=== PATIENT | female | born 1950 | race Caucasian/White ===

== ENCOUNTER 2020-06-25 10:47 | Outpatient (REF) | payer MEDICARE, SELFPAY ==
[2020-06-25 14:25] LABS: MANUAL DIFF FLAG NO
[2020-06-25 14:33] LABS: Basophils Percent Auto 0.4 % (0-2); Eosinophils Absolute Auto 0.3 X10*3/uL (0.0-0.4); Eosinophils Percent Auto 3.4 % (0-4); Hematocrit 36.8 % (37-47); Hemoglobin 12.2 g/dl (12.0-16.0); Imm Gran Abs Auto 0.02 X10*3/uL (0.00-0.03); Imm Gran Pct Auto 0.2 % (0.0-0.4); Lymphocytes Absolute Auto 2.1 X10*3/uL (1.2-4.9); Lymphocytes Percent Auto 25.9 % (20-40); Mean Corpuscular HGB Conc 33.2 g/dl (31.0-35.0); Mean Corpuscular Hemoglobin 28.8 pg (27.0-33.0); Mean Platelet Volume 10.6 fL (9.4-12.3); Monocytes Absolute Auto 0.7 X10*3/uL (0.1-1.2); Neutrophils Percent Auto 62.1 % (45-73); Platelet Count 256 X10*3/uL (160-400); Red Blood Count 4.23 X10*6/uL (4.20-5.50); Red Cell Distribution Width 12.9 % (11.0-16.0); White Blood Count 8.1 X10*3/uL (4.8-10.8)
[2020-06-25 14:40] LABS: Estimated Average Glucose 183 mg/dL
[2020-06-25 14:52] LABS: Anion Gap 12 (12-20); Blood Urea Nitrogen 25 mg/dL (9-16); Calcium 9.3 mg/dL (8.4-10.2); Carbon Dioxide 26 mmol/L (22-29); Chloride 104 mmol/L (96-108); Cholesterol 386 mg/dL; Estimated Glomerular Filt Rate 53; Glucose Fasting 173 mg/dL (60-99); HDL Cholesterol 39 mg/dL; Potassium 5.3 mmol/l (3.3-5.1); Sodium 137 mmol/L (135-145); Triglycerides 608 mg/dL
[2020-06-25 15:15] LABS: TSH reflex Free T4 2.53 mIU/mL (0.32-4.0)
== END 2020-06-25 10:48 | disposition home or self-care (01) ==
LOC: HO.HMGCLDS 10:47
PROVIDERS: PCP Internal Medicine; Visit Provider Internal Medicine
DX: E03.9 Hypothyroidism, unspecified (principal); E13.9 Other specified diabetes mellitus without complications; E78.9 Disorder of lipoprotein metabolism, unspecified; F33.9 Major depressive disorder, recurrent, unspecified; K21.9 Gastro-esophageal reflux disease without esophagitis; K59.01 Slow transit constipation; I10 Essential (primary) hypertension; Z91.02 Food additives allergy status; Z91.09 Other allergy status, other than to drugs and biological substances
CPT/HCPCS: 36415; 80048; 80061; 83036; 84443; 85025

== ENCOUNTER 2020-07-02 12:34 | Outpatient (REF) | payer MEDICARE, SELFPAY ==
[2020-07-02 15:07] LABS: Creatinine Urine 93.74 mg/dL; Microalbum/Creatinine Ratio Ur 7.4 ug/mg cr
== END 2020-07-02 12:35 | disposition home or self-care (01) ==
LOC: HO.HMGCLNP 12:34
PROVIDERS: PCP Internal Medicine; Visit Provider Internal Medicine
DX: K21.9 Gastro-esophageal reflux disease without esophagitis (principal); E03.9 Hypothyroidism, unspecified; E13.9 Other specified diabetes mellitus without complications; E78.9 Disorder of lipoprotein metabolism, unspecified; F33.9 Major depressive disorder, recurrent, unspecified; I10 Essential (primary) hypertension; K59.01 Slow transit constipation; Z91.09 Other allergy status, other than to drugs and biological substances
CPT/HCPCS: 82043; 87338

== ENCOUNTER 2020-09-25 09:41 | Outpatient (REF) | payer MEDICARE, SELFPAY ==
[2020-09-25 12:22] LABS: Hematocrit 38.4 % (37-47); Hemoglobin 12.8 g/dl (12.0-16.0)
[2020-09-25 12:29] LABS: Alanine Aminotransferase 12 U/L (0-31); Albumin Level 4.3 g/dL (3.5-5.0); Alkaline Phosphatase 68 U/L (39-117); Anion Gap 16 (12-20); Aspartate Amino Transferase 15 U/L (5-31); Bilirubin Direct 0.2 mg/dL (0.0-0.5); Bilirubin Total 0.5 mg/dL (0.0-1.0); Blood Urea Nitrogen 17 mg/dL (9-16); Calcium 8.9 mg/dL (8.4-10.2); Carbon Dioxide 25 mmol/L (22-29); Chloride 106 mmol/L (96-108); Estimated Glomerular Filt Rate 59; Glucose Random 167 mg/dL (60-115); Potassium 5.1 mmol/l (3.3-5.1); Sodium 142 mmol/L (135-145); TSH reflex Free T4 5.04 mIU/mL (0.32-4.0); Total Protein 7.4 g/dL (6.5-8.0)
[2020-09-25 12:38] LABS: Estimated Average Glucose 148 mg/dL; Hemoglobin A1c % 6.8 %
[2020-09-25 13:34] LABS: Creatinine Urine 200.57 mg/dL; Microalbum/Creatinine Ratio Ur 17.9 ug/mg cr
[2020-09-25 14:13] LABS: Free T4 (Free Thyroxine) 0.96 ng/dL (0.71-1.85)
[2020-09-29 12:47] LABS: Vitamin D 25-OH, D2 <4 ng/mL; Vitamin D 25-OH, D3 19 ng/mL; Vitamin D 25-OH, Total 19 ng/mL (30-100)
== END 2020-09-25 09:42 | disposition home or self-care (01) ==
LOC: HO.HMGCLDS 09:41
PROVIDERS: PCP Internal Medicine; Visit Provider Internal Medicine
DX: I10 Essential (primary) hypertension (principal); E13.9 Other specified diabetes mellitus without complications; E78.9 Disorder of lipoprotein metabolism, unspecified; F33.9 Major depressive disorder, recurrent, unspecified; E03.9 Hypothyroidism, unspecified
CPT/HCPCS: 36415; 80048; 80076; 82043; 82306; 83036; 84439; 84443; 85014; 85018

== ENCOUNTER 2020-10-14 | Outpatient (REF) | payer MEDICARE, SELFPAY | END 2020-10-14 00:01 | disposition home or self-care (01) | LOC: HO.VC | PROVIDERS: Visit Provider Internal Medicine | DX: Z23 Encounter for immunization (principal) | CPT/HCPCS: 0011A ==

== ENCOUNTER 2020-11-11 | Outpatient (REF) | payer MEDICARE, SELFPAY | END 2020-11-11 00:01 | disposition home or self-care (01) | LOC: HO.VC | PROVIDERS: Visit Provider Internal Medicine | DX: Z23 Encounter for immunization (principal) | CPT/HCPCS: 0012A ==

== ENCOUNTER → 2020-11-16 10:33 | Outpatient (REF) | payer MEDICARE, SELFPAY | LOC: HO.CARD 10:33 | PROVIDERS: Visit Provider Internal Medicine Cardiovascular Disease | DX: Z13.89 Encounter for screening for other disorder (principal) ==

== ENCOUNTER 2020-11-18 14:43 | Outpatient (REF) | payer MEDICARE, SELFPAY ==
[2020-11-18 16:55] LABS: Hematocrit 34.5 % (37-47); Hemoglobin 11.5 g/dl (12.0-16.0); Mean Corpuscular HGB Conc 33.3 g/dl (31.0-35.0); Mean Corpuscular Hemoglobin 28.5 pg (27.0-33.0); Mean Corpuscular Volume 85.6 fL (80-98); Mean Platelet Volume 10.1 fL (9.4-12.3); Platelet Count 297 X10*3/uL (160-400); Red Blood Count 4.03 X10*6/uL (4.20-5.50); Red Cell Distribution Width 12.5 % (11.0-16.0); White Blood Count 9.5 X10*3/uL (4.8-10.8)
[2020-11-18 17:01] LABS: INTERNATIONAL NORM RATIO 1.1 (0.9-1.1); Prothrombin Time 12.9 SEC (10.8-13.0)
[2020-11-18 17:20] LABS: Anion Gap 13 (12-20); Blood Urea Nitrogen 20 mg/dL (9-16); Calcium 9.2 mg/dL (8.4-10.2); Carbon Dioxide 26 mmol/L (22-29); Chloride 103 mmol/L (96-108); Estimated Glomerular Filt Rate 48; Glucose Random 124 mg/dL (60-115); Potassium 5.2 mmol/L (3.3-5.1); Sodium 137 mmol/L (135-145)
== END 2020-11-18 14:44 | disposition home or self-care (01) ==
LOC: HO.LAB 14:43
PROVIDERS: PCP Internal Medicine; Visit Provider Internal Medicine Cardiovascular Disease
DX: I25.110 Atherosclerotic heart disease of native coronary artery with unstable angina pectoris (principal); I10 Essential (primary) hypertension; Z95.1 Presence of aortocoronary bypass graft
CPT/HCPCS: 36415; 80048; 85027; 85610; 93005; 99202

== ENCOUNTER → 2020-12-10 13:04 | Outpatient (BNVA) | payer MEDICARE, SELFPAY | PROVIDERS: PCP Internal Medicine; Visit Provider Internal Medicine Cardiovascular Disease | DX: Z13.89 Encounter for screening for other disorder (principal) | CPT/HCPCS: 99212 ==

== ENCOUNTER 2020-12-23 14:50 | Outpatient (REF) | payer MEDICARE, SELFPAY ==
[2020-12-23 16:57] LABS: Anion Gap 14 (12-20); Carbon Dioxide 26 mmol/L (22-29); Chloride 103 mmol/L (96-108); Cholesterol 158 mg/dL; HDL Cholesterol 54 mg/dL; LDL Cholesterol Calculated 59 mg/dl; Potassium 5.1 mmol/L (3.3-5.1); Sodium 138 mmol/L (135-145); Triglycerides 227 mg/dL
[2020-12-23 17:17] LABS: TSH reflex Free T4 0.08 uIU/mL (0.32-4.0)
[2020-12-23 18:17] LABS: Free T4 (Free Thyroxine) 1.46 ng/dL (0.71-1.85)
== END 2020-12-23 14:51 | disposition home or self-care (01) ==
LOC: HO.HMGCLDS 14:50
PROVIDERS: Nurse Practitioner Family; PCP Internal Medicine; Visit Provider Internal Medicine
DX: I25.10 Atherosclerotic heart disease of native coronary artery without angina pectoris (principal); E03.9 Hypothyroidism, unspecified; E87.5 Hyperkalemia
CPT/HCPCS: 36415; 80051; 80061; 84439; 84443

== ENCOUNTER → 2021-02-01 11:01 | Outpatient (BNVA) | payer MEDICARE, SELFPAY | PROVIDERS: PCP Internal Medicine; Referring Provider Internal Medicine; Visit Provider Internal Medicine Cardiovascular Disease | DX: I20.8 Other forms of angina pectoris (principal) | CPT/HCPCS: 99212 ==

== ENCOUNTER 2021-02-10 14:00 | Outpatient (RCR) | payer MEDICARE, SELFPAY ==
--- NOTE | 2020-12-25 16:27 | MHC.PT.EP ---
[facility] [place] Office [place] Office [place] Office [address] [phone] F: [phone] F: [phone] F: [phone] F: [phone] Physical Therapy Plan of Care Date of Evaluation: 12/25/20 Date of Surgery: Diagnosis: UNSTEADINESS ON FEET Assessment: 70 YO FEMALE REF TO PT TO ADDRESS UNSTEADINESS AND GEN WEAKNESS- SHE HAS A H/O CARDIAC QUAD BYPASS, CAD, AND RECENT ANGINA- DECR ACTIVITY W COVID RESTRICTIONS- RECENT , HER SONS ARE RESIDING W HER AND ASSIST W PHYS ADLs. Pt HAS DECR POSTURE AWARENESS, (+) PELVIC ASYMM W LLI INFLUENCING BALANCE, WEAKNESS IN LEs, AND ARTHRITIC Jt PAIN. FUNCTIONALLY, Pt HAS DIFFIC MANAGING STAIRS, AMB DISTANCES > 400' W/O RESTS, AND GENERAL ADLs- SHE JAMIY LIES AROUND ALOT- Pt IS GOOD PT CANDIDATE TO ADDRESS ABOVE FINDINGS AND ADDRESS Pt'S FUNCTIONAL INDEPENDENCE. Frequency and Duration: The patient will be seen 2x WK x 5 WKS Short Term Goals: Pt DEMON IMPROVED PELVIC SYMM AND DECR PAIN TO 2-3/10 W INITIAL HEP IN 2 WKS Pt INCR HIP FLEXIB LOLA IN 2 WKS Mcc Goals: Pt DEMON IMPROVED GAIT MECH LEVEL AND STAIRS EVIDENT W IMPROVED DG1 BY AT LEAST 5 POINTS (15 DGI) IN 5 WKS Pt INDEP W HEP ADDRESSING STRENGTH AND MOBILITY IN 5 WKS Treatment Plan: Modalities to reduce pain, spasms and effusion. Manual therapy to restore motion and function. Therapeutic exercise to improve strength and flexibility. Neuromuscular re-education for posture and balance. Therapeutic activities to return to functional activities of daily living. Electronically signed by: Valentine Fitzgerald,PT Please sign and return to therapist. Thank you for your referral.
--- NOTE | 2021-02-11 07:10 | MHC.PT.DC ---
[facility] [place] Office [place] Office [place] Office [address]andy Aburto [address] [phone] F: [phone] F: [phone] F: [phone] F: [phone] Physical Therapy Discharge Report Diagnosis: UNSTEADINESS ON FEET Date of Surgery: Date of Evaluation: 12/25/20 Date of Discharge: 02/10/21 Treatments to Date: 11 Cancellations to Date: 0 No Shows to Date: 0 Discharge Status: Achieved Goals Improved Function Independent with HEP Discharge Summary: Pt HAS PROGRESSED WELL IN PT, ADDRESSING OVERALL STRENGTH, BALANCE, ACTIVITY JOSE , AND FUNCT MOB. 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 INDEP W HEP- AND SHE HAS MET HER PT GOALS AT THIS TIME, EVIDENT W IMPROVED LEFT BY 26 POINTS. Electronically signed by: Valentine Fitzgerald,PT Please sign and return to therapist. Thank you for your referral.
== END 2021-02-11 07:11 | disposition other institution (70) ==
LOC: HO.PTCHIC 14:00
PROVIDERS: PCP Internal Medicine; Visit Provider Internal Medicine
DX: R26.81 Unsteadiness on feet (principal)
CPT/HCPCS: 97110; 97112; 97162

== ENCOUNTER → 2021-05-24 14:01 | Outpatient (BNVA) | payer MEDICARE, SELFPAY | PROVIDERS: PCP Internal Medicine; Referring Provider Internal Medicine; Visit Provider Internal Medicine Cardiovascular Disease | DX: I20.8 Other forms of angina pectoris (principal) | CPT/HCPCS: 99212 ==

== ENCOUNTER 2021-06-24 09:36 | Outpatient (REF) | payer MEDICARE, SELFPAY ==
[2021-06-24 11:29] LABS: MANUAL DIFF FLAG NO
[2021-06-24 11:42] LABS: Basophils Percent Auto 0.4 % (0-2); Eosinophils Absolute Auto 0.2 X10*3/uL (0.0-0.4); Eosinophils Percent Auto 2.8 % (0-4); Hematocrit 34.6 % (37-47); Hemoglobin 11.6 g/dl (12.0-16.0); Imm Gran Abs Auto 0.02 X10*3/uL (0.00-0.03); Imm Gran Pct Auto 0.3 % (0.0-0.4); Lymphocytes Absolute Auto 2.3 X10*3/uL (1.2-4.9); Lymphocytes Percent Auto 33.1 % (20-40); Mean Corpuscular HGB Conc 33.5 g/dl (31.0-35.0); Mean Corpuscular Hemoglobin 29.2 pg (27.0-33.0); Mean Corpuscular Volume 87.2 fL (80-98); Mean Platelet Volume 11.2 fL (9.4-12.3); Monocytes Absolute Auto 0.5 X10*3/uL (0.1-1.2); Monocytes Percent Auto 6.6 % (2-11); Neutrophils Percent Auto 56.8 % (45-73); Platelet Count 240 X10*3/uL (160-400); Red Blood Count 3.97 X10*6/uL (4.20-5.50); Red Cell Distribution Width 13.1 % (11.0-16.0); White Blood Count 7.1 X10*3/uL (4.8-10.8)
[2021-06-24 11:48] LABS: Alanine Aminotransferase 9 U/L (0-31); Alkaline Phosphatase 63 U/L (39-117); Anion Gap 14 (12-20); Aspartate Amino Transferase 14 U/L (5-31); Bilirubin Total 0.3 mg/dL (0.0-1.0); Blood Urea Nitrogen 19 mg/dL (9-16); Calcium 9.6 mg/dL (8.4-10.2); Carbon Dioxide 24 mmol/L (22-29); Chloride 107 mmol/L (96-108); Estimated Glomerular Filt Rate 54; Glucose Random 143 mg/dL (60-115); Potassium 5.4 mmol/L (3.3-5.1); Sodium 140 mmol/L (135-145); Total Protein 6.8 g/dL (6.5-8.0)
[2021-06-24 11:53] LABS: Estimated Average Glucose 134 mg/dL; Hemoglobin A1c % 6.3 %
[2021-06-24 12:11] LABS: TSH reflex Free T4 1.11 uIU/mL (0.32-4.0)
[2021-06-24 12:16] LABS: Creatinine Urine 118.99 mg/dL; Microalbum/Creatinine Ratio Ur 22.6 ug/mg cr
[2021-06-25 06:01] LABS: LDL Cholesterol Direct 66 mg/dL (<100)
== END 2021-06-24 09:37 | disposition home or self-care (01) ==
LOC: HO.HMGCLDS 09:36
PROVIDERS: PCP Internal Medicine; Visit Provider Internal Medicine
DX: I10 Essential (primary) hypertension (principal); E78.9 Disorder of lipoprotein metabolism, unspecified; E13.9 Other specified diabetes mellitus without complications; F33.9 Major depressive disorder, recurrent, unspecified; E03.9 Hypothyroidism, unspecified; K21.9 Gastro-esophageal reflux disease without esophagitis; E87.5 Hyperkalemia; Z91.09 Other allergy status, other than to drugs and biological substances
CPT/HCPCS: 36415; 80053; 82043; 83036; 83721; 84443; 85025

== ENCOUNTER 2021-06-28 08:33 | Outpatient (REF) | payer MEDICARE, SELFPAY ==
[2021-06-28 12:06] LABS: Anion Gap 12 (12-20); Carbon Dioxide 25 mmol/L (22-29); Chloride 109 mmol/L (96-108); Potassium 5.2 mmol/L (3.3-5.1); Sodium 141 mmol/L (135-145)
== END 2021-06-28 08:34 | disposition home or self-care (01) ==
LOC: HO.HMGCLDS 08:33
PROVIDERS: PCP Internal Medicine; Visit Provider Internal Medicine
DX: E87.5 Hyperkalemia (principal)
CPT/HCPCS: 36415; 80051

== ENCOUNTER 2021-06-28 10:22 | Day surgery (SDC) | payer MEDICARE, SELFPAY ==
--- NOTE | 2021-06-23 13:27 | MHC.SHP ---
Pre-Procedural Eval Section A Date of Service: 06/23/21 The patient is an INPATIENT: No Changes since office visit: No Cold of Flu in the past 2 weeks, No New Medical Problems, No Changes in Medication and No Patient answered all questions The History & Physical has been completed within 30 days and I have reviewed it.: Yes Section B Chief Complaint: cataract left eye Allergies: Allergies Allergy/AdvReac Type Severity Reaction Status Date / Time codeine [Codeine] Allergy Intermediate VOMITING Verified 05/24/21 14:03 aspirin [Aspirin] AdvReac Mild DIZZINESS Verified 05/24/21 14:03 Plan Diagnosis/Plan: Unchanged I have reviewed the history and physical and performed a pertinent physical examination on my patient. No changes have occurred unless specified.
[2021-06-24 08:14] VITALS: BMI 26.2
--- NOTE | 2021-06-25 10:45 | P.CONAN_ITS ---
Documented by User: Brianna Willoughby NP 06/25/21 10:49 HPI - Anesthesia Eval Consult details Narrative: 70yo F for Left Cataract Extraction IOL Insertion PCP cleared No previous cataract on record Stable at routine cardiology office visit 05/2021 [facility] Active Problems Active Problems: All Active Problems (Updated 06/25/21 @ 07:56 by Tierra Grace MD) Hyperkalemia (Acute) Pre-op evaluation (Acute) Unstable angina (Acute) Coronary artery disease (Acute) Chest discomfort (Acute) Unsteady gait (Acute) Serum potassium elevated (Acute) Stable angina (Acute) History of four vessel coronary artery bypass graft (Acute) S/P cardiac cath (Acute) Diverticulosis (Acute) Allergy to food dye (Acute) Hypertension, essential (Acute) Constipation by delayed colonic transit (Acute) Lipid disorder (Acute) Diabetes 1.5, managed as type 2 (Acute) Depression, major, recurrent (Acute) Chronic GERD (Acute) Hypothyroidism (Acute) Environmental allergies (Acute) Past Medical History Medical History Allergy to food dye Arthritis CAD (coronary artery disease) Chronic GERD Constipation by delayed colonic transit Depression, major, 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 Mother No problems noted. Surgical History Surgical History History of bilateral tubal ligation History of colonoscopy History of four vessel coronary artery bypass graft History of hysteroscopy History of right cataract extraction Hx of cholecystectomy S/P cardiac cath Social History Social History Are you a primary home care associate to a significant other at home: No Do you presently have visiting nurse or other home services: No Alcohol intake: never Patient Tobacco Use Status: Never used Tobacco Use of substances other than those prescribed or required for medical reasons: No Are you DNR?: No Advance Directives: No Advance Directives Information Provided: No Advance Directives on File: No Current occupational status: disabled Meds Allergies Allergy/AdvReac Type Severity Reaction Status Date / Time codeine [Codeine] Allergy Intermediate VOMITING Verified 06/28/21 11:28 aspirin [Aspirin] AdvReac Mild DIZZINESS Verified 06/28/21 11:28 Home Medications Medication Instructions Recorded Confirmed Last Taken Type aspirin 81 mg tablet,delayed 81 mg PO DAILY 06/24/20 06/23/21 06/27/21 11:30 History release nitroglycerin 0.4 mg sublingual 0.4 mg SUBLINGUAL DIRECTED PRN 11/18/20 06/23/21 Unknown History tablet rosuvastatin 20 mg tablet 20 mg PO BEDTIME 11/18/20 06/23/21 Unknown History estradiol 1 g VAGINAL 2XW 12/23/20 06/23/21 Unknown History levothyroxine 75 mcg capsule 75 mcg PO DAILY 02/01/21 06/23/21 Unknown History Exam Exam Date and Time: June 25, 2021 1045 Height,Weight and Vital Signs: Height 5 ft 3 in Weight 67.132 kg Pertinent Lab Results Pertinent Lab Results: Laboratory Tests 06/24/21 06/24/21 09:46 09:46 WBC 7.1 Hgb 11.6 L Hct 34.6 L Plt Count 240 Sodium 140 Potassium 5.4 H Chloride 107 Carbon Dioxide 24 BUN 19 H Creatinine 1.01 Narrative Narrative: Cardiac cath 11/2020 LM 40%, PAD 100%, LCx 70%, RCA 100%, Graphs to OM1, OM2, RV marginal and CURRY to LAD all patent. 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 Mother No problems noted. Family history of problems with anesthesia: No Surgical History Surgical History History of bilateral tubal ligation History of colonoscopy History of four vessel coronary artery bypass graft History of hysteroscopy History of right cataract extraction Hx of cholecystectomy S/P cardiac cath History of Problems with Anesthesia: No Social History Social History Are you a primary home care associate to a significant other at home: No Do you presently have visiting nurse or other home services: No Alcohol intake: never Patient Tobacco Use Status: Never used Tobacco Use of substances other than those prescribed or required for medical reasons: No Are you DNR?: No Advance Directives: No Advance Directives Information Provided: No Advance Directives on File: No Current occupational status: disabled Meds Allergies Allergy/AdvReac Type Severity Reaction Status Date / Time codeine [Codeine] Allergy Intermediate VOMITING Verified 06/28/21 11:28 aspirin [Aspirin] AdvReac Mild DIZZINESS Verified 06/28/21 11:28 Home Medications Medication Instructions Recorded Confirmed Last Taken Type aspirin 81 mg tablet,delayed 81 mg PO DAILY 06/24/20 06/23/21 06/27/21 11:30 H istory release nitroglycerin 0.4 mg sublingual 0.4 mg SUBLINGUAL DIRECTED PRN 11/18/20 06/23/21 Unknown History tablet rosuvastatin 20 mg tablet 20 mg PO BEDTIME 11/18/20 06/23/21 Unknown History estradiol 1 g VAGINAL 2XW 12/23/20 06/23/21 Unknown History levothyroxine 75 mcg capsule 75 mcg PO DAILY 02/01/21 06/23/21 Unknown History Exam Airway Mallampati Class: II TM Dist: >3cm Neck ROM: Full Loose/Missing/Broken Teeth: No Heart: [id number] Lungs: cta b/l Assessment and Plan Assessment Anesthesia Assessment: Anesthesia Plan Discussed Final Anesthetic Review Family History of Problems with Anesthesia: No History of Problems with Anesthesia: No NPO: Yes ASA Class: III Final Preanesthetic Review: No Changes in Pt Med Stat, Meds/Allgs Chart Reviewed, Consent Obtained/Reviewed and Anes Risks/Benef Reviewed Patient Risk: Intermediate Procedure Risk: Low Assessment/Block/Sedation in SS: Assess/Block/Sedation-SS Anesthetic Plan Anesthetic Plan: MAC: and Agree w/ Assess. and Plan Disposition: Standard PACU
[2021-06-28 11:42] VITALS: BP 127/67; PULSE 64; RESP 18; TEMP 36.5; O2SAT 98
[2021-06-28 11:45] LABS: Glucose, Whole Blood 129 mg/dL (60-115)
[2021-06-28] MEDS: Lactated Ringers 500 ML 50 ML IV (11:52)
[2021-06-28] MEDS: Tetracaine HCl/PF 0.5% Oph Sol 4 ML DROPS 1 DROP EYE-LEFT (11:55)
[2021-06-28] MEDS: Tropicamide 1 % Ophth Sol 3 ML BTL 1 DROP EYE-LEFT ×3 (11:56→12:04)
[2021-06-28] MEDS: Phenylephrine HCL 2.5% Oph SoL 2 ML BOTTLE 1 DROP EYE-LEFT ×3 (11:59→12:06)
--- NOTE | 2021-06-28 12:28 | HO.PNOPHT ---
Ophthalmology Procedure Procedure Date of Service: 06/28/21 Ophthalmology Viscoelastic: Healon Duet Dual Pack Pro Ophthalmology Lenses: TECJHONNY [id number] (23) Procedure Notes: PREOPERATIVE DIAGNOSIS: Decreased visual acuity left eye secondary to cataract POSTOPERATIVE DIAGNOSIS: Same PROCEDURE: Left cataract extraction with intraocular lens insertion SURGEON: John Linda M.D. ANESTHESIA: Topical/MAC ESTIMATED BLOOD LOSS: None COMPLICATIONS: None After obtaining informed consent, the patient was brought to the operation room suite and placed in the supine position. After adequate sedation per anesthesia, topical drops of Tetracaine were given to the left eye. The eye was then prepped and draped in the usual sterile fashion. The operating room microscope was then positioned over the operative eye and a lid speculum placed. A paracentesis was created. Viscoelastic was then instilled into the anterior chamber. A three plane incision was then created temporally, utilizing a 2.85 mm keratome. Capsulotomy forceps were then utilized to create a circular tear capsulotomy. Hydrodissection and hydrodelineation were carried out until adequate mobilization of the nucleus occurred. Phacoemulsification was then utilized to remove the dense central nucleus followed by removal of the cortical material utilizing the automated aspiration irrigation unit. Viscoat elastic was instilled into the posterior capsular bag followed by placement of a posterior chamber intraocular lens without difficulty. The residual Viscoat elastic was then removed utilizing the automated IA machine. The wound was check and found to be watertight. The patient tolerated the procedure well and the lid speculum was removed. Intracameral injection of Vigamox 0.1 mL followed by a subtenon injection of Kenalog-40 0.2 mL were administered. The patient will be seen in the a.m.
[2021-06-28 12:53] VITALS: BP 140/66; PULSE 65; RESP 16; TEMP 37.2; O2SAT 99
== END 2021-06-28 13:06 ==
LOC: HO.SSS 10:22
PROVIDERS: PCP Internal Medicine; Visit Provider Ophthalmology
PROC: (CPT 66985; principal; 2021-06-28 12:30)
DX: H25.12 Age-related nuclear cataract, left eye (principal); H35.032 Hypertensive retinopathy, left eye; H54.7 Unspecified visual loss; I10 Essential (primary) hypertension; I20.8 Other forms of angina pectoris; E78.9 Disorder of lipoprotein metabolism, unspecified; E03.9 Hypothyroidism, unspecified; K21.9 Gastro-esophageal reflux disease without esophagitis; E13.9 Other specified diabetes mellitus without complications; F33.9 Major depressive disorder, recurrent, unspecified; Z79.84 Long term (current) use of oral hypoglycemic drugs; Z79.82 Long term (current) use of aspirin; Z79.51 Long term (current) use of inhaled steroids; Z79.899 Other long term (current) drug therapy; Z91.09 Other allergy status, other than to drugs and biological substances; Z88.8 Allergy status to other drugs, medicaments and biological substances
CPT/HCPCS: 66984; 82947; J2250; J3010; J3300; V2632

== ENCOUNTER → 2021-08-30 14:00 | Outpatient (BNVA) | payer MEDICARE, SELFPAY | PROVIDERS: PCP Internal Medicine; Referring Provider Internal Medicine; Visit Provider Internal Medicine Cardiovascular Disease | DX: I20.8 Other forms of angina pectoris (principal) | CPT/HCPCS: 93005; 99212 ==

== ENCOUNTER 2021-10-22 12:08 | Outpatient (REF) | payer MEDICARE, SELFPAY ==
[2021-10-22 14:21] LABS: Estimated Average Glucose 143 mg/dL; Hemoglobin A1C 151.8894 umol/L; Hemoglobin A1c % 6.6 %
[2021-10-22 14:28] LABS: Alanine Aminotransferase 10 U/L (0-31); Albumin Level 4.1 g/dL (3.5-5.0); Alkaline Phosphatase 66 U/L (39-117); Anion Gap 11 (12-20); Aspartate Amino Transferase 16 U/L (5-31); Bilirubin Total 0.4 mg/dL (0.0-1.0); Blood Urea Nitrogen 23 mg/dL (9-16); Calcium 9.6 mg/dL (8.4-10.2); Carbon Dioxide 27 mmol/L (22-29); Chloride 105 mmol/L (96-108); Estimated Glomerular Filt Rate 43; Glucose Random 139 mg/dL (60-115); Potassium 5.5 mmol/L (3.3-5.1); Sodium 137 mmol/L (135-145)
[2021-10-22 14:38] LABS: Creatinine Urine 114.79 mg/dL
[2021-10-22 14:50] LABS: TSH reflex Free T4 0.43 uIU/mL (0.32-4.0)
[2021-10-24 08:32] LABS: LDL Cholesterol Direct 63 mg/dL (<100)
== END 2021-10-22 12:09 | disposition home or self-care (01) ==
LOC: HO.HMGCLDS 12:08
PROVIDERS: Visit Provider Internal Medicine
DX: E87.5 Hyperkalemia (principal); I10 Essential (primary) hypertension; E78.9 Disorder of lipoprotein metabolism, unspecified; E13.9 Other specified diabetes mellitus without complications; F33.9 Major depressive disorder, recurrent, unspecified; K21.9 Gastro-esophageal reflux disease without esophagitis
CPT/HCPCS: 36415; 80053; 82043; 83036; 83721; 84443

== ENCOUNTER 2021-10-25 09:53 | Outpatient (REF) | payer MEDICARE, SELFPAY ==
[2021-10-25 12:34] LABS: Anion Gap 11 (12-20); Blood Urea Nitrogen 16 mg/dL (9-16); Carbon Dioxide 28 mmol/L (22-29); Chloride 106 mmol/L (96-108); Estimated Glomerular Filt Rate 47; Potassium 5.1 mmol/L (3.3-5.1); Sodium 140 mmol/L (135-145)
== END 2021-10-25 09:54 | disposition home or self-care (01) ==
LOC: HO.HMGCLDS 09:53
PROVIDERS: PCP Internal Medicine; Visit Provider Internal Medicine
DX: E87.5 Hyperkalemia (principal)
CPT/HCPCS: 36415; 80051; 82565; 84520

== ENCOUNTER 2021-12-13 17:05 | Emergency (ER) | payer MEDICARE, SELFPAY ==
--- NOTE | ~2021-12-13 | CT_ITS ---
EXAMINATION: CT ABDOMEN AND PELVIS WITHOUT CONTRAST CLINICAL INFORMATION: Left-sided flank pain COMPARISON: CT abdomen pelvis 04/11/2017 TECHNIQUE: Multidetector volumetric imaging was performed from the superior aspect of the liver through the pubic symphysis. Sagittal and coronal reformatted images were obtained on the technologist's workstation. This CT examination was performed using dose optimization techniques as appropriate, variously including the following: *Automated exposure control *Adjustment of mA and/or kV according to patient size (this includes techniques or standardized protocols for targeted exams where dose is matched to indication/reason for exam; i.e. extremities or head) *Use of iterative reconstruction technique DLP: 556 mGy-cm FINDINGS: LUNG BASES: Extensive coronary calcifications are present. Patient status post median sternotomy. There is a 2 mm nodule present along the major fissure in the left lower lobe. LIVER, GALLBLADDER, AND BILIARY TREE: The liver is normal in size, shape, and attenuation. No focal hepatic lesion or biliary ductal dilatation is present. Status post cholecystectomy PANCREAS: Unremarkable. SPLEEN: Unremarkable. ADRENAL GLANDS: Unremarkable. KIDNEYS AND URETERS: The kidneys are normal in size, shape, and attenuation. Extensive calcifications are present in both kidneys however appearances are more suggestive of vascular calcifications rather than nephrolithiasis. Nephrolithiasis cannot be entirely excluded however there is no hydronephrosis, hydroureter, or ureteral calculi seen. No perinephric stranding. BLADDER: Unremarkable. GASTROINTESTINAL TRACT: The small and large bowel are unremarkable. The appendix is unremarkable. ABDOMINAL WALL: No significant hernia is appreciated. LYMPH NODES: No retroperitoneal lymphadenopathy. VASCULAR: Marked calcific atherosclerotic changes present in the aorta and iliofemoral vessels and aortic branches. No aneurysms PELVIC VISCERA: Unremarkable. OSSEOUS STRUCTURES: Degenerative changes are noted in the lower thoracic spine. Some mild wedging of lower thoracic and upper lumbar vertebral bodies. No bony destructive lesions. CT/CT abdomen pelvis wo con IMPRESSION: 1. An etiology for the patient's left-sided flank pain is not found. 2. Extensive renal vascular calcifications are seen but there is no convincing evidence of nephrolithiasis and certainly no hydronephrosis. 3. Other incidental findings described above. Fleischner guidelines were followed.
[2021-12-13 17:40] VITALS: BP 149/66; PULSE 78; RESP 17; TEMP 37.2; O2SAT 95; BMI 27.1
--- NOTE | 2021-12-13 17:49 | ED.FEMALEGU ---
HPI - Female Genitourinary General Chief complaint: Urogenital-Female <Katlyn Mortensen NP - Last Filed: 12/13/21 18:52> Stated complaint: left abd pain <Katlyn Mortensen NP - Last Filed: 12/13/21 18:52> Time Seen by Provider: 12/13/21 17:36 <Katlyn Mortensen NP - Last Filed: 12/13/21 18:52> Source: patient and family <Katlyn Mortensen NP - Last Filed: 12/13/21 18:52> Mode of arrival: ambulatory <Katlyn Mortensen NP - Last Filed: 12/13/21 18:52> Limitations: no limitations <Katlyn Mortensen NP - Last Filed: 12/13/21 18:52> History of Present Illness HPI Narrative: 71 yo female with history of GERD, depression, DM, HTN, hypothyroidism, HLD, CAD, h/o UTIs here with complaints of left-sided flank pain with radiation to the left side of the abdomen began at 01:00 o'clock this afternoon with nausea and vomiting. No fevers, chills, diarrhea, constipation. Patient does feel like she may have a urinary tract infection. <Katlyn Mortensen NP - Last Filed: 12/13/21 18:52> Related Data Home medications: Home Medications Medication Instructions Recorded Confirmed aspirin 81 mg tablet,delayed 81 mg PO DAILY 06/24/20 10/22/21 release nitroglycerin 0.4 mg sublingual 0.4 mg SUBLINGUAL DIRECTED PRN 11/18/20 10/22/21 tablet estradiol 1 g VAGINAL 2XW 12/23/20 10/22/21 levothyroxine 75 mcg capsule 75 mcg PO DAILY 02/01/21 10/22/21 Previous Rx's Medication Instructions Recorded alcohol swabs 1 pad TOPICAL DAILY #100 ea 11/18/20 blood sugar diagnostic (OneTouch #50 ea 11/18/20 Ultra Blue Test Strip) blood-glucose meter (OneTouch #1 ea 11/18/20 Ultra2 Meter) lancets (OneTouch UltraSoft #100 ea 11/18/20 Lancets) fluticasone propionate 50 1 spray INTRANASAL DAILY 30 Days 12/23/20 mcg/actuation nasal #16 g spray,suspension (Flonase Allergy Relief) loratadine 10 mg tablet 10 mg PO DAILY 90 Days #90 tab 12/23/20 pantoprazole 40 mg tablet,delayed 40 mg PO DAILY 90 Days #90 tab 02/15/21 release metoprolol tartrate 25 mg tablet 12.5 mg PO BID 90 Days #90 tab 09/13/21 metformin 1,000 mg tablet 1,000 mg PO BID 90 Days #180 tab 10/19/21 sitagliptin 50 mg tablet (Januvia) 50 mg PO DAILY 90 Days #90 tab 10/19/21 rosuvastatin 20 mg tablet 20 mg PO BEDTIME 90 Days #90 tab 12/08/21 sertraline 100 mg tablet 100 mg PO DAILY 90 Days #90 tab 12/10/21 cefpodoxime 200 mg tablet 200 mg PO BID #20 tab 12/13/21 tramadol 50 mg tablet 50 mg PO Q6H PRN #20 tab 12/13/21 <Katlyn Mortensen NP - Last Filed: 12/13/21 18:52> Allergies/Adverse reactions: Allergies Allergy/AdvReac Type Severity Reaction Status Date / Time codeine [Codeine] Allergy Intermediate VOMITING Verified 10/22/21 11:43 aspirin [Aspirin] AdvReac Mild DIZZINESS Verified 10/22/21 11:43 <Katlyn Mortensen NP - Last Filed: 12/13/21 18:52> Review of Systems Review of Systems: Yes all other systems are reviewed and are negative <Katlyn Mortensen NP - Last Filed: 12/13/21 18:52> Constitutional: Constitutional: Reports no additional constitutional complaints, Denies body ache(s), Denies chills, Denies fever(s), Denies headache(s) and Denies weakness <Katlyn Mortensen NP - Last Filed: 12/13/21 18:52> Eyes: Eyes: Reports no additional eye complaints and Denies change in vision <Katlyn Mortensen NP - Last Filed: 12/13/21 18:52> ENT: Reports system reviewed and no additional complaints, except as documented, Denies dizziness, Denies headache(s), Denies nasal congestion, Denies nasal discharge and Denies neck pain <Katlyn Mortensen NP - Last Filed: 12/13/21 18:52> Cardiovascular: Cardiovascular: Reports no additional cardiovascular complaints, Denies chest pain, Denies leg edema and Denies dyspnea <Katlyn Mortensen NP - Last Filed: 12/13/21 18:52> Respiratory: Respiratory: Reports no additional respiratory complaints, Denies cough and Denies dyspnea <Katlyn Mortensen NP - Last Filed: 12/13/21 18:52> Gastrointestinal: Gastrointestinal: Reports no additional gastrointestinal complaints, Reports abdominal pain, Denies diarrhea, Reports nausea and Reports vomiting <Katlyn Mortensen NP - Last Filed: 12/13/21 18:52> Genitourinary: Genitourinary: Reports no additional female genitourinary complaints and Denies urinary incontinence <Katlyn Mortensen NP - Last Filed: 12/13/21 18:52> Musculoskeletal: Musculoskeletal: Reports no additional musculoskeletal complaints, Reports back pain, Denies arthralgias, Denies joint swelling, Denies neck pain, Denies numbness and Denies tingling <Katlyn Mortensen NP - Last Filed: 12/13/21 18:52> Integumentary/Breasts: Skin/Breast: Reports system reviewed and no additional complaints, except as docu and Denies rash <Katlyn Mortensen NP - Last Filed: 12/13/21 18:52> Neurologic: Reports system reviewed and no additional complaints, except as documented, Denies Abnormal speech present, Denies dizziness, Denies headache(s), Denies numbness, Denies tingling and Denies weakness <Katlyn Mortensen NP - Last Filed: 12/13/21 18:52> PMF Past Medical History Attestation statement: The following information was validated with the patient. 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 Mother No problems noted. <Katlyn Mortensen NP - Last Filed: 12/13/21 18:52> Social History Social History: Social History Are you a primary child care education coordinator to a significant other at home: No Do you presently have visiting nurse or other home services: No Alcohol intake: never Patient Tobacco Use Status: Never used Tobacco Advance Directives: No Advance Directives Information Provided: No Patient : No Current occupational status: disabled <Katlyn Mortensen NP - Last Filed: 12/13/21 18:52> Physical Exam Vital Signs: Vital Signs: Last Vital Signs Temp 99.0 F 12/13/21 17:40 Pulse 78 12/13/21 17:40 Resp 16 12/13/21 19:52 BP 124/57 L 12/13/21 19:52 Pulse Ox 95 12/13/21 17:40 BMI result Body Mass Index 27.1 <Katlyn Mortensen NP - Last Filed: 12/13/21 18:52> Vital Signs: Last Vital Signs Temp 99.0 F 12/13/21 17:40 Pulse 78 12/13/21 17:40 Resp 16 12/13/21 19:52 BP 124/57 L 12/13/21 19:52 Pulse Ox 95 12/13/21 17:40 BMI result Body Mass Index 27.1 <Jamal Mei MD - Last Filed: 12/13/21 21:33> Const: General: cooperative, healthy appearing, comfortable and no acute distress <Katlyn Mortensen NP - Last Filed: 12/13/21 18:52> Orientation/consciousness: patient oriented x3 <Katlyn Mortensen NP - Last Filed: 12/13/21 18:52> Limitations: no limitations <Katlyn Mortensen NP - Last Filed: 12/13/21 18:52> HEENT: Head: Yes normal to inspection <Katlyn Mortensen NP - Last Filed: 12/13/21 18:52> Ears: hearing grossly normal bilaterally <Katlyn Mortensen NP - Last Filed: 12/13/21 18:52> General nose exam: Normal external nose present <Katlyn Mortensen NP - Last Filed: 12/13/21 18:52> Face and sinus: Yes normal facial exam <Kaltyn Mortensen NP - Last Filed: 12/13/21 18:52> Mouth: Normal oral and palatal mucosa present <Katlyn Mortensen NP - Last Filed: 12/13/21 18:52> Throat: Yes posterior oropharynx normal <Katlyn Mortensen NP - Last Filed: 12/13/21 18:52> Eyes: General: appearance normal, both eyes and all related structures <Katlyn Mortensen NP - Last Filed: 12/13/21 18:52> Pupils: Equal, round and reactive pupils present <Katlyn Mortensen NP - Last Filed: 12/13/21 18:52> Neck: Neck: Yes normal visual inspection <Katlyn Mortensen NP - Last Filed: 12/13/21 18:52> Chest: Chest palpation & inspection: normal inspection of the chest <Katlyn Mortensen NP - Last Filed: 12/13/21 18:52> Resp: Effort & Inspection: normal respiratory effort <Katlyn Mortensen NP - Last Filed: 12/13/21 18:52> Auscultation: clear to auscultation bilaterally <Katlyn Mortensen NP - Last Filed: 12/13/21 18:52> Cardio: Rate: regular rate <Katlyn Mortensen NP - Last Filed: 12/13/21 18:52> Rhythm: regular rhythm <Katlyn Mortensen NP - Last Filed: 12/13/21 18:52> Peripheral pulses: Peripheral pulses 2+ throughout <Katlyn Mortensen NP - Last Filed: 12/13/21 18:52> GI: Inspection: Yes normal to inspection <Katlyn Mortensen NP - Last Filed: 12/13/21 18:52> Palpation (GI): Soft to palpation and Tenderness to palpation present (GI) (LUQ/LLQ-no rebound or guarding) <Katlyn Mortensen NP - Last Filed: 12/13/21 18:52> Auscultation: normal bowel sounds <Katlyn Mortensen NP - Last Filed: 12/13/21 18:52> : General: Yes CVA tenderness (Left) <Katlyn Mortensen NP - Last Filed: 12/13/21 18:52> Back/Spine/Pelvis: Back: CVA tenderness (Left) <Katlyn Mortensen NP - Last Filed: 12/13/21 18:52> Thoracic/Lumbar Spine: thoracic and lumbar spine normal to inspection <Katlyn Mortensen NP - Last Filed: 12/13/21 18:52> Skin: General skin exam: no rashes or lesions noted <Katlyn Mortensen NP - Last Filed: 12/13/21 18:52> Neuro: General: patient oriented x3, no focal motor deficits and normal sensation to monofilament <Katlyn Mortensen NP - Last Filed: 12/13/21 18:52> Cranial nerves: Yes Equal, round and reactive pupils present <Katlyn Mortensen NP - Last Filed: 12/13/21 18:52> Cognition (Neuro): normal cognition <Katlyn Mortensen NP - Last Filed: 12/13/21 18:52> Speech: No Abnormal speech present <Katlyn Mortensen NP - Last Filed: 12/13/21 18:52> Gait exam (Neuro): Normal gait present <Katlyn Mortensen NP - Last Filed: 12/13/21 18:52> Motor exam (neuro): 5/5 motor strength present throughout <Katlyn Mortensen NP - Last Filed: 12/13/21 18:52> Extrem: General: Yes normal to inspection <Katlyn Mortensen NP - Last Filed: 12/13/21 18:52> Course Course Course Narrative: Left flank pain with radiation to left abdomen since 1pm with nausea/vomiting. Will check labs, UA. Will give antiemetic, analgesia. Anticipate need for CT w/ or w/o contrast 1900-Sign out to Dr Mei pending CT A/P <Katlyn Mortensen NP - Last Filed: 12/13/21 18:52> Reevaluation(s) Reevaluation #1: Labs show mild leukocytosis, renal function at baseline, UA is pending but shows 1+RBC, 2+WBC. CT w/o contrast ordered. <Katlyn Mortensen NP - Last Filed: 12/13/21 18:52> Time: 18:45 <Katlyn Mortensen NP - Last Filed: 12/13/21 18:52> MDM - Female Genitourinary MDM Narrative Medical decision making narrative: 71 yo female here with sudden onset left flank pain with radiation to the left abdomen at 1pm with nausea/vomiting L CVA tenderness on exam with LUQ/LLQ AP with TTP. Consider renal colic, pyelo, divert, pancreatitis <Katlyn Mortensen NP - Last Filed: 12/13/21 18:52> 71 yo female here with sudden onset left flank pain with radiation to the left abdomen at 1pm with nausea/vomiting L CVA tenderness on exam with LUQ/LLQ AP with TTP. Consider renal colic, pyelo, divert, pancreatitis [address] scan negative for any any acute obstructive uropathy left renal calcification was seen urine slightly infected with increased WBC count patient was given IV Rocephin discharge patient home on cefpodoxime and tramadol <Jamal Mei MD - Last Filed: 12/13/21 21:33> Medical Records Attestation: I reviewed the patient's medical records. <Katlyn Mortensen NP - Last Filed: 12/13/21 18:52> Lab Data Attestation: I reviewed the patient's lab results. <Katlyn Mortensen NP - Last Filed: 12/13/21 18:52> Result diagrams: : 12/13/21 18:04 12/13/21 18:03 <Katlyn Mortensen NP - Last Filed: 12/13/21 18:52> Labs: Lab Results 12/13/21 12/13/21 12/13/21 Range/Units 18:03 18:04 18:04 WBC 12.6 H (4.8-10.8) X10*3/uL RBC 4.12 L (4.20-5.50) X10*6/uL Hgb 12.0 (12.0-16.0) g/dl Hct 36.2 L (37.0-47.0) % MCV 87.9 (80.0-98.0) fL MCH 29.1 (27.0-33.0) pg MCHC 33.1 (31.0-35.0) g/dl RDW 13.1 (11.0-16.0) % Plt Count 265 (160-400) X10*3/uL MPV 10.3 (9.4-12.3) fL Immature Gran % (Auto) 1.0 H (0.0-0.4) % Neut % (Auto) 76.6 H (45-73) % Lymph % (Auto) 15.9 L (20-40) % Gaines % (Auto) 5.1 (2-11) % Eos % (Auto) 1.2 (0-4) % Baso % (Auto) 0.2 (0-2) % Lymph # (Auto) 2.0 (1.2-4.9) X10*3/uL Gaines # (Auto) 0.6 (0.1-1.2) X10*3/uL Eos # (Auto) 0.2 (0.0-0.4) X10*3/uL Baso # (Auto) 0.0 (0.0-0.2) X10*3/uL Abs Immat Gran (auto) 0.12 H (0.00-0.03) X10*3/uL Absolute Neuts (auto) 9.6 H (2.0-8.3) x10*3/uL Absolute Nucleated RBC 0.000 (0.0-0.012) X10*3/uL Nucleated RBC % (auto) 0.0 (0.0-0.2) /100WBC Sodium 137 (135-145) mmol/L Potassium 4.9 (3.3-5.1) mmol/L Chloride 101 (96-108) mmol/L Carbon Dioxide 27 (22-29) mmol/L Anion Gap 14 (12-20) BUN 22 H (9-16) mg/dL Creatinine 1.21 (0.5-1.4) mg/dL Estim Creat Clear Calc 37.2 Estimated GFR 44 Random Glucose 167 H (60-115) mg/dL Calcium 10.0 (8.4-10.2) mg/dL Total Bilirubin 0.4 (0.0-1.0) mg/dL Direct Bilirubin 0.2 (0.0-0.5) mg/dL AST 19 (5-31) U/L ALT 14 (0-31) U/L Alkaline Phosphatase 72 (39-117) U/L Total Protein 7.5 (6.5-8.0) g/dL Albumin 4.4 (3.5-5.0) g/dL Lipase 23 (8-78) U/L Urine Color YELLOW Urine Appearance HAZY Urine pH 6.0 (5.0-8.0) Ur Specific [place] 1.025 (1.005-1.025) Urine Protein 2+ H (NEG-TRACE) MG/DL Urine Glucose (UA) NEG (NEG) MG/DL Urine Ketones 5 (NEG) MG/DL Urine Blood 1+ H (NEG) Urine Nitrite NEG (NEG) Ur Leukocyte Esterase 2+ H (NEG) Urine RBC 5-9 H (0) /HPF Urine WBC 15-29 H (0-4) /HPF Ur Squamous Epith Cells 1+ /LPF Amorphous Sediment TRACE /LPF Urine Bacteria NONE /LPF <Katlyn Mortensen NP - Last Filed: 12/13/21 18:52> Lab Results 12/13/21 12/13/21 12/13/21 Range/Units 18:03 18:04 18:04 WBC 12.6 H (4.8-10.8) X10*3/uL RBC 4.12 L (4.20-5.50) X10*6/uL Hgb 12.0 (12.0-16.0) g/dl Hct 36.2 L (37.0-47.0) % MCV 87.9 (80.0-98.0) fL MCH 29.1 (27.0-33.0) pg MCHC 33.1 (31.0-35.0) g/dl RDW 13.1 (11.0-16.0) % Plt Count 265 (160-400) X10*3/uL MPV 10.3 (9.4-12.3) fL Immature Gran % (Auto) 1.0 H (0.0-0.4) % Neut % (Auto) 76.6 H (45-73) % Lymph % (Auto) 15.9 L (20-40) % Gaines % (Auto) 5.1 (2-11) % Eos % (Auto) 1.2 (0-4) % Baso % (Auto) 0.2 (0-2) % Lymph # (Auto) 2.0 (1.2-4.9) X10*3/uL Gaines # (Auto) 0.6 (0.1-1.2) X10*3/uL Eos # (Auto) 0.2 (0.0-0.4) X10*3/uL Baso # (Auto) 0.0 (0.0-0.2) X10*3/uL Abs Immat Gran (auto) 0.12 H (0.00-0.03) X10*3/uL Absolute Neuts (auto) 9.6 H (2.0-8.3) x10*3/uL Absolute Nucleated RBC 0.000 (0.0-0.012) X10*3/uL Nucleated RBC % (auto) 0.0 (0.0-0.2) /100WBC Sodium 137 (135-145) mmol/L Potassium 4.9 (3.3-5.1) mmol/L Chloride 101 (96-108) mmol/L Carbon Dioxide 27 (22-29) mmol/L Anion Gap 14 (12-20) BUN 22 H (9-16) mg/dL Creatinine 1.21 (0.5-1.4) mg/dL Estim Creat Clear Calc 37.2 Estimated GFR 44 Random Glucose 167 H (60-115) mg/dL Calcium 10.0 (8.4-10.2) mg/dL Total Bilirubin 0.4 (0.0-1.0) mg/dL Direct Bilirubin 0.2 (0.0-0.5) mg/dL AST 19 (5-31) U/L ALT 14 (0-31) U/L Alkaline Phosphatase 72 (39-117) U/L Total Protein 7.5 (6.5-8.0) g/dL Albumin 4.4 (3.5-5.0) g/dL Lipase 23 (8-78) U/L Urine Color YELLOW Urine Appearance HAZY Urine pH 6.0 (5.0-8.0) Ur Specific [place] 1.025 (1.005-1.025) Urine Protein 2+ H (NEG-TRACE) MG/DL Urine Glucose (UA) NEG (NEG) MG/DL Urine Ketones 5 (NEG) MG/DL Urine Blood 1+ H (NEG) Urine Nitrite NEG (NEG) Ur Leukocyte Esterase 2+ H (NEG) Urine RBC 5-9 H (0) /HPF Urine WBC 15-29 H (0-4) /HPF Ur Squamous Epith Cells 1+ /LPF Amorphous Sediment TRACE /LPF Urine Bacteria NONE /LPF <Jamal Mei MD - Last Filed: 12/13/21 21:33> Discharge Plan Discharge Clinical Impression: UTI (urinary tract infection), Renal colic on left side <Katlyn Mortensen NP - Last Filed: 12/13/21 18:52> Patient Disposition: Still a Patient <Katlyn Mortensen NP - Last Filed: 12/13/21 18:52> Instructions: Urinary Tract Infection in Women (DC), Renal Colic (ED) <Katlyn Mortensen NP - Last Filed: 12/13/21 18:52> Additional Instructions: Drink plenty of fluids Take antibiotics as prescribed Follow-up with PCP if not better <Katlyn Mortensen NP - Last Filed: 12/13/21 18:52> Prescriptions: New cefpodoxime 200 mg tablet 200 mg PO BID Qty: 20 0RF Rx Instructions: must administer with a meal/food tramadol 50 mg tablet 50 mg PO Q6H PRN (Reason: pain) Qty: 20 0RF No Action (DME) blood-glucose meter [OneTouch Ultra2 Meter[place] [facility] [place] .MEDSUPPLY Qty: 1 0RF Rx Instructions: Use to check blood sugar once daily and as needed for signs & symptoms of hypo/hyperglycemia (DME) OneTouch Ultra Blue Test Strip Strip See Rx Instructions .ROUTE .MEDSUPPLY Qty: 50 1RF Rx Instructions: Use to check blood sugar once daily and as needed for signs & symptoms of hypo/hyperglycemia (DME) lancets [OneTouch UltraSoft Lancets[place] [facility] [place] .ROUTE .MEDSUPPLY Qty: 100 0RF Rx Instructions: Use to check blood sugar once daily and as needed for signs & symptoms of hypo/hyperglycemia alcohol swabs Pads, Medicated 1 pad topical DAILY Qty: 100 0RF Rx Instructions: Use to check blood sugar once daily and as needed for signs & symptoms of hypo/hyperglycemia pantoprazole 40 mg tablet,delayed release (DR/EC) 40 mg PO DAILY 90 Days Qty: 90 0RF metoprolol tartrate 25 mg tablet 12.5 mg PO BID 90 Days Qty: 90 3RF metformin 1,000 mg tablet 1,000 mg PO BID 90 Days Qty: 180 0RF Januvia 50 mg tablet 50 mg PO DAILY 90 Days Qty: 90 0RF rosuvastatin 20 mg tablet 20 mg PO BEDTIME 90 Days Qty: 90 1RF sertraline 100 mg tablet 100 mg PO DAILY 90 Days Qty: 90 3RF aspirin 81 mg tablet,delayed release (DR/EC) 81 mg PO DAILY 0RF estradiol 0.01 % (0.1 mg/gram) cream 1 g vaginal 2XW 0RF fluticasone propionate [Flonase Allergy Relief] 50 mcg/actuation spray,suspension 1 spray intranasal DAILY 30 Days Qty: 16 11RF Rx Instructions: administer into each nostril loratadine 10 mg tablet 10 mg PO DAILY 90 Days Qty: 90 3RF levothyroxine 75 mcg capsule 75 mcg PO DAILY 0RF nitroglycerin 0.4 mg tablet, sublingual 0.4 mg sublingual DIRECTED PRN (Reason: Chest Pain) 0RF <Katlyn Mortensen NP - Last Filed: 12/13/21 18:52>
[2021-12-13] MEDS: 0.9 % Sodium Chloride 500 ML 999 ML IV (18:08)
[2021-12-13] MEDS: ondansetron HCL 4 MG/2 ML VIAL IVPUSH (18:09)
[2021-12-13] MEDS: Morphine Sulfate 2 MG/ML CARTRIDGE IVPUSH (18:17)
[2021-12-13 18:19] LABS: MANUAL DIFF FLAG NO
[2021-12-13 18:25] LABS: Appearance Urine HAZY; Color Urine YELLOW; Glucose Urine UA NEG (NEG); Leukocyte Esterase Urine 2+ (NEG); Nitrite Urine NEG (NEG); Specific Gravity - Urine 1.025 (1.005-1.025); UACC Culture Trigger YES; Urine Blood 1+ (NEG); Urine Ketones 5 MG/DL (NEG); Urine Protein 2+ MG/DL (NEG-TRACE)
[2021-12-13 18:42] LABS: Basophils Percent Auto 0.2 % (0-2); Eosinophils Absolute Auto 0.2 X10*3/uL (0.0-0.4); Eosinophils Percent Auto 1.2 % (0-4); Hematocrit 36.2 % (37.0-47.0); Imm Gran Abs Auto 0.12 X10*3/uL (0.00-0.03); Lymphocytes Percent Auto 15.9 % (20-40); Mean Corpuscular HGB Conc 33.1 g/dl (31.0-35.0); Mean Corpuscular Hemoglobin 29.1 pg (27.0-33.0); Mean Corpuscular Volume 87.9 fL (80.0-98.0); Mean Platelet Volume 10.3 fL (9.4-12.3); Monocytes Absolute Auto 0.6 X10*3/uL (0.1-1.2); Monocytes Percent Auto 5.1 % (2-11); Neutrophils Absolute Auto 9.6 x10*3/uL (2.0-8.3); Neutrophils Percent Auto 76.6 % (45-73); Platelet Count 265 X10*3/uL (160-400); Red Blood Count 4.12 X10*6/uL (4.20-5.50); Red Cell Distribution Width 13.1 % (11.0-16.0); White Blood Count 12.6 X10*3/uL (4.8-10.8)
[2021-12-13 18:42] LABS: Alanine Aminotransferase 14 U/L (0-31); Albumin Level 4.4 g/dL (3.5-5.0); Alkaline Phosphatase 72 U/L (39-117); Anion Gap 14 (12-20); Aspartate Amino Transferase 19 U/L (5-31); Bilirubin Direct 0.2 mg/dL (0.0-0.5); Bilirubin Total 0.4 mg/dL (0.0-1.0); Blood Urea Nitrogen 22 mg/dL (9-16); Carbon Dioxide 27 mmol/L (22-29); Chloride 101 mmol/L (96-108); Creatinine Clr Calc Pharmacy 37.2; Estimated Glomerular Filt Rate 44; Glucose Random 167 mg/dL (60-115); Lipase 23 U/L (8-78); Potassium 4.9 mmol/L (3.3-5.1); Sodium 137 mmol/L (135-145); Total Protein 7.5 g/dL (6.5-8.0)
[2021-12-13 18:46] LABS: Amorphous Sediment Urine TRACE /LPF; Squamous Epithelial Cell Urine 1+ /LPF
[2021-12-13] MEDS: Morphine Sulfate 4 MG/ML CARTRIDGE IVPUSH (19:46)
[2021-12-13] MEDS: cefTRIAXone sodium 1 GM in 0.9 % Sodium Chloride 50 ML IV (19:50)
[2021-12-13 19:52] VITALS: BP 124/57; RESP 16
[2021-12-13] MEDS: traMADoL HCL 50 MG TABLET PO (21:38)
== END 2021-12-13 21:55 | disposition home or self-care (01) ==
PROVIDERS: Nurse Practitioner Family; Emergency Provider Internal Medicine; PCP Internal Medicine
DX: N39.0 Urinary tract infection, site not specified (principal); N23 Unspecified renal colic; E11.9 Type 2 diabetes mellitus without complications; I10 Essential (primary) hypertension; E78.5 Hyperlipidemia, unspecified; Z79.82 Long term (current) use of aspirin; Z79.899 Other long term (current) drug therapy; Z79.02 Long term (current) use of antithrombotics/antiplatelets
CPT/HCPCS: 36415; 74176; 80048; 80076; 81001; 83690; 85025; 87086; 96365; 96375; 96376; 99284; J0696; J2270; J2405

== ENCOUNTER → 2021-12-20 13:45 | Outpatient (BNVA) | payer MEDICARE, SELFPAY | PROVIDERS: PCP Internal Medicine; Referring Provider Internal Medicine; Visit Provider Internal Medicine Cardiovascular Disease | DX: I20.8 Other forms of angina pectoris (principal) | CPT/HCPCS: 99212 ==

== ENCOUNTER 2021-12-24 14:58 | Outpatient (REF) | payer MEDICARE, SELFPAY ==
[2021-12-24 16:52] LABS: Appearance Urine CLEAR; Color Urine YELLOW; Glucose Urine UA NEG (NEG); Leukocyte Esterase Urine NEG (NEG); Nitrite Urine NEG (NEG); PH 5.5 (5.0-8.0); Specific Gravity - Urine 1.025 (1.005-1.025); Urine Blood NEG (NEG); Urine Ketones 5 MG/DL (NEG); Urine Protein NEG (NEG-TRACE)
== END 2021-12-24 14:59 | disposition home or self-care (01) ==
LOC: HO.HMGCLDS 14:58
PROVIDERS: PCP Internal Medicine; Visit Provider Internal Medicine
DX: N39.0 Urinary tract infection, site not specified (principal)
CPT/HCPCS: 81003

== ENCOUNTER 2022-01-19 14:13 | Outpatient (REF) | payer MEDICARE, SELFPAY ==
--- NOTE | ~2022-01-19 | MM_ITS ---
EXAMINATION: MM SCREENING DIGITAL BREAST TOMOSYNTHESIS, BILATERAL CLINICAL INFORMATION: Screening. Asymptomatic. The lifetime risk of breast cancer based on the Tyrer-Cuzick Model is 5%. COMPARISON: Mammography: 12/09/2015, 05/08/2012 TECHNIQUE: Digital breast tomosynthesis is performed in both the craniocaudal and mediolateral oblique views along with computer-aided detection (CAD). Synthesized 2D images are generated from the tomosynthesis. FINDINGS: There are scattered areas of fibroglandular density (ACR BI-RADS breast composition Category b). There are no significant masses, abnormal calcifications, or other abnormalities. Parenchymal pattern is similar to prior exam. No architectural abnormality. There are interval scattered benign round and vascular calcifications. The axilla and skin contours are unremarkable. No significant changes. MM/MM tomosynthesis screening BI IMPRESSION: No mammographic evidence of malignancy. ASSESSMENT: BI-RADS 2: Benign RECOMMENDATION: Routine annual mammography screening. This patient's information was entered into a reminder system with a target due date for their next mammogram.
== END 2022-01-19 14:14 | disposition home or self-care (01) ==
LOC: HO.MAMMO 14:13
PROVIDERS: Visit Provider Psychiatry & Neurology Neurology
DX: Z12.31 Encounter for screening mammogram for malignant neoplasm of breast (principal)
CPT/HCPCS: 77063; 77067

== ENCOUNTER 2022-03-17 08:54 | Outpatient (REF) | payer MEDICARE, SELFPAY ==
--- NOTE | ~2022-03-17 | US_ITS ---
EXAMINATION: US ABDOMEN COMPLETE CLINICAL INFORMATION: Night sweats. Frequent urinary tract infections. COMPARISON: Ultrasound abdomen complete dated 06/14/2018. CT abdomen and pelvis without contrast dated 04/11/2017. Bilateral renal ultrasound dated 04/08/2012. TECHNIQUE: Real-time imaging of the abdominal viscera. FINDINGS: PANCREAS: Normal. ABDOMINAL AORTA: Mild atherosclerotic changes of abdominal aorta with calcification. No aneurysmal dilatation. INFERIOR VENA CAVA: Visualized portions are normal. LIVER: Normal. The liver is normal in size. The liver contour is normal. Parenchymal echogenicity is normal. No focal hepatic lesion. There is no intrahepatic biliary duct dilatation seen. GALLBLADDER: Surgically absent. COMMON BILE DUCT: Normal in caliber measuring 0.9 cm in diameter. RIGHT KIDNEY: There is mild pelvic fullness. No hydronephrosis. No renal calculi or focal parenchymal lesions. The kidney measures 8.5 cm in maximum dimension. LEFT KIDNEY: Normal. No hydronephrosis. No renal calculi or focal parenchymal lesions. The kidney measures 9.0 cm in maximum dimension. SPLEEN: Normal. The spleen measures 9.6 cm in maximum dimension. FREE FLUID: None. US/US abdomen complete IMPRESSION: Mild right renal pelvic fullness but no echogenic stone. Mild atherosclerotic changes of abdominal aorta without aneurysmal dilatation. The rest of the abdominal ultrasound is unremarkable.
[2022-03-17 10:37] LABS: MANUAL DIFF FLAG NO
[2022-03-17 11:25] LABS: Basophils Percent Auto 0.3 % (0-2); Eosinophils Absolute Auto 0.4 X10*3/uL (0.0-0.4); Eosinophils Percent Auto 5.7 % (0-4); Hematocrit 33.9 % (37.0-47.0); Hemoglobin 11.2 g/dl (12.0-16.0); Imm Gran Abs Auto 0.01 X10*3/uL (0.00-0.03); Imm Gran Pct Auto 0.1 % (0.0-0.4); Lymphocytes Absolute Auto 1.9 X10*3/uL (1.2-4.9); Lymphocytes Percent Auto 25.3 % (20-40); Mean Corpuscular Volume 87.8 fL (80.0-98.0); Mean Platelet Volume 10.5 fL (9.4-12.3); Monocytes Absolute Auto 0.5 X10*3/uL (0.1-1.2); Monocytes Percent Auto 7.2 % (2-11); Neutrophils Absolute Auto 4.5 x10*3/uL (2.0-8.3); Neutrophils Percent Auto 61.4 % (45-73); Platelet Count 220 X10*3/uL (160-400); Red Blood Count 3.86 X10*6/uL (4.20-5.50); Red Cell Distribution Width 12.9 % (11.0-16.0); White Blood Count 7.3 X10*3/uL (4.8-10.8)
[2022-03-17 12:00] LABS: Alanine Aminotransferase 9 U/L (0-31); Alkaline Phosphatase 64 U/L (39-117); Anion Gap 11 (12-20); Aspartate Amino Transferase 16 U/L (5-31); Bilirubin Total 0.4 mg/dL (0.0-1.0); Blood Urea Nitrogen 15 mg/dL (9-16); Calcium 9.5 mg/dL (8.4-10.2); Carbon Dioxide 29 mmol/L (22-29); Chloride 106 mmol/L (96-108); Cholesterol 174 mg/dL; Estimated Glomerular Filt Rate 46; Glucose Random 140 mg/dL (60-115); HDL Cholesterol 54 mg/dL; LDL Cholesterol Calculated 77 mg/dl; Potassium 5.5 mmol/L (3.3-5.1); Sodium 140 mmol/L (135-145); Total Protein 6.9 g/dL (6.5-8.0); Triglycerides 217 mg/dL
[2022-03-17 12:19] LABS: Lactate Dehydrogenase 148 U/L (122-220)
[2022-03-17 12:21] LABS: TSH reflex Free T4 2.58 uIU/mL (0.32-4.0); Vitamin D 25-OH Total 33.7 ng/mL (>30)
[2022-03-17 12:56] LABS: Reflex LDLD? No
[2022-03-22 09:07] LABS: Carbohydrate Antigen 19-9 10 U/mL (<34)
== END 2022-03-17 08:55 | disposition home or self-care (01) ==
LOC: HO.US 08:54
PROVIDERS: PCP Internal Medicine; Visit Provider Internal Medicine Medical Oncology
DX: R61 Generalized hyperhidrosis (principal); N39.0 Urinary tract infection, site not specified
CPT/HCPCS: 36415; 76700; 80053; 80061; 82306; 83615; 84443; 85025; 86301

== ENCOUNTER 2022-06-22 13:44 | Outpatient (REF) | payer MEDICARE, SELFPAY ==
[2022-06-22 17:08] LABS: Estimated Average Glucose 137 mg/dL; Hemoglobin A1c % 6.4 %
[2022-06-22 17:09] LABS: Alanine Aminotransferase 12 U/L (0-31); Albumin Level 4.2 g/dL (3.5-5.0); Alkaline Phosphatase 80 U/L (39-117); Anion Gap 16 (12-20); Aspartate Amino Transferase 18 U/L (5-31); Bilirubin Total 0.3 mg/dL (0.0-1.0); Blood Urea Nitrogen 20 mg/dL (9-16); Calcium 9.8 mg/dL (8.4-10.2); Carbon Dioxide 25 mmol/L (22-29); Chloride 104 mmol/L (96-108); Estimated Glomerular Filt Rate 49; Glucose Random 117 mg/dL (60-115); Potassium 5.8 mmol/L (3.3-5.1); Sodium 139 mmol/L (135-145); Total Protein 7.5 g/dL (6.5-8.0)
== END 2022-06-22 13:45 | disposition home or self-care (01) ==
LOC: HO.HMGCLDS 13:44
PROVIDERS: PCP Internal Medicine; Visit Provider Internal Medicine
DX: E03.9 Hypothyroidism, unspecified (principal); E13.9 Other specified diabetes mellitus without complications; E78.9 Disorder of lipoprotein metabolism, unspecified; F33.9 Major depressive disorder, recurrent, unspecified; I10 Essential (primary) hypertension; K21.9 Gastro-esophageal reflux disease without esophagitis; Z91.09 Other allergy status, other than to drugs and biological substances
CPT/HCPCS: 36415; 80053; 83036; 85014; 85018

== ENCOUNTER 2022-06-30 12:15 | Outpatient (REF) | payer MEDICARE, SELFPAY ==
[2022-06-30 14:15] LABS: Anion Gap 15 (12-20); Blood Urea Nitrogen 14 mg/dL (9-16); Carbon Dioxide 25 mmol/L (22-29); Chloride 106 mmol/L (96-108); Estimated Glomerular Filt Rate 50; Potassium 4.8 mmol/L (3.3-5.1); Sodium 141 mmol/L (135-145)
== END 2022-06-30 12:16 | disposition home or self-care (01) ==
LOC: HO.HMGCLDS 12:15
PROVIDERS: PCP Internal Medicine; Visit Provider Internal Medicine
DX: E87.5 Hyperkalemia (principal)
CPT/HCPCS: 36415; 80051; 82565; 84520

== ENCOUNTER → 2022-10-05 14:17 | Outpatient (BNVA) | payer MEDICARE, SELFPAY | PROVIDERS: PCP Internal Medicine; Referring Provider Internal Medicine; Visit Provider Internal Medicine Cardiovascular Disease | DX: I20.8 Other forms of angina pectoris (principal); Z98.61 Coronary angioplasty status; Z98.890 Other specified postprocedural states | CPT/HCPCS: 93005 ==

== ENCOUNTER 2022-11-17 13:47 | Outpatient (REF) | payer MEDICARE, SELFPAY ==
--- NOTE | ~2022-11-17 | CT_ITS ---
EXAMINATION: CT ABDOMEN AND PELVIS WITHOUT AND WITH CONTRAST CLINICAL INFORMATION: Microscopic hematuria. COMPARISON: CT abdomen and pelvis 12/13/2021. TECHNIQUE: Multidetector volumetric imaging was performed of the abdomen and pelvis before and after the IV administration of 85 mL of Omnipaque 350 intravenous contrast. Sagittal and coronal reformatted images were obtained on the technologist's workstation. This CT examination was performed using dose optimization techniques as appropriate, variously including the following: *Automated exposure control *Adjustment of mA and/or kV according to patient size (this includes techniques or standardized protocols for targeted exams where dose is matched to indication/reason for exam; i.e. extremities or head) *Use of iterative reconstruction technique DLP: 802 mGy-cm FINDINGS: LUNG BASES: The visualized lung bases are unremarkable. LIVER, GALLBLADDER, AND BILIARY TREE: The visualized portion of the liver is homogeneous in enhancement without discrete mass or ductal dilatation. The gallbladder has been removed. PANCREAS: No discrete pancreatic mass or ductal dilatation. SPLEEN: Unremarkable ADRENAL GLANDS: No adrenal mass. KIDNEYS AND URETERS: The nephrograms are symmetric. There is symmetric contrast excretion. Probable 3 small calculi in the upper right kidney measuring 2-3 mm in size. There are renal vascular calcifications in the left kidney without definite renal calculus. No ureterolithiasis. No discrete renal mass. BLADDER: No bladder calculus. No discrete bladder mass. GASTROINTESTINAL TRACT: The small bowel is normal in caliber. The appendix is normal. Mild diverticulosis of the colon. ABDOMINAL WALL: No significant hernia is appreciated. LYMPH NODES: No enlarged lymph nodes. VASCULAR: No aortic aneurysm. Moderate aortoiliac calcium. PELVIC VISCERA: The uterus and adnexa are unremarkable. OSSEOUS STRUCTURES: Degenerative changes in the spine. CT/CT abdomen pelvis wo/w IV con IMPRESSION: Small nonobstructing right renal calculi. Fleischner guidelines were followed.
[2022-11-17] MEDS: iohexoL 350 MG/ML 100 ML INFUS..BTL 85 ML IV (14:59)
[2022-11-18 09:03] LABS: Creatinine POC 0.8 mg/dL (0.5-1.4); GFR POC > 60
== END 2022-11-17 13:48 | disposition home or self-care (01) ==
LOC: HO.CT 13:47
PROVIDERS: PCP Internal Medicine; Visit Provider Urology
DX: R31.29 Other microscopic hematuria (principal)
CPT/HCPCS: 74178; 82565; Q9967

== ENCOUNTER 2022-12-07 08:59 | Outpatient (REF) | payer MEDICARE, SELFPAY ==
[2022-12-07 11:39] LABS: MANUAL DIFF FLAG NO
[2022-12-07 11:51] LABS: Basophils Percent Auto 0.4 % (0-2); Eosinophils Absolute Auto 0.5 X10*3/uL (0.0-0.4); Eosinophils Percent Auto 6.4 % (0-4); Hematocrit 35.9 % (37.0-47.0); Hemoglobin 11.8 g/dl (12.0-16.0); Imm Gran Abs Auto 0.02 X10*3/uL (0.00-0.03); Imm Gran Pct Auto 0.2 % (0.0-0.4); Lymphocytes Absolute Auto 2.9 X10*3/uL (1.2-4.9); Lymphocytes Percent Auto 34.6 % (20-40); Mean Corpuscular HGB Conc 32.9 g/dl (31.0-35.0); Mean Corpuscular Hemoglobin 29.1 pg (27.0-33.0); Mean Corpuscular Volume 88.6 fL (80.0-98.0); Mean Platelet Volume 10.3 fL (9.4-12.3); Monocytes Absolute Auto 0.5 X10*3/uL (0.1-1.2); Monocytes Percent Auto 6.4 % (2-11); Neutrophils Absolute Auto 4.3 x10*3/uL (2.0-8.3); Platelet Count 292 X10*3/uL (160-400); Red Blood Count 4.05 X10*6/uL (4.20-5.50); Red Cell Distribution Width 13.3 % (11.0-16.0); White Blood Count 8.3 X10*3/uL (4.8-10.8)
[2022-12-07 12:34] LABS: Alanine Aminotransferase 10 U/L (0-31); Albumin Level 4.2 g/dL (3.5-5.0); Alkaline Phosphatase 82 U/L (39-117); Anion Gap 13 (12-20); Aspartate Amino Transferase 15 U/L (5-31); Bilirubin Total 0.4 mg/dL (0.0-1.0); Blood Urea Nitrogen 22 mg/dL (9-16); Calcium 9.7 mg/dL (8.4-10.2); Carbon Dioxide 26 mmol/L (22-29); Chloride 108 mmol/L (96-108); Estimated Glomerular Filt Rate 46; Glucose Random 200 mg/dL (60-115); Sodium 141 mmol/L (135-145)
[2022-12-09 06:49] LABS: LDL Cholesterol Direct 101 mg/dL (<100)
== END 2022-12-07 09:00 | disposition home or self-care (01) ==
LOC: HO.HMGCLDS 08:59
PROVIDERS: PCP Internal Medicine; Visit Provider Internal Medicine
DX: Z13.89 Encounter for screening for other disorder (principal)
CPT/HCPCS: 36415; 80053; 83721; 85025

== ENCOUNTER 2022-12-07 16:34 | Emergency (ER) | payer MEDICARE, SELFPAY ==
--- NOTE | 2022-12-07 16:39 | ECG_ITS ---
Test Reason : ZAIDA Blood Pressure : / mmHG Vent. Rate : 077 BPM Atrial Rate : 077 BPM P-R Int : 152 ms QRS Dur : 074 ms QT Int : 396 ms P-R-T Axes : 058 016 037 degrees QTc Int : 448 ms Normal sinus rhythm Possible Left atrial enlargement Borderline ECG When compared with ECG of 13-FEB-2008 15:43, No significant change was found Referred By: Lelo Pulido Electronically Signed By:LENNY MEYERS
--- NOTE | 2022-12-07 16:40 | ED_ITS ---
HPI - Recheck/Abnormal Lab/Rx General Stated Complaint: abnormal labs Related Data Home Medications Medication Instructions Recorded Confirmed aspirin 81 mg tablet,delayed 81 mg PO DAILY 06/24/20 12/06/22 release nitroglycerin 0.4 mg sublingual 0.4 mg sublingual DIRECTED PRN 11/18/20 12/06/22 tablet Chest Pain estradiol 0.01% (0.1 mg/gram) 1 g vaginal 2XW 12/23/20 12/06/22 vaginal cream fexofenadine 180 mg tablet 180 mg PO DAILY 12/24/21 12/06/22 methenamine hippurate 1 gram tablet 1 g PO BID 10/05/22 12/06/22 methenamine hippurate 1 gram tablet 1 g PO BID 12/06/22 12/06/22 mirabegron 50 mg tablet,extended 50 mg PO DAILY 12/06/22 12/06/22 release 24 hr (Myrbetriq) Previous Rx's Medication Instructions Recorded blood sugar diagnostic (OneTouch #50 ea 11/18/20 Ultra Blue Test Strip) blood-glucose meter (OneTouch #1 ea 11/18/20 Ultra2 Meter) lancets (JiffTouch UltraSoft #100 ea 11/18/20 Lancets) alcohol swabs 1 pad topical DAILY #100 ea 12/14/21 fluticasone propionate 50 1 spray intranasal DAILY 30 days 05/17/22 mcg/actuation nasal #16 grams spray,suspension (Flonase Allergy Relief) metformin 1,000 mg tablet 1,000 mg PO BID 90 days #180 tabs 06/22/22 pantoprazole 40 mg tablet,delayed 40 mg PO DAILY 90 days #90 tabs 06/22/22 release rosuvastatin 20 mg tablet 20 mg PO BEDTIME 90 days #90 tabs 06/22/22 metoprolol tartrate 25 mg tablet 25 mg PO BID 90 days #180 tabs 07/01/22 levothyroxine 88 mcg tablet 88 mcg PO DAILY #90 tabs 11/12/22 sertraline 100 mg tablet 100 mg PO DAILY 90 days #90 tabs 12/01/22 Allergies Allergy/AdvReac Type Severity Reaction Status Date / Time codeine [Codeine] Allergy Intermediate VOMITING Verified 12/07/22 16:41 aspirin [Aspirin] AdvReac Mild DIZZINESS Verified 12/07/22 16:41 [facility] Past Medical History Medical History 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 Mother No problems noted. Social History Social History Housing: House Are you a primary veterinarian laboratory animal care to a significant other at home: No Do you presently have visiting nurse or other home services: No Alcohol intake: never Patient Tobacco Use Status: Never used Tobacco e-Cigarette/Vaping Use: Never Used Current occupational status: disabled Cognitive needs: No Hearing needs: No Vision needs: No Course Course Course Narrative: RME - 72 yo female presents to the ER for evaluation of abnormal labs after she was found to have a potassium of 6.0 today. No mention of hemolysis on lab result. Previous potassium levels over the last few years have been mildly elevated in the 5 range. She feels well and denies any physical complaints. Plan: repeat labs, EKG Discharge Plan Discharge Prescriptions: No Action (DME) blood-glucose meter [OneTouch Ultra2 Meter] [facility] See Rx Instructions .ROUTE .MEDSUPPLY Qty: 1 0RF Rx Instructions: Use to check blood sugar once daily and as needed for signs & symptoms of hypo/hyperglycemia (DME) OneTouch Ultra Blue Test Strip Strip See Rx Instructions .ROUTE .MEDSUPPLY Qty: 50 1RF Rx Instructions: Use to check blood sugar once daily and as needed for signs & symptoms of hypo/hyperglycemia (DME) lancets [OneTouch UltraSoft Lancets] [facility] See Rx Instructions .ROUTE .MEDSUPPLY Qty: 100 0RF Rx Instructions: Use to check blood sugar once daily and as needed for signs & symptoms of hypo/hyperglycemia alcohol swabs Pads, Medicated 1 pad topical DAILY Qty: 100 0RF Rx Instructions: Use to check blood sugar once daily and as needed for signs & symptoms of hypo/hyperglycemia fluticasone propionate [Flonase Allergy Relief] 50 mcg/actuation spray,suspension 1 spray intranasal DAILY 30 Days Qty: 16 11RF Rx Instructions: administer into each nostril metoprolol tartrate 25 mg tablet 25 mg PO BID 90 Days Qty: 180 3RF levothyroxine 88 mcg tablet 88 mcg PO DAILY Qty: 90 0RF sertraline 100 mg tablet 100 mg PO DAILY 90 Days Qty: 90 1RF Rx Instructions: allergy to dye aspirin 81 mg tablet,delayed release (DR/EC) 81 mg PO DAILY estradiol 0.01 % (0.1 mg/gram) cream 1 g vaginal 2XW fexofenadine 180 mg tablet 180 mg PO DAILY metformin 1,000 mg tablet 1,000 mg PO BID 90 Days Qty: 180 0RF Rx Instructions: allergy to dye in meds pantoprazole 40 mg tablet,delayed release (DR/EC) 40 mg PO DAILY 90 Days Qty: 90 3RF Rx Instructions: allergy to dye rosuvastatin 20 mg tablet 20 mg PO BEDTIME 90 Days Qty: 90 1RF Rx Instructions: allergy to dye Myrbetriq 50 mg tablet extended release 24 hr 50 mg PO DAILY methenamine hippurate 1 gram tablet 1 g PO BID Rx Instructions: take 1 tab twice a day with vitamin c nitroglycerin 0.4 mg tablet, sublingual 0.4 mg sublingual DIRECTED PRN (Reason: Chest Pain) methenamine hippurate 1 gram tablet 1 g PO BID
[2022-12-07 16:42] VITALS: BP 165/84; PULSE 81; RESP 18; TEMP 36.6; O2SAT 99; BMI 26.5
--- NOTE | 2022-12-07 16:57 | ED.GENADULT ---
HPI - General Adult General Chief complaint: Recheck/Abnormal Lab/Rx Stated complaint: abnormal labs Time Seen by Provider: 12/07/22 16:50 Source: patient and family History of Present Illness HPI narrative: Patient sent in by her PCP secondary to hyperkalemia. She states recently she has been feeling a little tired and achy but no other specific complaints. She has a history of mild hyperkalemia in the past, with levels often times of 5.5 for which she typically gets treated as an outpatient with Kayexalate. She does not have a history of renal failure never seen a catering barista for this. It is unclear why she gets hyperkalemic at times. Today her level was 6 so they sent her to the emergency department. Related Data Home Medications Medication Instructions Recorded Confirmed aspirin 81 mg tablet,delayed 81 mg PO DAILY 06/24/20 12/06/22 release nitroglycerin 0.4 mg sublingual 0.4 mg sublingual DIRECTED PRN 11/18/20 12/06/22 tablet Chest Pain estradiol 0.01% (0.1 mg/gram) 1 g vaginal 2XW 12/23/20 12/06/22 vaginal cream fexofenadine 180 mg tablet 180 mg PO DAILY 12/24/21 12/06/22 methenamine hippurate 1 gram tablet 1 g PO BID 10/05/22 12/06/22 methenamine hippurate 1 gram tablet 1 g PO BID 12/06/22 12/06/22 mirabegron 50 mg tablet,extended 50 mg PO DAILY 12/06/22 12/06/22 release 24 hr (Myrbetriq) Previous Rx's Medication Instructions Recorded blood sugar diagnostic (OneTouch #50 ea 11/18/20 Ultra Blue Test Strip) blood-glucose meter (OneTouch #1 ea 11/18/20 Ultra2 Meter) lancets (OneTouch UltraSoft #100 ea 11/18/20 Lancets) alcohol swabs 1 pad topical DAILY #100 ea 12/14/21 fluticasone propionate 50 1 spray intranasal DAILY 30 days 05/17/22 mcg/actuation nasal #16 grams spray,suspension (Flonase Allergy Relief) metformin 1,000 mg tablet 1,000 mg PO BID 90 days #180 tabs 06/22/22 pantoprazole 40 mg tablet,delayed 40 mg PO DAILY 90 days #90 tabs 06/22/22 release rosuvastatin 20 mg tablet 20 mg PO BEDTIME 90 days #90 tabs 06/22/22 metoprolol tartrate 25 mg tablet 25 mg PO BID 90 days #180 tabs 07/01/22 levothyroxine 88 mcg tablet 88 mcg PO DAILY #90 tabs 11/12/22 sertraline 100 mg tablet 100 mg PO DAILY 90 days #90 tabs 12/01/22 Allergies Allergy/AdvReac Type Severity Reaction Status Date / Time codeine [Codeine] Allergy Intermediate VOMITING Verified 12/07/22 16:41 aspirin [Aspirin] AdvReac Mild DIZZINESS Verified 12/07/22 16:41 Review of Systems Constitutional: Comments: General malaise Cardiovascular: Comments: No chest pain Respiratory: Comments: No shortness of breath Gastrointestinal: Comments: No nausea vomiting diarrhea or abdominal pain Genitourinary: Comments: No dysuria Musculoskeletal: Comments: No edema Neurologic: Comments: General weakness but no focal weakness PMFSH Past Medical History Medical History 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 Mother No problems noted. Social History Social History Housing: House Are you a primary manager care management to a significant other at home: No Do you presently have visiting nurse or other home services: No Alcohol intake: never Patient Tobacco Use Status: Never used Tobacco e-Cigarette/Vaping Use: Never Used Advance Directives: No Advance Directives Information Provided: No Current occupational status: disabled Cognitive needs: No Hearing needs: No Vision needs: No Physical Exam ED Vital Signs: Vital Signs - 24 hr 03/29/23 16:42 Temperature 98 F Pulse Rate 81 Respiratory Rate 18 Blood Pressure 165/84 H Pulse Oximetry 99 Oxygen Delivery Method Room Air BMI result Body Mass Index 26.5 Const Other: Awake and alert. No acute distress Resp Other: Clear and equal bilaterally without wheezes rales or rhonchi Cardio Other: Regular rate and rhythm without murmurs rubs or gallops GI Other: Soft nontender nondistended Skin Other: Warm and dry Neuro Other: Nonfocal Medical Decision Making Medical Decision Making MDM Narrative: patient with apparent intermittent idiopathic hyperkalemia. She has no history of renal failure. New medications include a medicine for overactive bladder I do not see any medications that would obviously caused her hyperkalemia. Sinus rhythm without peaked T-waves or evidence of metabolic or electrolyte abnormality. 17:36 Repeat potassium is 4.9 Stable for discharge home without intervention. Will refer to Nephrology Lab Data 12/07/22 17:06 12/07/22 17:06 Labs: Lab Results 12/07/22 12/07/22 Range/Units 17:06 17:06 WBC 9.9 (4.8-10.8) X10*3/uL RBC 3.72 L (4.20-5.50) X10*6/uL Hgb 11.0 L (12.0-16.0) g/dl Hct 32.4 L (37.0-47.0) % MCV 87.1 (80.0-98.0) fL MCH 29.6 (27.0-33.0) pg MCHC 34.0 (31.0-35.0) g/dl RDW 13.4 (11.0-16.0) % Plt Count 245 (160-400) X10*3/uL MPV 9.4 (9.4-12.3) fL Immature Gran % (Auto) 0.1 (0.0-0.4) % Neut % (Auto) 56.5 (45-73) % Lymph % (Auto) 31.4 (20-40) % [place] % (Auto) 7.9 (2-11) % Eos % (Auto) 3.8 (0-4) % Baso % (Auto) 0.3 (0-2) % Lymph # (Auto) 3.1 (1.2-4.9) X10*3/uL [place] # (Auto) 0.8 (0.1-1.2) X10*3/uL Eos # (Auto) 0.4 (0.0-0.4) X10*3/uL Baso # (Auto) 0.0 (0.0-0.2) X10*3/uL Abs Immat Gran (auto) 0.01 (0.00-0.03) X10*3/uL Absolute Neuts (auto) 5.6 (2.0-8.3) x10*3/uL Absolute Nucleated RBC 0.000 (0.0-0.012) X10*3/uL Nucleated RBC % (auto) 0.0 (0.0-0.2) /100WBC Sodium 137 (135-145) mmol/L Potassium 4.9 (3.3-5.1) mmol/L Chloride 105 (96-108) mmol/L Carbon Dioxide 25 (22-29) mmol/L Anion Gap 12 (12-20) BUN 26 H (9-16) mg/dL Creatinine 1.15 (0.5-1.4) mg/dL Estim Creat Clear Calc 39.7 Estimated GFR 46 Random Glucose 124 H (60-115) mg/dL Calcium 9.3 (8.4-10.2) mg/dL Magnesium 1.6 (1.6-2.6) mg/dL Total Bilirubin 0.3 (0.0-1.0) mg/dL Direct Bilirubin < 0.2 (0.0-0.5) mg/dL AST 15 (5-31) U/L ALT 10 (0-31) U/L Alkaline Phosphatase 90 (39-117) U/L Total Protein 6.9 (6.5-8.0) g/dL Albumin 4.1 (3.5-5.0) g/dL Discharge Plan Discharge Clinical Impression: Acute hyperkalemia Patient Disposition: Home, Self-Care Instructions: Hyperkalemia (ED), Potassium Content of Foods List (ED) Additional Instructions: Follow-up with the kidney specialist. See recommendation Your potassium level tonight was 4.9. Prescriptions: No Action (DME) blood-glucose meter [OneTouch Ultra2 Meter] Misc See Rx Instructions .ROUTE .MEDSUPPLY Qty: 1 0RF Rx Instructions: Use to check blood sugar once daily and as needed for signs & symptoms of hypo/hyperglycemia (DME) OneTouch Ultra Blue Test Strip Strip See Rx Instructions .ROUTE .MEDSUPPLY Qty: 50 1RF Rx Instructions: Use to check blood sugar once daily and as needed for signs & symptoms of hypo/hyperglycemia (DME) lancets [OneTouch UltraSoft Lancets] Misc See Rx Instructions .ROUTE .MEDSUPPLY Qty: 100 0RF Rx Instructions: Use to check blood sugar once daily and as needed for signs & symptoms of hypo/hyperglycemia alcohol swabs Pads, Medicated 1 pad topical DAILY Qty: 100 0RF Rx Instructions: Use to check blood sugar once daily and as needed for signs & symptoms of hypo/hyperglycemia fluticasone propionate [Flonase Allergy Relief] 50 mcg/actuation spray,suspension 1 spray intranasal DAILY 30 Days Qty: 16 11RF Rx Instructions: administer into each nostril metoprolol tartrate 25 mg tablet 25 mg PO BID 90 Days Qty: 180 3RF levothyroxine 88 mcg tablet 88 mcg PO DAILY Qty: 90 0RF sertraline 100 mg tablet 100 mg PO DAILY 90 Days Qty: 90 1RF Rx Instructions: allergy to dye aspirin 81 mg tablet,delayed release (DR/EC) 81 mg PO DAILY estradiol 0.01 % (0.1 mg/gram) cream 1 g vaginal 2XW fexofenadine 180 mg tablet 180 mg PO DAILY metformin 1,000 mg tablet 1,000 mg PO BID 90 Days Qty: 180 0RF Rx Instructions: allergy to dye in meds pantoprazole 40 mg tablet,delayed release (DR/EC) 40 mg PO DAILY 90 Days Qty: 90 3RF Rx Instructions: allergy to dye rosuvastatin 20 mg tablet 20 mg PO BEDTIME 90 Days Qty: 90 1RF Rx Instructions: allergy to dye Myrbetriq 50 mg tablet extended release 24 hr 50 mg PO DAILY methenamine hippurate 1 gram tablet 1 g PO BID Rx Instructions: take 1 tab twice a day with vitamin c nitroglycerin 0.4 mg tablet, sublingual 0.4 mg sublingual DIRECTED PRN (Reason: Chest Pain) methenamine hippurate 1 gram tablet 1 g PO BID Referrals: Dallas Duff MD [Physician] -
[2022-12-07 17:10] LABS: MANUAL DIFF FLAG NO
[2022-12-07 17:15] LABS: Basophils Percent Auto 0.3 % (0-2); Eosinophils Absolute Auto 0.4 X10*3/uL (0.0-0.4); Eosinophils Percent Auto 3.8 % (0-4); Hematocrit 32.4 % (37.0-47.0); Imm Gran Abs Auto 0.01 X10*3/uL (0.00-0.03); Imm Gran Pct Auto 0.1 % (0.0-0.4); Lymphocytes Absolute Auto 3.1 X10*3/uL (1.2-4.9); Lymphocytes Percent Auto 31.4 % (20-40); Mean Corpuscular Hemoglobin 29.6 pg (27.0-33.0); Mean Corpuscular Volume 87.1 fL (80.0-98.0); Mean Platelet Volume 9.4 fL (9.4-12.3); Monocytes Absolute Auto 0.8 X10*3/uL (0.1-1.2); Monocytes Percent Auto 7.9 % (2-11); Neutrophils Absolute Auto 5.6 x10*3/uL (2.0-8.3); Neutrophils Percent Auto 56.5 % (45-73); Platelet Count 245 X10*3/uL (160-400); Red Blood Count 3.72 X10*6/uL (4.20-5.50); Red Cell Distribution Width 13.4 % (11.0-16.0); White Blood Count 9.9 X10*3/uL (4.8-10.8)
[2022-12-07 17:27] LABS: Alanine Aminotransferase 10 U/L (0-31); Albumin Level 4.1 g/dL (3.5-5.0); Alkaline Phosphatase 90 U/L (39-117); Anion Gap 12 (12-20); Aspartate Amino Transferase 15 U/L (5-31); Bilirubin Direct < 0.2 mg/dL (0.0-0.5); Bilirubin Total 0.3 mg/dL (0.0-1.0); Blood Urea Nitrogen 26 mg/dL (9-16); Calcium 9.3 mg/dL (8.4-10.2); Carbon Dioxide 25 mmol/L (22-29); Chloride 105 mmol/L (96-108); Creatinine Clr Calc Pharmacy 39.7; Estimated Glomerular Filt Rate 46; Glucose Random 124 mg/dL (60-115); Magnesium 1.6 mg/dL (1.6-2.6); Potassium 4.9 mmol/L (3.3-5.1); Sodium 137 mmol/L (135-145); Total Protein 6.9 g/dL (6.5-8.0)
--- NOTE | 2022-12-07 17:55 | PC.NURSE ---
pt a&ox3, vss, labs WNL, reviewed kidney specialist info for follow up.
== END 2022-12-07 17:56 | disposition home or self-care (01) ==
PROVIDERS: Physician Assistant; Emergency Provider Emergency Medicine; PCP Internal Medicine
DX: E87.5 Hyperkalemia (principal); R79.89 Other specified abnormal findings of blood chemistry; M79.10 Myalgia, unspecified site; Z79.899 Other long term (current) drug therapy
CPT/HCPCS: 36415; 80048; 80053; 80076; 83721; 83735; 85025; 93005; 99283

== ENCOUNTER 2023-01-25 14:02 | Outpatient (REF) | payer MEDICARE, SELFPAY ==
--- NOTE | ~2023-01-25 | MM_ITS ---
EXAMINATION: MM SCREENING DIGITAL BREAST TOMOSYNTHESIS, BILATERAL CLINICAL INFORMATION: Screening. Asymptomatic. The lifetime risk of breast cancer based on the Tyrer-Cuzick Model is 4.5%. COMPARISON: Mammography: 01/19/2022 and studies dating back to 08/13/2009. TECHNIQUE: Digital breast tomosynthesis is performed in both the craniocaudal and mediolateral oblique views along with computer-aided detection (CAD). Synthesized 2D images are generated from the tomosynthesis. FINDINGS: There are scattered areas of fibroglandular density (ACR BI-RADS breast composition Category b). There is a stable parenchymal pattern of the left breast with no new abnormal dominant mass or suspicious grouping of microcalcifications. Within the right axilla there is an enlarging 10 x 8 mm well-circumscribed density approximately 14 cm from the nipple. No fatty cleft is identified. This may represent a lymph node; however, mass of other etiology is not excluded. MM/MM tomosynthesis screening BI IMPRESSION: Right breast density for further evaluation with ultrasound. ASSESSMENT: BI-RADS 0: Incomplete - Need additional imaging evaluation. RECOMMENDATION: Right breast ultrasound.
== END 2023-01-25 14:03 | disposition home or self-care (01) ==
LOC: HO.MAMMO 14:02
PROVIDERS: PCP Internal Medicine; Visit Provider Internal Medicine
DX: Z12.31 Encounter for screening mammogram for malignant neoplasm of breast (principal)
CPT/HCPCS: 77063; 77067

== ENCOUNTER 2023-02-09 12:23 | Outpatient (REF) | payer MEDICARE, SELFPAY ==
--- NOTE | ~2023-02-09 | US_ITS ---
EXAMINATION: US DIAGNOSTIC ULTRASOUND BREAST, RIGHT CLINICAL INFORMATION: Recall from screening mammography for circumscribed superficial nodule right axilla, under 1 cm. COMPARISON: Mammography 01/25/2023, 01/19/2022, 12/09/2015 TECHNIQUE: Ultrasound right axilla is performed using grayscale imaging and color Doppler without and with harmonics. FINDINGS: There is a circumscribed hypoechoic mildly heterogeneous lesion along the deep dermis at site of recent imaging concern, approximately 14 cm from the nipple. Overall dimensions are 0.8 x 0.6 x 0.7 cm. There is a claw sign with the deep dermis consistent with intradermal lesion. There is increased through-transmission of sound. No internal color flow. No surrounding hyperemia. In retrospect, the lesion is stable from prior right MLO mammography 01/19/2022. Results are discussed with the patient at time of visit. The finding on mammography corresponds to an intradermal lesion likely sebaceous cyst or epidermal cyst. No significant change in size from prior mammography 2021. US/US breast RT limited IMPRESSION: - Sebaceous cyst or epidermal cyst right axilla, just under 1 cm. - In retrospect, no significant change from mammography 01/19/2022. ASSESSMENT: BI-RADS 2: Benign RECOMMENDATION: 1. Finding may be managed based on the clinical impression. If increasing or symptomatic, surgical consult may be considered for excision. 2. Otherwise, routine annual screening mammography. This patient's information was entered into a reminder system with a target due date for their next mammogram.
== END 2023-02-09 12:24 | disposition home or self-care (01) ==
LOC: HO.MAMMO 12:23
PROVIDERS: PCP Internal Medicine; Visit Provider Internal Medicine
DX: R92.2 Inconclusive mammogram (principal)
CPT/HCPCS: 76642

== ENCOUNTER 2023-02-13 09:45 | Outpatient (REF) | payer MEDICARE, SELFPAY ==
[2023-02-13 11:55] LABS: Anion Gap 12 (12-20); Blood Urea Nitrogen 19 mg/dL (9-16); Calcium 9.6 mg/dL (8.4-10.2); Carbon Dioxide 25 mmol/L (22-29); Chloride 111 mmol/L (96-108); Estimated Glomerular Filt Rate 48; Sodium 143 mmol/L (135-145)
[2023-03-01 15:19] LABS: Renin 0.61 ng/mL/h (0.25-5.82)
== END 2023-02-13 09:46 | disposition home or self-care (01) ==
LOC: HO.LAB 09:45
PROVIDERS: PCP Internal Medicine; Visit Provider Internal Medicine Hypertension Specialist
DX: E87.5 Hyperkalemia (principal)
CPT/HCPCS: 36415; 80051; 82088; 82310; 82565; 84244; 84520

== ENCOUNTER 2023-02-14 13:28 | Outpatient (REF) | payer MEDICARE, SELFPAY ==
[2023-02-14 14:45] LABS: Creatinine Urine 24.38 mg/dL
[2023-02-14 14:54] LABS: Osmolality Urine 198 mosm/kg (373-1093)
== END 2023-02-14 13:29 | disposition home or self-care (01) ==
LOC: HO.LNP 13:28
PROVIDERS: Visit Provider Internal Medicine Hypertension Specialist
DX: E87.5 Hyperkalemia (principal)
CPT/HCPCS: 83935; 84133

== ENCOUNTER → 2023-02-20 12:36 | Outpatient (BNVA) | payer MEDICARE, SELFPAY | PROVIDERS: PCP Internal Medicine; Referring Provider Internal Medicine; Visit Provider Internal Medicine Cardiovascular Disease | DX: R00.2 Palpitations (principal) | CPT/HCPCS: 93005 ==

== ENCOUNTER → 2023-03-01 13:04 | Outpatient (REF) | payer MEDICARE, SELFPAY | LOC: HO.CARD 13:04 | PROVIDERS: PCP Internal Medicine; Visit Provider Internal Medicine Cardiovascular Disease | DX: R00.2 Palpitations (principal) | CPT/HCPCS: 93246 ==

== ENCOUNTER 2023-04-05 12:46 | Outpatient (AMB) | payer MEDICARE, SELFPAY ==
[2023-04-05 12:47] VITALS: BP 110/64; PULSE 69; O2SAT 97; BMI 25.7
--- NOTE | 2023-04-05 12:47 | MHC.PC.OV ---
Vital Signs 04/05/23 12:47 Height 5 ft 3 in Weight 145 lb BMI 25.7 BP 110/64 Blood Pressure Location Lt brachial Position Sitting Pulse 69 Pulse Source Pulse Oximeter Pulse Oximetry (%) 97 Oxygen Delivery Method Room Air Intake Visit Reasons: 4 mo follow up DM Intake Note: Pt is here today for 4 months follow up visit on DM. Allergies codeine [Codeine] Allergy (Intermediate, Verified 04/05/23 12:50) VOMITING aspirin [Aspirin] Adverse Reaction (Mild, Verified 04/05/23 12:50) DIZZINESS nitrofurantoin [From Macrobid] Adverse Reaction (Mild, Verified 04/05/23 12:50) Hyperkalemia Medication List - Last Reconciled 04/05/23 by Tierra Grace MD alcohol swabs 1 pad topical DAILY aspirin 81 mg PO DAILY blood sugar diagnostic ([employer] Ultra Blue Test Strip) Use to check blood sugar once daily and as needed for signs & symptoms of hypo/hyperglycemia blood-glucose meter ([employer] Ultra2 Meter) Use to check blood sugar once daily and as needed for signs & symptoms of hypo/hyperglycemia estradiol 0.01%(0.1mg/gram) 1 g vaginal 2XW fexofenadine 180 mg PO DAILY PRN fluticasone propionate 50 mcg/actuation (Flonase Allergy Relief) 1 spray intranasal DAILY 30 days lancets ([employer] UltraSoft Lancets) Use to check blood sugar once daily and as needed for signs & symptoms of hypo/hyperglycemia levothyroxine 88 mcg PO DAILY metformin 1,000 mg PO BID 90 days metoprolol tartrate 25 mg PO BID 90 days mirabegron ER (Myrbetriq) 50 mg PO DAILY nitroglycerin 0.4 mg sublingual DIRECTED PRN pantoprazole 40 mg PO DAILY 90 days rosuvastatin 20 mg PO BEDTIME 90 days sertraline 100 mg PO DAILY 90 days Tobacco use date assessed: 04/05/23 Dental Screening Dental Screen Date: 04/05/23 Did you have a dental visit in the last 12 months?: Yes Did you have a dental problem in the last 6 months where you did not have access to dental care?: No Was dental information given to patient?: Patient has dentist HPI 4 mo follow up DM HPI Details Patient is a 72-year-old female came in today for her regular follow-up appointment Patient is in her usual state of health feeling better after going through cardiac rehab Hypothyroidism: she is on levothyroxine 88 mcg due for TSH check Diabetes: Blood sugar is controlled, continue metformin 1 g b.i.d.. Allergies : patient is on fexofenadine 180 mg and Flonase nasal spray overall allergies are stable GERD is stable with pantoprazole 40 mg daily. Patient is also seeing Cardiology Dr. Garcia for cardiac care. She is on rosuvastatin for lipid management. 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 Mother No problems noted. Social History Housing: House Are you a primary doggy daycare activities director to a significant other at home: No Do you presently have visiting nurse or other home services: No Alcohol intake: never Patient Tobacco Use Status: Never used Tobacco e-Cigarette/Vaping Use: Never Used Current occupational status: disabled Cognitive needs: No Hearing needs: No Vision needs: No Questionnaire AUDIT C Alcohol Use Questionnaire (AUDIT-C) 1. How often do you have a drink containing alcohol?: Never 3. How often do you have six or more drinks on one occasion?: Never Total Score: 0 Review of Systems Const Denies chills and Denies fever(s) ENT Denies epistaxis and Denies nasal discharge Card Denies chest pain Resp Denies chest congestion, Denies cough and Denies hemoptysis GI Denies diarrhea and Denies nausea Skin/Breast Denies rash Neuro Reports no additional complaints Psych Reports no additional complaints Endo Reports no additional complaints Physical exam (Primary Care) Vital Signs: Last Vital Signs Pulse 69 04/05/23 12:47 BP 110/64 04/05/23 12:47 Pulse Ox 97 04/05/23 12:47 Oxygen Delivery Method Room Air 04/05/23 12:47 BMI result Body Mass Index 25.7 Tobacco/Smoking Status: Tobacco use Status Tobacco use date assessed 04/05/23 04/05/23 12:52 Patient Tobacco Use Status Never used Tobacco 04/05/23 12:52 e-Cigarette/Vaping Use Never Used 04/05/23 12:52 Const General: cooperative, comfortable and no acute distress Orientation/consciousness: patient oriented x3 HENMT Head: Yes normocephalic Eyes General: appearance normal, both eyes and all related structures Neck Neck: Yes supple Resp Effort & Inspection: normal respiratory effort, no cough and no stridor Cardio Rhythm: regular rhythm Heart sounds: S1 normal heart sound present and S2 normal heart sound present Skin General skin exam: turgor normal Neuro General: patient oriented x3, tone normal and moves all extremities Extrem Right lower extremity: no edema Left lower extremity: no edema Assessment and Plan Assessment & Plan (1) Diabetes 1.5, managed as type 2: Code(s): E13.9 - Other specified diabetes mellitus without complications (2) Hypothyroidism: Code(s): E03.9 - Hypothyroidism, unspecified (3) Chronic GERD: Code(s): K21.9 - Gastro-esophageal reflux disease without esophagitis (4) Depression, major, recurrent: Code(s): F33.9 - Major depressive disorder, recurrent, unspecified (5) Lipid disorder: Code(s): E78.9 - Disorder of lipoprotein metabolism, unspecified (6) Environmental allergies: Code(s): Z91.09 - Other allergy status, other than to drugs and biological substances (7) Hypertension, essential: Code(s): I10 - Essential (primary) hypertension Plan Patient is a 72-year-old female came in today for her regular follow-up appointment Patient is in her usual state of health feeling better after going through cardiac rehab Hypothyroidism: she is on levothyroxine 88 mcg due for TSH check Diabetes: Blood sugar is controlled, continue metformin 1 g b.i.d.. Allergies : patient is on fexofenadine 180 mg and Flonase nasal spray overall allergies are stable GERD is stable with pantoprazole 40 mg daily. Patient is also seeing Cardiology Dr. Garcia for cardiac care. She is on rosuvastatin for lipid management. As well as metoprolol through Cardiology Mood is stable patient could not tolerate sertraline 150 mg so she has gone back to 100, weight is stable Orders: Orders TSH reflex Free T4 Today E03.9 - Hypothyroidism, unspecified Medications: Refilled metformin allergy to dye in meds 1,000 mg PO BID 90 days 180 tabs 1RF Coding Level of Care Code Tele Est Pt Level 4 (18109) Diagnoses Diabetes 1.5, managed as type 2 E13.9 Hypothyroidism E03.9 Chronic GERD K21.9 Depression, major, recurrent F33.9 Lipid disorder E78.9 Environmental allergies Z91.09 Hypertension, essential I10
== END 2023-04-05 13:30 | disposition home or self-care (01) ==
PROVIDERS: Visit Provider Internal Medicine
DX: E13.9 Other specified diabetes mellitus without complications (principal); E03.9 Hypothyroidism, unspecified; K21.9 Gastro-esophageal reflux disease without esophagitis; F33.9 Major depressive disorder, recurrent, unspecified; Z91.09 Other allergy status, other than to drugs and biological substances; I10 Essential (primary) hypertension; E78.9 Disorder of lipoprotein metabolism, unspecified
CPT/HCPCS: 99214

== ENCOUNTER 2023-04-05 13:28 | Outpatient (REF) | payer MEDICARE, SELFPAY ==
[2023-04-05 16:46] LABS: Estimated Average Glucose 123 mg/dL; Hemoglobin A1c % 5.9 %
[2023-04-05 17:32] LABS: Vitamin B12 1025 pg/mL (200-900)
[2023-04-10 16:58] LABS: Vitamin D 25-OH, D2 <4 ng/mL; Vitamin D 25-OH, D3 25 ng/mL; Vitamin D 25-OH, Total 25 ng/mL (30-100)
== END 2023-04-05 13:29 | disposition home or self-care (01) ==
LOC: HO.HMGCLDS 13:28
PROVIDERS: PCP Internal Medicine; Visit Provider Internal Medicine
DX: E03.9 Hypothyroidism, unspecified (principal); E13.9 Other specified diabetes mellitus without complications; E78.9 Disorder of lipoprotein metabolism, unspecified; F33.9 Major depressive disorder, recurrent, unspecified; I10 Essential (primary) hypertension; K21.9 Gastro-esophageal reflux disease without esophagitis; Z91.09 Other allergy status, other than to drugs and biological substances
CPT/HCPCS: 36415; 82306; 82607; 83036; 84439; 84443

== ENCOUNTER 2023-09-26 13:09 | Outpatient (AMB) | payer MEDICARE, SELFPAY ==
--- NOTE | 2023-09-26 13:15 | A.OFFVIS_ITS ---
Intake Vital Signs 09/26/23 13:29 Height 5 ft 3 in Weight 148 lb 8 oz BMI 26.3 BP 110/60 Blood Pressure Location Lt brachial Position Sitting Pulse 53 Pulse Source Pulse Oximeter Pulse Oximetry (%) 93 Oxygen Delivery Method Room Air Intake Visit Reasons: I-PRINTING GRAY CLOTH TENDER: Amnesia / Confirmed Intake Note: patient presents for amnesia. having trouble remembering conversations, subjects, topics, names and forgets to do certain task. is getting worse Allergies codeine [Codeine] Allergy (Intermediate, Verified 10/02/23 13:48) VOMITING aspirin [Aspirin] Adverse Reaction (Mild, Verified 10/02/23 13:48) DIZZINESS nitrofurantoin [From Macrobid] Adverse Reaction (Mild, Verified 10/02/23 13:48) Hyperkalemia HPI HPI Comments History of Present Illness Details 72 y/o female patient with HTN, CAD, and DM presents for new in-person visit for evaluation of memory loss. Pt is accompanied by her son who helped for history. Pt reports she forgets, and can't remember things. She does not remember things from the last day, does not remember conversations, forgets things to do. It has been a while, progressed slowly over the last 3 years. She had coronary artery bypass surgery 6 years ago. She recently had cardiac rehab. Pt reports disrupted sleep, can't sleep more than 3 hours. She snores, and nocutria and non refreshing sleeping with daytime sleepiness. She did not have brain MRI. She drives to go grocery shopping. She cooks and independent for all ADLs. Her daughter manages bills and fiances. She goes to [facility] for exercise. She has hx of depression, and takes zoloft, it helps to manage her mood. 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 Mother No problems noted. Social History Housing: House Are you a primary child care supervisor to a significant other at home: No Do you presently have visiting nurse or other home services: No Alcohol intake: never Patient Tobacco Use Status: Never used Tobacco e-Cigarette/Vaping Use: Never Used Current occupational status: disabled Cognitive needs: No Hearing needs: No Vision needs: No Physical Exam Vital Signs: Last Vital Signs Pulse 53 09/26/23 13:29 BP 110/60 09/26/23 13:29 Pulse Ox 93 09/26/23 13:29 Oxygen Delivery Method Room Air 09/26/23 13:29 BMI result Body Mass Index 26.3 Const General: cooperative and tired appearing Nutritional Appearance: overweight Orientation/consciousness: oriented to person and oriented to place Resp Effort & Inspection: normal respiratory effort and able to speak in complete sentences Neuro General: oriented to person and oriented to place Cranial nerves: Yes CN's II-XII intact bilaterally Gait exam (Neuro): Normal gait present Motor exam (neuro): 5/5 motor strength present throughout Psych Appearance: grossly normal Mental Status: mental status grossly normal Orientation What is the (year) (season) (date) (day) (month)?: season, date, day and month Where are we (state) (county) (town or city) (hospital) (floor)?: state, county, town or city, hospital/clinic and floor Registration Name of 3 unrelated objects clearly and slowly, then ask patient to repeat all 3 of them. (1st repeat determines score. Make sure they can repeat all three): object 1, object 2 and object 3 Attention & Calculation (CHOOSE ONE) Spell WORLD backwards (DLROW): 0 letters Recall Ask patient to repeat the 3 items from question #3.: object 1, object 2 and object 3 Language Show patient a wristwatch & ask what it is. Repeat for pencil.: watch and pencil Ask the patient to 'take a piece of paper with their right hand' 'fold paper in half' 'place paper on floor': take paper in right hand, fold paper in half and place paper on floor Print the sentence 'CLOSE YOUR EYES' on a piece. If patient actually closes eyes then score.: followed written direction Ask patient to copy figure of intersecting pentagons exactly. Score if all 10 angles & 2 intersects are included.: all 10 angles present & 2 are intersected Score Score: 22 Assessment & Plan Assessment & Plan (1) Daytime sleepiness: Code(s): R40.0 - Somnolence (2) Memory change: Comment: MMSE 22 today. Code(s): R41.3 - Other amnesia Plan Advised patient to undergo brain MRI to assess memory loss. Advised patient to undergo in lab sleep study to assess sleep apnea, it may also affect her memory. Will check labs for reversible causes. Continue to do daily physical activities, increase social and cognitive activities. Orders: Orders MR head/brain wo con 09/26/23 R41.3 - Other amnesia, R53.83 - Other fatigue, I25.10 - Atherosclerotic heart disease of [place] coronary artery without angina pectoris, I10 - Essential (primary) hypertension, E13.9 - Other specified diabetes mellitus without complications, E03.9 - Hypothyroidism, unspecified TSH reflex Free T4 09/26/23 R41.3 - Other amnesia, R53.83 - Other fatigue, I25.10 - Atherosclerotic heart disease of [place] coronary artery without angina pectoris, I10 - Essential (primary) hypertension, E13.9 - Other specified diabetes mellitus without complications, E03.9 - Hypothyroidism, unspecified Complete Blood Count Auto Diff 09/26/23 R41.3 - Other amnesia, R53.83 - Other fatigue, I25.10 - Atherosclerotic heart disease of [place] coronary artery without angina pectoris, I10 - Essential (primary) hypertension, E13.9 - Other specified diabetes mellitus without complications, E03.9 - Hypothyroidism, unspecified Erythrocyte Sedimentation Rate 09/26/23 R41.3 - Other amnesia, R53.83 - Other fatigue, I25.10 - Atherosclerotic heart disease of [place] coronary artery without angina pectoris, I10 - Essential (primary) hypertension, E13.9 - Other specified diabetes mellitus without complications, E03.9 - Hypothyroidism, unspecified Vitamin B12 and Folate 09/26/23 R41.3 - Other amnesia, R53.83 - Other fatigue, I25.10 - Atherosclerotic heart disease of [place] coronary artery without angina pectoris, I10 - Essential (primary) hypertension, E13.9 - Other specified diabetes mellitus without complications, E03.9 - Hypothyroidism, unspecified Comprehensive Met. Panel 09/26/23 R41.3 - Other amnesia, R53.83 - Other fatigue, I25.10 - Atherosclerotic heart disease of [place] coronary artery without angina pectoris, I10 - Essential (primary) hypertension, E13.9 - Other specified diabetes mellitus without complications, E03.9 - Hypothyroidism, unspecified Vitamin D 25-OH (D2 and D3) 09/26/23 R41.3 - Other amnesia, R53.83 - Other fatigue, I25.10 - Atherosclerotic heart disease of [place] coronary artery without angina pectoris, I10 - Essential (primary) hypertension, E13.9 - Other specified diabetes mellitus without complications, E03.9 - Hypothyroidism, unspecified, E55.9 - Vitamin D deficiency, unspecified RT PSG in-lab sleep study 09/26/23 R41.3 - Other amnesia, R53.83 - Other fatigue, I25.10 - Atherosclerotic heart disease of [place] coronary artery without angina pectoris, I10 - Essential (primary) hypertension, R40.0 - Somnolence Coding Level of Care Code New Pt Level 4 (12558) Diagnoses Daytime sleepiness R40.0 Memory change R41.3
[2023-09-26 13:29] VITALS: BP 110/60; PULSE 53; O2SAT 93; BMI 26.3
== END 2023-09-26 14:20 | disposition home or self-care (01) ==
PROVIDERS: Absent Provider Nurse Practitioner Family; PCP Internal Medicine; Visit Provider Nurse Practitioner Family
DX: R40.0 Somnolence (principal); R41.3 Other amnesia
CPT/HCPCS: 99204; 99214

== ENCOUNTER → 2023-09-26 13:09 | Outpatient (BNVA) | payer MEDICARE, SELFPAY | PROVIDERS: Absent Provider Nurse Practitioner Family; PCP Internal Medicine; Visit Provider Nurse Practitioner Family | DX: R40.0 Somnolence (principal); R41.3 Other amnesia | CPT/HCPCS: 99202 ==

== ENCOUNTER 2023-10-02 13:31 | Outpatient (AMB) | payer MEDICARE, SELFPAY ==
[2023-10-02 13:33] VITALS: BP 110/64; PULSE 61; O2SAT 96; BMI 26.2
--- NOTE | 2023-10-02 13:33 | HO.NEPHOV_ITS ---
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 Mother No problems noted. Social History Housing: House Are you a primary animal care giver to a significant other at home: No Do you presently have visiting nurse or other home services: No Alcohol intake: never Patient Tobacco Use Status: Never used Tobacco e-Cigarette/Vaping Use: Never Used Current occupational status: disabled Cognitive needs: No Hearing needs: No Vision needs: No Vital Signs 10/02/23 13:33 Height 5 ft 3 in Weight 148 lb BMI 26.2 BP 110/64 Blood Pressure Location Lt brachial Position Sitting Pulse 61 Pulse Source Pulse Oximeter Pulse Oximetry (%) 96 Oxygen Delivery Method Room Air Physical Exam Vital Signs: Last Vital Signs Pulse 61 10/02/23 13:33 BP 110/64 10/02/23 13:33 Pulse Ox 96 10/02/23 13:33 Oxygen Delivery Method Room Air 10/02/23 13:33 BMI result Body Mass Index 26.2 Const General: comfortable Nutritional Appearance: well nourished Orientation/consciousness: patient oriented x3 HEENT Head: No normal to inspection Mouth: moist mucous membranes Neck Neck: Yes supple and Yes no JVD Resp Auscultation: clear to auscultation bilaterally, no rales and rub present Cardio Jugular venous distension: no JVD Palpation: no palpable S3 and no palpable S4 Heart sounds: no rubs GI Palpation (GI): Soft to palpation and nontender Percussion: No Fluid wave present General: Yes no CVA tenderness Back/Spine/Pelvis Back: no CVA tenderness Skin General skin exam: no rashes or lesions noted Neuro General: patient oriented x3 Extrem General: Yes no pedal edema and No clubbing Assessment & Plan Assessment & Plan (1) Hyperkalemia: Code(s): E87.5 - Hyperkalemia (2) CKD (chronic kidney disease) stage 3, GFR 30-59 ml/min: Code(s): N18.30 - Chronic kidney disease, stage 3 unspecified Plan Elderly woman with CKD and h/o hyperkalemia CKD due to age related nephron loss +/- hypertensive diabetic kidney disease Creatinine has been stable Continue to maintain BP < 130/80 and A1C < 7% Avoid nephrotoxins including NSAIDS H/o Hyperkalemia Keep on Low K diet Avoid oranges Repeat ordered today If K stays above 5.5, would add Bonitadc Orders: Orders Electrolytes Today E87.5 - Hyperkalemia, N18.30 - Chronic kidney disease, stage 3 unspecified Blood Urea Nitrogen Today E87.5 - Hyperkalemia, N18.30 - Chronic kidney disease, stage 3 unspecified Calcium Today E87.5 - Hyperkalemia, N18.30 - Chronic kidney disease, stage 3 unspecified Creatinine Today E87.5 - Hyperkalemia, N18.30 - Chronic kidney disease, stage 3 unspecified Coding Level of Care Code Est Pt Level 4 (71027) Diagnoses Hyperkalemia E87.5 CKD (chronic kidney disease) stage 3, GFR 30-59 ml/min N18.30 Results Reviewed Nephrology Results: Sodium 143 mmol/L (135-145) 02/13/23 Potassium 5.0 mmol/L (3.3-5.1) 02/13/23 Chloride 111 mmol/L (96-108) H 02/13/23 Carbon Dioxide 25 mmol/L (22-29) 02/13/23 BUN 19 mg/dL (9-16) H 02/13/23 Creatinine 1.11 mg/dL (0.5-1.4) 02/13/23 Calcium 9.6 mg/dL (8.4-10.2) 02/13/23 Urine Creatinine 24.38 mg/dL 02/14/23
== END 2023-10-02 14:05 | disposition home or self-care (01) ==
PROVIDERS: PCP Internal Medicine; Visit Provider Internal Medicine Hypertension Specialist
DX: E87.5 Hyperkalemia (principal); N18.30 Chronic kidney disease, stage 3 unspecified
CPT/HCPCS: 99214

== ENCOUNTER → 2023-10-02 13:31 | Outpatient (BNVA) | payer MEDICARE, SELFPAY | PROVIDERS: PCP Internal Medicine; Visit Provider Internal Medicine Hypertension Specialist | DX: E87.5 Hyperkalemia (principal); N18.30 Chronic kidney disease, stage 3 unspecified | CPT/HCPCS: 99212 ==

== ENCOUNTER 2023-10-10 11:37 | Outpatient (REF) | payer MEDICARE, SELFPAY ==
[2023-10-10 13:14] LABS: Anion Gap 13 (12-20); Blood Urea Nitrogen 27 mg/dL (9-16); Calcium 9.8 mg/dL (8.4-10.2); Carbon Dioxide 24 mmol/L (22-29); Chloride 107 mmol/L (96-108); Estimated Glomerular Filt Rate 47; Potassium 4.8 mmol/L (3.3-5.1); Sodium 139 mmol/L (135-145)
== END 2023-10-10 11:38 | disposition home or self-care (01) ==
LOC: HO.LAB 11:37
PROVIDERS: Absent Provider Nurse Practitioner Family; PCP Internal Medicine; Visit Provider Internal Medicine Hypertension Specialist
DX: E87.5 Hyperkalemia (principal); I12.9 Hypertensive chronic kidney disease with stage 1 through stage 4 chronic kidney disease, or unspecified chronic kidney disease; N18.30 Chronic kidney disease, stage 3 unspecified
CPT/HCPCS: 36415; 80051; 82310; 82565; 84520

== ENCOUNTER 2023-10-20 15:12 | Outpatient (REF) | payer MEDICARE, SELFPAY ==
--- NOTE | ~2023-10-20 | MR_ITS ---
EXAMINATION: MR BRAIN WITHOUT CONTRAST CLINICAL INFORMATION: Amnesia COMPARISON: None TECHNIQUE: Multiplanar multisequence MR imaging of the brain was obtained without intravenous contrast. FINDINGS: There is no acute infarct on diffusion-weighted imaging. There is no intracranial hemorrhage on iron-sensitive imaging. No extra-axial collection or mass effect/herniation. Scattered periventricular and deep white matter T2 FLAIR hyperintensities consistent with mild underlying microangiopathy. No hydrocephalus. Mild generalized cerebral volume loss with commensurate sulcal and ventricular prominence. The major flow voids at the skull base are preserved. The midline structures are normal. The cerebellar tonsils are normally positioned. The craniocervical junction is normal. Marrow signal is within normal limits. Right-sided hyperostosis frontalis interna. The visualized soft tissues are without significant abnormality. Small right mastoid fluid. MR/MR head/brain wo con IMPRESSION: Mild generalized cerebral volume loss and mild chronic white matter microangiopathy. Otherwise unremarkable noncontrast MRI of the brain.
== END 2023-10-20 15:13 | disposition home or self-care (01) ==
LOC: HO.MRI 15:12
PROVIDERS: PCP Internal Medicine; Visit Provider Nurse Practitioner Family
DX: R41.3 Other amnesia (principal); R53.83 Other fatigue; I25.10 Atherosclerotic heart disease of native coronary artery without angina pectoris; I10 Essential (primary) hypertension; E13.9 Other specified diabetes mellitus without complications; E03.9 Hypothyroidism, unspecified
CPT/HCPCS: 70551

== ENCOUNTER 2023-11-30 13:04 | Outpatient (AMB) | payer MEDICARE, SELFPAY ==
[2023-11-30 13:05] VITALS: BP 115/58; PULSE 68; O2SAT 97; BMI 26.4
--- NOTE | 2023-11-30 13:05 | MHC.OFFVIS ---
Intake Vital Signs 11/30/23 13:05 Height 5 ft 3 in Weight 149 lb 4 oz BMI 26.4 BP 115/58 L Blood Pressure Location Lt brachial Position Sitting Pulse 68 Pulse Source Pulse Oximeter Pulse Oximetry (%) 97 Oxygen Delivery Method Room Air Intake Visit Reasons: 2 mnts f/u - LVM w/address Intake Note: Pt has not been jaja for a sleep study. Memory loss is getting worse, not sleeping well. Processor Inspector Required: No Allergies codeine [Codeine] Allergy (Intermediate, Verified 11/30/23 13:10) VOMITING aspirin [Aspirin] Adverse Reaction (Mild, Verified 11/30/23 13:10) DIZZINESS nitrofurantoin [From Macrobid] Adverse Reaction (Mild, Verified 11/30/23 13:10) Hyperkalemia HPI HPI Comments History of Present Illness Details 72 y/o female patient with HTN, CAD, and DM presents for new in-person visit for evaluation of memory loss. Pt is accompanied by her son who helped for history. Brain MRI result reviewed. Mild generalized cerebral volume loss and mild chronic white matter microangiopathy. Otherwise unremarkable noncontrast MRI of the brain. Pt reports she forgets, and can't remember things, and feels more progressed. Pt reports disrupted sleep, can't sleep more than 3 hours. She snores, and nocutria and non refreshing sleeping with daytime sleepiness. Sleep study not done yet. She drives to go grocery shopping. She cooks and independent for all ADLs. Her daughter manages bills and fiances. She goes to [facility] for exercise. She has hx of depression, and takes zoloft, it helps to manage her mood. [facility] Medical History Arthritis Fatty liver On beta corona at home CAD (coronary artery disease) Diverticulosis Allergy to food dye Hypertension, essential Constipation by delayed colonic transit 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 Mother No problems noted. Social History Housing: House Are you a primary pet care assistant to a significant other at home: No Do you presently have visiting nurse or other home services: No Alcohol intake: never Patient Tobacco Use Status: Never used Tobacco e-Cigarette/Vaping Use: Never Used Current occupational status: disabled Cognitive needs: No Hearing needs: No Vision needs: No Review of Systems Const All systems reviewed & are unremarkable except as noted in HPI and below Physical Exam Vital Signs: Last Vital Signs Pulse 68 11/30/23 13:05 BP 115/58 L 11/30/23 13:05 Pulse Ox 97 11/30/23 13:05 Oxygen Delivery Method Room Air 11/30/23 13:05 BMI result Body Mass Index 26.4 Const General: cooperative Nutritional Appearance: overweight Orientation/consciousness: oriented to person and oriented to place Resp Effort & Inspection: normal respiratory effort and able to speak in complete sentences Neuro General: oriented to person and oriented to place Cranial nerves: Yes CN's II-XII intact bilaterally Gait exam (Neuro): Normal gait present Motor exam (neuro): 5/5 motor strength present throughout Psych Appearance: grossly normal Mental Status: mental status grossly normal Assessment & Plan Assessment & Plan (1) Daytime sleepiness: Code(s): R40.0 - Somnolence (2) Memory change: Comment: MMSE 22 today. Code(s): R41.3 - Other amnesia Plan Advised patient to undergo in lab sleep study to assess sleep apnea, it may also affect her memory. Advised patient to try melatonin 3 mg-6mg qHS for sleep. Will check labs for reversible causes. Continue to do daily physical activities, increase social and cognitive activities. Medications: New melatonin 1-2 tab orally bedtime PRN; 30 days 60 tabs 3RF sleep Coding Level of Care Code Est Pt Level 3 (31430) Diagnoses Daytime sleepiness R40.0 Memory change R41.3
== END 2023-11-30 13:48 | disposition home or self-care (01) ==
PROVIDERS: PCP Internal Medicine; Visit Provider Nurse Practitioner Family
DX: R40.0 Somnolence (principal); R41.3 Other amnesia
CPT/HCPCS: 99213

== ENCOUNTER 2023-11-30 13:56 | Outpatient (REF) | payer MEDICARE, SELFPAY ==
[2023-11-30 17:24] LABS: MANUAL DIFF FLAG NO
[2023-11-30 17:29] LABS: Basophils Percent Auto 0.4 % (0-2); Eosinophils Absolute Auto 0.2 X10*3/uL (0.0-0.4); Eosinophils Percent Auto 2.8 % (0-4); Hematocrit 34.2 % (37.0-47.0); Hemoglobin 11.2 g/dl (12.0-16.0); Imm Gran Abs Auto 0.02 X10*3/uL (0.00-0.03); Imm Gran Pct Auto 0.3 % (0.0-0.4); Lymphocytes Absolute Auto 2.1 X10*3/uL (1.2-4.9); Lymphocytes Percent Auto 27.9 % (20-40); Mean Corpuscular HGB Conc 32.7 g/dl (31.0-35.0); Mean Corpuscular Hemoglobin 28.9 pg (27.0-33.0); Mean Corpuscular Volume 88.4 fL (80.0-98.0); Mean Platelet Volume 10.4 fL (9.4-12.3); Monocytes Absolute Auto 0.4 X10*3/uL (0.1-1.2); Monocytes Percent Auto 5.7 % (2-11); Neutrophils Absolute Auto 4.8 x10*3/uL (2.0-8.3); Neutrophils Percent Auto 62.9 % (45-73); Platelet Count 233 X10*3/uL (160-400); Red Blood Count 3.87 X10*6/uL (4.20-5.50); White Blood Count 7.6 X10*3/uL (4.8-10.8)
[2023-11-30 17:45] LABS: Alanine Aminotransferase 10 U/L (0-31); Albumin Level 3.8 g/dL (3.5-5.0); Alkaline Phosphatase 63 U/L (39-117); Anion Gap 15 (12-20); Aspartate Amino Transferase 17 U/L (5-31); Bilirubin Total 0.3 mg/dL (0.0-1.0); Blood Urea Nitrogen 21 mg/dL (9-16); Calcium 9.5 mg/dL (8.4-10.2); Carbon Dioxide 26 mmol/L (22-29); Chloride 104 mmol/L (96-108); Estimated Glomerular Filt Rate 43; Glucose Random 229 mg/dL (60-115); Potassium 5.5 mmol/L (3.3-5.1); Sodium 139 mmol/L (135-145); Total Protein 7.1 g/dL (6.5-8.0)
[2023-11-30 18:02] LABS: TSH reflex Free T4 1.48 uIU/mL (0.32-4.0)
[2023-11-30 18:13] LABS: Folate 11.7 ng/mL (> or = 4.0); Vitamin B12 347 pg/mL (200-900)
[2023-11-30 18:15] LABS: Erythrocyte Sedimentation Rate 20 MM/HR (0-20)
[2023-12-05 13:34] LABS: Vitamin D 25-OH, D2 <4 ng/mL; Vitamin D 25-OH, D3 25 ng/mL; Vitamin D 25-OH, Total 25 ng/mL (30-100)
== END 2023-11-30 13:57 | disposition home or self-care (01) ==
LOC: HO.HKASLDS 13:56
PROVIDERS: Referring Provider Psychiatry & Neurology Neurology; Visit Provider Nurse Practitioner Family
DX: R41.3 Other amnesia (principal); R53.83 Other fatigue; I25.10 Atherosclerotic heart disease of native coronary artery without angina pectoris; I10 Essential (primary) hypertension; E03.9 Hypothyroidism, unspecified; E13.9 Other specified diabetes mellitus without complications; E55.9 Vitamin D deficiency, unspecified
CPT/HCPCS: 36415; 80053; 82306; 82607; 82746; 84443; 85025; 85652; 99212

== ENCOUNTER 2023-12-01 13:48 | Outpatient (AMB) | payer MEDICARE, SELFPAY ==
[2023-12-01 13:54] VITALS: BP 118/64; PULSE 67; O2SAT 97; BMI 26.4
--- NOTE | 2023-12-01 13:54 | A.OFFPC_ITS ---
Vital Signs 12/01/23 13:54 Height 5 ft 3 in Weight 149 lb BMI 26.4 BP 118/64 Blood Pressure Location Lt brachial Position Sitting Pulse 67 Pulse Source Pulse Oximeter Pulse Oximetry (%) 97 Oxygen Delivery Method Room Air Intake Visit Reasons: 8m follow up Allergies codeine [Codeine] Allergy (Intermediate, Verified 12/01/23 13:56) VOMITING aspirin [Aspirin] Adverse Reaction (Mild, Verified 12/01/23 13:56) DIZZINESS nitrofurantoin [From Macrobid] Adverse Reaction (Mild, Verified 12/01/23 13:56) Hyperkalemia Medication List - Last Reconciled 12/01/23 by Tierra Grace MD alcohol swabs 1 pad topical DAILY aspirin 81 mg PO DAILY blood sugar diagnostic (dooTouch Ultra Blue Test Strip) Use to check blood sugar once daily and as needed for signs & symptoms of hypo/hyperglycemia blood-glucose meter ([employer] Ultra2 Meter) Use to check blood sugar once daily and as needed for signs & symptoms of hypo/hyperglycemia estradiol 0.01%(0.1mg/gram) 1 g vaginal 2XW fluticasone propionate 50 mcg/actuation (Flonase Allergy Relief) 1 spray intranasal DAILY 30 days lancets ([employer] UltraSoft Lancets) Use to check blood sugar once daily and as needed for signs & symptoms of hypo/hyperglycemia levothyroxine 75 mcg (1.5 x 50 mcg) PO DAILY 90 days melatonin 1-2 tab orally bedtime PRN; 30 days metformin 1,000 mg PO BID 90 days metoprolol tartrate 25 mg PO BID 90 days mirabegron ER (Myrbetriq) 50 mg PO DAILY PRN nitroglycerin 0.4 mg sublingual DIRECTED PRN pantoprazole 40 mg PO DAILY 90 days rosuvastatin 20 mg PO BEDTIME 90 days sertraline 100 mg PO DAILY 90 days Tobacco use date assessed: 12/01/23 Fall risk assessment: No Falls in past year Last assessed Fall Risk: 12/01/23 Dental Screening Dental Screen Date: 12/01/23 Did you have a dental visit in the last 12 months?: Yes Was dental information given to patient?: Patient has dentist HPI 8m follow up HPI Details Patient is a 73-year-old female who was last seen end of March last year Patient went to [facility] after that, came back sick, missed her appointment in July as she was traveling again. She has seen vice president of brand management in September, recently labs were done through them Which shows potassium of 5.5. I have sent medication that she is to take to lower the potassium and repeat labs again in 3 days. Blood pressure is 118/64 Hemoglobin A1c is 7.0 Patient has seen neurologist as well for cognitive function declining It was thought to be due to sleep deprivation, patient says that she is not able to sleep more than 3 hours at night Sleep study was ordered. Son is concerned that her cognitive function is declining very quickly. She was also taking ensure as diet supplement which has 441 mEq of potassium I would recommend to stop that [facility] Medical History Arthritis Fatty liver On beta corona at home CAD (coronary artery disease) Diverticulosis Allergy to food dye Hypertension, essential Constipation by delayed colonic transit 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 Mother No problems noted. Social History Housing: House Are you a primary healthcare facility administrator to a significant other at home: No Do you presently have visiting nurse or other home services: No Alcohol intake: never Patient Tobacco Use Status: Never used Tobacco e-Cigarette/Vaping Use: Never Used Current occupational status: disabled Cognitive needs: No Hearing needs: No Vision needs: No Review of Systems Const Denies chills and Denies fever(s) ENT Denies epistaxis and Denies nasal discharge Card Denies chest pain Resp Denies chest congestion, Denies cough and Denies hemoptysis GI Denies diarrhea and Denies nausea Skin/Breast Denies rash Neuro Reports no additional complaints Psych Reports no additional complaints Endo Reports no additional complaints Physical exam (Primary Care) Vital Signs: Last Vital Signs Pulse 67 12/01/23 13:54 BP 118/64 12/01/23 13:54 Pulse Ox 97 12/01/23 13:54 Oxygen Delivery Method Room Air 12/01/23 13:54 BMI result Body Mass Index 26.4 Tobacco/Smoking Status: Tobacco use Status Tobacco use date assessed 12/01/23 12/01/23 14:01 Patient Tobacco Use Status Never used Tobacco 12/01/23 14:01 e-Cigarette/Vaping Use Never Used 12/01/23 14:01 Const General: cooperative, comfortable and no acute distress Orientation/consciousness: patient oriented x3 HENMT Head: Yes normocephalic Eyes General: appearance normal, both eyes and all related structures Neck Neck: Yes supple Resp Effort & Inspection: normal respiratory effort, no cough and no stridor Cardio Rhythm: regular rhythm Heart sounds: S1 normal heart sound present and S2 normal heart sound present Skin General skin exam: turgor normal Neuro General: patient oriented x3, tone normal and moves all extremities Extrem Right lower extremity: no edema Left lower extremity: no edema Results AMB Hemoglobin A1c AMB Hemoglobin A1c 7.0 % Last Edit by Yesy Shukla CMA on 12/01/23 14: 24 Results Reviewed Results Reviewed: Laboratory Last Values Hgb A1c (Clinic) 7.0 % (4.0-6.0) H 12/01/23 14:20 Assessment and Plan Assessment & Plan (1) CKD (chronic kidney disease) stage 3, GFR 30-59 ml/min: Code(s): N18.30 - Chronic kidney disease, stage 3 unspecified Qualifiers: Chronic kidney disease stage 3 subtype: stage 3a (GFR 45-59) Qualified Code(s): N18.31 - Chronic kidney disease, stage 3a (2) Hyperkalemia: Code(s): E87.5 - Hyperkalemia (3) Diabetes 1.5, managed as type 2: Code(s): E13.9 - Other specified diabetes mellitus without complications (4) Hypothyroidism: Code(s): E03.9 - Hypothyroidism, unspecified Qualifiers: Hypothyroidism type: unspecified Qualified Code(s): E03.9 - Hypothyroidism, unspecified (5) Chronic GERD: Code(s): K21.9 - Gastro-esophageal reflux disease without esophagitis (6) Depression, major, recurrent: Code(s): F33.9 - Major depressive disorder, recurrent, unspecified Qualifiers: Active/Remission status: in partial remission Qualified Code(s): F33.41 - Major depressive disorder, recurrent, in partial remission (7) Lipid disorder: Code(s): E78.9 - Disorder of lipoprotein metabolism, unspecified (8) Environmental allergies: Code(s): Z91.09 - Other allergy status, other than to drugs and biological substances (9) Hypertension, essential: Code(s): I10 - Essential (primary) hypertension Plan Patient is a 72-year-old female came in today for her regular follow-up appointment Patient is in her usual state of health feeling better after going through cardiac rehab Hypothyroidism: she is on levothyroxine 88 mcg due for TSH check Diabetes: Blood sugar is controlled, continue metformin 1 g b.i.d.. Allergies : patient is on fexofenadine 180 mg and Flonase nasal spray overall allergies are stable GERD is stable with pantoprazole 40 mg daily. Patient is also seeing Cardiology Dr. Garcia for cardiac care. She is on rosuvastatin for lipid management. As well as metoprolol through Cardiology Mood is stable patient could not tolerate sertraline 150 mg so she has gone back to 100, weight is stable Orders: Orders Comprehensive [place]. Panel Fast Today E87.5 - Hyperkalemia, N18.30 - Chronic kidney disease, stage 3 unspecified Lipid Panel Today E87.5 - Hyperkalemia, N18.30 - Chronic kidney disease, stage 3 unspecified AMB Hemoglobin A1c Today E13.9 - Other specified diabetes mellitus without complications Medications: New sodium polystyrene sulfonate 15 grams (60 mL) PO DAILY 180 mL 0RF 3 days Coding Level of Care Code Est Pt Level 4 (52490) Diagnoses Stage 3a chronic kidney disease N18.31 Chronic kidney disease stage 3 subtype: stage 3a (GFR 45-59) Hyperkalemia E87.5 Diabetes 1.5, managed as type 2 E13.9 Hypothyroidism, unspecified type E03.9 Hypothyroidism type: unspecified Chronic GERD K21.9 Recurrent major depressive disorder, in partial remission F33.41 Active/Remission status: in partial remission Lipid disorder E78.9 Environmental allergies Z91.09 Hypertension, essential I10
== END 2023-12-01 14:32 | disposition home or self-care (01) ==
PROVIDERS: PCP Internal Medicine; Visit Provider Internal Medicine
DX: N18.31 Chronic kidney disease, stage 3a (principal); E13.9 Other specified diabetes mellitus without complications; F33.41 Major depressive disorder, recurrent, in partial remission; E87.5 Hyperkalemia; E03.9 Hypothyroidism, unspecified; K21.9 Gastro-esophageal reflux disease without esophagitis; E78.9 Disorder of lipoprotein metabolism, unspecified; Z91.09 Other allergy status, other than to drugs and biological substances; I10 Essential (primary) hypertension
CPT/HCPCS: 83036; 99214

== ENCOUNTER 2023-12-04 09:34 | Outpatient (REF) | payer MEDICARE, SELFPAY ==
[2023-12-04 13:39] LABS: Alanine Aminotransferase 11 U/L (0-31); Albumin Level 3.9 g/dL (3.5-5.0); Alkaline Phosphatase 62 U/L (39-117); Anion Gap 10 (12-20); Aspartate Amino Transferase 15 U/L (5-31); Bilirubin Total 0.4 mg/dL (0.0-1.0); Blood Urea Nitrogen 21 mg/dL (9-16); Calcium 9.2 mg/dL (8.4-10.2); Carbon Dioxide 27 mmol/L (22-29); Chloride 107 mmol/L (96-108); Cholesterol 157 mg/dL (<200); Estimated Glomerular Filt Rate 52; Glucose Fasting 150 mg/dL (60-99); HDL Cholesterol 57 mg/dL (>40); LDL Cholesterol Calculated 66 mg/dL (<100); Potassium 4.4 mmol/L (3.3-5.1); Sodium 140 mmol/L (135-145); Total Protein 6.9 g/dL (6.5-8.0); Triglycerides 170 mg/dL (<150)
== END 2023-12-04 09:35 | disposition home or self-care (01) ==
LOC: HO.HMGCLDS 09:34
PROVIDERS: PCP Internal Medicine; Referring Provider Internal Medicine Hypertension Specialist; Visit Provider Internal Medicine
DX: E87.5 Hyperkalemia (principal); N18.30 Chronic kidney disease, stage 3 unspecified
CPT/HCPCS: 36415; 80053; 80061

== ENCOUNTER → 2023-12-07 19:30 | Outpatient (REF) | payer MEDICARE, SELFPAY | LOC: HO.SL 19:30 | PROVIDERS: PCP Internal Medicine; Visit Provider Nurse Practitioner Family | DX: R40.0 Somnolence (principal); R06.83 Snoring; R53.83 Other fatigue; Z95.1 Presence of aortocoronary bypass graft | CPT/HCPCS: 95810 ==

== ENCOUNTER → 2023-12-07 23:58 | Outpatient (BNV) | payer MEDICARE, SELFPAY | PROVIDERS: PCP Internal Medicine; Visit Provider Psychiatry & Neurology Neurology | DX: R06.83 Snoring (principal); R40.0 Somnolence | CPT/HCPCS: 95810 ==

== ENCOUNTER 2023-12-14 12:50 | Outpatient (REF) | payer MEDICARE, SELFPAY ==
[2023-12-14 16:20] LABS: Anion Gap 14 (12-20); Blood Urea Nitrogen 22 mg/dL (9-16); Calcium 9.7 mg/dL (8.4-10.2); Carbon Dioxide 26 mmol/L (22-29); Chloride 104 mmol/L (96-108); Estimated Glomerular Filt Rate 42; Glucose Random 220 mg/dL (60-115); Potassium 5.1 mmol/L (3.3-5.1); Sodium 139 mmol/L (135-145)
== END 2023-12-14 12:51 | disposition home or self-care (01) ==
LOC: HO.HMGCLDS 12:50
PROVIDERS: PCP Internal Medicine; Visit Provider Internal Medicine Hypertension Specialist
DX: N18.31 Chronic kidney disease, stage 3a (principal)
CPT/HCPCS: 36415; 80048

== ENCOUNTER 2023-12-18 14:16 | Outpatient (AMB) | payer MEDICARE, SELFPAY ==
--- NOTE | 2023-12-18 14:20 | HO.NEPHOV_ITS ---
HPI HPI Comments History of Present Illness Details 72 yr old woman with long standing DM an d HTN with CKD h/o recurrent hyperkalemia h/o hospitalization in the past for high K Baseline creatinine is around 1.3 h/o eating K rich diet including oranges Imaging did not reveal obstruction 12/18/2023. Recently she had a potassium of 5.5. She was given a dose of Kayexalate. I spoke to her son and we rechecked the potassium which was 5.1. She is here for follow-up. According to her son she is not eating potassium rich foods at this time. No urinary symptoms. No constipation. Blood sugars are in the low 200s. Last A1c was 7%. There was some difficulty while drawing blood at the lab. [facility] Medical History Arthritis Fatty liver On beta corona at home CAD (coronary artery disease) Diverticulosis Allergy to food dye Hypertension, essential Constipation by delayed colonic transit 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 Mother No problems noted. Social History Housing: House Are you a primary customer care representative to a significant other at home: No Do you presently have visiting nurse or other home services: No Alcohol intake: never Patient Tobacco Use Status: Never used Tobacco e-Cigarette/Vaping Use: Never Used Current occupational status: disabled Cognitive needs: No Hearing needs: No Vision needs: No Vital Signs 12/18/23 14:21 Height 5 ft 3 in Weight 147 lb 8 oz BMI 26.1 BP 120/62 Blood Pressure Location Lt brachial Position Sitting Pulse 78 Pulse Source Pulse Oximeter Pulse Oximetry (%) 98 Oxygen Delivery Method Room Air Physical Exam Vital Signs: Last Vital Signs Pulse 78 12/18/23 14:21 BP 120/62 12/18/23 14:21 Pulse Ox 98 12/18/23 14:21 Oxygen Delivery Method Room Air 12/18/23 14:21 BMI result Body Mass Index 26.1 Const General: comfortable Nutritional Appearance: well nourished Orientation/consciousness: patient oriented x3 HEENT Head: No normal to inspection Mouth: moist mucous membranes Neck Neck: Yes supple and Yes no JVD Resp Auscultation: clear to auscultation bilaterally, no rales and rub present Cardio Jugular venous distension: no JVD Palpation: no palpable S3 and no palpable S4 Heart sounds: no rubs GI Palpation (GI): Soft to palpation and nontender Percussion: No Fluid wave present General: Yes no CVA tenderness Back/Spine/Pelvis Back: no CVA tenderness Skin General skin exam: no rashes or lesions noted Neuro General: patient oriented x3 Extrem General: Yes no pedal edema and No clubbing Assessment & Plan Assessment & Plan (1) CKD (chronic kidney disease) stage 3, GFR 30-59 ml/min: Code(s): N18.30 - Chronic kidney disease, stage 3 unspecified Qualifiers: Chronic kidney disease stage 3 subtype: stage 3a (GFR 45-59) Qualified Code(s): N18.31 - Chronic kidney disease, stage 3a (2) Hyperkalemia: Code(s): E87.5 - Hyperkalemia Plan Elderly woman with CKD and h/o hyperkalemia CKD due to age 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 Keep on Low K diet;Avoid oranges During next blood draw we will avoid using tight tourniquet and avoid using sma ll needles to avoid hemolysis. If K stays above 5.5, would add Lokelma p.r.n. and switch metoprolol to a loop or thiazide diuretic. This would optimize blood pressure as well as lower serum potassium. Orders: Orders Basic Metabolic Panel 1 Month E87.5 - Hyperkalemia, N18.31 - Chronic kidney disease, stage 3a Coding Level of Care Code Est Pt Level 4 (75113) Diagnoses Stage 3a chronic kidney disease N18.31 Chronic kidney disease stage 3 subtype: stage 3a (GFR 45-59) Hyperkalemia E87.5 Results Reviewed Nephrology Results: 2 Hgb 11.2 g/dl (12.0-16.0) L 11/30/23 WBC 7.6 X10*3/uL (4.8-10.8) 11/30/23 Plt Count 233 X10*3/uL (160-400) 11/30/23 Sodium 139 mmol/L (135-145) 12/14/23 Potassium 5.1 mmol/L (3.3-5.1) 12/14/23 Chloride 104 mmol/L (96-108) 12/14/23 Carbon Dioxide 26 mmol/L (22-29) 12/14/23 BUN 22 mg/dL (9-16) H 12/14/23 Creatinine 1.25 mg/dL (0.5-1.4) 12/14/23 Calcium 9.7 mg/dL (8.4-10.2) 12/14/23
[2023-12-18 14:21] VITALS: BP 120/62; PULSE 78; O2SAT 98; BMI 26.1
== END 2023-12-18 14:45 | disposition home or self-care (01) ==
PROVIDERS: PCP Internal Medicine; Visit Provider Internal Medicine Hypertension Specialist
DX: N18.31 Chronic kidney disease, stage 3a (principal); E87.5 Hyperkalemia
CPT/HCPCS: 99214

== ENCOUNTER → 2023-12-18 14:16 | Outpatient (BNVA) | payer MEDICARE, SELFPAY | PROVIDERS: PCP Internal Medicine; Visit Provider Internal Medicine Hypertension Specialist | DX: N18.31 Chronic kidney disease, stage 3a (principal); E87.5 Hyperkalemia | CPT/HCPCS: 99212 ==

== ENCOUNTER 2024-02-03 11:01 | Outpatient (REF) | payer MEDICARE, SELFPAY ==
[2024-02-03 13:45] LABS: Appearance Urine Cloudy; Color Urine Yellow; Glucose Urine UA Negative (Negative); Leukocyte Esterase Urine Large (3+) (Negative); Nitrite Urine Negative (Negative); PH 5.5 (5.0-9.0); Specific Gravity - Urine 1.015 (1.005-1.025); UMIC TRIGGER UACC YES; Urine Blood Moderate (2+) (Negative); Urine Ketones Negative (Negative); Urine Protein 30 (1+) mg/dL (Neg-Trace)
[2024-02-03 13:48] LABS: Bacteria Urine 3+ (None Seen); Hyaline Casts Urine 0-2 /LPF (0-2); UACC Culture Trigger YES; WBC Urine >50 /HPF (0-5)
== END 2024-02-03 11:02 | disposition home or self-care (01) ==
LOC: HO.HMGCLDS 11:01
PROVIDERS: PCP Internal Medicine; Visit Provider Internal Medicine
DX: N39.0 Urinary tract infection, site not specified (principal)
CPT/HCPCS: 81001; 87086; 87088; 87186

== ENCOUNTER 2024-02-14 11:22 | Outpatient (REF) | payer MEDICARE, SELFPAY ==
[2024-02-14 14:38] LABS: Anion Gap 11 (12-20); Blood Urea Nitrogen 17 mg/dL (9-16); Calcium 9.5 mg/dL (8.4-10.2); Carbon Dioxide 26 mmol/L (22-29); Chloride 107 mmol/L (96-108); Estimated Glomerular Filt Rate 43; Glucose Random 250 mg/dL (60-115); Potassium 4.4 mmol/L (3.3-5.1); Sodium 140 mmol/L (135-145)
== END 2024-02-14 11:23 | disposition home or self-care (01) ==
LOC: HO.HMGCLDS 11:22
PROVIDERS: PCP Internal Medicine; Visit Provider Internal Medicine Hypertension Specialist
DX: E87.5 Hyperkalemia (principal); N39.0 Urinary tract infection, site not specified
CPT/HCPCS: 36415; 80048; 87086

== ENCOUNTER 2024-02-20 12:27 | Outpatient (REF) | payer MEDICARE, SELFPAY ==
--- NOTE | ~2024-02-20 | MM_ITS ---
EXAMINATION: MM SCREENING DIGITAL BREAST TOMOSYNTHESIS, BILATERAL CLINICAL INFORMATION: Screening. Asymptomatic. COMPARISON: Mammography: This study is compared with prior exams dating back to 2016. TECHNIQUE: Digital breast tomosynthesis is performed in both the craniocaudal and mediolateral oblique views along with computer-aided detection (CAD). Synthesized 2D images are generated from the tomosynthesis. FINDINGS: The breasts are heterogeneously dense, which may obscure small masses (ACR BI-RADS breast composition Category c). There are no significant masses, abnormal calcifications, or other abnormalities. MM/MM tomosynthesis screening BI IMPRESSION: No mammographic evidence of malignancy. ASSESSMENT: BI-RADS BI-RADS 1 - Negative RECOMMENDATION: Routine annual mammography screening. 1 year F/U This examination should not preclude the clinical evaluation of a suspicious palpable abnormality. This patient's information was entered into a reminder system with a target due date for their next mammogram.
== END 2024-02-20 12:28 | disposition home or self-care (01) ==
LOC: HO.MAMMO 12:27
PROVIDERS: PCP Internal Medicine; Visit Provider Internal Medicine
DX: Z12.31 Encounter for screening mammogram for malignant neoplasm of breast (principal)
CPT/HCPCS: 77063; 77067

== ENCOUNTER → 2024-02-20 13:15 | Outpatient (BNV) | payer MEDICARE, SELFPAY | PROVIDERS: PCP Internal Medicine; Visit Provider Radiology Diagnostic Radiology | DX: Z12.31 Encounter for screening mammogram for malignant neoplasm of breast (principal) | CPT/HCPCS: 77063; 77067 ==

== ENCOUNTER → 2024-02-22 16:01 | Outpatient (BNVA) | payer MEDICARE, SELFPAY | PROVIDERS: PCP Internal Medicine; Visit Provider Internal Medicine Hypertension Specialist ==

== ENCOUNTER 2024-02-22 16:05 | Outpatient (AMB) | payer MEDICARE, SELFPAY ==
[2024-02-22 16:06] VITALS: BP 122/50; PULSE 73; O2SAT 97; BMI 25.7
--- NOTE | 2024-02-22 16:06 | HO.NEPHOV ---
Vital Signs 02/22/24 16:06 Height 5 ft 3 in Weight 145 lb BMI 25.7 BP 122/50 L Blood Pressure Location Rt brachial Position Sitting Pulse 73 Pulse Source Pulse Oximeter Pulse Oximetry (%) 97 Oxygen Delivery Method Room Air Intake Visit Reasons: Follow up Clinical Cytopathologist Required: No Accompanied by: Son Allergies codeine [Codeine] Allergy (Intermediate, Verified 02/22/24 16:08) VOMITING aspirin [Aspirin] Adverse Reaction (Mild, Verified 02/22/24 16:08) DIZZINESS nitrofurantoin [From Macrobid] Adverse Reaction (Mild, Verified 02/22/24 16:08) Hyperkalemia HPI Comments Details: 72 yr old woman with long standing DM and HTN with CKD h/o recurrent hyperkalemia h/o hospitalization in the past for high K Baseline creatinine is around 1.3 h/o eating K rich diet including oranges Imaging did not reveal obstruction 12/18/2023. Recently she had a potassium of 5.5. She was given a dose of Kayexalate. I spoke to her son and we rechecked the potassium which was 5.1. She is here for follow-up. According to her son she is not eating potassium rich foods at this time. No urinary symptoms. No constipation. Blood sugars are in the low 200s. Last A1c was 7%. There was some difficulty while drawing blood at the lab. 02/22/2024. Recently had UTI which was treated successfully. She has no new issues. [facility] Medical History Arthritis Fatty liver On beta corona at home CAD (coronary artery disease) Diverticulosis Allergy to food dye Hypertension, essential Constipation by delayed colonic transit 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 Mother No problems noted. Social History (Reviewed 02/22/24 @ 16:09 by BECKY Marino Housing: House Are you a primary career technical supervisor to a significant other at home: No Do you presently have visiting nurse or other home services: No Alcohol intake: never Patient Tobacco Use Status: Never used Tobacco e-Cigarette/Vaping Use: Never Used Current occupational status: disabled Cognitive needs: No Hearing needs: No Vision needs: No Physical Exam Vital Signs: Last Vital Signs Pulse 73 02/22/24 16:06 BP 122/50 L 02/22/24 16:06 Pulse Ox 97 02/22/24 16:06 Oxygen Delivery Method Room Air 02/22/24 16:06 BMI result Body Mass Index 25.7 Const General: comfortable; No acute distress Orientation/consciousness: patient oriented x3 Eyes General: appearance normal, both eyes and all related structures Visual Malave: normal visual malave by confrontation Neck Neck: Yes supple and Yes no JVD Resp Effort & Inspection: normal respiratory effort and respiratory effort not decreased Auscultation: rhonchi Cardio Palpation: no palpable S3 and no palpable S4 Heart sounds: no rubs GI Inspection: Yes normal to inspection Palpation (GI): Soft to palpation Percussion: Yes normal to percussion Auscultation: normal bowel sounds General: Yes no CVA tenderness Back/Spine/Pelvis Back: no CVA tenderness Skin General skin exam: no petechiae and no purpura Neuro General: patient oriented x3 and no focal motor deficits Extrem General: No clubbing and No edema Results Reviewed Nephrology Results: Hgb 11.2 g/dl (12.0-16.0) L 11/30/23 WBC 7.6 X10*3/uL (4.8-10.8) 11/30/23 Plt Count 233 X10*3/uL (160-400) 11/30/23 Sodium 140 mmol/L (135-145) 02/14/24 Potassium 4.4 mmol/L (3.3-5.1) 02/14/24 Chloride 107 mmol/L (96-108) 02/14/24 Carbon Dioxide 26 mmol/L (22-29) 02/14/24 BUN 17 mg/dL (9-16) H 02/14/24 Creatinine 1.23 mg/dL (0.5-1.4) 02/14/24 Calcium 9.5 mg/dL (8.4-10.2) 02/14/24 Urine Protein 30 (1+) mg/dL (Neg-Trace) H 02/03/24 Assessment & Plan Assessment & Plan (1) CKD (chronic kidney disease) stage 3, GFR 30-59 ml/min: Code(s): N18.30 - Chronic kidney disease, stage 3 unspecified Category: Medical Qualifiers: Chronic kidney disease stage 3 subtype: stage 3a (GFR 45-59) Qualified Code(s): N18.31 - Chronic kidney disease, stage 3a (2) Hyperkalemia: Code(s): E87.5 - Hyperkalemia Category: Medical Plan Elderly woman with CKD and h/o hyperkalemia 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 Keep on Low K diet;Avoid oranges During next blood draw we will avoid using tight tourniquet and avoid using small needles to avoid hemolysis. . Medications: Discontinued sodium polystyrene sulfonate Discontinued Reason: Doctor's Order 15 grams (60 mL) PO DAILY 3 days 180 mL 0RF Coding Level of Care Code Est Pt Level 4 (62087) Diagnoses Stage 3a chronic kidney disease N18.31 Chronic kidney disease stage 3 subtype: stage 3a (GFR 45-59) Hyperkalemia E87.5
== END 2024-02-22 16:22 | disposition home or self-care (01) ==
LOC: HO.HKA 16:05
PROVIDERS: PCP Internal Medicine; Visit Provider Internal Medicine Hypertension Specialist
DX: N18.31 Chronic kidney disease, stage 3a (principal); E87.5 Hyperkalemia
CPT/HCPCS: 99214

== ENCOUNTER → 2024-02-22 16:05 | Outpatient (BNVA) | payer MEDICARE, SELFPAY | PROVIDERS: PCP Internal Medicine; Visit Provider Internal Medicine Hypertension Specialist | DX: N18.31 Chronic kidney disease, stage 3a (principal); E87.5 Hyperkalemia | CPT/HCPCS: 99212 ==

== ENCOUNTER 2024-03-20 14:54 | Outpatient (AMB) | payer MEDICARE, SELFPAY ==
--- NOTE | 2024-03-20 14:55 | MHC.PC.OV ---
Vital Signs 03/20/24 14:56 Height 5 ft 3 in Weight 150 lb 6 oz BMI 26.6 BP 130/70 Blood Pressure Location Rt brachial Position Sitting Pulse 70 Pulse Source Pulse Oximeter Pulse Oximetry (%) 97 Oxygen Delivery Method Room Air Intake Visit Reasons: 3 month follow up Allergies codeine [Codeine] Allergy (Intermediate, Verified 03/20/24 14:56) VOMITING aspirin [Aspirin] Adverse Reaction (Mild, Verified 03/20/24 14:56) DIZZINESS nitrofurantoin [From Macrobid] Adverse Reaction (Mild, Verified 03/20/24 14:56) Hyperkalemia Medication List - Last Reconciled 03/20/24 by Tierra Grace MD alcohol swabs 1 pad topical DAILY aspirin 81 mg PO DAILY blood sugar diagnostic ([employer] Ultra Blue Test Strip) Use to check blood sugar once daily and as needed for signs & symptoms of hypo/hyperglycemia blood-glucose meter ([employer] Ultra2 Meter) Use to check blood sugar once daily and as needed for signs & symptoms of hypo/hyperglycemia cholecalciferol (vitamin D3) 25 mcg PO DAILY 30 days fluticasone propionate 50 mcg/actuation (Flonase Allergy Relief) 1 spray intranasal DAILY 30 days lancets ([employer] UltraSoft Lancets) Use to check blood sugar once daily and as needed for signs & symptoms of hypo/hyperglycemia levothyroxine 75 mcg (1.5 x 50 mcg) PO DAILY 90 days melatonin 1-2 tab orally bedtime PRN; 30 days metformin 1,000 mg PO BID 90 days metoprolol tartrate 25 mg PO BID 90 days mirabegron ER (Myrbetriq) 50 mg PO DAILY nitroglycerin 0.4 mg sublingual DIRECTED PRN pantoprazole 40 mg PO DAILY 90 days rosuvastatin 20 mg PO BEDTIME 90 days sennosides 8.6 mg PO BID sertraline 100 mg PO DAILY 90 days Tobacco use date assessed: 03/20/24 Last assessed Fall Risk: 03/20/24 Dental Screening Dental Screen Date: 03/20/24 Did you have a dental visit in the last 12 months?: No Did you have a dental problem in the last 6 months where you did not have access to dental care?: No Was dental information given to patient?: No HPI 3 month follow up HPI Details Patient is a 73-year-old female came in today for regular follow-up appointment Labs done recently reviewed Patient is slightly anemic but stable last CBC was in November of this year She had a metabolic profile in February, creatinine is within normal limit, and electrolytes are normal Her hemoglobin A1c came back at 7.1 today Hypothyroidism: she is on levothyroxine 88 mcg , TSH is within normal limit Diabetes: continue metformin 1 g b.i.d.. Allergies : patient is on fexofenadine 180 mg and Flonase nasal spray overall allergies are stable GERD is stable with pantoprazole 40 mg daily. Patient is also seeing Cardiology Dr. Garcia for cardiac care. She is on rosuvastatin for lipid management. And metoprolol Mood is stable patient could not tolerate sertraline 150 mg so she has gone back to 100, weight is stable Neurology appointment is coming up next month to evaluate for memory issues Patient does not have a sleep apnea she had sleep study done She tells me that she sleeps around 21:30 and wakes up 3:30 a.m. for prayers And then she go back to sleep again for 3 hours. Lab order placed to be done in 4 months with follow-up appointment [facility] Medical History Arthritis Fatty liver On beta corona at home CAD (coronary artery disease) Diverticulosis Allergy to food dye Hypertension, essential Constipation by delayed colonic transit 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 Mother No problems noted. Social History Housing: House Are you a primary direct care counselor to a significant other at home: No Do you presently have visiting nurse or other home services: No Alcohol intake: never Patient Tobacco Use Status: Never used Tobacco e-Cigarette/Vaping Use: Never Used service: No Current occupational status: disabled Cognitive needs: No Hearing needs: No Vision needs: No Questionnaire AUDIT C Alcohol Use Questionnaire (AUDIT-C) 1. How often do you have a drink containing alcohol?: Never 3. How often do you have six or more drinks on one occasion?: Never Total Score: 0 Score Reviewed/Action Taken: Yes Review of Systems Const Denies chills and Denies fever(s) ENT Denies epistaxis and Denies nasal discharge Card Denies chest pain Resp Denies chest congestion, Denies cough and Denies hemoptysis GI Denies diarrhea and Denies nausea Skin/Breast Denies rash Neuro Reports no additional complaints Psych Reports no additional complaints Endo Reports no additional complaints Physical exam (Primary Care) Vital Signs: Last Vital Signs Pulse 70 03/20/24 14:56 BP 130/70 03/20/24 14:56 Pulse Ox 97 03/20/24 14:56 Oxygen Delivery Method Room Air 03/20/24 14:56 BMI result Body Mass Index 26.6 Tobacco/Smoking Status: Tobacco use Status Tobacco use date assessed 03/20/24 03/20/24 15:00 Patient Tobacco Use Status Never used Tobacco 03/20/24 15:00 e-Cigarette/Vaping Use Never Used 03/20/24 15:00 Const General: cooperative, comfortable and no acute distress Orientation/consciousness: patient oriented x3 HENMT Head: Yes normocephalic Eyes General: appearance normal, both eyes and all related structures Neck Neck: Yes supple Resp Effort & Inspection: normal respiratory effort, no cough and no stridor Cardio Rhythm: regular rhythm Heart sounds: S1 normal heart sound present and S2 normal heart sound present Skin General skin exam: turgor normal Neuro General: patient oriented x3, tone normal and moves all extremities Extrem Right lower extremity: no edema Left lower extremity: no edema Assessment and Plan Assessment & Plan (1) Diabetes 1.5, managed as type 2: Code(s): E13.9 - Other specified diabetes mellitus without complications (2) Hypertension, essential: Code(s): I10 - Essential (primary) hypertension (3) CKD (chronic kidney disease) stage 3, GFR 30-59 ml/min: Code(s): N18.30 - Chronic kidney disease, stage 3 unspecified Qualifiers: Chronic kidney disease stage 3 subtype: stage 3a (GFR 45-59) Qualified Code(s): N18.31 - Chronic kidney disease, stage 3a (4) Hypothyroidism: Code(s): E03.9 - Hypothyroidism, unspecified Qualifiers: Hypothyroidism type: unspecified Qualified Code(s): E03.9 - Hypothyroidism, unspecified (5) Chronic GERD: Code(s): K21.9 - Gastro-esophageal reflux disease without esophagitis (6) Depression, major, recurrent: Code(s): F33.9 - Major depressive disorder, recurrent, unspecified Qualifiers: Active/Remission status: in partial remission Qualified Code(s): F33.41 - Major depressive disorder, recurrent, in partial remission (7) Lipid disorder: Code(s): E78.9 - Disorder of lipoprotein metabolism, unspecified (8) Environmental allergies: Code(s): Z91.09 - Other allergy status, other than to drugs and biological substances Plan Patient is a 73-year-old female came in today for regular follow-up appointment Labs done recently reviewed Patient is slightly anemic but stable last CBC was in November of this year She had a metabolic profile in February, creatinine is within normal limit, and electrolytes are normal Her hemoglobin A1c came back at 7.1 today Hypothyroidism: she is on levothyroxine 88 mcg , TSH is within normal limit Diabetes: continue metformin 1 g b.i.d.. Allergies : patient is on fexofenadine 180 mg and Flonase nasal spray overall allergies are stable GERD is stable with pantoprazole 40 mg daily. Patient is also seeing Cardiology Dr. Garcia for cardiac care. She is on rosuvastatin for lipid management. And metoprolol Mood is stable patient could not tolerate sertraline 150 mg so she has gone back to 100, weight is stable Neurology appointment is coming up next month to evaluate for memory issues Patient does not have a sleep apnea she had sleep study done She tells me that she sleeps around 21:30 and wakes up 3:30 a.m. for prayers And then she go back to sleep again for 3 hours. Lab order placed to be done in 4 months with follow-up appointment Orders: Orders Comprehensive Stanton. Panel Fast 3 Months E03.9 - Hypothyroidism, unspecified, E13.9 - Other specified diabetes mellitus without complications, E78.9 - Disorder of lipoprotein metabolism, unspecified, F33.41 - Major depressive disorder, recurrent, in partial remission, I10 - Essential (primary) hypertension, K21.9 - Gastro-esophageal reflux disease without esophagitis, Z91.09 - Other allergy status, other than to drugs and biological substances Lipid Panel 3 Months E03.9 - Hypothyroidism, unspecified, E13.9 - Other specified diabetes mellitus without complications, E78.9 - Disorder of lipoprotein metabolism, unspecified, F33.41 - Major depressive disorder, recurrent, in partial remission, I10 - Essential (primary) hypertension, K21.9 - Gastro-esophageal reflux disease without esophagitis, Z91.09 - Other allergy status, other than to drugs and biological substances TSH reflex Free T4 3 Months E03.9 - Hypothyroidism, unspecified, E13.9 - Other specified diabetes mellitus without complications, E78.9 - Disorder of lipoprotein metabolism, unspecified, F33.41 - Major depressive disorder, recurrent, in partial remission, I10 - Essential (primary) hypertension, K21.9 - Gastro-esophageal reflux disease without esophagitis, Z91.09 - Other allergy status, other than to drugs and biological substances Vitamin D 25-OH (D2 and D3) 3 Months E03.9 - Hypothyroidism, unspecified, E13.9 - Other specified diabetes mellitus without complications, E78.9 - Disorder of lipoprotein metabolism, unspecified, F33.41 - Major depressive disorder, recurrent, in partial remission, I10 - Essential (primary) hypertension, K21.9 - Gastro-esophageal reflux disease without esophagitis, Z91.09 - Other allergy status, other than to drugs and biological substances Vitamin B12 3 Months E03.9 - Hypothyroidism, unspecified, E13.9 - Other specified diabetes mellitus without complications, E78.9 - Disorder of lipoprotein metabolism, unspecified, F33.41 - Major depressive disorder, recurrent, in partial remission, I10 - Essential (primary) hypertension, K21.9 - Gastro-esophageal reflux disease without esophagitis, Z91.09 - Other allergy status, other than to drugs and biological substances Hemoglobin A1c 3 Months E03.9 - Hypothyroidism, unspecified, E13.9 - Other specified diabetes mellitus without complications, E78.9 - Disorder of lipoprotein metabolism, unspecified, F33.41 - Major depressive disorder, recurrent, in partial remission, I10 - Essential (primary) hypertension, K21.9 - Gastro-esophageal reflux disease without esophagitis, Z91.09 - Other allergy status, other than to drugs and biological substances Complete Blood Count Auto Diff 3 Months E03.9 - Hypothyroidism, unspecified, E13.9 - Other specified diabetes mellitus without complications, E78.9 - Disorder of lipoprotein metabolism, unspecified, F33.41 - Major depressive disorder, recurrent, in partial remission, I10 - Essential (primary) hypertension, K21.9 - Gastro-esophageal reflux disease without esophagitis, Z91.09 - Other allergy status, other than to drugs and biological substances Coding Level of Care Code Est Pt Level 4 (39005) Complex EM visit Add On G2211 Diagnoses Diabetes 1.5, managed as type 2 E13.9 Hypertension, essential I10 Stage 3a chronic kidney disease N18.31 Chronic kidney disease stage 3 subtype: stage 3a (GFR 45-59) Hypothyroidism, unspecified type E03.9 Hypothyroidism type: unspecified Chronic GERD K21.9 Recurrent major depressive disorder, in partial remission F33.41 Active/Remission status: in partial remission Lipid disorder E78.9 Environmental allergies Z91.09
[2024-03-20 14:56] VITALS: BP 130/70; PULSE 70; O2SAT 97; BMI 26.6
== END 2024-03-20 17:35 | disposition home or self-care (01) ==
PROVIDERS: PCP Internal Medicine; Visit Provider Internal Medicine
DX: I12.9 Hypertensive chronic kidney disease with stage 1 through stage 4 chronic kidney disease, or unspecified chronic kidney disease (principal); E13.9 Other specified diabetes mellitus without complications; N18.31 Chronic kidney disease, stage 3a; F33.41 Major depressive disorder, recurrent, in partial remission; E03.9 Hypothyroidism, unspecified; K21.9 Gastro-esophageal reflux disease without esophagitis; E78.9 Disorder of lipoprotein metabolism, unspecified; Z91.09 Other allergy status, other than to drugs and biological substances
CPT/HCPCS: 83036; 99214; G2211

== ENCOUNTER 2024-05-02 13:42 | Outpatient (AMB) | payer MEDICARE, SELFPAY ==
--- NOTE | 2024-05-02 13:49 | A.OFFVIS_ITS ---
Vital Signs 05/02/24 13:54 Height 5 ft 3 in Weight 150 lb BMI 26.6 BP 114/60 Blood Pressure Location Rt brachial Position Sitting Respiration 16 Pulse 69 Pulse Source Pulse Oximeter Pulse Oximetry (%) 96 Oxygen Delivery Method Room Air Intake Visit Reasons: Follow up - LVM w/add Intake Note: Pt presents to the office for a 5 month follow up for daytime somnolence. Chemical Compounder Required: No Allergies codeine [Codeine] Allergy (Intermediate, Verified 05/02/24 13:50) VOMITING aspirin [Aspirin] Adverse Reaction (Mild, Verified 05/02/24 13:50) DIZZINESS nitrofurantoin [From Macrobid] Adverse Reaction (Mild, Verified 05/02/24 13:50) Hyperkalemia Medication List - Last Reconciled 05/02/24 by Dania Duff MD alcohol swabs 1 pad topical DAILY aspirin 81 mg PO DAILY blood sugar diagnostic ([employer] Ultra Blue Test Strip) Use to check blood sugar once daily and as needed for signs & symptoms of hypo/hyperglycemia blood-glucose meter ([employer] Ultra2 Meter) Use to check blood sugar once daily and as needed for signs & symptoms of hypo/hyperglycemia cholecalciferol (vitamin D3) 25 mcg PO DAILY 30 days fluticasone propionate 50 mcg/actuation (Flonase Allergy Relief) 1 spray intranasal DAILY 30 days lancets ([employer] UltraSoft Lancets) Use to check blood sugar once daily and as needed for signs & symptoms of hypo/hyperglycemia levothyroxine 75 mcg (1.5 x 50 mcg) PO DAILY 90 days melatonin 1-2 tab orally bedtime PRN; 30 days metformin 1,000 mg PO BID 90 days metoprolol tartrate 25 mg PO BID 90 days mirabegron ER (Myrbetriq) 50 mg PO DAILY nitroglycerin 0.4 mg sublingual DIRECTED PRN pantoprazole 40 mg PO DAILY 90 days rosuvastatin 20 mg PO BEDTIME 90 days sennosides 8.6 mg PO BID sertraline 100 mg PO DAILY 90 days HPI Comments Details: 72 y/o female patient with HTN, CAD, and DM comes for follow up. PSG was normal Pt is accompanied by her son who helped for history. Brain MRI result reviewed. Mild generalized cerebral volume loss and mild chronic white matter microangiopathy. Otherwise unremarkable noncontrast MRI of the brain. Pt reports she forgets, and can't remember things, and feels more progressed. Pt reports disrupted sleep, can't sleep more than 3 hours. She snores, and nocutria and non refreshing sleeping with daytime sleepiness. Sleep study not done yet. She drives to go grocery shopping. She cooks and independent for all ADLs. Her daughter manages bills and fiances. She goes to [facility] for exercise. She has hx of depression, and takes zoloft, it helps to manage her mood. [facility] Medical History (Updated 05/02/24 @ 14:41 by Dania Duff MD) Mild cognitive impairment Arthritis Fatty liver On beta corona at home CAD (coronary artery disease) Diverticulosis Allergy to food dye Hypertension, essential Constipation by delayed colonic transit 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 Mother No problems noted. Social History Housing: House Are you a primary career technical supervisor to a significant other at home: No Do you presently have visiting nurse or other home services: No Alcohol intake: never Patient Tobacco Use Status: Never used Tobacco e-Cigarette/Vaping Use: Never Used service: No Current occupational status: disabled Cognitive needs: No Hearing needs: No Vision needs: No Physical Exam Vital Signs: Last Vital Signs Pulse 69 05/02/24 13:54 Resp 16 05/02/24 13:54 BP 114/60 05/02/24 13:54 Pulse Ox 96 05/02/24 13:54 Oxygen Delivery Method Room Air 05/02/24 13:54 BMI result Body Mass Index 26.6 Const General: cooperative Orientation/consciousness: oriented to person and oriented to place Resp Effort & Inspection: normal respiratory effort and able to speak in complete sentences Neuro General: oriented to person and oriented to place Cranial nerves: Yes CN's II-XII intact bilaterally Gait exam (Neuro): Normal gait present Motor exam (neuro): 5/5 motor strength present throughout Psych Appearance: grossly normal Mental Status: mental status grossly normal Orientation What is the (year) (season) (date) (day) (month)?: year, season, date, day and month Where are we (state) (county) (town or city) (hospital) (floor)?: state, county, town or city, hospital/clinic and floor Registration Name of 3 unrelated objects clearly and slowly, then ask patient to repeat all 3 of them. (1st repeat determines score. Make sure they can repeat all three): object 1, object 2 and object 3 Attention & Calculation (CHOOSE ONE) Spell WORLD backwards (DLROW): 2 letters Recall Ask patient to repeat the 3 items from question #3.: object 1 and object 3 Language Show patient a wristwatch & ask what it is. Repeat for pencil.: watch and pencil Ask the patient to repeat the phrase 'No ifs, ands, or buts' after you.: correct Ask the patient to 'take a piece of paper with their right hand' 'fold paper in half' 'place paper on floor': take paper in right hand and fold paper in half Print the sentence 'CLOSE YOUR EYES' on a piece. If patient actually closes eyes then score.: followed written direction Score Score: 23 Results Reviewed Results Reviewed: MRI Brain 10/2023 Mild generalized cerebral volume loss and mild chronic white matter microangiopathy. Otherwise unremarkable noncontrast MRI of the brain. Assessment & Plan Assessment & Plan (1) Mild cognitive impairment: Code(s): G31.84 - Mild cognitive impairment of uncertain or unknown etiology Category: Medical (2) Daytime sleepiness: Comment: PSG was normal Low Vit D Code(s): R40.0 - Somnolence Category: Medical Plan Advised patient to undergo in lab sleep study to assess sleep apnea, it may also affect her memory. Advised patient to try melatonin 3 mg-6mg qHS for sleep. Start Vit D supplementation will consider adding donepezil Cognitive therapy Continue to do daily physical activities, increase social and cognitive activities. Orders: Referrals Speech and Hearing Referral G31.84 - Mild cognitive impairment of uncertain or unknown etiology Medications: Changed From sertraline allergy to dye 100 mg PO DAILY 90 days 90 tabs 1RF To sertraline allergy to dye 75 mg (1.5 x 50 mg) PO DAILY 90 days 135 tabs 1RF Coding Level of Care Code Est Pt Level 4 (56859) Complex EM visit Add On G2211 Diagnoses Mild cognitive impairment G31.84 Daytime sleepiness R40.0
[2024-05-02 13:54] VITALS: BP 114/60; PULSE 69; RESP 16; O2SAT 96; BMI 26.6
== END 2024-05-02 14:57 | disposition home or self-care (01) ==
PROVIDERS: PCP Internal Medicine; Visit Provider Psychiatry & Neurology Neurology
DX: G31.84 Mild cognitive impairment of uncertain or unknown etiology (principal); R40.0 Somnolence
CPT/HCPCS: 99214; G2211

== ENCOUNTER → 2024-05-02 13:42 | Outpatient (BNVA) | payer MEDICARE, SELFPAY | PROVIDERS: PCP Internal Medicine; Visit Provider Psychiatry & Neurology Neurology | DX: G31.84 Mild cognitive impairment of uncertain or unknown etiology (principal); R40.0 Somnolence | CPT/HCPCS: 99212 ==

== ENCOUNTER 2024-09-03 10:41 | Outpatient (REF) | payer MEDICARE, SELFPAY ==
[2024-09-03 13:16] LABS: MANUAL DIFF FLAG NO
[2024-09-03 13:24] LABS: Basophils Percent Auto 0.3 % (0-2); Eosinophils Absolute Auto 0.2 X10*3/uL (0.0-0.4); Eosinophils Percent Auto 3.5 % (0-4); Hematocrit 34.2 % (37.0-47.0); Hemoglobin 11.2 g/dl (12.0-16.0); Imm Gran Abs Auto 0.01 X10*3/uL (0.00-0.03); Imm Gran Pct Auto 0.2 % (0.0-0.4); Lymphocytes Absolute Auto 2.2 X10*3/uL (1.2-4.9); Lymphocytes Percent Auto 36.7 % (20-40); Mean Corpuscular HGB Conc 32.7 g/dl (31.0-35.0); Mean Corpuscular Hemoglobin 28.4 pg (27.0-33.0); Mean Corpuscular Volume 86.8 fL (80.0-98.0); Mean Platelet Volume 10.9 fL (9.4-12.3); Monocytes Absolute Auto 0.4 X10*3/uL (0.1-1.2); Monocytes Percent Auto 6.9 % (2-11); Neutrophils Absolute Auto 3.2 x10*3/uL (2.0-8.3); Neutrophils Percent Auto 52.4 % (45-73); Platelet Count 269 X10*3/uL (160-400); Red Blood Count 3.94 X10*6/uL (4.20-5.50); White Blood Count 6.1 X10*3/uL (4.8-10.8)
[2024-09-03 13:38] LABS: Alanine Aminotransferase 11 U/L (0-31); Albumin Level 3.9 g/dL (3.5-5.0); Alkaline Phosphatase 78 U/L (39-117); Anion Gap 10 (12-20); Aspartate Amino Transferase 20 U/L (5-31); Bilirubin Total 0.3 mg/dL (0.0-1.0); Blood Urea Nitrogen 16 mg/dL (9-16); Calcium 9.3 mg/dL (8.4-10.2); Carbon Dioxide 28 mmol/L (22-29); Chloride 107 mmol/L (96-108); Cholesterol 335 mg/dL (<200); Estimated Glomerular Filt Rate 45; Glucose Fasting 167 mg/dL (60-99); Glucose Random 167 mg/dL (60-115); HDL Cholesterol 62 mg/dL (>40); LDL Cholesterol Calculated 210 mg/dL (<100); Potassium 5.1 mmol/L (3.3-5.1); Sodium 140 mmol/L (135-145); Total Protein 7.4 g/dL (6.5-8.0); Triglycerides 316 mg/dL (<150)
[2024-09-03 13:41] LABS: Estimated Average Glucose 154 mg/dL; Hemoglobin A1C 155.0351 umol/L
[2024-09-03 14:29] LABS: Vitamin B12 255 pg/mL (200-900)
[2024-09-07 10:58] LABS: Vitamin D 25-OH, D2 <4 ng/mL; Vitamin D 25-OH, D3 26 ng/mL; Vitamin D 25-OH, Total 26 ng/mL (30-100)
== END 2024-09-03 10:42 | disposition home or self-care (01) ==
LOC: HO.HMGCLDS 10:41
PROVIDERS: PCP Internal Medicine; Referring Provider Internal Medicine Hypertension Specialist; Visit Provider Internal Medicine
DX: N18.31 Chronic kidney disease, stage 3a (principal); E87.5 Hyperkalemia; E13.9 Other specified diabetes mellitus without complications; E78.9 Disorder of lipoprotein metabolism, unspecified; F33.41 Major depressive disorder, recurrent, in partial remission; K21.9 Gastro-esophageal reflux disease without esophagitis; E03.9 Hypothyroidism, unspecified; Z91.09 Other allergy status, other than to drugs and biological substances; I10 Essential (primary) hypertension
CPT/HCPCS: 36415; 80048; 80053; 80061; 82306; 82607; 83036; 84443; 85025

== ENCOUNTER 2024-09-10 13:40 | Outpatient (AMB) | payer MEDICARE, SELFPAY ==
--- NOTE | 2024-09-10 13:41 | HO.NEPHOV ---
Vital Signs 09/10/24 13:44 Height 5 ft 3 in Weight 151 lb BMI 26.7 BP 140/64 H Blood Pressure Location Lt brachial Position Sitting Pulse 67 Pulse Source Pulse Oximeter Pulse Oximetry (%) 97 Oxygen Delivery Method Room Air Intake Visit Reasons: CKD Freight Breaker Required: No Accompanied by: Son Allergies codeine [Codeine] Allergy (Intermediate, Verified 09/10/24 13:45) VOMITING aspirin [Aspirin] Adverse Reaction (Mild, Verified 09/10/24 13:45) DIZZINESS nitrofurantoin [From Macrobid] Adverse Reaction (Mild, Verified 09/10/24 13:45) Hyperkalemia Medication List - Last Reconciled 09/10/24 by Dallas Duff MD alcohol swabs 1 pad topical DAILY amoxicillin 875 mg PO BID 7 days aspirin 81 mg PO DAILY blood sugar diagnostic ([employer] Ultra Blue Test Strip) Use to check blood sugar once daily and as needed for signs & symptoms of hypo/hyperglycemia blood-glucose meter ([employer] Ultra2 Meter) Use to check blood sugar once daily and as needed for signs & symptoms of hypo/hyperglycemia cholecalciferol (vitamin D3) 25 mcg PO DAILY 30 days fluticasone propionate 50 mcg/actuation (Flonase Allergy Relief) 1 spray intranasal DAILY 30 days lancets (S[employer]uch UltraSoft Lancets) Use to check blood sugar once daily and as needed for signs & symptoms of hypo/hyperglycemia levothyroxine 75 mcg (1.5 x 50 mcg) PO DAILY 90 days melatonin 1-2 tab orally bedtime PRN; 30 days metformin 1,000 mg PO BID 90 days metoprolol tartrate 25 mg PO BID 90 days mirabegron ER (Myrbetriq) 50 mg PO DAILY nitroglycerin 0.4 mg sublingual DIRECTED PRN pantoprazole 40 mg PO DAILY 90 days rosuvastatin 20 mg PO BEDTIME 90 days sennosides 8.6 mg PO BID sertraline 100 mg (2 x 50 mg) PO DAILY 90 days HPI Comments Details: 72 yr old woman with long standing DM and HTN with CKD h/o recurrent hyperkalemia h/o hospitalization in the past for high K Baseline creatinine is around 1.3 h/o eating K rich diet including oranges Imaging did not reveal obstruction 12/18/2023. Recently she had a potassium of 5.5. She was given a dose of Kayexalate. I spoke to her son and we rechecked the potassium which was 5.1. She is here for follow-up. According to her son she is not eating potassium rich foods at this time. No urinary symptoms. No constipation. Blood sugars are in the low 200s. Last A1c was 7%. There was some difficulty while drawing blood at the lab. 02/22/2024. Recently had UTI which was treated successfully. She has no new issues. [facility] Medical History (Updated 05/02/24 @ 14:54 by Dania Duff MD) Depression Mild cognitive impairment Arthritis Fatty liver On beta corona at home CAD (coronary artery disease) Diverticulosis Allergy to food dye Hypertension, essential Constipation by delayed colonic transit 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 Mother No problems noted. Social History Housing: House Are you a primary healthcare financial analyst to a significant other at home: No Do you presently have visiting nurse or other home services: No Alcohol intake: never Patient Tobacco Use Status: Never used Tobacco e-Cigarette/Vaping Use: Never Used service: No Current occupational status: disabled Cognitive needs: No Hearing needs: No Vision needs: No Physical Exam Vital Signs: Last Vital Signs Pulse 67 09/10/24 13:44 BP 140/64 H 09/10/24 13:44 Pulse Ox 97 09/10/24 13:44 Oxygen Delivery Method Room Air 09/10/24 13:44 BMI result Body Mass Index 26.7 Comfortable Neck supple no JVD. Lungs entry equal no rales. Heart S1-S2 heard no gallop or rub. Abdomen soft nontender. Neuro alert awake oriented. No asterixis. Extremities no edema. Results Reviewed Nephrology Results: Hgb 11.2 g/dl (12.0-16.0) L 12/24/24 WBC 6.1 X10*3/uL (4.8-10.8) 09/03/24 Plt Count 269 X10*3/uL (160-400) 24 Sodium 140 mmol/L (135-145) 24 Potassium 5.1 mmol/L (3.3-5.1) 24 Chloride 107 mmol/L (96-108) 24 Carbon Dioxide 28 mmol/L (22-29) 09/03/24 BUN 16 mg/dL (9-16) 09/03/24 Creatinine 1.18 mg/dL (0.5-1.4) 24 Calcium 9.3 mg/dL (8.4-10.2) 24 Urine Protein 30 (1+) mg/dL (Neg-Trace) H 02/03/24 Assessment & Plan Assessment & Plan (1) CKD (chronic kidney disease) stage 3, GFR 30-59 ml/min: Code(s): N18.30 - Chronic kidney disease, stage 3 unspecified Category: Medical Qualifiers: Chronic kidney disease stage 3 subtype: stage 3a (GFR 45-59) Qualified Code(s): N18.31 - Chronic kidney disease, stage 3a (2) Hyperkalemia: Code(s): E87.5 - Hyperkalemia Category: Medical Plan Elderly woman with CKD and h/o hyperkalemia 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 Keep on Low K diet;Avoid oranges we will avoid using tight tourniquet and avoid using small needles to avoid hemolysis. Dyslipidemia On Statins Follow with PCP . Orders: Orders Basic Metabolic Panel 6 Months N18.31 - Chronic kidney disease, stage 3a Coding Level of Care Code Est Pt Level 4 (35396) Diagnoses Stage 3a chronic kidney disease N18.31 Chronic kidney disease stage 3 subtype: stage 3a (GFR 45-59) Hyperkalemia E87.5
[2024-09-10 13:44] VITALS: BP 140/64; PULSE 67; O2SAT 97; BMI 26.7
== END 2024-09-10 14:01 | disposition home or self-care (01) ==
PROVIDERS: PCP Internal Medicine; Visit Provider Internal Medicine Hypertension Specialist
DX: I12.9 Hypertensive chronic kidney disease with stage 1 through stage 4 chronic kidney disease, or unspecified chronic kidney disease (principal); E11.22 Type 2 diabetes mellitus with diabetic chronic kidney disease; N18.31 Chronic kidney disease, stage 3a; E87.5 Hyperkalemia
CPT/HCPCS: 99214

== ENCOUNTER → 2024-09-10 13:40 | Outpatient (BNVA) | payer MEDICARE, SELFPAY | PROVIDERS: PCP Internal Medicine; Visit Provider Internal Medicine Hypertension Specialist | DX: N18.31 Chronic kidney disease, stage 3a (principal); E87.5 Hyperkalemia | CPT/HCPCS: 99212 ==

== ENCOUNTER 2024-09-13 13:56 | Outpatient (AMB) | payer MEDICARE, SELFPAY ==
[2024-09-13 14:01] VITALS: BP 112/70; PULSE 62; O2SAT 97; BMI 26.7
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
== END 2024-09-13 14:31 | disposition home or self-care (01) ==
PROVIDERS: PCP Internal Medicine; Visit Provider Internal Medicine
DX: I12.9 Hypertensive chronic kidney disease with stage 1 through stage 4 chronic kidney disease, or unspecified chronic kidney disease (principal); N18.31 Chronic kidney disease, stage 3a; G31.84 Mild cognitive impairment of uncertain or unknown etiology; E13.9 Other specified diabetes mellitus without complications; F33.41 Major depressive disorder, recurrent, in partial remission; I20.89 Other forms of angina pectoris; W19.XXXA Unspecified fall, initial encounter; T14.8XXA Other injury of unspecified body region, initial encounter; E78.9 Disorder of lipoprotein metabolism, unspecified; K21.9 Gastro-esophageal reflux disease without esophagitis; E03.9 Hypothyroidism, unspecified; Z91.09 Other allergy status, other than to drugs and biological substances; R26.81 Unsteadiness on feet

== ENCOUNTER 2025-01-14 14:50 | Outpatient (AMB) | payer MEDICARE, SELFPAY ==
[2025-01-14 14:54] VITALS: BP 126/68; PULSE 77; O2SAT 96; BMI 26.6
--- NOTE | 2025-01-14 14:54 | A.OFFPC_ITS ---
Vital Signs 01/14/25 14:54 Height 5 ft 3 in Weight 150 lb 4 oz BMI 26.6 BP 126/68 Blood Pressure Location Rt brachial Position Sitting Pulse 77 Pulse Source Pulse Oximeter Pulse Oximetry (%) 96 Oxygen Delivery Method Room Air Intake Visit Reasons: 4 months follow up Allergies codeine [Codeine] Allergy (Intermediate, Verified 01/14/25 14:55) VOMITING aspirin [Aspirin] Adverse Reaction (Mild, Verified 01/14/25 14:55) DIZZINESS nitrofurantoin [From Macrobid] Adverse Reaction (Mild, Verified 01/14/25 14:55) Hyperkalemia Medication List - Last Reconciled 01/14/25 by Tierra Grace MD alcohol swabs 1 pad topical DAILY aspirin 81 mg PO DAILY blood sugar diagnostic ([employer] Ultra Blue Test Strip) Use to check blood sugar once daily and as needed for signs & symptoms of hypo/hyperglycemia blood-glucose meter ([employer] Ultra2 Meter) Use to check blood sugar once daily and as needed for signs & symptoms of hypo/hyperglycemia cholecalciferol (vitamin D3) 25 mcg PO DAILY 30 days fluticasone propionate 50 mcg/actuation (Flonase Allergy Relief) 1 spray intranasal DAILY 30 days lancets ([employer] UltraSoft Lancets) Use to check blood sugar once daily and as needed for signs & symptoms of hypo/hyperglycemia levothyroxine 75 mcg (1.5 x 50 mcg) PO DAILY 90 days melatonin 1-2 tab orally bedtime PRN; 30 days metformin 1,000 mg PO BID 90 days metoprolol tartrate 25 mg PO BID 90 days mirabegron ER (Myrbetriq) 50 mg PO DAILY nitroglycerin 0.4 mg sublingual DIRECTED PRN pantoprazole 40 mg PO DAILY 90 days rosuvastatin 20 mg PO BEDTIME 90 days sennosides 8.6 mg PO BID sertraline 100 mg (2 x 50 mg) PO DAILY 90 days Tobacco use date assessed: 01/14/25 Fall risk assessment: No Falls in past year Last assessed Fall Risk: 01/14/25 Dental Screening Dental Screen Date: 01/14/25 Did you have a dental visit in the last 12 months?: Yes Did you have a dental problem in the last 6 months where you did not have access to dental care?: No Was dental information given to patient?: Patient has dentist HPI 4 months follow up HPI Details History - The patient is a 74-year-old female pr esenting for a follow-up regarding previously diagnosed conditions. Came in today with her son - Hyperlipidemia: The patient reports pe rsistently high cholesterol levels, with recent labs from August showing significantly elevated levels, notably influenced by dietary intake during her stay in [place] where she consumed high amounts of Ghee substitutes. - Gastroesophageal Reflux Disease (GERD) : The patient describes symptoms consistent with GERD, Neck and upper back pain: exacerbation noted during periods of prolonged sitting or lying with her head elevated on a couch armrest, potentially relieved by shoulder massages and avoiding lying flat. - Major Depressive Disorder: The patient has been tapering off Zoloft and has reported a decrease in depressive symptoms. She described having experienced cognitive concerns, though her mood symptoms have improved with cognitive behavioral therapy. She expresses some reluctance in discussing cognitive concerns further. - Allergies: Patient has stopped taking long-acting antihistamine I would recommend to start that especially that she is having difficulty swallowing liquids Which can indicate chronic inflammation in her throat either due to allergies postnasal drip or worsening GERD I have ordered modified barium swallow to further evaluate that Continue Flonase nasal spray Hypothyroidism: Continue levothyroxine 75 mcg Diabetes : Continue metformin 1 g b.i.d. sugar is controlled Patient Instructions - Continue taking prescribed cholesterol medication regularly and monitor dietary fat intake to manage hyperlipidemia. - physical therapy ordered for neck and upper back pain - Contact a counselor for cognitive-beh avioral therapy if comfortable. - Schedule follow-up labs as advised to monitor cholesterol levels. - Relieve stress through gentle exercise s such as gardening or walking. - continue medications - labs are due Review of Systems - General: No fever no chills - Neurological: No headaches no dizziness - Ear nose throat: No sore throat no hearing difficulty no ear pain - Cardiovascular: No syncope, no chest pain, no palpitations - Gastrointestinal: No nausea vomiting or diarrhea - Endocrine: No polyuria polydipsia no heat intolerance - Genitourinary: No dysuria , no blood in urine Physical Exam General: No acute distress HEENT: No acute findings Neck: Supple, but patient advised to avoid wearing a collar as it may affect her Respiratory system: Able to talk in full sentences, no audible wheeze Cardiovascular: S1-S2 regular in rate and rhythm Gastrointestinal: No pain, bowel sounds positive Extremities: No new findings INSEAM TRIMMER: Alert awake oriented x3 motor sensory intact Skin: Normal turgor PFSH Medical History Depression Mild cognitive impairment Arthritis Fatty liver On beta corona at home CAD (coronary artery disease) Diverticulosis Allergy to food dye Hypertension, essential Constipation by delayed colonic transit 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 Mother No problems noted. Social History Housing: House Are you a primary insurance healthcare consultant to a significant other at home: No Do you presently have visiting nurse or other home services: No Alcohol intake: never Patient Tobacco Use Status: Never used Tobacco e-Cigarette/Vaping Use: Never Used service: No Current occupational status: disabled Cognitive needs: No Hearing needs: No Vision needs: No Questionnaire Thrive Questionnaire Date Thrive assessed: 01/14/25 I am a: Parent/Caregiver What is your living situation today?: I have a steady place to live Within the past 12 months, did the food you bought not last and you didn't have the money to get more?: Never true Within the past 12 months, did you worry whether your food would run out before you got money to buy more?: Never true Do you have trouble paying for medicines?: No Do you have trouble getting transportation to medical appointments?: No Do you have trouble paying your heating and electricity bill?: No Do you have trouble taking care of your child, family member or friend?: No Do you have trouble with day-to-day activities such as bathing, preparing meals, shopping, managing finances, etc.?: No Are you currently unemployed and looking for a job?: No Are you interested in more education?: No Please select the resources that you would like help with: None Currently or been in a relationship where the following occur: I choose not to answer THRIVE Score: 0 AUDIT C Alcohol Use Questionnaire (AUDIT-C) 1. How often do you have a drink containing alcohol?: Never 3. How often do you have six or more drinks on one occasion?: Never Total Score: 0 Score Reviewed/Action Taken: Yes JENNA-7 AMB Questionnaire JENNA-7 Date JENNA - 7 assessed: 01/14/25 Feeling nervous, anxious, or on edge: 1 = Several days Not being able to stop or control worryin = Several days Worrying too much about different things: 2 = More than half the days Trouble relaxin = Several days Being so restless that it is hard to sit still: 0 = Not at all Becoming easily annoyed or irritable: 1 = Several days Feeling afraid as if something awful might happen: 1 = Several days Total JENNA-7 score (0-4 normal; 5-9 mild; 10-14 moderate; 15-21 severe): 7 Source: Developed by Drs. Miki Monge, Marisela Bazzi, Syed Ramires and colleagues, with an educational yamilka from [employer]. JENNA-7 Assessment Billing JENNA-7 Assessment Tool: JENNA-7 Assessment 28523 Physical exam (Primary Care) Vital Signs: Last Vital Signs Pulse 77 01/14/25 14:54 BP 126/68 01/14/25 14:54 Pulse Ox 96 01/14/25 14:54 Oxygen Delivery Method Room Air 01/14/25 14:54 BMI result Body Mass Index 26.6 Tobacco/Smoking Status: Tobacco use Status Tobacco use date assessed 01/14/25 01/14/25 14:58 Patient Tobacco Use Status Never used Tobacco 01/14/25 14:58 e-Cigarette/Vaping Use Never Used 01/14/25 14:58 Thrive Assessment: Date of Thrive Assessment Date Thrive assessed 01/14/25 01/14/25 15:05 Currently or been in a relationship where the following occur: I choose not to answer Coding Level of Care Code Est Pt Level 5 (21595) Diagnoses Difficulty swallowing liquids R13.10 Diabetes 1.5, managed as type 2 E13.9 Hypertension, essential I10 Lipid disorder E78.9 Recurrent major depressive disorder, in partial remission F33.41 Active/Remission status: in partial remission Chronic GERD K21.9 Hypothyroidism, unspecified type E03.9 Hypothyroidism type: unspecified Environmental allergies Z91.09 Stage 3a chronic kidney disease N18.31 Chronic kidney disease stage 3 subtype: stage 3a (GFR 45-59) Mild cognitive impairment G31.84 Cervicalgia M54.2 Upper back pain M54.9 Additional Codes JENNA-7 Assessment Billing - JENNA-7 Assessment Tool: JENNA-7 Assessment 11767 ([id number]) Time Spent (min) 40 Comment Reviewing chart, labs, discussion with patient and son, coordination of care Assessment & Plan Assessment & Plan (1) Difficulty swallowing liquids: Code(s): R13.10 - Dysphagia, unspecified Category: Medical (2) Diabetes 1.5, managed as type 2: Code(s): E13.9 - Other specified diabetes mellitus without complications Category: Medical (3) Hypertension, essential: Code(s): I10 - Essential (primary) hypertension Category: Medical (4) Lipid disorder: Code(s): E78.9 - Disorder of lipoprotein metabolism, unspecified Category: Medical (5) Depression, major, recurrent: Code(s): F33.9 - Major depressive disorder, recurrent, unspecified Category: Medical Qualifiers: Active/Remission status: in partial remission Qualified Code(s): F33.41 - Major depressive disorder, recurrent, in partial remission (6) Chronic GERD: Code(s): K21.9 - Gastro-esophageal reflux disease without esophagitis Category: Medical (7) Hypothyroidism: Code(s): E03.9 - Hypothyroidism, unspecified Category: Medical Qualifiers: Hypothyroidism type: unspecified Qualified Code(s): E03.9 - Hypo thyroidism, unspecified (8) Environmental allergies: Code(s): Z91.09 - Other allergy status, other than to drugs and biological substances Category: Medical (9) CKD (chronic kidney disease) stage 3, GFR 30-59 ml/min: Code(s): N18.30 - Chronic kidney disease, stage 3 unspecified Category: Medical Qualifiers: Chronic kidney disease stage 3 subtype: stage 3a (GFR 45-59) Qualified Code(s): N18.31 - Chronic kidney disease, stage 3a (10) Mild cognitive impairment: Code(s): G31.84 - Mild cognitive impairment of uncertain or unknown etiology Category: Medical (11) Cervicalgia: Code(s): M54.2 - Cervicalgia Category: Medical (12) Upper back pain: Code(s): M54.9 - Dorsalgia, unspecified Category: Medical Plan History - The patient is a 74-year-old female presenting for a follow-up regarding previously diagnosed conditions. Came in today with her son - Hyperlipidemia: The patient reports persistently high cholesterol levels, with recent labs from August showing significantly elevated levels, notably in fluenced by dietary intake during her stay in [place] where she consumed high amounts of Ghee substitutes. - Gastroesophageal Reflux Disease (GERD): The patient describes symptoms consistent with GERD, Neck and upper back pain: exacerbation noted during periods of prolonged sitting or lying with her head elevated on a couch armrest, potentially relieved by shoulder massages and avoiding lying flat. - Major Depressive Disorder: The patient has been tapering off Zoloft and has reported a decrease in depressive symptoms. She described having experienced cognitive concerns, though her mood symptoms have improved with cognitive behavioral therapy. She expresses some reluctance in discussing cognitive concerns further. - Allergies: Patient has stopped taking long-acting antihistamine I would recommend to start that especially that she is having difficulty swallowing liquids Which can indicate chronic inflammation in her throat either due to allergies postnasal drip or worsening GERD I have ordered modified barium swallow to further evaluate that Continue Flonase nasal spray Hypothyroidism: Continue levothyroxine 75 mcg Diabetes : Continue metformin 1 g b.i.d. sugar is controlled Patient Instructions - Continue taking prescribed cholesterol medication regularly and monitor dietary fat intake to manage hyperlipidemia. - physical therapy ordered for neck and upper back pain - Contact a counselor for cognitive-behavioral therapy if comfortable. - Schedule follow-up labs as advised to monitor cholesterol levels. - Relieve stress through gentle exercises such as gardening or walking. - continue medications - labs are due Orders: Orders Comprehensive Met. Panel 3 Months E13.9 - Other specified diabetes mellitus without complications, I10 - Essential (primary) hypertension, N18.31 - Chronic kidney disease, stage 3a TSH reflex Free T4 3 Months E13.9 - Other specified diabetes mellitus without complications, I10 - Essential (primary) hypertension, N18.31 - Chronic kidney disease, stage 3a PT Evaluation and Treatment Today M54.2 - Cervicalgia, M54.9 - Dorsalgia, unspecified FL Modified Barium Swallow Today R13.10 - Dysphagia, unspecified Hemoglobin A1c 3 Months E13.9 - Other specified diabetes mellitus without complications, I10 - Essential (primary) hypertension, N18.31 - Chronic kidney disease, stage 3a Complete Blood Count Auto Diff 3 Months E13.9 - Other specified diabetes mellitus without complications, I10 - Essential (primary) hypertension, N18.31 - Chronic kidney disease, stage 3a
--- OUTSIDE RECORDS SUMMARY | 2025-01-14 16:06 | XMS_ITS | Data Portability ---
[facility] - Prior to 10/12/22 Address [address] [facility] [address] [place] [address] Assessment No assessment recorded. Plan of Treatment Reminders Order Date Submit Date Provider Last Modified By Organization Details Last Modified Time Details Appointments None recorded. 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 Procedures None recorded. Surgeries None recorded. Imaging None recorded. Medication Orders None recorded. Patient TargetsNo targets recorded. Patient InstructionsNo instructions recorded. Reason for Referral None Reported. Results Created Date Observation Date Name Description Value Unit Range Abnormal Flag Note LastModifiedBy Organization Detail LastModifiedTime Result Notes None recorded. Problems Name Problem SNOMED Code Status Onset Date Resolution Date Notes Provider Name and Address Organization Details Recorded Time Diabetes mellitus 20353610 Active 2020 Naga Oconnor MD [address] [place] [address], [phone], [facility] 09:33:57 Hypothyroidism 44687911 Active 2020 Naga Oconnor MD [address] [place] [address], [phone], [facility] 1 09:34:04 Hypertensive disorder 96353174 Active 2020 Naga Oconnor MD [address] [place] [address], [phone], [facility] 09:34:10 Problem Notes None recorded. Medical Equipment None Reported. Allergies No known drug allergies Vitals Date Recorded Heart rate Respiratory rate Body temperature Oxygen saturation Oxygen saturation in Arterial blood by Pulse oximetry Provider Name and Address Organization Details Last Updated DateTime 1 88 /min 12 /min 97.1 [degF] 98 % 98 % Christina Friedman [facility] 11:14:03 Social History None recorded. Functional Status None recorded. Mental Status None recorded. Family History Nothing Reported. Medical History No medical history recorded. Gynecological HistoryNo gynecological history recorded. Obstetrics History GPAL:G 0 P 0 0 0 0 Past Encounters Encounter ID Performer Location Encounter Start Date Encounter Closed Date Diagnosis/Indication Diagnosis SNOMED-CT Code Diagnosis ICD10 Code Diagnosis Note [id number] Naga Oconnor MD Main Office - Prior to 10/12/22 [address] [facility] [address] [place] [address] 09/12/2020 09:44:39 10/05/2020 16:27:28 Viral screening 834936284 Z11.59 Health Concerns Section Related Observation LastModified by Organization Detai ls LastModified Time None Recorded Concern Status LastModified by Organization Details LastModified Time None Recorded Advance Directives Directive None Recorded Payers Encounter Date Sequence Insurance Name Policy Number Policy Boyer Covered Member ID Boyer Member ID Guarantor Name 09/12/2020 1 MEDICARE B-[place]: [facility] [employer] Mc Lopez [id number] Guviktor Lopez Notes Date Note Type Note Provider Name and Address Organization Details Recorded Time 09/12/2020 text/html traveling to [place] on Monday by car no symptoms, feeling well today no known exposure non-smoker medical conditions: has diabetes and heart surgery 2 years ago, arthritis, hypothyroid takes metoprolol, synthroid, junevis, and metformin denies any complaints medical issues are controlled Naga Oconnor MD [address] [facility] [address], [place], [address], [facility] 09/13/2020 09:34:45 OBGyn Episode No OBEpisode recorded.
--- OUTSIDE RECORDS SUMMARY | 2025-01-14 16:06 | XMS_ITS | Clinical Summary ---
Author Organization [facility] Facility Address [address] [address] Care Team Providers Care Network Support Administrator Name Role Phone Tierra Grace MD Primary Care Provider [phone] Allergies Active Allergy Reactions Criticality Noted Date Comments Codeine Other (see comments) 01/12/2023 Medications fluticasone (FLONASE) 50 MCG/ACT nasal spray TAKE 1 SPRAY IN EACH NOSTRIL DAILY FOR 30 DAYS 11/16/2022 Active acetaminophen (TYLENOL) 325 MG tablet Active aspirin (ST TONY) 81 MG EC tablet Take 1 tablet by mouth 1 (one) time each day Active atorvastatin (LIPITOR) 10 MG tablet Take 1 tablet by mouth 1 (one) time each day Active cholecalciferol (VITAMIN D-3) 25 MCG (1000 UT) capsule Take 1 capsule by mouth 1 (one) time each day Active levothyroxine (SYNTHROID, LEVOTHROID) 88 MCG tablet Take 88 mcg by mouth 1 (one) time each day 11/12/2022 Active loratadine (CLARITIN) 10 MG tablet Take 1 tablet by mouth 1 (one) time each day Active metFORMIN (GLUCOPHAGE) 500 MG tablet Take 1 tablet by mouth in the morning and 1 tablet in the evening. Active metoprolol tartrate 25 MG tablet Take 25 mg by mouth 11/11/2022 Active pantoprazole (PROTONIX) 40 MG EC tablet Take 40 mg by mouth 1 (one) time each day 11/16/2022 Active sertraline (ZOLOFT) 100 MG tablet TAKE 1 TABLET BY MOUTH ONCE DAILY, ALLERGY TO DYE 12/01/2022 Active Januvia 50 MG tablet 01/06/2023 Active thiamine (VITAMIN B-1) 100 MG tablet Take 1 tablet by mouth 1 (one) time each day Active Active Problems Problem Noted Date Diagnosed Date Acute nontraumatic kidney injury 01/12/2023 Benign essential hypertension 01/12/2023 Renal disorder due to type 2 diabetes mellitus 0 01/12/2023 Family History Medical History Relation Comments Heart disease Father Diabetes Mother Diabetes Sibling 1 Heart disease Sibling 2 Relation Status Comments Father Mother Sibling 1 Sibling 2 Social History Tobacco Use Types Packs/Day Years Used Date Smoking Tobacco: Never Alcohol Use Standard Drinks/Week Comments No 0 (1 standard drink = 0.6 oz pur e alcohol) Comments Unknown Sex and Gender Information Value Date Recorded Sex Assigned at Not on file Legal Sex Female 4:50 PM EST Gender Identity Not on file Sexual Orientation Not on file Last Filed Vital Signs Vital Sign Reading Time Taken Comments Blood Pressure 122/70 02/20/2023 1:51 PM EDT Pulse 93 02/20/2023 1:51 PM EDT Temperature - - Respiratory Rate - - Oxygen Saturation 98% 02/20/2023 1:51 PM EDT Inhaled Oxygen Concentration - - Weight 64.9 kg (143 lb) 02/20/2023 1:51 PM EDT Height 160 cm (5' 3 ) 02/20/2023 1:51 PM EDT Body Mass Index 25.33 02/20/2023 1:51 PM EDT Plan of Treatment Health Maintenance Due Date Last Done Comments Pneumococcal Vaccine: 50+ Ye ars (1 of 2 - PCV) 1969 Diabetes: Hemoglobin A1C 10/12/2020 Diabetes: Ophthalmology Exam 10/12/2020 Diabetes: Pedal Pulse Checked 10/12/2020 Diabetes: Sensory Foot Exam 10/12/2020 Diabetes: Visual Foot Exam 10/12/2020 Influenza Vaccine (Season Ended) 2025 Hepatitis B Vaccine Aged Out No longe r eligible based on patient's age to complete this topic Insurance Medicare [facility] Medicare [facility] Care Teams Network Support Administrator Relationship Specialty Start Date End Date Tierra Grace MD [address] [place] [address] PCP - General 07/16/19
== END 2025-01-14 15:49 | disposition home or self-care (01) ==
PROVIDERS: PCP Internal Medicine; Visit Provider Internal Medicine
DX: I12.9 Hypertensive chronic kidney disease with stage 1 through stage 4 chronic kidney disease, or unspecified chronic kidney disease (principal); E13.9 Other specified diabetes mellitus without complications; N18.31 Chronic kidney disease, stage 3a; R13.10 Dysphagia, unspecified; E78.9 Disorder of lipoprotein metabolism, unspecified; K21.9 Gastro-esophageal reflux disease without esophagitis; F33.41 Major depressive disorder, recurrent, in partial remission; E03.9 Hypothyroidism, unspecified; Z91.09 Other allergy status, other than to drugs and biological substances; G31.84 Mild cognitive impairment of uncertain or unknown etiology; M54.2 Cervicalgia; M54.9 Dorsalgia, unspecified

== ENCOUNTER → 2025-01-14 14:50 | Outpatient (BNVA) | payer MEDICARE, SELFPAY | PROVIDERS: PCP Internal Medicine; Visit Provider Internal Medicine | DX: R13.10 Dysphagia, unspecified (principal); I12.9 Hypertensive chronic kidney disease with stage 1 through stage 4 chronic kidney disease, or unspecified chronic kidney disease; E11.22 Type 2 diabetes mellitus with diabetic chronic kidney disease; N18.31 Chronic kidney disease, stage 3a; E78.9 Disorder of lipoprotein metabolism, unspecified; F33.41 Major depressive disorder, recurrent, in partial remission; K21.9 Gastro-esophageal reflux disease without esophagitis; E03.9 Hypothyroidism, unspecified; G31.84 Mild cognitive impairment of uncertain or unknown etiology; M54.2 Cervicalgia; M54.9 Dorsalgia, unspecified | CPT/HCPCS: 96127; 99212 ==

== ENCOUNTER 2025-01-15 12:23 | Outpatient (REF) | payer MEDICARE, SELFPAY ==
--- OUTSIDE RECORDS SUMMARY | 2025-01-15 13:35 | XMS_ITS | Clinical Summary ---
Author Organization [facility] Facility Address [address] [address] Care Team Providers Care Electrician Shop Name Role Phone Tierra Grace MD Primary Care Provider Allergies Active Allergy Reactions Criticality Noted Date [...] age to complete this topic Insurance Medicare [facility] Medicare [facility] Care Teams Electrician Shop Relationship Specialty Start Date End Date Tierra Grace MD [address] [place] [address] PCP - General 07/16/19
[2025-01-15 13:40] LABS: MANUAL DIFF FLAG NO
[2025-01-15 13:56] LABS: Basophils Percent Auto 0.4 % (0-2); Eosinophils Absolute Auto 0.2 X10*3/uL (0.0-0.4); Eosinophils Percent Auto 3.2 % (0-4); Hematocrit 33.5 % (37.0-47.0); Hemoglobin 11.1 g/dl (12.0-16.0); Imm Gran Abs Auto 0.02 X10*3/uL (0.00-0.03); Imm Gran Pct Auto 0.3 % (0.0-0.4); Lymphocytes Absolute Auto 2.3 X10*3/uL (1.2-4.9); Lymphocytes Percent Auto 31.6 % (20-40); Mean Corpuscular HGB Conc 33.1 g/dl (31.0-35.0); Mean Corpuscular Hemoglobin 28.5 pg (27.0-33.0); Mean Corpuscular Volume 86.1 fL (80.0-98.0); Mean Platelet Volume 10.6 fL (9.4-12.3); Monocytes Absolute Auto 0.5 X10*3/uL (0.1-1.2); Monocytes Percent Auto 7.2 % (2-11); Neutrophils Absolute Auto 4.2 x10*3/uL (2.0-8.3); Neutrophils Percent Auto 57.3 % (45-73); Platelet Count 275 X10*3/uL (160-400); Red Blood Count 3.89 X10*6/uL (4.20-5.50); Red Cell Distribution Width 14.3 % (11.0-16.0); White Blood Count 7.2 X10*3/uL (4.8-10.8)
[2025-01-15 14:17] LABS: Estimated Average Glucose 154 mg/dL; Hemoglobin A1C 155.4524 umol/L; Total Hemoglobin (HGBA1C) 2932.6149 umol/L
[2025-01-15 14:31] LABS: Alanine Aminotransferase 9 U/L (0-31); Albumin Level 3.9 g/dL (3.5-5.0); Alkaline Phosphatase 68 U/L (39-117); Anion Gap 13 (12-20); Aspartate Amino Transferase 22 U/L (5-31); Bilirubin Total 0.3 mg/dL (0.0-1.0); Blood Urea Nitrogen 19 mg/dL (9-16); Calcium 9.5 mg/dL (8.4-10.2); Carbon Dioxide 24 mmol/L (22-29); Chloride 107 mmol/L (96-108); Estimated Glomerular Filt Rate 42; Glucose Random 244 mg/dL (60-115); Potassium 4.9 mmol/L (3.3-5.1); Sodium 139 mmol/L (135-145)
[2025-01-15 14:36] LABS: TSH reflex Free T4 1.72 uIU/mL (0.32-4.0)
[2025-01-17 14:34] LABS: LDL Cholesterol Direct 100 mg/dL (<100)
== END 2025-01-15 12:24 | disposition home or self-care (01) ==
LOC: HO.HMGCLDS 12:23
PROVIDERS: PCP Internal Medicine; Visit Provider Internal Medicine
DX: T14.8XXA Other injury of unspecified body region, initial encounter (principal); W18.30XA Fall on same level, unspecified, initial encounter; Y93.9 Activity, unspecified; Y92.9 Unspecified place or not applicable; Y99.9 Unspecified external cause status; G31.84 Mild cognitive impairment of uncertain or unknown etiology; I12.9 Hypertensive chronic kidney disease with stage 1 through stage 4 chronic kidney disease, or unspecified chronic kidney disease; N18.31 Chronic kidney disease, stage 3a; R26.81 Unsteadiness on feet; I20.89 Other forms of angina pectoris; E78.9 Disorder of lipoprotein metabolism, unspecified; E13.9 Other specified diabetes mellitus without complications; F33.41 Major depressive disorder, recurrent, in partial remission; K21.9 Gastro-esophageal reflux disease without esophagitis; E03.9 Hypothyroidism, unspecified; Z91.09 Other allergy status, other than to drugs and biological substances
CPT/HCPCS: 36415; 80053; 83036; 83721; 84443; 85025

== ENCOUNTER 2025-01-20 14:23 | Outpatient (AMB) | payer MEDICARE, SELFPAY ==
--- OUTSIDE RECORDS SUMMARY | 2025-01-20 14:35 | XMS_ITS | Data Portability ---
[facility] Main Office - Prior to 10/12/22 Address [address] [facility] [address] [place] [address] Assessment No assessment recorded. Plan of Treatment Reminders Order Date Submit Date Provider Last Modified By Organization Details Last Modified Time Details Appointments None recorded. 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 Procedures None recorded. [...] Address Organization Details Recorded Time Diabetes mellitus 82196713 Active 2020 Naga Oconnor MD [address] [place] [address], [phone], [facility] 09:33:57 Hypothyroidism 24617215 Active 2020 Naga Oconnor MD [address] [place] [address], [phone], [facility] 1 09:34:04 Hypertensive disorder 80276001 Active 2020 Naga Oconnor MD [address] [place] [address], [phone], [facility] 09:34:10 Problem Notes None recorded. Medical Equipment None Reported. Allergies No known drug allergies Vitals Date Recorded Heart rate Respiratory rate Body temperature Oxygen saturation Oxygen saturation in Arterial blood by Pulse oximetry Provider Name and Address Organization Details Last Updated DateTime 1 88 /min 12 /min 97.1 [degF] 98 % 98 % Christina Friedman [facility] 11:14:03 Social History None recorded. Functional Status None recorded. Mental Status None recorded. Family History Nothing Reported. Medical History No medical history recorded. Gynecological HistoryNo gynecological history recorded. Obstetrics History GPAL:G 0 P 0 0 0 0 Past Encounters Encounter ID Performer Location Encounter Start Date Encounter Closed Date Diagnosis/Indication Diagnosis SNOMED-CT Code Diagnosis ICD10 Code Diagnosis Note [id number] Naga Oconnor MD Main Office - Prior to 10/12/22 [address] [facility] [address] [place] [address] 09/12/2020 09:44:39 10/05/2020 16:27:28 Viral screening 112492934 Z11.59 Health Concerns Section Related Observation LastModified by Organization Detai ls LastModified Time None Recorded Concern Status LastModified by Organization Details LastModified Time None Recorded Advance Directives Directive None Recorded Payers Encounter Date Sequence Insurance Name Policy Number Policy Boyer Covered Member ID Boyer Member ID Guarantor Name 09/12/2020 1 MEDICARE B-[place]: [facility] [employer] Mc Lopez [id number] Guviktor Lopez Notes Date Note Type Note Provider Name and Address Organization Details Recorded Time 09/12/2020 text/html traveling to [place] on Monday by car no symptoms, feeling well today no known exposure non-smoker medical conditions: has diabetes and heart surgery 2 years ago, arthritis, hypothyroid takes metoprolol, synthroid, junevis, and metformin denies any complaints medical issues are controlled Naga Oconnor MD [address] [facility] [address], [place], [address], [facility] 09/13/2020 09:34:45 OBGyn Episode No OBEpisode recorded.
--- OUTSIDE RECORDS SUMMARY | 2025-01-20 14:35 | XMS_ITS | Clinical Summary ---
Author Organization [facility] Facility Address [address] [address] Care Team Providers Care Timber Spotter Name Role Phone Tierra Grace MD Primary Care Provider [phone] Allergies Active Allergy Reactions Criticality Noted Date [...] age to complete this topic Insurance Medicare [facility] Medicare [facility] Care Teams Timber Spotter Relationship Specialty Start Date End Date Tierra Grace MD [address] [place] [address] PCP - General 07/16/19
--- NOTE | 2025-01-20 14:39 | A.OFFVIS_ITS ---
Vital Signs 01/20/25 14:40 Height 5 ft 3 in Weight 147 lb 4.301 oz BMI 26.1 BP 100/58 L Blood Pressure Location Lt brachial Position Sitting Pulse 76 Pulse Source Monitor Intake Visit Reasons: Follow up-SOB Screenplay Writer Required: No Screenplay Writer Name: clay Accompanied by: Son Allergies codeine [Codeine] Allergy (Intermediate, Verified 01/14/25 14:55) VOMITING aspirin [Aspirin] Adverse Reaction (Mild, Verified 01/14/25 14:55) DIZZINESS nitrofurantoin [From Macrobid] Adverse Reaction (Mild, Verified 01/14/25 14:55) Hyperkalemia Medication List - Last Reconciled 01/20/25 by Logan Garcia MD alcohol swabs 1 pad topical DAILY aspirin 81 mg PO DAILY blood sugar diagnostic ([employer] Ultra Blue Test Strip) Use to check blood sugar once daily and as needed for signs & symptoms of hypo/hyperglycemia blood-glucose meter ([employer] Ultra2 Meter) Use to check blood sugar once daily and as needed for signs & symptoms of hypo/hyperglycemia cholecalciferol (vitamin D3) 25 mcg PO DAILY 30 days fluticasone propionate 50 mcg/actuation (Flonase Allergy Relief) 1 spray intranasal DAILY 30 days lancets ([employer] UltraSoft Lancets) Use to check blood sugar once daily and as needed for signs & symptoms of hypo/hyperglycemia levothyroxine 75 mcg (1.5 x 50 mcg) PO DAILY 90 days melatonin 1-2 tab orally bedtime PRN; 30 days metformin 1,000 mg PO BID 90 days metoprolol tartrate 25 mg PO BID 90 days mirabegron ER (Myrbetriq) 50 mg PO DAILY nitroglycerin 0.4 mg sublingual DIRECTED PRN pantoprazole 40 mg PO DAILY 90 days rosuvastatin 20 mg PO BEDTIME 90 days sennosides 8.6 mg PO BID sertraline 25 mg PO DAILY HPI Comments Details: Pleasant 74-year-old female here for follow-up. She has background history of bypass surgery. She underwent cardiac catheterization in 2020 for unstable symptoms which showed patent grafts. She was started on isosorbide mononitrate. This improved her symptoms but she developed dizziness and fatigue and isosorbide was discontinued. today she returns for follow-up. She is saying that she is getting night sweats and she feels confused. She is using metformin and hypoglycemia is unlikely to be the cause for this. She also is endorsing that she has not been hungry and her appetite has been quite poor which was also confirmed by her son. She also notices that when she is drinking water she has he is getting some difficulty with swallowing water and has to take her time. She is denying any problems with solids. [facility] Medical History Depression Mild cognitive impairment Arthritis Fatty liver On beta corona at home CAD (coronary artery disease) Diverticulosis Allergy to food dye Hypertension, essential Constipation by delayed colonic transit 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 Mother No problems noted. Social History Housing: House Are you a primary lead caregiver to a significant other at home: No Do you presently have visiting nurse or other home services: No Alcohol intake: never Patient Tobacco Use Status: Never used Tobacco e-Cigarette/Vaping Use: Never Used service: No Current occupational status: disabled Cognitive needs: No Hearing needs: No Vision needs: No Review of Systems Const Denies chills, Denies fatigue, Denies fever(s), Denies frequent falls, Denies weakness, Denies weight gain and Denies weight loss ENT Reports dizziness Card Reports chest pain, Reports chest pain at rest, Reports chest pain with activity, Denies leg edema, Reports lightheadedness, Denies palpitations, Reports dyspnea and Reports dyspnea on exertion Resp Denies cough, Reports dyspnea and Reports dyspnea on exertion GI Denies hematochezia Musc Denies abnormal gait, Denies muscle weakness, Denies numbness, Denies radiating pain into limb and Denies tingling Neuro Denies abnormal gait, Reports dizziness, Denies frequent falls, Denies numbness, Denies tingling and Denies weakness Endo Denies fatigue and Denies palpitations Physical Exam Vital Signs: Last Vital Signs Pulse 76 01/20/25 14:40 BP 100/58 L 01/20/25 14:40 BMI result Body Mass Index 26.1 GENERAL APPEARANCE: in no acute distress. NECK/THYROID: no carotid bruit, no jugular venous distention. SKIN: no suspicious lesions, warm and dry. HEART: no murmurs, regular rate and rhythm, S1, S2 normal. LUNGS: clear to auscultation bilaterally. ABDOMEN: normal, bowel sounds present, soft, nontender, nondistended. EXTREMITIES: no clubbing, cyanosis, or edema. PERIPHERAL PULSES: equal. NEUROLOGIC: nonfocal, alert and oriented. PSYCH: mood/affect full range. Office Procedures EKG Details: Sinus rhythm 76 beats per minute, normal axis, QTC 456 milliseconds. [id number], Complete Assessment & Plan Assessment & Plan (1) Dysphagia: Code(s): R13.10 - Dysphagia, unspecified Category: Medical (2) Poor appetite: Code(s): R63.0 - Anorexia Category: Medical (3) Stable angina: Code(s): I20.8 - Other forms of angina pectoris Category: Medical Plan Pleasant 74-year-old lady who is here for follow-up. She has history of coronary artery bypass surgery in the past. She is denying any anginal symptoms. Her main complaints are mostly related to dizziness and the fact that she has not been eating normal. She is saying that she is not hungry. She also has night sweats which has been bothering her quite frequently. She is saying that it is possible her sugar is low but she is on metformin which usually does not cause hypoglycemia. She has not seen endocrinology and wishes to see someo ne and we will refer her to Endocrinology. I am also sending her to GI because she has been complaining of some dysphagia and given the fact that she has some night sweats I think we should explore her symptoms further. She had exposure to tuberculosis when she was very young but does not have any significant cough or productive sputum currently. For coronary disease point of view she is stable but definitely needs attention for these symptoms. Thank you for allowing me to participate in the care of your patient. Please feel free to contact me if you have any questions. Orders: Referrals Gastroenterology Referral Logan Garcia MD R13.10 - Dysphagia, unspecified, R63.0 - Anorexia Endocrinology Referral Logan Garcia MD E13.9 - Other specified diabetes mellitus without complications Medications: Changed From sertraline allergy to dye 100 mg (2 x 50 mg) PO DAILY 90 days 180 tabs 1RF To sertraline allergy to dye 25 mg PO DAILY Tierra Grace MD Coding Level of Care Code Est Pt Level 3 (83018) Diagnoses Dysphagia R13.10 Poor appetite R63.0 Stable angina I20.8 CPT Codes EKG - CPT: 33127-[id number], Complete ([id number])
[2025-01-20 14:40] VITALS: BP 100/58; PULSE 76; BMI 26.1
== END 2025-01-20 15:08 | disposition home or self-care (01) ==
LOC: HO.HCS 14:24
PROVIDERS: PCP Internal Medicine; Visit Provider Internal Medicine Cardiovascular Disease
DX: R13.10 Dysphagia, unspecified (principal); R63.0 Anorexia; I20.89 Other forms of angina pectoris
CPT/HCPCS: 93010; 99213

== ENCOUNTER → 2025-01-20 14:23 | Outpatient (BNVA) | payer MEDICARE, SELFPAY | PROVIDERS: PCP Internal Medicine; Visit Provider Internal Medicine Cardiovascular Disease | DX: R13.10 Dysphagia, unspecified (principal); R63.0 Anorexia; I20.89 Other forms of angina pectoris; Z95.1 Presence of aortocoronary bypass graft | CPT/HCPCS: 93005; 99212 ==

== ENCOUNTER 2025-01-22 12:51 | Outpatient (RCR) | payer MEDICARE, SELFPAY ==
--- NOTE | 2025-02-06 16:02 | MHC.SP.ADU ---
Referring provider: Dania Duff MD Reason for Referral: Memory/cognitive difficulties Type of Treatment: 07986 Standardized Cognitive Performance Testing, per hour Date of Plan of Treatment: 01/22/25 Onset of Symptoms/Illness: 05/02/24 Date Treatment Started: 01/22/25 Medical Diagnosis: G31.84 Mild cognitive impairment of uncertain or unknown etiology Primary Speech Language Diagnosis: R41.841 Cognitive communication disorder History Mc Juan is a 74 year old female referred for a speech language cognitive evaluation by Dania Duff MD of the [facility] in [place], [place] due to ongoing concerns regarding her memory. Mc was accompanied to this evaluation by her son, Brandon Lopez, who assisted in providing background information included in this report. Mc and her son report she has frequent difficulties with swallowing, expressing thoughts, understanding what others are saying, focusing, reading/writing, finding words, and maintaining topic of conversation. Mc reportedly ?holds water in her mouth and slowly swallows.? Brandon reports Mc?s PCP and cable installer repairer also suggested patient have a swallow evaluation and does not believe this was done yet. Mc drives to do her own grocery shopping, cooks, and is independent for ADL?s. Her daughter reportedly manages bills and finances. Mc has history of depression, which was medicated w/ Zoloft to help manage mood. When screened by Dr. Duff, she scored 23 on the Mini Mental State Examination. She was also advised to undergo lab sleep study to assess for sleep apnea, as this may also affect her memory. Mc?s primary language is Japanese, but she also speaks Urdu and Persian. She finished the 6th grade in [place]. 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 There is familial history of memory difficulty. Mc?s mother was forgetful for 5-10 years before she passed at age 70. Her sister was diagnosed with dementia and her brother reportedly ?needs everything repeated.? Nevertheless, Brandon expressed that these family members were all ?high functioning and productive.? He reports that he himself was tested for ADHD and CAP due to his academic difficulties with language. Mc?s medical history includes CAD, diverticulosis, hypertension, diabetes, chronic GERD, and hypothyroidism. She had a Brain MRI 10/20/23 showing ?Mild generalized cerebral volume loss and mild chronic white matter microangiopathy. Otherwise unremarkable noncontrast MRI of the brain.? Mc lives in a private residence with her older son. She has 2 daughters and 2 sons, and is . Mc?s was a cable installer repairer, and unfortunately passed in 2020 due to complications from COVID. Mc and her son report they are still coping with this tragic loss. Mc declined an hospitality job titles for this exam, as her son, Brandon, assisted with interpretation as needed. Medical History: Other: Medical History Depression Mild cognitive impairment Arthritis Fatty liver On beta corona at home CAD (coronary artery disease) Diverticulosis Allergy to food dye Hypertension, essential Constipation by delayed colonic transit Lipid disorder Diabetes 1.5, managed as type 2 Depression, major, recurrent Chronic GERD Hypothyroidism Environmental allergies Surgical History History of right cataract extraction History of four vessel coronary artery bypass graft S/P cardiac cath History of colonoscopy History of hysteroscopy History of bilateral tubal ligation Hx of cholecystectomy Medication List: Recent Hospitalizations: Respiratory Needs: Patient Orientation: Tests of Cognition: RBANS Clinical Impression: Impaired Observations: Mariola cognitive linguistic skills were evaluated using the RBANS: The Repeatable Battery for the Assessment of Neuropsychological Status (RBANS-Updated Form A). The RBANS assesses aspects of cognitive memory, language, and attention skills. The RBANS is considered a screening battery for cognitive function used with adolescents and adults, ages 12 to 89 years. Composite domains assessed in this evaluation are: Immediate Memory, Visuospatial/Constructional, Language, Attention, and Delayed Memory. Assessed domains and their scores are summarized below: IMMEDIATE MEMORY: These subtests assess an individual?s ability to remember a small amount of information immediately after it is presented. Mc was presented with a list of 10 spoken words and was instructed to repeat back as many words as she could remember from the list (List Learning). She initially recalled 2 items from the list of 10. After 3 repetitions, she recalled up to 4 items at a time, indicating that verbal repetition seems to improve her recall to some degree, nevertheless, she exhibits difficulty holding on to multiple pieces of information at once. After listening to a spoken paragraph, Mc was instructed to re-tell the story with as much detail as she could remember (Story memory). She seemed to have an easier time recalling information from a narrative as compared to the randomized list. List Learning Total Score: 14 Scaled Score: 3 Percentile Rank: 1 Interpretation: Extremely Low Story Memory Total Score: 8 Scaled Score: 4 Percentile Rank: 2 Interpretation: Borderline Immediate Memory Index score: 61 Percentile Rank: 0.5 Interpretation: Extremely Low VISUOSPATIAL/CONSTRUCTIONAL: These subtests assess an individual?s visuospatial skills and perception of spatial relationships. Mc was first instructed to draw an accurate copy of a figure presented to her (Figure Copy). She included most components in her copy with accurate placement. Her drawing lacked just 3 details from the original copy and no significant difficulty was noted with completion of this task. Next, Mc was instructed to identify lines that matched based on orientation and placement. She completed this task, demonstrating accuracy on most trials. Visuo-spatial skills are a relative strength for her. Figure Copy Total Score: 14 Scaled Score: 4 Percentile Rank: 2 Interpretation: Borderline Line Orientation Total Score: 15 Percentile Group: 26-50 Interpretation: Average Visuospatial/Constructional Index score: 75 Percentile Rank: 5 Interpretation: Borderline LANGUAGE: These subtests assess an individual?s word retrieval skills. Mc correctly named line images in 8 out of 10 trials during a confrontational naming task (Picture Naming). She named 50% of the drawings in Japanese, with her son indicating when she had used accurate labels. Mc mislabeled giraffe as ?zebra? and then corrected herself. She also named sailboat as ?canoe.? Mc was instructed to name as many fruits and vegetables as she can in 60 seconds (Semantic Fluency) to assess semantic fluency. She named 8 relevant items (7 of which were named in Persian) in this category without any hesitancies or perseverations. Picture Naming Total Score: 8 Percentile Group: 3-9 Interpretation: Borderline Semantic Fluency Total Score: 8 Scaled Score: 3 Percentile Rank: 1 Interpretation: Extremely Low Language Index score: 64 Percentile Rank: 1 Interpretation: Extremely Low ATTENTION: These subtests assess an individual?s capacity to remember and manipulate both visually and orally presented information in short-term memory storage. Mc was first instructed to repeat back number series that were between 2-9 digits long (Digit Span). She recalled digit series of up to 5 digits. She was also instructed to code markings with numbers (Coding). She coded 5 markers in 90 seconds, making 1 error. Digit Span Total Score: 8 Scaled Score: 7 Percentile Rank: 16 Interpretation: Low Average Coding Total Score: 5 Scaled Score: 1 Percentile Rank: 0.1 Interpretation: Extremely Low Attention Index score: 60 Percentile Rank: 0.4 Interpretation: Extremely Low DELAYED MEMORY: These subtests assess an individual?s retrieval of information from long-term memory. Mc exhibited difficulty recalling information that was presented to her at the beginning of the testing period. She could not recall any items from the list, but did list several details from the story that had been previously presented. She was then asked to recognize items from the list by indicating whether or not a given word was on that list (List Recognition). She recognized words in 14/20 trials. List Recall Total Score: 0 Percentile Group: <2 Interpretation: Extremely Low List Recognition Total Score: 14 Percentile Group: <2 Interpretation: Extremely Low Story Recall Total Score: 3 Scaled Score: 4 Percentile Rank: 2 Interpretation: Borderline Figure Recall Total Score: 1 Scaled Score: 2 Percentile Rank: 0.4 Interpretation: Extremely Low Delayed Memory Index Score: 48 Percentile Rank: <0.1 Interpretation: Extremely Low Sum of Index Scores: 308 Total Scale: 53 Percentile: 0.1 Interpretation: Extremely Low Erik Perez (1998). Repeatable Battery for the Assessment of Neuropsychological Status [Manual]. [place]: Shea. Impressions and Recommendations Summary: On assessment today, Mc presented with a moderate cognitive linguistic impairment, with difficulties in the areas of immediate and delayed memory and word retrieval. She demonstrated relative strengths in her attention and visuospatial skills. It is recommended that Mc return for a trial period of cognitive linguistic therapy, with family/caregiver support. Additionally, Mc and her family reported she has been having difficulty swallowing. She is recommended further assessment with a modified barium swallow study (MBSS), for which she will need a referral. Recommendation for Speech Therapy: Outpatient Speech Therapy Modified Barium Swallow Study - Outpatient Frequency/Duration: 1x weekly x 12 weeks Date Range for Service Requested: Time to Reassess: PRN Skilled Nursing Goals: 1.) Mc will utilize a variety of word-finding strategies at the conversational level with minimal assistance in >80% opportunities presented to her. 2.) Mc will utilize compensatory strategies to assist (immediate and delayed) short-term memory in 80% of opportunities independently. Short Term Goals: Goal # : 1.1. Mc will list 3-4 members per spoken category in 80% of trials when provided with minimal verbal prompts. 1.2. Mc will produce a minimum of 4 different features, when presented with a word using semantic feature analysis (SFA), given minimal verbal prompts, with 80% accuracy. Goal Status: New Goal Goal# : 2.1. Alejandraar will recall page-level information and answer questions about the material at 80% accuracy given occasional visual cues after a 30-minute delay. 2.2. Stefanolnjenniferar will use internal memory strategies (i.e. rehearsal, association, visualization) to recall 5-6 items at 80% accuracy when provided with minimal verbal cues. 2.3. Gulnigar will write down relevant notes while presented with auditory instructions (i.e. voicemail message) and recall 80% of the information given use of written notes only. 2.4. Stefanolnigar will electively use an lucero or tech device to record and retrieve needed information in four out of five contexts. 2.5. Mc will recall to use a calendar to check daily appointments in 80% of opportunities when provided with minimal cues across 3 consecutive sessions. Goal Status: New Goal Recommended Referrals to be Discussed with Primary Care Provider: Neurology Patient Education: Completed: Yes Patient/Caregiver Education: Described Results of Evaluation Patient expressed understanding of evaluation Family/Caregivers expressed understanding of results Comments/Barriers to Learning: It has been a pleasure meeting and working with Mc and her family. Please do not hesitate to contact the [facility] with any questions or concerns related to the content of this report. Big Data Admin Clinican/Clinical Fellow: No Supervisory Statement: N/A Speech Language Pathologist: Maritza West M.A., CCC-SKIVER MACHINE OPERATOR
== END 2025-02-18 14:22 | disposition still patient (30) ==
LOC: HO.SH 12:51
PROVIDERS: PCP Internal Medicine; Visit Provider Psychiatry & Neurology Neurology
DX: G31.84 Mild cognitive impairment of uncertain or unknown etiology (principal)
CPT/HCPCS: 96125

== ENCOUNTER 2025-01-28 14:26 | Outpatient (AMB) | payer MEDICARE, SELFPAY ==
--- NOTE | 2025-01-28 08:13 | MHC.OFFVIS ---
Vital Signs 01/28/25 14:33 Height 5 ft 3 in Weight 147 lb 11.355 oz BMI 26.2 BP 116/78 Blood Pressure Location Rt brachial Position Sitting Pulse 78 Pulse Source Pulse Oximeter Pulse Oximetry (%) 97 Oxygen Delivery Method Room Air Intake Visit Reasons: Other specified DM w/o complications Intake Note: NEW Patient presents today to establish treatment for DM Type 1.5 Manage as Type 2 DM: Last Diabetic eye exam was on: DUE last visit 08/18/2022 [facility] Last Podiatry exam was on: Patient does not see a Multiple Coil Winder Most recent HbA1c: 7.0%, 01/15/2025 Random Glucose- 177 mg/dL, Today Activity Leader Required: Yes Activity Leader Language: EarlyTracks Activity Leader Services: Activity Leader Offered & Declined Activity Leader Name: Brandon (Son) Accompanied by: Son Allergies codeine [Codeine] Allergy (Intermediate, Verified 01/28/25 14:32) VOMITING aspirin [Aspirin] Adverse Reaction (Mild, Verified 01/28/25 14:32) DIZZINESS nitrofurantoin [From Macrobid] Adverse Reaction (Mild, Verified 01/28/25 14:32) Hyperkalemia HPI Comments Details: 74 YO female who is seen in consultation for T2DM. A1C 7% on 01/28/2025. Initially diagnosed with T2DM at age 54 Was initially started on treatment with metformin. The dose has been increased over the years. s She has a needle phobia and does not test her blood sugars. She is inquiring whether she may qualify for a Dexcom sensor using her smart phone. She has not been able to bring herself to test her blood sugars. She has night sweat about 3 times per week over the past few years. She does not wake up at night but will wake up in the morning with her clothes drenched. She is concerned she may be having hypoglycemia at night. Energy level is slightly low. Prior steroid use: one shoulder injection many years ago. Family history of T2DM: no known diabetes in her parents Last eye exam 2021 Due Denies neuropathy, last foot exam today in the office Does not see podiatry. Has nephropathy, not on ned/arb Followed by Dr. Duff at [facility] Has prior h/o mild hyperkalemia treated by Kayexalate. Has HLD, on statin Last lDL 100 01/2025 Has CAD s/p cabg followed by cardiology last cath 11/2020 patent c/p dysphagia primarily with water and PCP will be referring to GI Diet: Balanced Weight: Had lost small amount of weight but has been stable. Hypothyroidism: has been on stable dose of levothyroxine 75 mcg Diagnosed many years ago most recent TSH 1.72 01/15/25 [facility] Medical History (Updated 01/28/25 @ 15:34 by Teresita Don NP) Type 2 diabetes mellitus Depression Mild cognitive impairment Arthritis Fatty liver On beta corona at home CAD (coronary artery disease) Diverticulosis Allergy to food dye Hypertension, essential Constipation by delayed colonic transit 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 Mother No problems noted. Social History Housing: House Are you a primary resident care spec to a significant other at home: No Do you presently have visiting nurse or other home services: No Alcohol intake: never Patient Tobacco Use Status: Never used Tobacco e-Cigarette/Vaping Use: Never Used service: No Current occupational status: disabled Cognitive needs: No Hearing needs: No Vision needs: No Physical Exam Vital Signs: Last Vital Signs Pulse 78 01/28/25 14:33 BP 116/78 01/28/25 14:33 Pulse Ox 97 01/28/25 14:33 Oxygen Delivery Method Room Air 01/28/25 14:33 BMI result Body Mass Index 26.2 Absence of Cushingoid features. Absence of acromegalic features. Neck exam reveals nl size thyroid about 15 gms. No thyroid nodules palpable. No carotid bruits present. Lungs CTA. Heart S1 S2, Reg R/R. No M/R/ G. Skin exam reveals absence of vitiligo or acanthosis nigricans. Abdominal exam reveals Soft NT/ND with NA BS. No organomegaly present. Const Other: Absence of Cushingoid features. Absence of acromegalic features. Neck exam reveals nl size thyroid about 15 gms. No thyroid nodules palpable. Heart S1 S2, Reg R/R. No M/R G. Skin exam reveals absence of vitiligo or acanthosis nigricans. No edema Visual exam of foot performed. No ulcerations or open lesions. No inter digit maceration or fissuring. No onychomycosis, no callouses. Sensation intact to monofilament exam. Vibratory sensation is normal with 128 Hz tuning fork. pulses positive distally Neck Other: . Extrem Other: Visual exam of foot performed. No ulcerations or open lesions. No onchomycosis, no callouses.Pulses 2 + distally Sensation intact to monofilament exam. 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 Both the patient and her son are concerned that she may be having nocturnal hypoglycemia. She has a needle phobia in his requesting Dexcom sensor for use with phone. will try approval through insurance. Patient and son would like to schedule follow up appt with Dr. Carver. I will send work load request to Dr. Carver to see if she would like to order any additional labs. Orders: Orders Saliva Cortisol Today E27.40 - Unspecified adrenocortical insufficiency Coding Level of Care Code Est Pt Level 4 (33045) Complex EM visit Add On G2211 Diagnoses Hypoadrenalism E27.40 Type 2 diabetes mellitus E11.9 Time Spent (min) 30 Comment Time spent reviewing labs/provider notes, face to face, chart doc
[2025-01-28 14:33] VITALS: BP 116/78; PULSE 78; O2SAT 97; BMI 26.2
[2025-01-28 14:44] LABS: Glucose, Whole Blood 177 mg/dL (60-115)
--- OUTSIDE RECORDS SUMMARY | 2025-01-28 15:50 | XMS_ITS | Data Portability ---
Author Organization [facility], Main Office - Prior to 10/12/22 Address [address] [facility] [address] [place] [address] Assessment No assessment recorded. Plan of Treatment Reminders Order Date Submit Date Provider Last Modified By Organization Details Last Modified Time Details Appointments None recorded. Lab SARS CoV 2 RNA (COVID-19), QL, emergency department technician-PCR, respiratory specimen 2020 021 [employer], [address] [facility], [place], [address], 03:58:19 Referral None recorded. Procedures None recorded. [...] Address Organization Details Recorded Time Diabetes mellitus 18235233 Active 2020 Naga Oconnor MD [address] [place] [address], [phone], [facility] 09:33:57 Hypothyroidism 54645976 Active 2020 Naga Oconnor MD [address] [place] [address], [phone], [facility] 1 09:34:04 Hypertensive disorder 92167165 Active 2020 Naga Oconnor MD [address] [place] [address], [phone], [facility] 09:34:10 Problem Notes None recorded. Medical Equipment None Reported. Allergies No known drug allergies Vitals Date Recorded Heart rate Respiratory rate Body temperature Oxygen saturation Oxygen saturation in Arterial blood by Pulse oximetry Provider Name and Address Organization Details Last Updated DateTime 1 88 /min 12 /min 97.1 [degF] 98 % 98 % Christina Friedman [facility] 11:14:03 Social History None recorded. Functional Status None recorded. Mental Status None recorded. Family History Nothing Reported. Medical History No medical history recorded. Gynecological HistoryNo gynecological history recorded. Obstetrics History GPAL:G 0 P 0 0 0 0 Past Encounters Encounter ID Performer Location Encounter Start Date Encounter Closed Date Diagnosis/Indication Diagnosis SNOMED-CT Code Diagnosis ICD10 Code Diagnosis Note [id number] Naga Oconnor MD Main Office - Prior to 10/12/22 [address] [facility] [address] [place] [address] 09/12/2020 09:44:39 10/05/2020 16:27:28 Viral screening [id number] Z11.59 Health Concerns Section Related Observation LastModified by Organization Detai ls LastModified Time None Recorded Concern Status LastModified by Organization Details LastModified Time None Recorded Advance Directives Directive None Recorded Payers Encounter Date Sequence Insurance Name Policy Number Policy Boyer Covered Member ID Boyer Member ID Guarantor Name 09/12/2020 1 MEDICARE B-[place]: [facility] [employer] Mc Lopez [id number] Guviktor Lopez Notes Date Note Type Note Provider Name and Address Organization Details Recorded Time 09/12/2020 text/html traveling to [place] on Monday by car no symptoms, feeling well today no known exposure non-smoker medical conditions: has diabetes and heart surgery 2 years ago, arthritis, hypothyroid takes metoprolol, synthroid, junevis, and metformin denies any complaints medical issues are controlled Naga Oconnor MD [address] [facility] [address], [place], [address], [facility] 09/13/2020 09:34:45 OBGyn Episode No OBEpisode recorded.
--- OUTSIDE RECORDS SUMMARY | 2025-01-28 15:50 | XMS_ITS | Clinical Summary ---
Author Organization [facility] Facility Address [address] [address] Care Team Providers Care Hot Dip Tinning Supervisor Name Role Phone Tierra Grace MD Primary Care Provider [phone] Allergies Active Allergy Reactions Criticality Noted Date [...] age to complete this topic Insurance Medicare [facility] Medicare [facility] Care Teams Hot Dip Tinning Supervisor Relationship Specialty Start Date End Date Tierra Grace MD [address] [place] [address] PCP - General 07/16/19
== END 2025-01-28 15:17 | disposition home or self-care (01) ==
LOC: HO.ENCR 14:27
PROVIDERS: PCP Internal Medicine; Visit Provider Nurse Practitioner Adult Health
DX: E27.40 Unspecified adrenocortical insufficiency (principal); E11.9 Type 2 diabetes mellitus without complications
CPT/HCPCS: 99214; G2211

== ENCOUNTER → 2025-01-28 14:26 | Outpatient (BNVA) | payer MEDICARE, SELFPAY | PROVIDERS: PCP Internal Medicine; Visit Provider Nurse Practitioner Adult Health | DX: E27.40 Unspecified adrenocortical insufficiency (principal); E11.9 Type 2 diabetes mellitus without complications | CPT/HCPCS: 82947; 99212 ==

== ENCOUNTER 2025-02-25 12:45 | Outpatient (REF) | payer MEDICARE, SELFPAY ==
--- OUTSIDE RECORDS SUMMARY | 2025-02-25 14:28 | XMS_ITS | Data Portability ---
Author Organization [facility] Main Office - Prior to 10/12/22 Address [address] [facility] [address] [place] [address] Assessment No assessment recorded. Plan of Treatment Reminders Order Date Submit Date Provider Last Modified By Organization Details Last Modified Time Details Appointments None recorded. Lab SARS CoV 2 RNA (COVID-19), QL, hand cloth examiner-PCR, respiratory specimen 2020 [address], [address] [facility], [place], [address], 03:58:19 Referral None recorded. Procedures None recorded. [...] Address Organization Details Recorded Time Diabetes mellitus 88220276 Active 2020 Naga Oconnor MD [address] [place] [address], [phone], [facility] [place] 09:33:57 Hypothyroidism 12296941 Active 2020 Naga Oconnor MD [address] [place] [address], [phone], [facility] [place] 1 09:34:04 Hypertensive disorder 14786710 Active 2020 Naga Ocononr MD [address] [place] [address], [phone], [facility] [place] 09:34:10 Problem Notes None recorded. Medical Equipment None Reported. Allergies No known drug allergies Vitals Date Recorded Heart rate Respiratory rate Body temperature Oxygen saturation Oxygen saturation in Arterial blood by Pulse oximetry Provider Name and Address Organization Details Last Updated DateTime 1 88 /min 12 /min 97.1 [degF] 98 % 98 % Christina Friedman [facility] 11:14:03 Social History None recorded. Functional Status None recorded. Mental Status None recorded. Family History Nothing Reported. Medical History No medical history recorded. Gynecological HistoryNo gynecological history recorded. Obstetrics History GPAL:G 0 P 0 0 0 0 Past Encounters Encounter ID Performer Location Encounter Start Date Encounter Closed Date Diagnosis/Indication Diagnosis SNOMED-CT Code Diagnosis ICD10 Code Diagnosis Note [id number] Naga Oconnor MD Main Office - Prior to 10/12/22 [address] [facility] [address] [place] [address] 09/12/2020 09:44:39 10/05/2020 16:27:28 Viral screening 143754176 Z11.59 Health Concerns Section Related Observation LastModified by Organization Detai ls LastModified Time None Recorded Concern Status LastModified by Organization Details LastModified Time None Recorded Advance Directives Directive None Recorded Payers Insurance Date Sequence Insurance Name Policy Number Policy Boyer Covered Member ID Boyer Member ID Guarantor Name 10/14/2020 1 [place]: [employer] Mc Lopez [id number] Gul[place] Lopez 10/14/2020 2 [place] Mc Lopez [id number] Gulnиван [place] Notes Date Note Type Note Provider Name and Address Organization Details Recorded Time 09/12/2020 text/html traveling to [place] on Monday by car no symptoms, feeling well today no known exposure non-smoker medical conditions: has diabetes and heart surgery 2 years ago, arthritis, hypothyroid takes metoprolol, synthroid, junevis, and metformin denies any complaints medical issues are controlled Naga Oconnor MD [address] [facility] [address], [place], [address], [facility] 09/13/2020 09:34:45 OBGyn Episode No OBEpisode recorded.
== END 2025-02-25 12:46 | disposition home or self-care (01) ==
LOC: HO.MAMMO 12:45
PROVIDERS: PCP Internal Medicine; Visit Provider Internal Medicine
DX: Z12.31 Encounter for screening mammogram for malignant neoplasm of breast (principal)
CPT/HCPCS: 77063; 77067

== ENCOUNTER → 2025-02-25 13:00 | Outpatient (BNV) | payer MEDICARE, SELFPAY | PROVIDERS: PCP Internal Medicine; Visit Provider Internal Medicine | DX: Z12.31 Encounter for screening mammogram for malignant neoplasm of breast (principal) | CPT/HCPCS: 77063; 77067 ==

== ENCOUNTER 2025-02-27 14:21 | Outpatient (AMB) | payer MEDICARE, SELFPAY ==
--- NOTE | 2025-02-27 15:16 | MHC.AMDMED ---
Intake Intake Visit Reasons: T2DM Allergies codeine (Codeine) Allergy (Intermediate, Verified 01/28/25 14:32) VOMITING aspirin (Aspirin) Adverse Reaction (Mild, Verified 01/28/25 14:32) DIZZINESS nitrofurantoin (From Macrobid) Adverse Reaction (Mild, Verified 01/28/25 14:32) Hyperkalemia HPI Comprehensive Diabetes Asmnt Most Recent Diabetes Results: Creatinine, (0.5-1.4) 1.25 mg/dL 01/15/25 BUN, (9-16) 19 mg/dL H 01/15/25 Sodium, (135-145) 139 mmol/L 01/15/25 Potassium, (3.3-5.1) 4.9 mmol/L 01/15/25 Chloride, (96-108) 107 mmol/L 01/15/25 Carbon Dioxide, (22-29) 24 mmol/L 01/15/25 Calcium, (8.4-10.2) 9.5 mg/dL 01/15/25 AST, (5-31) 22 U/L 01/15/25 ALT, (0-31) 9 U/L 01/15/25 Total Protein, (6.5-8.0) 7.0 g/dL 01/15/25 Albumin, (3.5-5.0) 3.9 g/dL 01/15/25 [facility] Medical History (Updated 01/28/25 @ 15:34 by Teresita Don NP) Type 2 diabetes mellitus Depression Mild cognitive impairment Arthritis Fatty liver On beta corona at home CAD (coronary artery disease) Diverticulosis Allergy to food dye Hypertension, essential Constipation by delayed colonic transit 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 Mother No problems noted. Social History Housing: House Are you a primary healthcare economics manager to a significant other at home: No Do you presently have visiting nurse or other home services: No Alcohol intake: never Patient Tobacco Use Status: Never used Tobacco e-Cigarette/Vaping Use: Never Used service: No Current occupational status: disabled Cognitive needs: No Hearing needs: No Vision needs: No Assessment & Plan Assessment & Plan (1) Diabetes 1.5, managed as type 2: Code(s): E13.9 - Other specified diabetes mellitus without complications Plan: Patient at visit to set up an insert Dexcom G7 sample with [place] Instructed patient sensors water proof you can shower, or swim do not submerge sensor in water for over 30 minutes Is sensor falls off cannot put back in you need to replace sensor, customer service number given to patient for sensor replacement Sensor placed on the Back of R arm Patient left visit with sensor in warmup Reviewed how to interpret trend arrows Discussed lag time between finger stick and sensor data.? Instructed patient the importance of having blood glucometer for backup testing if needed Reviewed delay of CGM from fingersticks Reminded Pt that if symptoms do not match sensor still needs to check fingersticks. Portions of this note were created using voice recognition software, please excuse any words or phrases that may have been misinterpreted. Patient Instructions: Patient instruction: CGM provides information on blood glucose control throughout the day, including hyperglycemia and hypoglycemia. ? Continue to monitor blood glucose as instructed. Follow nutrition guidelines provided. Report any discomfort promptly to health care provider. ?Stay well-hydrated. You can bathe ,shower, swim and exercise while wearing the glucose sensor. Do not submerge glucose sensor in water for more than 30 minutes. Coding Level of Care Code Est Pt Level 1 (48071) Diagnoses Diabetes 1.5, managed as type 2 E13.9
--- OUTSIDE RECORDS SUMMARY | 2025-02-27 15:38 | XMS_ITS | Data Portability ---
[facility] Organization [facility] - Prior to 10/12/22 Address [address] [facility] [address] [place] [address] Assessment No assessment recorded. Plan of Treatment Reminders Order Date Submit Date Provider Last Modified By Organization Details Last Modified Time Details Appointments None recorded. Lab SARS CoV 2 RNA (COVID-19), QL, medical center representative-PCR, respiratory specimen 2020 021 [address] [employer], [address] [facility], [place], [address], 03:58:19 Referral None recorded. Procedures None recorded. [...] Address Organization Details Recorded Time Diabetes mellitus 83311908 Active 2020 Naga Oconnor MD [address] [place] [address], [address], [facility] 09:33:57 Hypothyroidism 25085673 Active 2020 Naga Oconnor MD [address] [place] [address], [address], [facility] 1 09:34:04 Hypertensive disorder 95213169 Active 2020 Naga Oocnnor MD [address] [place] [address], [address], [facility] 09:34:10 Problem Notes None recorded. Medical Equipment None Reported. Allergies No known drug allergies Vitals Date Recorded Heart rate Respiratory rate Body temperature Oxygen saturation Oxygen saturation in Arterial blood by Pulse oximetry Provider Name and Address Organization Details Last Updated DateTime 1 88 /min 12 /min 97.1 [degF] 98 % 98 % Christina Friedman [facility] 11:14:03 Social History None recorded. Functional Status None recorded. Mental Status None recorded. Family History Nothing Reported. Medical History No medical history recorded. Gynecological HistoryNo gynecological history recorded. Obstetrics History GPAL:G 0 P 0 0 0 0 Past Encounters Encounter ID Performer Location Encounter Start Date Encounter Closed Date Diagnosis/Indication Diagnosis SNOMED-CT Code Diagnosis ICD10 Code Diagnosis Note [id number] Naga Oconnor MD Main Office - Prior to 10/12/22 [address] [facility] [address] [place] [address] 09/12/2020 09:44:39 10/05/2020 16:27:28 Viral screening 327871649 Z11.59 Health Concerns Section Related Observation LastModified by Organization Detai ls LastModified Time None Recorded Concern Status LastModified by Organization Details LastModified Time None Recorded Advance Directives Directive None Recorded Payers Insurance Date Sequence Insurance Name Policy Number Policy Boyre Covered Member ID Boyer Member ID Guarantor Name 10/14/2020 1 MEDICARE B-[place]: [employer] Mc Lopez [id number] [address] [place] 10/14/2020 2 [place] Mc Lopez [id number] [place] Notes Date Note Type Note Provider Name and Address Organization Details Recorded Time 09/12/2020 text/html traveling to [place] on Monday by car no symptoms, feeling well today no known exposure non-smoker medical conditions: has diabetes and heart surgery 2 years ago, arthritis, hypothyroid takes metoprolol, synthroid, junevis, and metformin denies any complaints medical issues are controlled Naga Oconnor MD [address] [facility] [address], [place], [address], [facility] 09/13/2020 09:34:45 OBGyn Episode No OBEpisode recorded.
== END 2025-02-27 15:23 | disposition home or self-care (01) ==
LOC: HO.ENCR 14:22
PROVIDERS: PCP Internal Medicine; Visit Provider Registered Nurse Diabetes Educator
DX: E13.9 Other specified diabetes mellitus without complications (principal)

== ENCOUNTER → 2025-02-27 14:21 | Outpatient (BNVA) | payer MEDICARE, SELFPAY | PROVIDERS: PCP Internal Medicine; Visit Provider Registered Nurse Diabetes Educator | DX: E13.9 Other specified diabetes mellitus without complications (principal) | CPT/HCPCS: 99211 ==

== ENCOUNTER 2025-02-28 09:08 | Outpatient (AMB) | payer MEDICARE, SELFPAY ==
[2025-02-28 09:19] VITALS: BP 140/80; PULSE 75; TEMP 36.6; O2SAT 98; BMI 31.0
--- NOTE | 2025-02-28 09:19 | AM.OFFWIN_ITS ---
Intake Vital Signs 02/28/25 09:19 02/28/25 09:25 Height 5 ft 3 in Weight 175 lb BMI 31.0 BP 140/80 H 150/82 H Blood Pressure Location Rt brachial Lt brachial Position Sitting Sitting Pulse 75 Pulse Source Pulse Oximeter Temp 97.9 F Temp Source Oral Pulse Oximetry (%) 98 Oxygen Delivery Method Room Air Intake Visit Reasons: Palpitations Patient Tobacco Use Status: Never used Tobacco Allergies codeine (Codeine) Allergy (Intermediate, Verified 02/28/25 09:21) VOMITING aspirin (Aspirin) Adverse Reaction (Mild, Verified 02/28/25 09:21) DIZZINESS nitrofurantoin (From Macrobid) Adverse Reaction (Mild, Verified 02/28/25 09:21) Hyperkalemia Do you need a note to return to daycare/school/sports/work: No HPI Palpitations HPI Details This is a 74 year old female patient who presents to the [place] clinic with her son present for c/o palpitations and high BP at home. Patient states that last night and this morning, she had high blood pressure readings on her home monitor, up to 170s/180s over 100 and felt like her heart was racing. She states that she has felt increasingly anxious lately. Her son reports that she has recently weaned off of her Zoloft and pantoprazole due to concern for worsening cognitive issues. She can take her pantoprazole p.r.n., however she has been fully off of the Zoloft for one-week now. He states that last night, he felt like she was overwhelmed and was having a panic attack. She denies any shortness of breath. Denies any recent illnesses. Denies any chest pain, however feels a heaviness in her upper abdomen, and has been feeling a lot of gas. Blood by Dr. Garcia for cardiology at [facility]. Maintained on metoprolol 25 b.i.d. History significant for cardiac catheterization in 2020 with stent placement. States that at that time, she felt a heaviness in her chest and radiation down both arms. She states that this does not feel the same. COUNT INCLUDES [facility] Medical History Type 2 diabetes mellitus Depression Mild cognitive impairment Arthritis Fatty liver On beta corona at home CAD (coronary artery disease) Diverticulosis Allergy to food dye Hypertension, essential Constipation by delayed colonic transit 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 Mother No problems noted. Social History Housing: House Are you a primary residential caregiver to a significant other at home: No Do you presently have visiting nurse or other home services: No Alcohol intake: never Patient Tobacco Use Status: Never used Tobacco e-Cigarette/Vaping Use: Never Used service: No Current occupational status: disabled Cognitive needs: No Hearing needs: No Vision needs: No Review of Systems Const All systems reviewed & are unremarkable except as noted in HPI and below Physical Exam Vital Signs: Last Vital Signs Temp 97.9 F 02/28/25 09:19 Pulse 75 02/28/25 09:19 BP 150/82 H 02/28/25 09:25 Pulse Ox 98 02/28/25 09:19 Oxygen Delivery Method Room Air 02/28/25 09:19 BMI result Body Mass Index 31.0 Const General: cooperative, healthy appearing, comfortable and no acute distress Nutritional Appearance: average body habitus Limitations: no limitations HEENT Head: Yes normal to inspection Ears: hearing grossly normal bilaterally Neck Neck: Yes no lymphadenopathy Resp Effort & Inspection: normal respiratory effort Auscultation: clear to auscultation bilaterally Cardio Jugular venous distension: no JVD Palpation: normal PMI Rate: regular rate Rhythm: regular rhythm Heart sounds: S1 normal heart sound present and S2 normal heart sound present GI Inspection: Yes normal to inspection Auscultation: Hyperactive bowel sounds present Skin General skin exam: no rashes or lesions noted Extrem General: Yes capillary refill normal and Yes no clubbing, cyanosis or edema Psych Appearance: grossly normal Mental Status: mental status grossly normal Speech and movement: Normal speech and movement present Assessment & Plan Assessment & Plan (1) Hypertension, essential: Code(s): I10 - Essential (primary) hypertension Plan: BP taken multiple times manually in the office ranged from 140s/150s systolically over 80s. Physical exam is unremarkable. She denies any palpitations at this time. EKG in the office was done and compared to that of one done on 01/20, no changes noted. Normal sinus rhythm, 66 at this time. It is possible that these feelings of panic/palpitations, are resultant of recent discontinuation of her Zoloft, and also her abdominal bloating/pressure and increased gas/burping may be due to her recent discontinuation of PPI. She does have this for p.r.n. use, which I encouraged she take to see if the symptoms resolve. I had a thorough discussion with patient and her son who was present at the visit that I can not, based on findings today, definitively rule out cardiac e vent, and the best option to do so would be the emergency department. They are aware of this, and are very reassured by the EKG done in the office today and her blood pressure readings. Patient and son would like to call her cardiology office to schedule a follow-up in the coming weeks as perhaps her BP meds need adjusting. We discussed that should BP readings remain high at home, or if palpitations recur, or if chest pain/pressure, shortness of breath, dizziness, or other concerning symptoms develop, she should go to the emergency department for evaluation. Patient and son verbalized understanding and agreed to plan. (2) Chronic GERD: Code(s): K21.9 - Gastro-esophageal reflux disease without esophagitis Plan As above Orders: Orders AMB EKG-In Office Today I10 - Essential (primary) hypertension Coding Level of Care Code Est Pt Level 4 (94830) Diagnoses Hypertension, essential I10 Chronic GERD K21.9
[2025-02-28 09:25] VITALS: BP 150/82
== END 2025-02-28 10:09 | disposition home or self-care (01) ==
PROVIDERS: PCP Internal Medicine; Visit Provider Nurse Practitioner Family
DX: I10 Essential (primary) hypertension (principal); K21.9 Gastro-esophageal reflux disease without esophagitis

== ENCOUNTER → 2025-02-28 09:08 | Outpatient (BNVA) | payer MEDICARE, SELFPAY | PROVIDERS: PCP Internal Medicine; Visit Provider Nurse Practitioner Family | DX: I10 Essential (primary) hypertension (principal); K21.9 Gastro-esophageal reflux disease without esophagitis | CPT/HCPCS: 99212 ==

== ENCOUNTER 2025-03-04 10:36 | Outpatient (REF) | payer MEDICARE, SELFPAY ==
--- OUTSIDE RECORDS SUMMARY | 2025-03-04 11:53 | XMS_ITS | Data Portability ---
Author Organization [facility] [employer], Main Office - Prior to 10/12/22 Address [address] [facility] [address] [place] [address] Assessment No assessment recorded. Plan of Treatment Reminders Order Date Submit Date Provider Last Modified By Organization Details Last Modified Time Details Appointments None recorded. 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, [place], [address], 03:58:19 Referral None recorded. Procedures None recorded. [...] Address Organization Details Recorded Time Diabetes mellitus 10004244 Active 2020 Naga Oconnor MD [address] [place] [address] [address], [place], [address], [facility] 09:33:57 Hypothyroidism 64922466 Active 2020 Naga Oconnor MD [address] [place] [address] [address], [place], [address], [facility] 09:34:04 Hypertensive disorder 19274270 Active 2020 Naga Oconnor MD [address] [place] [address] [address], [place], [address], [facility] 09:34:10 Problem Notes None recorded. Medical Equipment None Reported. Allergies No known drug allergies Vitals Date Recorded Heart rate Respiratory rate Body temperature Oxygen saturation Oxygen saturation in Arterial blood by Pulse oximetry Provider Name and Address Organization Details Last Updated DateTime 1 88 /min 12 /min 97.1 [degF] 98 % 98 % Christina Friedman [facility] 11:14:03 Social History None recorded. Functional Status None recorded. Mental Status None recorded. Family History Nothing Reported. Medical History No medical history recorded. Gynecological HistoryNo gynecological history recorded. Obstetrics History GPAL:G 0 P 0 0 0 0 Past Encounters Encounter ID Performer Location Encounter Start Date Encounter Closed Date Diagnosis/Indication Diagnosis SNOMED-CT Code Diagnosis ICD10 Code Diagnosis Note [id number] Naga Oconnor MD Main Office - Prior to 10/12/22 [address] [facility] [facility] [address] [place] [address] 09/12/2020 09:44:39 10/05/2020 16:27:28 Viral screening [id number] Z11.59 Health Concerns Section Related Observation LastModified by Organization Detai ls LastModified Time None Recorded Concern Status LastModified by Organization Details LastModified Time None Recorded Advance Directives Directive None Recorded Payers Insurance Date Sequence Insurance Name Policy Number Policy Boyer Covered Member ID Boyer Member ID Guarantor Name 10/14/2020 1 MEDICARE B-[place]: [facility] [employer] Mc Lopez [id number] [address] [place] 10/14/2020 2 [place] Mc Lopez [id number] [address] [place] Notes Date Note Type Note Provider Name and Address Organization Details Recorded Time 09/12/2020 text/html traveling to [place] on Monday by car no symptoms, feeling well today no known exposure non-smoker medical conditions: has diabetes and heart surgery 2 years ago, arthritis, hypothyroid takes metoprolol, synthroid, junevis, and metformin denies any complaints medical issues are controlled Naga Oconnor MD [address] [facility] [address], [place], [address], [facility] 09/13/2020 09:34:45 OBGyn Episode No OBEpisode recorded.
[2025-03-04 12:55] LABS: MANUAL DIFF FLAG NO
[2025-03-04 13:09] LABS: Basophils Percent Auto 0.3 % (0-2); Eosinophils Absolute Auto 0.2 X10*3/uL (0.0-0.4); Eosinophils Percent Auto 2.6 % (0-4); Hemoglobin 10.5 g/dl (12.0-16.0); Imm Gran Abs Auto 0.01 X10*3/uL (0.00-0.03); Imm Gran Pct Auto 0.2 % (0.0-0.4); Lymphocytes Absolute Auto 2.5 X10*3/uL (1.2-4.9); Lymphocytes Percent Auto 40.7 % (20-40); Mean Corpuscular HGB Conc 32.8 g/dl (31.0-35.0); Mean Corpuscular Hemoglobin 28.2 pg (27.0-33.0); Mean Platelet Volume 10.5 fL (9.4-12.3); Monocytes Absolute Auto 0.5 X10*3/uL (0.1-1.2); Monocytes Percent Auto 8.3 % (2-11); Neutrophils Absolute Auto 2.9 x10*3/uL (2.0-8.3); Neutrophils Percent Auto 47.9 % (45-73); Platelet Count 257 X10*3/uL (160-400); Red Blood Count 3.72 X10*6/uL (4.20-5.50); Red Cell Distribution Width 13.5 % (11.0-16.0); White Blood Count 6.1 X10*3/uL (4.8-10.8)
[2025-03-04 13:20] LABS: Alanine Aminotransferase 11 U/L (0-31); Alkaline Phosphatase 58 U/L (39-117); Anion Gap 13 (12-20); Aspartate Amino Transferase 21 U/L (5-31); Bilirubin Total 0.3 mg/dL (0.0-1.0); Blood Urea Nitrogen 17 mg/dL (9-16); Carbon Dioxide 23 mmol/L (22-29); Chloride 110 mmol/L (96-108); Estimated Glomerular Filt Rate 39; Glucose Random 144 mg/dL (60-115); Lipase 19 U/L (8-78); Potassium 5.1 mmol/L (3.3-5.1); Sodium 141 mmol/L (135-145); Total Protein 6.7 g/dL (6.5-8.0)
[2025-03-04 13:48] LABS: Folate 10.1 ng/mL (> or = 4.0); Vitamin B12 161 pg/mL (200-900)
== END 2025-03-04 10:37 | disposition home or self-care (01) ==
LOC: HO.HMGCLDS 10:36
PROVIDERS: PCP Internal Medicine; Referring Provider Internal Medicine Gastroenterology; Visit Provider Internal Medicine Hypertension Specialist
DX: R10.84 Generalized abdominal pain (principal)
CPT/HCPCS: 36415; 80053; 82607; 82746; 83690; 85025

== ENCOUNTER 2025-03-05 10:33 | Outpatient (AMB) | payer MEDICARE, SELFPAY ==
--- NOTE | 2025-03-05 10:53 | A.OFFVIS_ITS ---
Vital Signs 03/05/25 10:55 Height 5 ft 3 in Weight 146 lb 6.191 oz BMI 25.9 BP 100/62 Blood Pressure Location Lt brachial Position Sitting Pulse 65 Pulse Source Pulse Oximeter Intake Visit Reasons: BP check, req by KM Intake Note: BP check, chest preasure [employer]p [employer] Required: No Accompanied by: Son Allergies codeine (Codeine) Allergy (Intermediate, Verified 02/28/25 09:21) VOMITING aspirin (Aspirin) Adverse Reaction (Mild, Verified 02/28/25 09:21) DIZZINESS nitrofurantoin (From Macrobid) Adverse Reaction (Mild, Verified 02/28/25 09:21) Hyperkalemia Medication List - Last Reconciled 03/05/25 by Logan Garcia MD alcohol swabs 1 pad topical DAILY aspirin 81 mg PO DAILY blood sugar diagnostic ([employer] Ultra Blue Test Strip) Use to check blood sugar once daily and as needed for signs & symptoms of hypo/hyperglycemia blood-glucose meter (Conex Meduch Ultra2 Meter) Use to check blood sugar once daily and as needed for signs & symptoms of hypo/hyperglycemia cholecalciferol (vitamin D3) 25 mcg PO DAILY 30 days fluticasone propionate 50 mcg/actuation (Flonase Allergy Relief) 1 spray intranasal DAILY 30 days lancets (Conex Meduch UltraSoft Lancets) Use to check blood sugar once daily and as needed for signs & symptoms of hypo/hyperglycemia levothyroxine 75 mcg (1.5 x 50 mcg) PO DAILY 90 days mecobalamin (vitamin B12) 1,000 mcg PO DAILY 30 days melatonin 1-2 tab orally bedtime PRN; 30 days metformin 1,000 mg PO BID 90 days metoprolol tartrate 25 mg PO BID 90 days mirabegron ER (Myrbetriq) 50 mg PO DAILY nitroglycerin 0.4 mg sublingual DIRECTED PRN pantoprazole 40 mg PO DAILY 90 days rosuvastatin 20 mg PO BEDTIME 90 days sennosides 8.6 mg PO BID HPI Comments Details: [age] female with previous history of coronary artery bypass surgery, low blood pressure in the past with inability to titrate antianginals and background of stable angina. She was getting some dyspnea and mild chest discomfort with activities like climbing stairs but overall did not feel to limited in the past. She is coming for an urgent visit because she recently went to urgent care for abdominal pain and elevated blood pressure. It appears she ate at a restaurant and then had upper abdominal pain which was severe and woke her up from sleep. She said this did not get better and eventually she had to call her son and go to urgent Care. In urgent Care they did an EKG which was normal reportedly. She was eventually sent back home. She also reported that her blood pressure at home was quite elevated in 190s and when she went to urgent care and was in 150s. She traditionally has been hypotensive in our office and continues to have low blood pressure on very small dose of metoprolol. She is still has upper abdominal pain and tenderness. She has been seen by GI and underwent blood workup and we will be getting a CT scan. [facility] Medical History Type 2 diabetes mellitus Depression Mild cognitive impairment Arthritis Fatty liver On beta corona at home CAD (coronary artery disease) Diverticulosis Allergy to food dye Hypertension, essential Constipation by delayed colonic transit 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 Mother No problems noted. Social History Housing: House Are you a primary patient care specialist to a significant other at home: No Do you presently have visiting nurse or other home services: No Alcohol intake: never Patient Tobacco Use Status: Never used Tobacco e-Cigarette/Vaping Use: Never Used service: No Current occupational status: disabled Cognitive needs: No Hearing needs: No Vision needs: No Review of Systems Const Denies chills, Denies fatigue, Denies fever(s), Denies frequent falls, Denies weakness, Denies weight gain and Denies weight loss ENT Denies dizziness Card Reports chest pain, Denies leg edema, Denies lightheadedness, Denies palpitations, Denies dyspnea and Denies dyspnea on exertion Resp Denies cough, Denies dyspnea and Denies dyspnea on exertion GI Denies hematochezia Musc Denies abnormal gait, Denies muscle weakness, Denies numbness, Denies radiating pain into limb and Denies tingling Neuro Denies abnormal gait, Denies dizziness, Denies frequent falls, Denies numbness, Denies tingling and Denies weakness Endo Denies fatigue and Denies palpitations Physical Exam Vital Signs: Last Vital Signs Pulse 65 03/05/25 10:55 BP 100/62 03/05/25 10:55 BMI result Body Mass Index 25.9 GENERAL APPEARANCE: in no acute distress, pleasant. NECK: no carotid bruit, no jugular venous distention. SKIN: no suspicious lesions, warm and dry. HEART: no murmurs, regular rate and rhythm. LUNGS: clear to auscultation bilaterally. ABDOMEN: soft, epigastric tenderness. EXTREMITIES: no edema. PERIPHERAL PULSES: equal. NEUROLOGIC: No gross deficits, AAO X 3 Assessment & Plan Assessment & Plan (1) Hypertension, essential: Code(s): I10 - Essential (primary) hypertension Category: Medical (2) Coronary artery disease: Code(s): I25.10 - Atherosclerotic heart disease of [place] coronary artery without angina pectoris Category: Medical Plan Pleasant 74-year-old lady with known history of coronary disease with previous bypass surgery. She has been getting stable angina for long time and we will get some symptoms when going upstairs. She has not been limited due to angina previously. There are limitations in managing her angina due to her blood pressure being low. Recent abdominal pain and elevated blood pressures which I think were elevated due to severe pain. She has epigastric tenderness and suspect she may have some peptic ulcer disease or gastritis. I have advised her to hold the aspirin for now. She has been started on pantoprazole and she is feeling better we felt that. Previously she was supposed to be on that but was not taking it. Doubt that this presentation is related to cardiovascular issue. I have advised her to do an echocardiogram as it has been awhile we checked her heart with any testing. If any wall motion abnormality then I will pursue further testing. Follow-up in few months. Thank you for allowing me to participate in the care of your patient. Please feel free to contact me if you have any questions. Orders: Orders CA echo transthoracic complete Today I25.10 - Atherosclerotic heart disease of [place] coronary artery without angina pectoris Coding Level of Care Code Procedure Only Diagnoses Hypertension, essential I10 Coronary artery disease I25.10
[2025-03-05 10:55] VITALS: BP 100/62; PULSE 65; BMI 25.9
--- OUTSIDE RECORDS SUMMARY | 2025-03-05 12:27 | XMS_ITS | Data Portability ---
Author Organization [facility] [employer], Main Office - Prior to 10/12/22 Address [address] [facility] [address] [place] [address] Assessment No assessment recorded. Plan of Treatment Reminders Order Date Submit Date Provider Last Modified By Organization Details Last Modified Time Details Appointments None recorded. 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 Procedures None recorded. [...] Address Organization Details Recorded Time Diabetes mellitus 03324996 Active 2020 Naga Oconnor MD [address] [place] [address] [address], [place], [address], [facility] 09:33:57 Hypothyroidism 27405719 Active 2020 Naga Oconnor MD [address] [place] [address] [address], [place], [address], [facility] 09:34:04 Hypertensive disorder 05842691 Active 2020 Naga Oconnor MD [address] [place] [address] [address], [place], [address], [facility] 09:34:10 Problem Notes None recorded. Medical Equipment None Reported. Allergies No known drug allergies Vitals Date Recorded Heart rate Respiratory rate Body temperature Oxygen saturation Oxygen saturation in Arterial blood by Pulse oximetry Provider Name and Address Organization Details Last Updated DateTime 1 88 /min 12 /min 97.1 [degF] 98 % 98 % Christina Friedman [facility] 11:14:03 Social History None recorded. Functional Status None recorded. Mental Status None recorded. Family History Nothing Reported. Medical History No medical history recorded. Gynecological HistoryNo gynecological history recorded. Obstetrics History GPAL:G 0 P 0 0 0 0 Past Encounters Encounter ID Performer Location Encounter Start Date Encounter Closed Date Diagnosis/Indication Diagnosis SNOMED-CT Code Diagnosis ICD10 Code Diagnosis Note [id number] Naga Oconnor MD Main Office - Prior to 10/12/22 [address] [facility] [address] [place] [address] 09/12/2020 09:44:39 10/05/2020 16:27:28 Viral screening 507759785 Z11.59 Health Concerns Section Related Observation LastModified by Organization Detai ls LastModified Time None Recorded Concern Status LastModified by Organization Details LastModified Time None Recorded Advance Directives Directive None Recorded Payers Insurance Date Sequence Insurance Name Policy Number Policy Boyer Covered Member ID Boyer Member ID Guarantor Name 10/14/2020 1 MEDICARE B-[place]: [facility] [employer] Mc Lopez [id number] [address] [place] 10/14/2020 2 [place] Mc Lopez [id number] [address] [place] Notes Date Note Type Note Provider Name and Address Organization Details Recorded Time 09/12/2020 text/html traveling to [place] on Monday by car no symptoms, feeling well today no known exposure non-smoker medical conditions: has diabetes and heart surgery 2 years ago, arthritis, hypothyroid takes metoprolol, synthroid, junevis, and metformin denies any complaints medical issues are controlled Naga Oconnor MD [address] [facility] [address], [place], [address], [facility] 09/13/2020 09:34:45 OBGyn Episode No OBEpisode recorded.
== END 2025-03-05 11:35 | disposition home or self-care (01) ==
LOC: HO.HCS 10:34
PROVIDERS: PCP Internal Medicine; Visit Provider Internal Medicine Cardiovascular Disease
DX: I11.9 Hypertensive heart disease without heart failure (principal); I25.118 Atherosclerotic heart disease of native coronary artery with other forms of angina pectoris
CPT/HCPCS: 99212

== ENCOUNTER → 2025-03-05 10:33 | Outpatient (BNVA) | payer MEDICARE, SELFPAY | PROVIDERS: PCP Internal Medicine; Visit Provider Internal Medicine Cardiovascular Disease | DX: I25.10 Atherosclerotic heart disease of native coronary artery without angina pectoris (principal); I10 Essential (primary) hypertension | CPT/HCPCS: 99212 ==

== ENCOUNTER 2025-03-10 13:04 | Outpatient (AMB) | payer MEDICARE, SELFPAY ==
[2025-03-10 13:14] VITALS: BP 108/52; PULSE 68; O2SAT 96; BMI 26.9
--- NOTE | 2025-03-10 13:14 | HO.NEPHOV_ITS ---
Vital Signs 03/10/25 13:14 Height 5 ft 3 in Weight 152 lb BMI 26.9 BP 108/52 L Blood Pressure Location Lt brachial Position Sitting Pulse 68 Pulse Source Pulse Oximeter Pulse Oximetry (%) 96 Oxygen Delivery Method Room Air Intake Visit Reasons: CKD/Conf Balancer Required: No Accompanied by: Son Allergies codeine (Codeine) Allergy (Intermediate, Verified 03/11/25 08:54) VOMITING aspirin (Aspirin) Adverse Reaction (Mild, Verified 03/11/25 08:54) DIZZINESS nitrofurantoin (From Macrobid) Adverse Reaction (Mild, Verified 03/11/25 08:54) Hyperkalemia Medication List - Last Reconciled 03/10/25 by Dallas Duff MD aspirin 81 mg PO DAILY blood sugar diagnostic ([employer] Ultra Blue Test Strip) Use to check blood sugar once daily and as needed for signs & symptoms of hypo/hyperglycemia blood-glucose meter ([employer] Ultra2 Meter) Use to check blood sugar once daily and as needed for signs & symptoms of hypo/hyperglycemia cholecalciferol (vitamin D3) 25 mcg PO DAILY 30 days famotidine-Ca carb-mag hydrox 10-800-165 mg (Pepcid Complete) 1 tab PO DAILY PRN fluticasone propionate 50 mcg/actuation (Flonase Allergy Relief) 1 spray intranasal DAILY 30 days lancets ([employer] UltraSoft Lancets) Use to check blood sugar once daily and as needed for signs & symptoms of hypo/hyperglycemia levothyroxine 75 mcg (1.5 x 50 mcg) PO DAILY 90 days mecobalamin (vitamin B12) 1,000 mcg PO DAILY 30 days melatonin 1-2 tab orally bedtime PRN; 30 days metformin 1,000 mg PO BID 90 days metoprolol tartrate 25 mg PO BID 90 days mirabegron ER (Myrbetriq) 50 mg PO DAILY nitroglycerin 0.4 mg sublingual DIRECTED PRN pantoprazole 40 mg PO DAILY 90 days rosuvastatin 20 mg PO BEDTIME 90 days sennosides 8.6 mg PO BID HPI Comments Details: Elderly woman with long standing DM and HTN with CKD h/o recurrent hyperkalemia h/o hospitalization in the past for high K Baseline creatinine is around 1.3 h/o eating K rich diet including oranges Imaging did not reveal obstruction 12/18/2023. Recently she had a potassium of 5.5. She was given a dose of Kayexalate. I spoke to her son and we rechecked the potassium which was 5.1. She is here for follow-up. According to her son she is not eating potassium rich foods at this time. No urinary symptoms. No constipation. Blood sugars are in the low 200s. Last A1c was 7%. There was some difficulty while drawing blood at the lab. 02/22/2024. Recently had UTI which was treated successfully. She has no new issues. 03/10/25 Events noted. No further UTI [facility] Medical History Type 2 diabetes mellitus Depression Mild cognitive impairment Arthritis Fatty liver On beta corona at home CAD (coronary artery disease) Diverticulosis Allergy to food dye Hypertension, essential Constipation by delayed colonic transit 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 Mother No problems noted. Social History Housing: House Are you a primary care coordinator to a significant other at home: No Do you presently have visiting nurse or other home services: No Alcohol intake: never Patient Tobacco Use Status: Never used Tobacco e-Cigarette/Vaping Use: Never Used service: No Current occupational status: disabled Cognitive needs: No Hearing needs: No Vision needs: No Physical Exam Vital Signs: Last Vital Signs Pulse 68 03/10/25 13:14 BP 108/52 L 03/10/25 13:14 Pulse Ox 96 03/10/25 13:14 Oxygen Delivery Method Room Air 03/10/25 13:14 BMI result Body Mass Index 26.9 GENERAL APPEARANCE: in no acute distress, pleasant. NECK: no carotid bruit, no jugular venous distention. SKIN: no suspicious lesions, warm and dry. HEART: no murmurs, regular rate and rhythm. LUNGS: clear to auscultation bilaterally. ABDOMEN: soft, epigastric tenderness. EXTREMITIES: no edema. PERIPHERAL PULSES: equal. NEUROLOGIC: No gross deficits, AAO X 3 Results Reviewed Nephrology Results: Hgb, (12.0-16.0) 10.5 g/dl L 03/04/25 WBC, (4.8-10.8) 6.1 X10*3/uL 03/04/25 Plt Count, (160-400) 257 X10*3/uL 25 Sodium, (135-145) 141 mmol/L 25 Potassium, (3.3-5.1) 5.1 mmol/L 25 Chloride, (96-108) 110 mmol/L H 25 Carbon Dioxide, (22-29) 23 mmol/L 25 BUN, (9-16) 17 mg/dL H 25 Creatinine, (0.5-1.4) 1.33 mg/dL 25 Calcium, (8.4-10.2) 9.0 mg/dL 25 Assessment & Plan Assessment & Plan (1) CKD (chronic kidney disease) stage 3, GFR 30-59 ml/min: Code(s): N18.30 - Chronic kidney disease, stage 3 unspecified Category: Medical Qualifiers: Chronic kidney disease stage 3 subtype: stage 3a (GFR 45-59) Qualified Code(s): N18.31 - Chronic kidney disease, stage 3a (2) Hyperkalemia: Code(s): E87.5 - Hyperkalemia Category: Medical Plan Elderly woman with CKD and h/o hyperkalemia 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 Keep on Low K diet;Avoid oranges we will avoid using tight tourniquet and avoid using small needles to avoid hemolysis. Dyslipidemia On Statins ;Follow with PCP . Orders: Orders Basic Metabolic Panel 6 Months E87.5 - Hyperkalemia, N18.31 - Chronic kidney disease, stage 3a Coding Level of Care Code Est Pt Level 4 (06380) Diagnoses Stage 3a chronic kidney disease N18.31 Chronic kidney disease stage 3 subtype: stage 3a (GFR 45-59) Hyperkalemia E87.5
--- OUTSIDE RECORDS SUMMARY | 2025-03-10 13:30 | XMS_ITS | Clinical Summary ---
Author Organization [facility] Facility Address [address] [address] Care Team Providers Care Medical Reimbursement Specialist Name Role Phone Tierra Grace MD Primary Care Provider [phone] Allergies Active Allergy Reactions Criticality Noted Date [...] age to complete this topic Insurance Medicare [facility] Medicare [facility] Care Teams Medical Reimbursement Specialist Relationship Specialty Start Date End Date Tierra Grace MD [address] [place] [address] PCP - General 07/16/19
--- OUTSIDE RECORDS SUMMARY | 2025-03-10 13:30 | XMS_ITS | Data Portability ---
Author Organization [facility], Main Office - Prior to 10/12/22 Address [address] [facility] [address] [place] [address] Assessment No assessment recorded. Plan of Treatment Reminders Order Date Submit Date Provider Last Modified By Organization Details Last Modified Time Details Appointments None recorded. Lab SARS CoV 2 RNA (COVID-19), QL, [facility]-PCR, respiratory specimen [address], [address] [facility], [place], [address], 03:58:19 Referral None recorded. Procedures None recorded. [...] Address Organization Details Recorded Time Diabetes mellitus [id number] Active 2020 Naga Oconnor MD [address] [place] [address] [address], [address], [facility] 09:33:57 Hypothyroidism 22835068 Active 2020 Naga Oconnor MD [address] [place] [address] [address], [address], [facility] 09:34:04 Hypertensive disorder 40358982 Active 2020 Naga Oconnor MD [address] [place] [address] [address], [address], [facility] 09:34:10 Problem Notes None recorded. Medical Equipment None Reported. Allergies No known drug allergies Vitals Date Recorded Heart rate Respiratory rate Body temperature Oxygen saturation Oxygen saturation in Arterial blood by Pulse oximetry Provider Name and Address Organization Details Last Updated DateTime 1 88 /min 12 /min 97.1 [degF] 98 % 98 % Christina Friedman [facility] 11:14:03 Social History None recorded. Functional Status None recorded. Mental Status None recorded. Family History Nothing Reported. Medical History No medical history recorded. Gynecological HistoryNo gynecological history recorded. Obstetrics History GPAL:G 0 P 0 0 0 0 Past Encounters Encounter ID Performer Location Encounter Start Date Encounter Closed Date Diagnosis/Indication Diagnosis SNOMED-CT Code Diagnosis ICD10 Code Diagnosis Note [id number] Naga Oconnor MD Main Office - Prior to 10/12/22 [address] [facility] [address] [place] [address] 09/12/2020 09:44:39 10/05/2020 16:27:28 Viral screening 188582466 Z11.59 Health Concerns Section Related Observation LastModified by Organization Detai ls LastModified Time None Recorded Concern Status LastModified by Organization Details LastModified Time None Recorded Advance Directives Directive None Recorded Payers Insurance Date Sequence Insurance Name Policy Number Policy Boyer Covered Member ID Boyer Member ID Guarantor Name 10/14/2020 1 [place]ICARE [place]: [facility] [employer] Mc Lopez [id number] [place] 10/14/2020 2 [place] Mc Lopez [id number] [address] [place] Notes Date Note Type Note Provider Name and Address Organization Details Recorded Time 09/12/2020 text/html traveling to [place] on Monday by car no symptoms, feeling well today no known exposure non-smoker medical conditions: has diabetes and heart surgery 2 years ago, arthritis, hypothyroid takes metoprolol, synthroid, junevis, and metformin denies any complaints medical issues are controlled Naga Oconnor MD [address] [facility] [address], [place], [address], [facility] 09/13/2020 09:34:45 OBGyn Episode No OBEpisode recorded.
== END 2025-03-10 13:37 | disposition home or self-care (01) ==
LOC: HO.HKA 13:04
PROVIDERS: PCP Internal Medicine; Visit Provider Internal Medicine Hypertension Specialist
DX: N18.31 Chronic kidney disease, stage 3a (principal); E87.5 Hyperkalemia
CPT/HCPCS: 99214

== ENCOUNTER → 2025-03-10 13:04 | Outpatient (BNVA) | payer MEDICARE, SELFPAY | PROVIDERS: PCP Internal Medicine; Visit Provider Internal Medicine Hypertension Specialist | DX: E11.22 Type 2 diabetes mellitus with diabetic chronic kidney disease (principal); I12.9 Hypertensive chronic kidney disease with stage 1 through stage 4 chronic kidney disease, or unspecified chronic kidney disease; N18.31 Chronic kidney disease, stage 3a; E87.5 Hyperkalemia | CPT/HCPCS: 99212 ==

== ENCOUNTER 2025-03-11 08:47 | Outpatient (AMB) | payer MEDICARE, SELFPAY ==
--- NOTE | 2025-03-11 08:48 | MHC.PC.OV ---
Vital Signs 03/11/25 08:49 Height 5 ft 3 in BP 148/80 H Blood Pressure Location Lt brachial Position Sitting Pulse 64 Pulse Source Pulse Oximeter Temp 98.1 F Temp Source Oral Pulse Oximetry (%) 97 Oxygen Delivery Method Room Air Intake Visit Reasons: discuss GI issues/anxiety Glazier Apprentice Required: No Is last menstrual period known: No Post menopausal: Yes Patient : No Allergies codeine (Codeine) Allergy (Intermediate, Verified 03/11/25 08:54) VOMITING aspirin (Aspirin) Adverse Reaction (Mild, Verified 03/11/25 08:54) DIZZINESS nitrofurantoin (From Macrobid) Adverse Reaction (Mild, Verified 03/11/25 08:54) Hyperkalemia Medication List - Last Reconciled 03/11/25 by Tierra Grace MD aspirin 81 mg PO DAILY blood sugar diagnostic ([employer] Ultra Blue Test Strip) Use to check blood sugar once daily and as needed for signs & symptoms of hypo/hyperglycemia blood-glucose meter ([employer] Ultra2 Meter) Use to check blood sugar once daily and as needed for signs & symptoms of hypo/hyperglycemia cholecalciferol (vitamin D3) 25 mcg PO DAILY 30 days famotidine-Ca carb-mag hydrox 10-800-165 mg (Pepcid Complete) 1 tab PO DAILY PRN fluticasone propionate 50 mcg/actuation (Flonase Allergy Relief) 1 spray intranasal DAILY 30 days lancets ([employer]Touch UltraSoft Lancets) Use to check blood sugar once daily and as needed for signs & symptoms of hypo/hyperglycemia levothyroxine 75 mcg (1.5 x 50 mcg) PO DAILY 90 days mecobalamin (vitamin B12) 1,000 mcg PO DAILY 30 days melatonin 1-2 tab orally bedtime PRN; 30 days metformin 1,000 mg PO BID 90 days metoprolol tartrate 25 mg PO BID 90 days mirabegron ER (Myrbetriq) 50 mg PO DAILY nitroglycerin 0.4 mg sublingual DIRECTED PRN pantoprazole 40 mg PO DAILY 90 days rosuvastatin 20 mg PO BEDTIME 90 days sennosides 8.6 mg PO BID Tobacco use date assessed: 03/11/25 Fall risk assessment: 1 Fall in past year Last assessed Fall Risk: 03/11/25 Dental Screening Dental Screen Date: 01/14/25 Did you have a dental visit in the last 12 months?: Yes Did you have a dental problem in the last 6 months where you did not have access to dental care?: No Was dental information given to patient?: Patient has dentist HPI discuss GI issues/anxiety HPI Details - The patient is a 74-year-old female presenting with anxiety and depression. This is an ongoing care - Anxiety and depression have been ongoing issues, with the patient previously on sertraline, which was tapered down from 200 mg to 25 mg. Over several weeks by Neurology Due to concern of cognitive impairment - The patient self-restarted sertraline at 25 mg due to increased anxiety and depression symptoms after discontinuation. - She reports feeling okay but still experiences depression. - Gastroesophageal reflux disease (GERD) symptoms worsened after stopping pantoprazole, which the patient discontinued on her own. However it has been restarted again - The patient experienced a GERD flare-up, leading to the use of Pepcid as needed for immediate symptom relief. - A cyst, described as the size of a nickel right axillary, has been noted to be increasing in size, prompting consideration for removal. Problem List - Anxiety - Depression - Gastroesophageal Reflux Disease (GERD) - Hiatal Hernia - Cyst right axillary Patient Instructions - Continue taking sertraline as prescribed and do not adjust the dosage without consulting a healthcare provider. - Use Pepcid as needed for GERD symptoms. - Attend the upcoming neurology appointment on April 02. - Schedule an appointment for cyst evaluation and possible removal. Review of Systems - Ear nose throat: No sore throat no hearing difficulty no ear pain - Cardiovascular: No syncope, no chest pain - Gastrointestinal: No nausea vomiting or diarrhea - Endocrine: No polyuria polydipsia no heat intolerance - Genitourinary: No dysuria , no blood in urine Physical Exam General: No acute distress HEENT: No acute findings Neck: Supple Respiratory system: Able to talk in full sentences, no audible wheeze Cardiovascular: S1-S2 regular in rate and rhythm Right axillary lump size of a nickel firm nontender Gastrointestinal: No pain Extremities: No new findings SPONSORSHIP MANAGER: Alert awake oriented x3 motor sensory intact Skin: Normal turgor, . [facility] Medical History Type 2 diabetes mellitus Depression Mild cognitive impairment Arthritis Fatty liver On beta corona at home CAD (coronary artery disease) Diverticulosis Allergy to food dye Hypertension, essential Constipation by delayed colonic transit 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 Mother No problems noted. Social History Housing: House Are you a primary health care coordinator to a significant other at home: No Do you presently have visiting nurse or other home services: No Alcohol intake: never Patient Tobacco Use Status: Never used Tobacco e-Cigarette/Vaping Use: Never Used service: No Current occupational status: disabled Cognitive needs: No Hearing needs: No Vision needs: No Questionnaire PHQ-9 Over the last 2 weeks, how often have you been bothered by any of the following problems? 1. Little interest or pleasure in doing things: more than half the days 2. Feeling down, depressed, or hopeless: more than half the days 3. Trouble falling or staying asleep, or sleeping too much: nearly every day 4. Feeling tired or having little energy: more than half the days 5. Poor appetite or overeating: more than half the days 6. Feeling bad about yourself - or that you are a failure or have let yourself or your family down: not at all 7. Trouble concentrating on things, such as reading the newspaper or watching television: nearly every day 8. Moving or speaking so slowly that other people could have noticed. Or the opposite - being so fidgety or restless that you have been moving around a lot more than usual: not at all 9. Thoughts that you would be better off or of hurting yourself in some way: not at all Total score: 14 Depression Screening Interpretation: Positive Depression Screening Follow-up: Existing condition and In treatment Depression Screening Done: Yes 55459 - PHQ-9 Billing: Yes Source: Developed by Drs. Miki Monge, Marisela Bazzi, Syed Ramires and colleagues, with an educational yamilka from [employer]. Thrive Questionnaire Date Thrive assessed: 03/11/25 I am a: Parent/Caregiver What is your living situation today?: I have a steady place to live Within the past 12 months, did the food you bought not last and you didn't have the money to get more?: Never true Within the past 12 months, did you worry whether your food would run out before you got money to buy more?: Never true Do you have trouble paying for medicines?: No Do you have trouble getting transportation to medical appointments?: No Do you have trouble paying your heating and electricity bill?: No Do you have trouble taking care of your child, family member or friend?: No Do you have trouble with day-to-day activities such as bathing, preparing meals, shopping, managing finances, etc.?: No Are you currently unemployed and looking for a job?: No Are you interested in more education?: No Currently or been in a relationship where the following occur: I choose not to answer THRIVE Score: 0 AUDIT C Alcohol Use Questionnaire (AUDIT-C) 3. How often do you have six or more drinks on one occasion?: Never Total Score: 0 JENNA-7 AMB Questionnaire JENNA-7 Date JENNA - 7 assessed: 01/14/25 Feeling nervous, anxious, or on edge: 1 = Several days Not being able to stop or control worryin = Several days Worrying too much about different things: 2 = More than half the days Trouble relaxin = Several days Being so restless that it is hard to sit still: 0 = Not at all Becoming easily annoyed or irritable: 1 = Several days Feeling afraid as if something awful might happen: 1 = Several days Total JENNA-7 score (0-4 normal; 5-9 mild; 10-14 moderate; 15-21 severe): 7 Source: Developed by Drs. Miki Monge, Syed Newby and colleagues, with an educational yamilka from [employer]. JENNA-7 Assessment Billing JENNA-7 Assessment Tool: JENNA-7 Assessment 44536 Physical exam (Primary Care) Vital Signs: Last Vital Signs Temp 98.1 F 03/11/25 08:49 Pulse 64 03/11/25 08:49 BP 148/80 H 03/11/25 08:49 Pulse Ox 97 03/11/25 08:49 Oxygen Delivery Method Room Air 03/11/25 08:49 Tobacco/Smoking Status: Tobacco use Status Tobacco use date assessed 03/11/25 03/11/25 08:58 Patient Tobacco Use Status Never used Tobacco 03/11/25 08:58 e-Cigarette/Vaping Use Never Used 03/11/25 08:58 PHQ-9: PHQ-9 Score PHQ-9: Total score 14 03/11/25 09:34 Depression Screening Interpretation: Positive Depression Screening Follow-up: Existing condition and In treatment Thrive Assessment: Date of Thrive Assessment Date Thrive assessed 03/11/25 03/11/25 08:58 Currently or been in a relationship where the following occur: I choose not to answer Coding Level of Care Code Est Pt Level 4 (27967) Complex EM visit Add On G2211 Diagnoses Anxiety disorder with panic attacks F41.9 Mass of right axilla R22.31 Laterality: right Recurrent major depressive disorder, in partial remission F33.41 Active/Remission status: in partial remission Chronic GERD K21.9 Additional Codes JENNA-7 Assessment Billing - JENNA-7 Assessment Tool: JENNA-7 Assessment 42646 ([id number]) PHQ-9 - 91665 - PHQ-9 Billing: Yes ([id number]) Assessment & Plan Assessment & Plan (1) Anxiety disorder with panic attacks: Code(s): F41.9 - Anxiety disorder, unspecified Category: Medical (2) Axillary lump: Code(s): R22.30 - Localized swelling, mass and lump, unspecified upper limb Category: Medical Qualifiers: Laterality: right Qualified Code(s): R22.31 - Localized swelling, mass and lump, right upper limb (3) Depression, major, recurrent: Code(s): F33.9 - Major depressive disorder, recurrent, unspecified Category: Medical Qualifiers: Active/Remission status: in partial remission Qualified Code(s): F33.41 - Major depressive disorder, recurrent, in partial remission (4) Chronic GERD: Code(s): K21.9 - Gastro-esophageal reflux disease without esophagitis Category: Medical Plan - The patient is a 74-year-old female presenting with anxiety and depression. - Anxiety and depression have been ongoing issues, with the patient previously on sertraline, which was tapered down from 200 mg to 25 mg. Over several weeks by Neurology Due to concern of cognitive impairment - The patient self-restarted sertraline at 25 mg due to increased anxiety and depression symptoms after discontinuation. - She reports feeling okay but still experiences depression. - Gastroesophageal reflux disease (GERD) symptoms worsened after stopping pantoprazole, which the patient discontinued on her own. However it has been restarted again - The patient experienced a GERD flare-up, leading to the use of Pepcid as needed for immediate symptom relief. - A cyst, described as the size of a nickel right axillary, has been noted to be increasing in size, prompting consideration for removal. Problem List - Anxiety - Depression - Gastroesophageal Reflux Disease (GERD) - Hiatal Hernia - Cyst right axillary Patient Instructions - Continue taking sertraline as prescribed and do not adjust the dosage without consulting a healthcare provider. - Use Pepcid as needed for GERD symptoms. - Attend the upcoming neurology appointment on April 02. - Schedule an appointment for cyst evaluation and possible removal. Orders: Referrals General Surgery Referral R22.30 - Localized swelling, mass and lump, unspecified upper limb
[2025-03-11 08:49] VITALS: BP 148/80; PULSE 64; TEMP 36.7; O2SAT 97
--- OUTSIDE RECORDS SUMMARY | 2025-03-11 09:02 | XMS_ITS | Clinical Summary ---
Author Organization [facility] Facility Address [address] [address] Care Team Providers Care Analytical Manager Name Role Phone Tierra Grace MD Primary Care Provider [phone] Allergies Active Allergy Reactions Criticality Noted Date [...] age to complete this topic Insurance Medicare [facility] Medicare [facility] Care Teams Analytical Manager Relationship Specialty Start Date End Date Tierra Grace MD [address] [place] [address] PCP - General 07/16/19
== END 2025-03-11 09:23 | disposition home or self-care (01) ==
LOC: HO.HMCC 08:47
PROVIDERS: PCP Internal Medicine; Visit Provider Internal Medicine
DX: F41.9 Anxiety disorder, unspecified (principal); R22.31 Localized swelling, mass and lump, right upper limb; F33.41 Major depressive disorder, recurrent, in partial remission; K21.9 Gastro-esophageal reflux disease without esophagitis

== ENCOUNTER → 2025-03-11 08:47 | Outpatient (BNVA) | payer MEDICARE, SELFPAY | PROVIDERS: PCP Internal Medicine; Visit Provider Internal Medicine | DX: F41.9 Anxiety disorder, unspecified (principal); R22.31 Localized swelling, mass and lump, right upper limb; F33.41 Major depressive disorder, recurrent, in partial remission; K21.9 Gastro-esophageal reflux disease without esophagitis | CPT/HCPCS: 96127; 99212 ==

== ENCOUNTER → 2025-03-17 12:58 | Outpatient (REF) | payer MEDICARE, SELFPAY ==
--- NOTE | 2025-03-17 13:02 | CA_ITS ---
Transthoracic Echocardiogram Patient (Last, First, Middle): Mc Juan, Gender: Female Date of : 1950 Age: 74 Procedure Date: 03/17/2025 Procedure Type: Transthoracic Echocardiogram Location: OP Height: 160.02 cm Weight: 63.5 kg BSA: 1.66 m2 Heart Rate: 61 bpm BP: 118 / 60 mmHg Private Duty Rn: TO Referring MD: Logan Garcia MD Radiophone Operator: Logan Garcia MD Symptoms: I25.10 - Atherosclerotic heart disease of [place] coronary artery without... Study Quality: Adequate w contrast ECG Rhythm: Sinus Conclusions: - Normal left ventricular size, thickness, systolic function, and wall motion. The visually estimated ejection fraction is between 65-70%. Diastolic function is indeterminate on the basis of available data. - Normal right ventricular cavity size and systolic function. - The left atrium is mildly dilated. - There is severe mitral annular calcification. Findings Procedure Information Contrast agent, definity, is being given per protocol without apparent complications. Left Ventricle Normal left ventricular size, thickness, systolic function, and wall motion. The visually estimated ejection fraction is between 65-70%. Diastolic function is indeterminate on the basis of available data. Right Ventricle Normal right ventricular cavity size and systolic function. Atria The left atrium is mildly dilated. The right atrium is normal in size. Aortic Valve There is a normal trileaflet aortic valve. There is mild calcification of the aortic valve. There is no aortic valve stenosis. There is no aortic valve regurgitation. Mitral Valve There is severe mitral annular calcification. There is trace mitral valve regurgitation. There is no mitral valve stenosis. Pulmonic Valve The pulmonic valve is normal. There is trace pulmonic valve regurgitation. Tricuspid Valve Normal tricuspid valve structure. There is no tricuspid valve regurgitation. Normal right atrial pressure. There is no evidence of pulmonary hypertension. Great Vessels All visible segments of the aorta are normal in size. The visualized portions of the pulmonary artery and branches are normal. Venous The inferior vena cava is normal in size and collapses greater than 50% with inspiration. Pericardium/Pleural There is no evidence of pericardial effusion. Prior Study Comparison No prior study available for comparison. Measurements 2D Linear Measurements IVSd: 1.27 0.6-0.9/0.6-1.0 cm LVIDd: 3.76 3.9-5.3/4.2-5.9 cm LVIDd Index: 2.27 2.4-3.2/2.2-3.1 cm/m2 LVIDs: 2.69 2.0-3.6 cm LVPWd: 0.85 0.7-1.1 cm LA Diam: 3.70 2.7-3.8/3.0-4.0 cm LAIDs Index: 2.23 1.5-2.3 cm/m2 LV Mass: 155.61 67-162/88-224 g LV Mass Index: 93.74 43-95/49-115 g/m2 LVOT Diam: 2.20 3.0+(-)1.3 cm 2D Systolic Function EF 4C: 55.20 >55% EF 2C: 67.30 >55% EF BiP: 62.50 >55% Mitral Valve MV VTI: 0.51 MV Pk Hever: 1.68 MV Mn Hever: 0.84 MV Pk Grad: 11.00 MV Mn Grad: 3.00 MV Pk E: 0.83 MV PK A: 1.33 MV Decel Time: 379.00 E/A: 0.60 E'Lateral: 9.57 E'Medial: 5.00 E/E' Med: 16.60 E/E' Lat: 8.70 PHT: 111.00 MVA PHT: 1.98 MVA Continuity: 1.92 Decel [place]: 2.19 Aortic Valve AoV Pk Hever: 1.42 AoV Mn Hever: 1.00 AoV VTI: 0.32 AoV Pk Grad: 8.00 Aov Mn Grad: 4.00 LISANDRA Cont.VTI: 3.04 LVOT LVOT Pk Hever: 1.02 LVOT Mn Hever: 0.78 LVOT VTI: 0.26 LVOT Pk Grad: 4.00 LVOT Mn Grad: 3.00 LVOT Diam: 2.20 LVOT Area: 3.80 Diastolic Function MV Pk E: 0.83 MV Pk A: 1.33 E/A: 0.60 E'Medial: 5.00 E/E' Med: 16.60 E' Laterial: 9.57 E/E' Lat: 8.70 Right Ventricle TAPSE (mm): 17.30 TVS' Hever: 10.10 Tricuspid Valve TR Pk Hever: 1.90 TR Pk Grad: 14.00 RA Press: 3.00 RVSP: 17.00 Great Vessels Aorta Sinus of Valsalva: 3.17 2.0-3.5 cm Ao Asc: 3.80 2.1-3.4 cm Updated in Other Vendor System with Status of Final Logan Garcia MD electronically signed on 03/23/2025 3:48:58 PM with status of Final
--- OUTSIDE RECORDS SUMMARY | 2025-03-17 13:26 | XMS_ITS | Data Portability ---
Author Organization [facility], Main Office - Prior to 10/12/22 Address [address] [facility] [address] [place] [address] Assessment No assessment recorded. Plan of Treatment Reminders Order Date Submit Date Provider Last Modified By Organization Details Last Modified Time Details Appointments None recorded. 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 Procedures None recorded. [...] Address Organization Details Recorded Time Diabetes mellitus 10704050 Active 2020 Naga Oconnor MD [address] [place] [address] [address], [address], [facility] 09:33:57 Hypothyroidism 52965074 Active 2020 Naga Oconnor MD [address] [place] [address] [address], [address], [facility] 09:34:04 Hypertensive disorder 39985666 Active 2020 Naga Oconnor MD [address] [place] [address] [address], [address], [facility] 09:34:10 Problem Notes None recorded. Medical Equipment None Reported. Allergies No known drug allergies Vitals Date Recorded Heart rate Respiratory rate Body temperature Oxygen saturation Oxygen saturation in Arterial blood by Pulse oximetry Provider Name and Address Organization Details Last Updated DateTime 1 88 /min 12 /min 97.1 [degF] 98 % 98 % Christina Friedman [facility] 11:14:03 Social History None recorded. Functional Status None recorded. Mental Status None recorded. Family History Nothing Reported. Medical History No medical history recorded. Gynecological HistoryNo gynecological history recorded. Obstetrics History GPAL:G 0 P 0 0 0 0 Past Encounters Encounter ID Performer Location Encounter Start Date Encounter Closed Date Diagnosis/Indication Diagnosis SNOMED-CT Code Diagnosis ICD10 Code Diagnosis Note [id number] Naga Oconnor MD Main Office - Prior to 10/12/22 [address] [facility] [address] [place] [address] 09/12/2020 09:44:39 10/05/2020 16:27:28 Viral screening 494176739 Z11.59 Health Concerns Section Related Observation LastModified by Organization Detai ls LastModified Time None Recorded Concern Status LastModified by Organization Details LastModified Time None Recorded Advance Directives Directive None Recorded Payers Insurance Date Sequence Insurance Name Policy Number Policy Boyer Covered Member ID Boyer Member ID Guarantor Name 10/14/2020 1 [place]ICARE [place]: [facility] [employer] Mc Lopez [id number] [place] 10/14/2020 2 [place] Mc Lopez [id number] [place] Notes Date Note Type Note Provider Name and Address Organization Details Recorded Time 09/12/2020 text/html traveling to [place] on Monday by car no symptoms, feeling well today no known exposure non-smoker medical conditions: has diabetes and heart surgery 2 years ago, arthritis, hypothyroid takes metoprolol, synthroid, junevis, and metformin denies any complaints medical issues are controlled Naga Oconnor MD [address] [facility] [address], [place], [address], [facility] 09/13/2020 09:34:45 OBGyn Episode No OBEpisode recorded.
--- OUTSIDE RECORDS SUMMARY | 2025-03-17 13:26 | XMS_ITS | Clinical Summary ---
Author Organization [facility] Facility Address [address] [address] Care Team Providers Care Furnace Operator Name Role Phone Tierra Grace MD Primary Care Provider [phone] Allergies Active Allergy Reactions Criticality Noted Date [...] Diabetes: Visual Foot Exam 10/12/2020 Influenza Vaccine (#1) 2025 Hepatitis B Vaccine Aged Out No longe r eligible based on patient's age to complete this topic Insurance Medicare [facility] Medicare [facility] Care Teams Furnace Operator Relationship Specialty Start Date End Date Tierra Grace MD [address] [place] [address] PCP - General 07/16/19
== END ==
LOC: HO.CARD 12:58
PROVIDERS: PCP Internal Medicine; Visit Provider Internal Medicine Cardiovascular Disease
DX: I25.10 Atherosclerotic heart disease of native coronary artery without angina pectoris (principal)
CPT/HCPCS: 93306; Q9957

== ENCOUNTER → 2025-03-17 13:02 | Outpatient (BNV) | payer MEDICARE, SELFPAY | PROVIDERS: PCP Internal Medicine; Visit Provider Internal Medicine Cardiovascular Disease | DX: I34.81 Nonrheumatic mitral (valve) annulus calcification (principal); I35.8 Other nonrheumatic aortic valve disorders | CPT/HCPCS: 93306 ==

== ENCOUNTER 2025-03-18 13:51 | Outpatient (REF) | payer MEDICARE, SELFPAY ==
--- NOTE | ~2025-03-18 | FL_ITS ---
EXAMINATION: Modified Barium Swallow CLINICAL INFORMATION: Dysphagia. COMPARISON: None. TECHNIQUE: Modified barium swallow was performed under lateral fluoroscopy with patient in standing position. Barium mixed with solids and liquids of different consistencies was administered by the speech pathologist. Examination was recorded in the fluoroscopy suite. FINDINGS: No evidence of laryngeal penetration, glottic or subglottic aspiration on any consistencies. FLUOROSCOPY TIME: 1 minute 25 seconds Number of Spot Images: N/A DOSE AREA PRODUCT: 941.1 uGy-m2 (microgray-meter squared) FL/FL Modified Barium Swallow IMPRESSION: No laryngeal penetration, glottic or subglottic aspiration. Refer to the full speech therapy report to follow for further detail. Electronically signed by: Garett Andre MD 03/18/2025 02:25 PM EDT
--- OUTSIDE RECORDS SUMMARY | 2025-03-18 14:42 | XMS_ITS | Data Portability ---
Author Organization [facility], Main Office - Prior to 10/12/22 Address [address] [facility] [address] [place] [address] Assessment No assessment recorded. Plan of Treatment Reminders Order Date Submit Date Provider Last Modified By Organization Details Last Modified Time Details Appointments None recorded. Lab SARS CoV 2 RNA (COVID-19), QL, fabrication lead-PCR, respiratory specimen 2020 [address]21 [employer], [address] [facility], [place], [address], 03:58:19 Referral None recorded. Procedures None recorded. [...] Address Organization Details Recorded Time Diabetes mellitus 44156372 Active 2020 Naga Oconnor MD [address] [place] [address] [address], [place], [address], [facility] 09:33:57 Hypothyroidism 57088912 Active 2020 Naga Oconnor MD [address] [place] [address] [address], [place], [address], [facility] 09:34:04 Hypertensive disorder 50848576 Active 2020 Naga Oconnor MD [address] [place] [address] [address], [place], [address], [facility] 09:34:10 Problem Notes None recorded. Medical Equipment None Reported. Allergies No known drug allergies Vitals Date Recorded Heart rate Respiratory rate Body temperature Oxygen saturation Oxygen saturation in Arterial blood by Pulse oximetry Provider Name and Address Organization Details Last Updated DateTime 1 88 /min 12 /min 97.1 [degF] 98 % 98 % Christina Friedman [facility] 11:14:03 Social History None recorded. Functional Status None recorded. Mental Status None recorded. Family History Nothing Reported. Medical History No medical history recorded. Gynecological HistoryNo gynecological history recorded. Obstetrics History GPAL:G 0 P 0 0 0 0 Past Encounters Encounter ID Performer Location Encounter Start Date Encounter Closed Date Diagnosis/Indication Diagnosis SNOMED-CT Code Diagnosis ICD10 Code Diagnosis Note [id number] Naga Oconnor MD Main Office - Prior to 10/12/22 [address] [facility] [address] [place] [address] 09/12/2020 09:44:39 10/05/2020 16:27:28 Viral screening [id number] Z11.59 Health Concerns Section Related Observation LastModified by Organization Detai ls LastModified Time None Recorded Concern Status LastModified by Organization Details LastModified Time None Recorded Advance Directives Directive None Recorded Payers Insurance Date Sequence Insurance Name Policy Number Policy Boyer Covered Member ID Boyer Member ID Guarantor Name 10/14/2020 1 MEDICARE [place]: [facility] [employer] Mc Lopez [id number] [place] 10/14/2020 2 [place] [facility] [place] Mc Lopez [id number] [address] [place] Notes Date Note Type Note Provider Name and Address Organization Details Recorded Time 09/12/2020 text/html traveling to [place] on Monday by car no symptoms, feeling well today no known exposure non-smoker medical conditions: has diabetes and heart surgery 2 years ago, arthritis, hypothyroid takes metoprolol, synthroid, junevis, and metformin denies any complaints medical issues are controlled Naga Oconnor MD [address] [facility] [address], [place], [address], [facility] 09/13/2020 09:34:45 OBGyn Episode No OBEpisode recorded.
--- OUTSIDE RECORDS SUMMARY | 2025-03-18 14:42 | XMS_ITS | Clinical Summary ---
Author Organization [facility] Facility Address [address] [address] Care Team Providers Care Food And Beverage Server Name Role Phone Tierra Grace MD Primary Care Provider [phone] Allergies Active Allergy Reactions Criticality Noted Date [...] age to complete this topic Insurance Medicare [facility] Medicare [facility] Care Teams Food And Beverage Server Relationship Specialty Start Date End Date Tierra Grace MD [address] [place] [address] PCP - General 07/16/19
--- NOTE | 2025-03-18 15:37 | MHC.SL.IMP ---
Date of Plan of Treatment: 03/18/25 Onset of Symptoms/Illness: 03/18/23 Date Treatment Started: 03/18/25 Admitting Diagnosis: Hx GERD Primary Speech & Language Diagnosis: R13.11 Oral Phase Dysphagia Reason for Today's Visit: 87901 Modified Barium Swallow Study Pre-evaluation Dietary Consistencies: Regular Pre-evaluation Liquid Consistency: Thin Pre-evaluation Medication Administration: Whole with Liquid Medical History: Modified Barium Swallow Study Fluoroscopic Evaluation of Swallowing Function CPT Code 34807 Evaluation Year: 2024 Reason for Study: Patient reporting difficulty swallowing. Referring Physician: Tierra Grace MD Evaluating Clinician: Maritza West MA, CCC-ASSISTANT PROFESSOR OF ANTHROPOLOGY Study Number: 1 Patient Name: Mc Juan Status: Outpatient, Ambulatory Age: 74 Sex: Female Medical History Medical History Type 2 diabetes mellitus Depression Mild cognitive impairment Arthritis Fatty liver On beta corona at home CAD (coronary artery disease) Diverticulosis Allergy to food dye Hypertension, essential Constipation by delayed colonic transit Lipid disorder Diabetes 1.5, managed as type 2 Depression, major, recurrent Chronic GERD Hypothyroidism Environmental allergies Surgical History History of right cataract extraction History of four vessel coronary artery bypass graft S/P cardiac cath History of colonoscopy History of hysteroscopy History of bilateral tubal ligation Hx of cholecystectomy Current (pre-evaluation) Intake/Diet: Route: PO Diet Grade: Regular Liquid Consistencies: Thin Pre-Study Functional Oral Intake Scale (FOIS): 7- Total oral intake with no restrictions Pain: None reported at time of study SUBJECTIVE: Patient is a 74 year old female referred for a modified barium swallow study by her primary care provider, Tierra Grace MD. Patient is seen by the ASSISTANT PROFESSOR OF ANTHROPOLOGY team for cognitive linguistic therapy and during her first visit, reported having some difficulty swallowing. Patient reports that her swallow ?feels slow,? and has been experiencing this for approximately 2 years. She indicated in the affirmative when asked if she has any pain with swallowing, but upon further inquiry, revealed it feels more like agitation or allergy to certain foods, such as sour candies. Patient says she coughs while eating sometimes, but not very often. Pertinent medical history includes GERD, diverticulosis, diabetes, and hypothyroidism. Oral Motor Exam Facial Symmetry: Symmetrical Mouth Occlusion: Normal Oral-Facial Teeth Characteristics: Intact/Normal Oral-Facial Lip Pucker Description: Normal Oral-Facial Smile (Lips) Description: Normal Oral-Facial Puff Cheeks Description: Normal Tongue Size: Normal Tongue Excursion Description: Normal Tongue Range of Movement Description: Normal Tongue Speed of Movement Description: Normal Tongue Strength of Movement (against opposing pressure): Normal Tongue Movement Characteristics: Normal/Absent Is patient able to manage secretions?: Yes Food and Liquid Trials: Oral Impairment: Lip Closure: 0=No labial escape Oral Impairment: Tongue Control During Bolus Hold: 1=Escape to lateral buccal cavity/floor of mouth (FOM) Oral Impairment: Bolus Preparation/Mastication: 1=Slow prolonged chewing/mashing with complete re-collection Oral Impairment: Bolus Transport/Lingual Motion: 2=Slowed tongue motion Oral Impairment: Oral Residue: 1=Trace residue lining oral structures Oral Impairment:Initiation of Pharyngeal Swallow: 3=Bolus head in pyriforms Pharyngeal Impairment: Soft Palate Elevation: 0=No bolus between soft palate (SP)/pharyngeal wall (PW) Pharyngeal Impairment: Laryngeal Elevation: 0=Complete superior movement of thyroid cartilage (see description) Pharyngeal Impairment: Anterior Hyoid Excursion: 1=Partial anterior movement Pharyngeal Impairment: Epiglottic Movement: 0=Complete inversion Pharyngeal Impairment: Laryngeal Vestibular Closure:: 0=Complete: no air/contrast in laryngeal vestibule Pharyngeal Impairment: Pharyngeal Stripping Wave: 0=Present: complete Pharyngeal Impairment: Pharyngeal Contraction: Did not test Pharyngeal Impairment: Pharyngoesophageal Segment Openin=Complete distension and complete duration: no obstruction of flow Pharyngeal Impairment: Tongue Base (TB) Retraction: 1=Trace column of contrast/air between TB and posterior PW Pharyngeal Impairment: Pharyngeal Residue: 0=Complete pharyngeal clearance Pharyngeal Impairment: Esophageal Clearance Upright Position: Did not test Impressions and Recommendations OBJECTIVE: Time-out: performed at 14:15 Evaluation Start: 14:00; Stop: 14:05 Patient Positioning: Standing Viewing Planes: LATERAL ONLY Contrast: MBSImP? Standardized Protocol using commercially prepared, standardized Barium viscosities, including: Varibar? THIN LIQUID (40% w/v, <15 cps) , Varibar? PUDDING (40% w/v, <4736-4911 cps) , 1/2 Shortbread Cookie (1 x1 x.25 ) MBSImP ID: [id number] [facility] Results: Lip closure for intraoral bolus containment resulted in no labial escape. Tongue control during bolus hold allowed bolus escape to the lateral buccal cavity/floor of mouth. Bolus preparation and mastication resulted in slow, prolonged chewing/mashing but with complete re-collection. Bolus transport/lingual motion was with slowed tongue motion. Oral residue was a trace, lining oral structures. Initiation of the pharyngeal swallow occurred when the bolus head was in the pyriform sinuses. Soft palate elevation resulted in no bolus between the soft palate and the pharyngeal wall. Laryngeal elevation demonstrated complete superior movement of the thyroid cartilage with complete approximation of the arytenoids to the epiglottic petiole. Anterior hyoid excursion demonstrated partial anterior movement. Epiglottic movement resulted in complete inversion. Laryngeal vestibular closure was complete, as indicated by no air or contrast within the laryngeal vestibule at the height of the swallow. Pharyngeal stripping wave was present and complete. Pharyngeal contraction could not be determined due to logistical reasons not related to physiologic impairment. Pharyngoesophageal segment opening was completely distended for complete duration with no obstruction of bolus flow. Tongue base retraction allowed a trace column of contrast or air between the retracted tongue base and the posterior pharyngeal wall. Pharyngeal residue was not present. There was complete pharyngeal clearance. Esophageal clearance in the upright position could not be assessed due to logistical reasons not related to physiologic impairment. Oral Impairment Score: 7 Pharyngeal Impairment Score: 1 (absence of score, component 13) Esophageal Impairment Score: --- (absence of score, component 17) Laryngeal Penetration and Aspiration: Neither penetration nor aspiration was observed in today's study with Cookie, Pudding-thick, Thin. ASSESSMENT: This exam was peformed by the radiologist and the speech pathologist. Patient was standing for lateral view only and fed herself independently. She trialed the following consistencies: Thin liquid (individual cup sips) Puree (mixture applesauce with pudding barium) Regular (shortbread cookie coated with pudding barium) Adequate lip closure with no anterior loss of bolus. There was some escape of bolus to the floor of mouth, but no spillage from the oral cavity posteriorly. Lingual motion for AP transport was mildly slowed. Mastication was also slowed, but with overall good recollection. Trace residue on the tongue cleared with self-initiated dry swallow. Pharyngeal swallow trigger was delayed. No evidence of nasopharyngeal reflux. Complete laryngeal elevation with complete epiglottic inversion and complete laryngeal vestibular closure. No evidence of aspiration or penetration during this exam. Complete pharyngeal clearance. Liquid Intake Recommendation: Thin Liquid Intake Strategies: Dietary Recommendations: Regular Medication Administration: Whole with Liquid Please contact the pharmacy regarding appropriate crushable or liquid drug formulations that are available whenever modified delivery is recommended. Compensatory Strategies Recommended: Sitting Upright (90 deg), Small Bites and Sips, Rate of Ingestion Change Recommendation for Speech Therapy: NA:Typical Evaluation Text Comment: Intake Recommendations: Route: PO Diet Grade: Regular Liquid Consistencies: Thin Post-Study Functional Oral Intake Scale (FOIS): 7- Total oral intake with no restrictions Patient presents with mild oral phase dysphagia, characterized by slowed lingual movement, prolonged mastication, and delayed swallow trigger. Pharyngeal phase was unremarkable. No evidence of aspiration or penetration. Good oral and pharyngeal clearance. Recommend continue on unmodified dietary textures- regular solids and thin liquids, with pills whole in liquid. Further dysphagia treatment is not warranted at this time, as patient?s swallow is deemed WFL. Patient may benefit from GI consult to address GI symptoms. Suggested Referrals: The patient might benefit from a referral to: Gastroenterology Indication for Referral: Hx of GERD Clinician - Supplemental, Miscellaneous Communication: It is important to note MBSS objective studies are snapshots in time and Patient function might vary with factors such as time of day or concomitant medical conditions. For this reason, the final treatment plan for this patient should rest with their medical care team. Additional recommendations should be considered with the totality of the Patient in mind. Thank for the opportunity to participate in the care of this patient. If you have any questions about the content of this report, please contact the [facility]. Education: Education regarding findings from today's study and plans for therapy were provided to Patient and family/caregiver through Verbal Instruction. Understanding was expressed by the Patient and family/caregiver. Senior Software Manager Clinician/Clinical Fellow: No Supervisory Statement: N/A Speech Language Pathologist: Maritza West M.A., CCC-ASSISTANT PROFESSOR OF ANTHROPOLOGY
== END 2025-03-18 13:52 | disposition home or self-care (01) ==
LOC: HO.XRAY 13:51
PROVIDERS: Visit Provider Internal Medicine
DX: R13.10 Dysphagia, unspecified (principal)
CPT/HCPCS: 74230; 92611

== ENCOUNTER → 2025-03-18 14:00 | Outpatient (BNV) | payer MEDICARE, SELFPAY | PROVIDERS: Visit Provider Radiology Diagnostic Radiology | DX: R13.10 Dysphagia, unspecified (principal) | CPT/HCPCS: 74230 ==

== ENCOUNTER 2025-03-19 13:50 | Outpatient (AMB) | payer MEDICARE, SELFPAY ==
--- OUTSIDE RECORDS SUMMARY | 2025-03-19 14:39 | XMS_ITS | Clinical Summary ---
Author Organization [facility] Facility Address [address] [address] Care Team Providers Care Chief Librarian Extension Department Name Role Phone Tierra Grace MD Primary [...] age to complete this topic Insurance Medicare [facility] Medicare [facility] Care Teams Chief Librarian Extension Department Relationship Specialty Start Date End Date Tierra Grace MD [address] [place] [address] PCP - General 07/16/19
--- NOTE | 2025-03-19 14:48 | MHC.AMDMED ---
Intake Intake Visit Reasons: 60 mins Cigar Head Pegger Required: Yes Cigar Head Pegger Name: Pt's son Accompanied by: Son Allergies codeine (Codeine) Allergy (Intermediate, Verified 03/11/25 08:54) VOMITING aspirin (Aspirin) Adverse Reaction (Mild, Verified 03/11/25 08:54) DIZZINESS nitrofurantoin (From Macrobid) Adverse Reaction (Mild, Verified 03/11/25 08:54) Hyperkalemia HPI Comprehensive Diabetes Asmnt Most Recent Diabetes Results: Hemoglobin A1c 7.4 % 03/20/19 Microalb/Creat Ratio 27.0 ug/mg cr 10/22/21 Cholesterol, (<200) 335 mg/dL H 09/03/24 HDL Cholesterol, (>40) 62 mg/dL 09/03/24 Triglycerides, (<150) 316 mg/dL H 09/03/24 Creatinine, (0.5-1.4) 1.33 mg/dL 03/04/25 BUN, (9-16) 17 mg/dL H 03/04/25 Sodium, (135-145) 141 mmol/L 03/04/25 Potassium, (3.3-5.1) 5.1 mmol/L 03/04/25 Chloride, (96-108) 110 mmol/L H 03/04/25 Carbon Dioxide, (22-29) 23 mmol/L 03/04/25 Calcium, (8.4-10.2) 9.0 mg/dL 03/04/25 AST, (5-31) 21 U/L 03/04/25 ALT, (0-31) 11 U/L 03/04/25 Total Protein, (6.5-8.0) 6.7 g/dL 03/04/25 Albumin, (3.5-5.0) 4.0 g/dL 03/04/25 [facility] Medical History Type 2 diabetes mellitus Depression Mild cognitive impairment Arthritis Fatty liver On beta corona at home CAD (coronary artery disease) Diverticulosis Allergy to food dye Hypertension, essential Constipation by delayed colonic transit 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 Mother No problems noted. Social History Housing: House Are you a primary healthcare economics consultant to a significant other at home: No Do you presently have visiting nurse or other home services: No Alcohol intake: never Patient Tobacco Use Status: Never used Tobacco e-Cigarette/Vaping Use: Never Used service: No Current occupational status: disabled Cognitive needs: No Hearing needs: No Vision needs: No Assessment & Plan Assessment & Plan (1) Type 2 diabetes mellitus: Code(s): E11.9 - Type 2 diabetes mellitus without complications Plan: Diabetes self-management education and support participation record Assessment/scale: 1= needs instructed? 2= needs review? 3= comprehend keep point? 4= demonstrates understanding/ competent? NC= Not Covered Topics Learning Objective: Initial visit Initial or post srvc Initial or post srvc Initial or post srvc Initial or post srvc Initial or post srvc Post srvc Comments Pre Edu-assessment/plan Outcome or reassess Outcome or reassess Outcome or reassess Outcome or reassess Outcome or reassess Outcome or reassess Diabetes pathophysiology 1 Healthy eating 1 Being active 1 Taking medication 1 Monitoring glucose 1 Acute complication 1 Chronic complicated 1 Lifestyle and healthy coping 1 Diabetes distress in support 1 ?Diabetes pathophysiology: ?Defined diabetes med identify own type of diabetes; list 3 options for treating diabetes Healthy eating: ?Described effect of type, amount and ?timing of food on blood glucose; list 3 methods for planning meal Being active: ?State effect of exercise on blood glucose level Taking medication: ?State effect of diabetes medications on diabetes; name diabetes medications taking, action and side effects Monitoring glucose: ?Identify recommended blood glucose targets and personal target Acute complication: ?List symptoms and treatment of hyper and hypoglycemia, DKA, sick day guidelines and guidelines for severe weather or situations of crisis and diabetes supply manage Chronic complication: ?To find the relationship of blood glucose levels to long-term complications of diabetes in screening and preventative measures Lifestyle and healthy coping: ?Described lifestyle and healthy coping strategies to rule out diabetes self-management Diabetes to stress and support: ?Recognize Diabetes to stress and be able to identified support options Learning objectives: The patient was provided with verbal and written education on the following topics as outlined below. The patient met all learning objectives and was able to verbalize understanding and provide teach back of education topics discussed . The patient was provided with the opportunity to ask questions and all questions were answered. Patient Assessment Assess patient education level/literacy/barriers, patient's last A1c on 01/15/2025 7.0%, patient at visit with her son. Patient taking 1000 mg metformin b.i.d. Patient questions/concerns, patient initially complained of waking up overnight drenched with sweat. Provider concerned about overnight hypoglycemia requested patient wear Dexcom G7 sample sensors. Patient had 3 weeks' worth of glucose data. No episodes of hypoglycemia in that time. Patient has postprandial spike after breakfast, reports she just drinks tea with milk and a piece of raisin toast. Patient also believes that her medication is causing her glucose level to rise. What is Diabetes? Pathophysiology How the body produces and uses insulin Identify type of DM Risk factors Signs of Diabetes Brief overview of Diabetes Management Monitoring blood sugar Following a meal plan Regular exercise Maintaining a healthy weight Taking medication as needed Members of the care team (PCP, RN, MA, RD, CDE, mixing machine operator) Blood glucose monitoring When/how often to test Target blood sugar ranges Patient using sample Dexcom G7 sensors Patient is using smart phone sensor. Patient requested to have high alert increased 300 mg/dL, and alerts to be changed over to vibrate. Introduction to Nutrition Importance of healthy diet in managing DM Diet is personalized to individual preference Review patient?s regular diet/food preferences How diet effects glucose Eating 3 balanced meals a day with small, healthy snacks between meals Review food groups Carbohydrates: What is a carbohydrate/Which food/food groups are considered carbohydrates Effect of carbohydrates on blood glucose Portion sizes Reading food labels Basic carb counting (if applicable per nursing assessment) Plate method Meal planning Recommendations: Follow plate method, consistent carbs and read nutritional labels. Smart Goal: Patient will identify foods in current meal plan that contain carbohydrates Educational Materials: The patient was provided with the following written educational materials: Planning Healthy Meals Handout Patient Response to instructions: Comprehension of Instructions: Fair Readiness to make changes: Contemplation How confident they feel about making changes: Positive Portions of this note were created using voice recognition software, please excuse any words or phrases that may have been misinterpreted. Patient Instructions: Include regular daily activity. ADA recommends 30 minutes of exercise 5 days a week. Weight loss talk to PCP or Magnetic Tester before starting new plan. Test blood sugar as directed; Fasting and 2hpp largest meal. Watch trends in results. Utilize results and to assess how food, physical activity and medications affect blood sugar results. Bring glucometer or CGM to next visit. Be knowledgeable about diabetes medication, its action, side effects, efficacy, toxicity, prescribed dosage, appropriate timing and frequency of administration, effect of missed and delayed doses and instructions for storage, travel and safety. Problem solving techniques to monitor hypo/hyperglycemia episodes and treatments. Reduce risk reduction behaviors, smoking cessation, regular eye, foot and dental examinations. Coding Level of Care Code Est Pt Level 1 (98485) Diagnoses Type 2 diabetes mellitus E11.9
== END 2025-03-19 14:50 | disposition home or self-care (01) ==
LOC: HO.ENCR 13:51
PROVIDERS: PCP Internal Medicine; Visit Provider Registered Nurse Diabetes Educator
DX: E11.9 Type 2 diabetes mellitus without complications (principal)

== ENCOUNTER → 2025-03-19 13:50 | Outpatient (BNVA) | payer MEDICARE, SELFPAY | PROVIDERS: PCP Internal Medicine; Visit Provider Registered Nurse Diabetes Educator | DX: E11.9 Type 2 diabetes mellitus without complications (principal); Z79.84 Long term (current) use of oral hypoglycemic drugs | CPT/HCPCS: 99211 ==

== ENCOUNTER 2025-03-20 12:21 | Outpatient (REF) | payer MEDICARE, SELFPAY ==
--- NOTE | ~2025-03-20 | CT_ITS ---
EXAMINATION: CT ABDOMEN AND PELVIS WITHOUT CONTRAST CLINICAL INFORMATION: Generalized abdominal pain. COMPARISON: November 17, 2022. TECHNIQUE: Multidetector volumetric imaging was performed from the superior aspect of the liver through the pubic symphysis. Sagittal and coronal reformatted images were obtained on the technologist's workstation. Oral contrast given. This CT examination was performed using dose optimization techniques as appropriate, variously including the following: *Automated exposure control *Adjustment of mA and/or kV according to patient size (this includes techniques or standardized protocols for targeted exams where dose is matched to indication/reason for exam; i.e. extremities or head) *Use of iterative reconstruction technique DLP: 460 mGy centimeter. FINDINGS: Inadequate evaluation of the intra-abdominal organs and vascular structures due to lack of IV contrast. LUNG BASES: No gross consolidation or pulmonary nodules. LIVER, GALLBLADDER, AND BILIARY TREE: Liver measures 14 cm. Status post cholecystectomy. Common bile duct measures 6 mm. PANCREAS: No peripancreatic fluid collection. Fatty density, head). Volume loss. No main pancreatic ductal dilatation. SPLEEN: 7 cm. ADRENAL GLANDS: No nodular lesions KIDNEYS AND URETERS: Right kidney: Probable nonobstructing less than 4 mm calculi throughout the pelvicalyceal system. No acute process. Left kidney: No hydronephrosis. Probable nonobstructing (5 m calculi. Vascular calcifications in the renal hilum and the origin of the left main renal artery.. BLADDER: Fluid-filled nearly collapsed. GASTROINTESTINAL TRACT: No intestinal obstruction pattern. No pneumatosis intestinalis. Scattered diverticula throughout the left hemicolon. No intestinal wall thickening segmental areas of collapsed versus peristalsis. Appendix is normal. No ascites. No pneumoperitoneum. ABDOMINAL WALL: No gross umbilical hernia. LYMPH NODES: No lymphadenopathy, mesenteric or retroperitoneal. VASCULAR: Dystrophic calcifications throughout the abdominal aorta wall and iliac arteries mesenteric arteries splenic artery and the coronary arteries. Calcified plaques in the mitral valve. Sternal wires. No aneurysm, abdominal aorta. PELVIC VISCERA: Inadequate evaluation. OSSEOUS STRUCTURES: Multilevel thoracolumbar spondylosis. Grade 1 retrolisthesis L2-3. Osteopenia versus osteoporosis. Degenerative changes in the coxofemoral joints second joints and symphysis joints. CT/CT abdomen pelvis wo IV con IMPRESSION: No intestinal obstruction pattern. Coronary artery disease and atherosclerosis disease. Bilateral nonobstructing nephrolithiasis. Calcified plaques, mitral valve. Diverticular disease, left hemicolon. Fleischner guidelines were followed. Electronically signed by: Raj Collier MD 03/20/2025 03:21 PM EDT RP
--- OUTSIDE RECORDS SUMMARY | 2025-03-20 12:37 | XMS_ITS | Data Portability ---
Author Organization [facility] [facility], Main Office - Prior to 10/12/22 Address [address] [facility] [address] [place] [address] Assessment No assessment recorded. Plan of Treatment Reminders Order Date Submit Date Provider Last Modified By Organization Details Last Modified Time Details Appointments None recorded. 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 Procedures None recorded. [...] Address Organization Details Recorded Time Diabetes mellitus 67460368 Active 2020 Naga Oconnor MD [address] [place] [address] [address], [place], [address], [facility] 09:33:57 Hypothyroidism 07082802 Active 2020 Naga Oconnor MD [address] [place] [address] [address], [place], [address], [facility] 09:34:04 Hypertensive disorder 65475908 Active 2020 Naga Oconnor MD [address] [place] [address] [address], [place], [address], [facility] 09:34:10 Problem Notes None recorded. Medical Equipment None Reported. Allergies No known drug allergies Vitals Date Recorded Heart rate Respiratory rate Body temperature Oxygen saturation Oxygen saturation in Arterial blood by Pulse oximetry Provider Name and Address Organization Details Last Updated DateTime 1 88 /min 12 /min 97.1 [degF] 98 % 98 % Christina Friedman [facility] 11:14:03 Social History None recorded. Functional Status None recorded. Mental Status None recorded. Family History Nothing Reported. Medical History No medical history recorded. Gynecological HistoryNo gynecological history recorded. Obstetrics History GPAL:G 0 P 0 0 0 0 Past Encounters Encounter ID Performer Location Encounter Start Date Encounter Closed Date Diagnosis/Indication Diagnosis SNOMED-CT Code Diagnosis ICD10 Code Diagnosis Note [id number] Naga Oconnor MD Main Office - Prior to 10/12/22 [address] [facility] [address] [place] [address] 09/12/2020 09:44:39 10/05/2020 16:27:28 Viral screening 683947803 Z11.59 Health Concerns Section Related Observation LastModified by Organization Detai ls LastModified Time None Recorded Concern Status LastModified by Organization Details LastModified Time None Recorded Advance Directives Directive None Recorded Payers Insurance Date Sequence Insurance Name Policy Number Policy Boyer Covered Member ID Boyer Member ID Guarantor Name 10/14/2020 1 MEDICARE B-[place]: [facility] [email or web address] Mc Lopez [id number] [place] 10/14/2020 2 [place] Mc Lopez [id number] [place] Notes Date Note Type Note Provider Name and Address Organization Details Recorded Time 09/12/2020 text/html traveling to [place] on Monday by car no symptoms, feeling well today no known exposure non-smoker medical conditions: has diabetes and heart surgery 2 years ago, arthritis, hypothyroid takes metoprolol, synthroid, junevis, and metformin denies any complaints medical issues are controlled Naga Oconnor MD [address] [facility] [address], [place], [address], [facility] 09/13/2020 09:34:45 OBGyn Episode No OBEpisode recorded.
--- OUTSIDE RECORDS SUMMARY | 2025-03-20 12:37 | XMS_ITS | Clinical Summary ---
Author Organization [facility] Facility Address [address] [address] Care Team Providers Care Wire Weaver Cloth Name Role Phone Tierra Grace MD Primary Care Provider [phone] Allergies Active Allergy Reactions Criticality Noted Date [...] age to complete this topic Insurance Medicare [facility] Medicare [facility] Care Teams Wire Weaver Cloth Relationship Specialty Start Date End Date Tierra Grace MD [address] [place] [address] PCP - General 07/16/19
[2025-03-20] MEDS: Barium Sulfate Oral (Vanilla) 450 ML ORAL.SUSP 900 ML PO (14:57)
== END 2025-03-20 12:22 | disposition home or self-care (01) ==
LOC: HO.CT 12:21
PROVIDERS: PCP Internal Medicine; Visit Provider Internal Medicine Gastroenterology
DX: R10.84 Generalized abdominal pain (principal); K59.01 Slow transit constipation; K21.9 Gastro-esophageal reflux disease without esophagitis
CPT/HCPCS: 74176

== ENCOUNTER → 2025-03-20 12:23 | Outpatient (BNV) | payer MEDICARE, SELFPAY | PROVIDERS: PCP Internal Medicine; Visit Provider Radiology Diagnostic Radiology | DX: K57.30 Diverticulosis of large intestine without perforation or abscess without bleeding (principal) | CPT/HCPCS: 74176 ==

== ENCOUNTER 2025-03-28 08:06 | Outpatient (AMB) | payer MEDICARE, SELFPAY ==
--- OUTSIDE RECORDS SUMMARY | 2025-03-28 08:09 | XMS_ITS | Data Portability ---
Author Organization [facility] [facility], Main Office - Prior to 10/12/22 Address [address] [facility] [address] [place] [address] Assessment No assessment recorded. Plan of Treatment Reminders Order Date Submit Date Provider Last Modified By Organization Details Last Modified Time Details Appointments None recorded. 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, [place], [address], 03:58:19 Referral None recorded. Procedures None recorded. [...] Address Organization Details Recorded Time Diabetes mellitus 64872353 Active 2020 Naga Oconnor MD [address] [place] [address] [address], [place], [address], [facility] 09:33:57 Hypothyroidism 66579946 Active 2020 Naga Oconnor MD [address] [place] [address] [address], [place], [address], [facility] 09:34:04 Hypertensive disorder 23626374 Active 2020 Naga Oconnor MD [address] [place] [address] [address] [place], [address], [facility] 09:34:10 Problem Notes None recorded. Medical Equipment None Reported. Allergies No known drug allergies Vitals Date Recorded Heart rate Respiratory rate Body temperature Oxygen saturation Oxygen saturation in Arterial blood by Pulse oximetry Provider Name and Address Organization Details Last Updated DateTime 1 88 /min 12 /min 97.1 [degF] 98 % 98 % Christina Friedman [facility] 11:14:03 Social History None recorded. Functional Status None recorded. Mental Status None recorded. Family History Nothing Reported. Medical History No medical history recorded. Gynecological HistoryNo gynecological history recorded. Obstetrics History GPAL:G 0 P 0 0 0 0 Past Encounters Encounter ID Performer Location Encounter Start Date Encounter Closed Date Diagnosis/Indication Diagnosis SNOMED-CT Code Diagnosis ICD10 Code Diagnosis Note [id number] Naga Oconnor MD Main Office - Prior to 10/12/22 [address] [facility] [facility] [address] [place] [address] 09/12/2020 09:44:39 10/05/2020 16:27:28 Viral screening 790622260 Z11.59 Health Concerns Section Related Observation LastModified by Organization Detai ls LastModified Time None Recorded Concern Status LastModified by Organization Details LastModified Time None Recorded Advance Directives Directive None Recorded Payers Insurance Date Sequence Insurance Name Policy Number Policy Boyer Covered Member ID Boyer Member ID Guarantor Name 10/14/2020 1 MEDICARE B-[place]: [facility] [employer] SERVICES Mc Lopez [id number] [place] 10/14/2020 2 [place] Mc Lopez [id number] [address] [place] Notes Date Note Type Note Provider Name and Address Organization Details Recorded Time 09/12/2020 text/html traveling to [place] on Monday by car no symptoms, feeling well today no known exposure non-smoker medical conditions: has diabetes and heart surgery 2 years ago, arthritis, hypothyroid takes metoprolol, synthroid, junevis, and metformin denies any complaints medical issues are controlled Naga Oconnor MD [address] [facility] [address], [place], [address], [facility] 09/13/2020 09:34:45 OBGyn Episode No OBEpisode recorded.
--- OUTSIDE RECORDS SUMMARY | 2025-03-28 08:09 | XMS_ITS | Clinical Summary ---
Author Organization [facility] Facility Address [address] [address] Care Team Providers Care Animator Name Role Phone Tierra Grace MD Primary Care Provider [phone] Allergies Active Allergy Reactions Criticality Noted Date [...] [facility] Medicare [facility] Care Teams Animator Relationship Specialty Start Date End Date Tierra Grace MD [address] [place] [address] PCP - General 07/16/19
--- NOTE | 2025-03-28 08:12 | MHC.OFFVIS ---
Vital Signs 03/28/25 08:13 Height 5 ft 3 in Weight 142 lb BMI 25.2 BP 135/63 Blood Pressure Location Lt brachial Position Sitting Pulse 65 Pulse Oximetry (%) 97 Oxygen Delivery Method Room Air Intake Visit Reasons: abd/pelvis CT scan results Intake Note: [Patient new consult for abd/pelvis CT scan results Patient cc: upper abdominal pain, acid reflux, swallowing difficulties on and off, and constipation with bloody stool. Insurance Salesperson Required: No Allergies methenamine Allergy (Severe, Verified 04/04/25 12:08) Vomiting codeine (Codeine) Allergy (Intermediate, Verified 04/04/25 12:08) VOMITING aspirin (Aspirin) Adverse Reaction (Mild, Verified 04/04/25 12:08) DIZZINESS nitrofurantoin (From Macrobid) Adverse Reaction (Mild, Verified 04/04/25 12:08) Hyperkalemia Medication List - Last Reconciled 03/28/25 by Samuel Nguyen MD aspirin 81 mg PO DAILY blood sugar diagnostic (Planet Expatuch Ultra Blue Test Strip) Use to check blood sugar once daily and as needed for signs & symptoms of hypo/hyperglycemia blood-glucose meter (Planet Expatuch Ultra2 Meter) Use to check blood sugar once daily and as needed for signs & symptoms of hypo/hyperglycemia cholecalciferol (vitamin D3) 25 mcg PO DAILY 30 days famotidine-Ca carb-mag hydrox 10-800-165 mg (Pepcid Complete) 1 tab PO DAILY PRN fluticasone propionate 50 mcg/actuation (Flonase Allergy Relief) 1 spray intranasal DAILY 30 days lancets ([employer] MedicalTouch UltraSoft Lancets) Use to check blood sugar once daily and as needed for signs & symptoms of hypo/hyperglycemia levothyroxine 75 mcg (1.5 x 50 mcg) PO DAILY 90 days mecobalamin (vitamin B12) 1,000 mcg PO DAILY 30 days melatonin 1-2 tab orally bedtime PRN; 30 days metformin 1,000 mg PO BID 90 days metoprolol tartrate 25 mg PO BID 90 days mirabegron ER (Myrbetriq) 50 mg PO DAILY nitroglycerin 0.4 mg sublingual DIRECTED PRN pantoprazole 40 mg PO DAILY 90 days rosuvastatin 20 mg PO BEDTIME 90 days sennosides 8.6 mg PO BID HPI HPI abd/pelvis CT scan results: Details: GI clinic visit for this 74 year old [place] female for FU of abdominal pain TODAY'S VISIT: Patient cc: upper abdominal pain, acid reflux, swallowing difficulties on and off, and constipation with bloody stool. Complains of abdominal pain which moves around. Pain is almost daily and varies with intensity. Pain can get worse after eating - usually after products containing yeast (prefers sourdough bread) Thinks pain has been worse after she took whole wheat bread and switching back to sour dough bread now. Does not take milk or cheese (just milk in tea) Denies problems with milk products. Complains of gas and bloating Had diarrhea prior to getting the CT scan - worse after taking contrast. Complains of chronic constipation and has a BM every 2-3 days with incomplete evacuation. Takes Miralax every 2-3 days and has a BM the following day Complains of low back pain - improves with acetaminophen and local heat Wt loss of 8 lbs over the past year. Complains of decreased appetite and early satiety Intermittent dysphagia to solids and liquids (even water) Denies black stool or rectal bleeding hx of Vitamin B12 def treated by injections and tablets in the past Pt is status post Cardaic bypass in 2020 Patient denies major cardiac or pulmonary problems, loud snoring or sleep apnea Denies problems with anesthesia in the past. Denies being on chronic anticoagulation. Patient denies known family history of colon polyps, colon cancer or other GI malignancies. PAST EGD/COLONOSCOPY LABS IN [facility] : Reviewed IMAGING STUDIES: 03/20/25 [facility] CT SCAN SHOWED: No intestinal obstruction pattern. Coronary artery disease and atherosclerosis disease. Bilateral nonobstructing nephrolithiasis. Calcified plaques, mitral valve. Diverticular disease, left hemicolon. ENDOSCOPIC STUDIES: 12/[address] SHEEHAN: One small hyperplastic polyp was removed at 20 cms PAST GI HISTORY BY REVIEW OF MEDICAL RECORDS: [facility] Medical History Hyperlipidemia associated with type 2 diabetes mellitus Hyperlipidemia Type 2 diabetes mellitus Depression Mild cognitive impairment Arthritis Fatty liver On beta corona at home CAD (coronary artery disease) Diverticulosis Allergy to food dye Hypertension, essential Constipation by delayed colonic transit 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 Mother No problems noted. Social History Housing: House Are you a primary career coach to a significant other at home: No Do you presently have visiting nurse or other home services: No Alcohol intake: never Patient Tobacco Use Status: Never used Tobacco e-Cigarette/Vaping Use: Never Used service: No Current occupational status: disabled Cognitive needs: No Hearing needs: No Vision needs: No Review of Systems Const Denies chills, Denies fatigue, Denies fever(s), Denies frequent falls, Denies weakness, Denies weight gain and Denies weight loss ENT Denies dizziness Card Reports chest pain, Denies leg edema, Denies lightheadedness, Denies palpitations, Denies dyspnea and Denies dyspnea on exertion Resp Denies cough, Denies dyspnea and Denies dyspnea on exertion GI Denies hematochezia Musc Denies abnormal gait, Denies muscle weakness, Denies numbness, Denies radiating pain into limb and Denies tingling Neuro Denies abnormal gait, Denies dizziness, Denies frequent falls, Denies numbness, Denies tingling and Denies weakness Endo Denies fatigue and Denies palpitations Physical Exam Vital Signs: Last Vital Signs Pulse 65 03/28/25 08:13 BP 135/63 03/28/25 08:13 Pulse Ox 97 03/28/25 08:13 Oxygen Delivery Method Room Air 03/28/25 08:13 BMI result Body Mass Index 25.2 Const General: healthy appearing and no acute distress Nutritional Appearance: average body habitus Orientation/consciousness: patient oriented x3 Limitations: no limitations HEENT Head: Yes normal to inspection Ears: hearing grossly normal bilaterally Mouth: Normal oral and palatal mucosa present Eyes Sclerae: sclerae normal Pupils: Equal, round and reactive pupils present Neck Neck: Yes normal visual inspection Chest Chest palpation & inspection: normal inspection of the chest Resp Effort & Inspection: normal respiratory effort Auscultation: clear to auscultation bilaterally Cardio Palpation: normal PMI Rate: regular rate Rhythm: regular rhythm Heart sounds: S1 normal heart sound present, S2 normal heart sound present and no murmurs GI Palpation (GI): Soft to palpation, Tenderness to palpation present (GI) (Minimal epigastric tenderness without rebound) and No hepatosplenomegaly present Auscultation: normal bowel sounds Rectal Exam - Female: deferred Skin General skin exam: no rashes or lesions noted Neuro General: patient oriented x3, gait normal and moves all extremities Cranial nerves: Yes Equal, round and reactive pupils present Psych Appearance: grossly normal Mental Status: mental status grossly normal Assessment & Plan Assessment & Plan (1) Chronic GERD: Code(s): K21.9 - Gastro-esophageal reflux disease without esophagitis Category: Medical (2) Dysphagia: Code(s): R13.10 - Dysphagia, unspecified Category: Medical (3) Constipation by delayed colonic transit: Code(s): K59.01 - Slow transit constipation Category: Medical (4) Generalized abdominal pain: Code(s): R10.84 - Generalized abdominal pain Category: Medical (5) Early satiety: Code(s): R68.81 - Early satiety Category: Medical (6) Weight loss: Code(s): R63.4 - Abnormal weight loss Category: Medical Plan 74 YF with DM, CAD, hyperlipidemia, low back pain, vitamin B12 deficiency seen in the Gi clinic for evaluation of abdominal pain (which is worse after eating), gas and bloating and chronic constipation Pt alsoe complains of decreased appetite and early satiety and intermittent dysphagia to solids and liquids (even water) Wt loss of 8 lbs over the past year. Her symptoms may be related to diabetic gastroparesis, PUD, non ulcer dyspepsia, H Pylori infection or SIBO. Chronic constipation likely due to slow transit or constipation predominant IBS. Patient was advised to: 1. Schedule further evaluation with an upper endoscopy and colonoscopy. Both procedures and potential complications were reviewed with the patient. 2. Gastric emptying study 3. Continue Pantoprazole 40 mg daily 4. Senna prn for constipation Orders: Orders NM gastric emptying study 03/28/25 R68.81 - Early satiety, R63.4 - Abnormal weight loss Medications: New bisacodyl (Dulcolax (bisacodyl)) Take 2 tablets at 12 pm starting three days before colonoscopy appointment (on April 01, and ) 10 mg (2 x 5 mg) PO ONCE 6 tabs 0RF 3 days polyethylene glycol 3350 (Miralax) Mix Miralax with 64 oz(8 cups) of Crystal light. Take 2 tablets of Dulcolax qt 12 pm. Wait to have your 1st bowel movement, then begin drinking Miralax. Drink a glass of Miralax every 10-15 minutes until you are finished. You will drink at least another 4 cups of clear liquid of your choice over the next 2 hours. Please drink as many clear liquids as possible You may have clear liquids up to four hours before your procedure 17 grams PO DAILY 238 grams 0RF colon prep 1 day Coding Level of Care Code New Pt Level 4 (44317) Diagnoses Chronic GERD K21.9 Dysphagia R13.10 Constipation by delayed colonic transit K59.01 Generalized abdominal pain R10.84 Early satiety R68.81 Weight loss R63.4 Time Spent (min) 28
[2025-03-28 08:13] VITALS: BP 135/63; PULSE 65; O2SAT 97; BMI 25.2
== END 2025-03-28 09:55 | disposition home or self-care (01) ==
LOC: HO.HGI 08:07
PROVIDERS: PCP Internal Medicine; Visit Provider Internal Medicine Gastroenterology
DX: K21.9 Gastro-esophageal reflux disease without esophagitis (principal); R13.10 Dysphagia, unspecified; K59.01 Slow transit constipation; R10.84 Generalized abdominal pain; R68.81 Early satiety; R63.4 Abnormal weight loss
CPT/HCPCS: 99204

== ENCOUNTER → 2025-03-28 08:06 | Outpatient (BNVA) | payer MEDICARE, SELFPAY | PROVIDERS: PCP Internal Medicine; Visit Provider Internal Medicine Gastroenterology | DX: K21.9 Gastro-esophageal reflux disease without esophagitis (principal); R13.10 Dysphagia, unspecified; K59.01 Slow transit constipation; R10.84 Generalized abdominal pain; R68.81 Early satiety; R63.4 Abnormal weight loss; Z98.890 Other specified postprocedural states; Z68.22 Body mass index [BMI] 22.0-22.9, adult | CPT/HCPCS: 99202 ==

== ENCOUNTER 2025-03-28 14:00 | Outpatient (RCR) | payer MEDICARE, SELFPAY ==
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
--- NOTE | 2025-04-28 09:52 | MHC.PT.DC ---
[facility] [place] [facility] [place] [facility] [place] [facility] [address] [phone] F: [phone] F: [phone] F: [phone] F: [phone] Physical Therapy Discharge Report Diagnosis: This is a 74 yo female presenting to skilled PT with a script for upper back pain, cervicalgia. Date of Surgery: Date of Evaluation: 02/24/25 Date of Discharge: 04/28/25 Treatments to Date: 5 Cancellations to Date: 0 No Shows to Date: 0 Discharge Status: Patient Elected to Stop Discharge Summary: Patient came to 5 sessions of PT. Reported little to no pain throughout. She elected to cancel her last appointment and her chart was closed after 30 days of not being at the facility. She was provided an HEP to continue on her own. Electronically signed by: Sharron Mehta PT Please sign and return to therapist. Thank you for your referral.
== END 2025-04-28 09:52 | disposition home or self-care (01) ==
LOC: HO.PTCHIC 14:00
PROVIDERS: PCP Internal Medicine; Visit Provider Internal Medicine
DX: M54.6 Pain in thoracic spine (principal); M54.2 Cervicalgia
CPT/HCPCS: 97110; 97162

== ENCOUNTER 2025-04-01 13:54 | Outpatient (AMB) | payer MEDICARE, SELFPAY ==
--- NOTE | 2025-04-01 13:56 | A.OFFVIS_ITS ---
Vital Signs 04/01/25 14:00 Height 5 ft 3 in Weight 147 lb 4.301 oz BMI 26.1 BP 102/58 L Blood Pressure Location Rt brachial Position Sitting Pulse 67 Pulse Source Pulse Oximeter Pulse Oximetry (%) 98 Oxygen Delivery Method Room Air Intake Visit Reasons: Other specified DM w/o complications Intake Note: Patient presents today for a follow-up on Other Specified DM w/o Complications: Last Diabetic eye exam was on: DUE, has an up coming appt at [facility] Last Podiatry exam was on: Patient does not see a Manager [employer] Most recent HbA1c: 7.0%, 01/15/2025 Random Glucose- 146 mg/dL, Today Patient stated has plenty of testing supplies at home. Bronze Chaser Required: Yes Bronze Chaser Language: [facility] Bronze Chaser Services: Bronze Chaser Offered & Declined Bronze Chaser Name: Brandon (Son) Information Interpreted: non-clinical & clinical Accompanied by: Son Allergies codeine (Codeine) Allergy (Intermediate, Verified 04/01/25 14:05) VOMITING aspirin (Aspirin) Adverse Reaction (Mild, Verified 04/01/25 14:05) DIZZINESS nitrofurantoin (From Macrobid) Adverse Reaction (Mild, Verified 04/01/25 14:05) Hyperkalemia Medication List - Last Reconciled 04/01/25 by Jacque Carver MD aspirin 81 mg PO DAILY bisacodyl (Dulcolax (bisacodyl)) 10 mg (2 x 5 mg) PO ONCE 3 days blood sugar diagnostic (Tupalouch Ultra Blue Test Strip) Use to check blood sugar once daily and as needed for signs & symptoms of hypo/hyperglycemia blood-glucose meter (Tupalouch Ultra2 Meter) Use to check blood sugar once daily and as needed for signs & symptoms of hypo/hyperglycemia cholecalciferol (vitamin D3) 25 mcg PO DAILY 30 days famotidine-Ca carb-mag hydrox 10-800-165 mg (Pepcid Complete) 1 tab PO DAILY PRN fluticasone propionate 50 mcg/actuation (Flonase Allergy Relief) 1 spray intranasal DAILY 30 days lancets (OneTouch UltraSoft Lancets) Use to check blood sugar once daily and as needed for signs & symptoms of hypo/hyperglycemia levothyroxine 75 mcg (1.5 x 50 mcg) PO DAILY 90 days mecobalamin (vitamin B12) 1,000 mcg PO DAILY 30 days melatonin 1-2 tab orally bedtime PRN; 30 days metformin 1,000 mg PO BID 90 days metoprolol tartrate 25 mg PO BID 90 days mirabegron ER (Myrbetriq) 50 mg PO DAILY nitroglycerin 0.4 mg sublingual DIRECTED PRN pantoprazole 40 mg PO DAILY 90 days polyethylene glycol 3350 (Miralax) 17 grams PO DAILY 1 day rosuvastatin 20 mg PO BEDTIME 90 days sennosides 8.6 mg PO BID HPI Comments Details: 74 YO female who is seen for follow up of T2DM without long-term insulin use with complications of CKD, history of CAD . A1C 7% on 01/28/2025. History of type 2 diabetes mellitus. Initially diagnosed with T2DM at age 54 Was initially started on treatment with metformin. The dose has been increased over the years. s She has a needle phobia and does not test her blood sugars. Now on Dexcom G7. PRior meds Januvia , but then insurance wasnt covering it Current meds Metformin 1000 BID She has night sweat about 3 times per week over the past few years. She does not wake up at night but will wake up in the morning with her clothes drenched. No hypoglycemia noted on the Dexcom. Could possibly be postmenopausal hot flashes. Prior steroid use: one shoulder injection many years ago. Family history of T2DM: no known diabetes in her parents Last eye exam 2021 Due, has a appointment upcoming with [facility] Denies neuropathy, last foot exam January 2025 Does not see podiatry. Has nephropathy, not on ned/arb Followed by Dr. Duff at [facility] Has prior h/o mild hyperkalemia treated by [facility]al[facility]. Has HLD, on rosuvastatin 20 mg daily Last lDL 100 01/2025 Has CAD s/p cabg followed by cardiology last cath 11/2020 patent Diet: Balanced Weight: Had lost small amount of weight but has been stable. Hypothyroidism: has been on stable dose of levothyroxine 75 mcg Diagnosed many years ago most recent TSH 1.72 01/15/25 Physical exam General: sitting comfortably in no acute distress HEENT: normocephalic/atraumatic, Neck: supple, Cardiac: normal heart sounds Pulm: normal breath sounds B/L, no added breath sounds Abd: not distended, no tenderness Extremities: no edema, no signs of myxedema Foot exam: Done January 2025 intact sensation to monofilament, intact pulses, intact vibration Laboratory Tests 10/22/21 09/03/24 01/15/25 12:15 10:46 12:28 Hgb Hct Plt Count Sodium Potassium Creatinine Estimated GFR Random Glucose Calcium Total Bilirubin AST ALT Alkaline Phosphatase Triglycerides 316 H Cholesterol 335 H LDL Cholesterol, Calc 210 H LDL Cholesterol Direct 100 H HDL Cholesterol 62 Vitamin B12 TSH 1.72 Urine Creatinine 114.79 Urine Microalbumin 31.0 Microalb/Creat Ratio 27.0 03/04/25 10:40 Hgb 10.5 L Hct 32.0 L Plt Count 257 Sodium 141 Potassium 5.1 Creatinine 1.33 Estimated GFR 39 Random Glucose 144 H Calcium 9.0 Total Bilirubin 0.3 AST 21 ALT 11 Alkaline Phosphatase 58 Triglycerides Cholesterol LDL Cholesterol, Calc LDL Cholesterol Direct HDL Cholesterol Vitamin B12 161 L TSH Urine Creatinine Urine Microalbumin Microalb/Creat Ratio [facility] Medical History (Updated 04/01/25 @ 14:58 by Jacque Carver MD) Hyperlipidemia associated with type 2 diabetes mellitus Hyperlipidemia Type 2 diabetes mellitus Depression Mild cognitive impairment Arthritis Fatty liver On beta corona at home CAD (coronary artery disease) Diverticulosis Allergy to food dye Hypertension, essential Constipation by delayed colonic transit 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 Mother No problems noted. Social History Housing: House Are you a primary adult care manager to a significant other at home: No Do you presently have visiting nurse or other home services: No Alcohol intake: never Patient Tobacco Use Status: Never used Tobacco e-Cigarette/Vaping Use: Never Used service: No Current occupational status: disabled Cognitive needs: No Hearing needs: No Vision needs: No Physical Exam Vital Signs: Oxygen Delivery Method Room Air 04/01/25 14:00 BMI result Body Mass Index 26.1 Office Procedures Glucose Monitoring Details Details: See [facility] [address] - Glucose monitoring, continuous-physician I&R Procedure code (CPT) selection complete Assessment & Plan Assessment & Plan (1) Type 2 diabetes mellitus: Code(s): E11.9 - Type 2 diabetes mellitus without complications Category: Medical Qualifiers: Diabetes mellitus penitentiary insulin use: without long term care phlebotomist use Diabetes mellitus complication status: with kidney complications Diabetes mellitus complication detail: with chronic kidney disease Chronic kidney disease stage: stage 3 (moderate) Chronic kidney disease stage 3 subtype: stage 3b (GFR 30-44) Qualified Code(s): E11.22 - Type 2 diabetes mellitus with diabetic chronic kidney disease; N18.32 - Chronic kidney disease, stage 3b Plan: 74 year old with type 2 diabetes mellitus diagnosed about 20 years ago without l jake-term insulin use with complications of CKD stage IIIB, CAD with CABG in the past. A1c of 7% from January 2025 on metformin 1000 twice daily. Patient has severe needle phobia, currently using Dexcom sensor but they are paying [id number] for this. They trying to get insurance approval. Dexcom CGM data reviewed and she does have postprandial hyperglycemia mostly after breakfast with a large peek and then a smaller peak in the evening. 0 we discussed about adding GLP 1 agonist such as Trulicity or Ozempic but patient is very fearful of any kind of needles. She will consider it in the future. She is not an excellent candidate for SGLT2 inhibitors because she has had history of recurrent UTIs in the past. We can add DPP 4. She has CKD stage IIIB, we will prescribe her Tradjenta. Plan: -continue with CGM monitoring -if CGM not available, asked them to check blood sugars at least once a day fasting and sometimes 2 hours post meal -follow up with the educator -discussed importance of annual eye visits -foot exam done January 2025 was unremarkable -continue metformin 1000 mg b.i.d. -start Tradjenta 5 mg daily (2) Hyperlipidemia: Code(s): E78.5 - Hyperlipidemia, unspecified Category: Medical Qualifiers: Hyperlipidemia type: mixed hyperlipidemia Qualified Code(s): E78.2 - Mixed hyperlipidemia Plan: See below (3) Hyperlipidemia associated with type 2 diabetes mellitus: Code(s): E11.69 - Type 2 diabetes mellitus with other specified complication; E78.5 - Hyperlipidemia, unspecified Category: Medical Plan: LDL at 100 mg/dL from January 2025. Goal LDL should be less than 50 given history of CABG in the past. She is only on rosuvastatin 20 mg daily. Did not get a chance to address adding ezetimibe on this visit, however we will address that next time. Plan I spent 30 minutes in reviewing the record, seeing the patient and documenting in the medical record. Orders: Orders AMB Glucose Monitoring Today E11.22 - Type 2 diabetes mellitus with diabetic chronic kidney disease, N18.32 - Chronic kidney disease, stage 3b Medications: New linagliptin (Tradjenta) 5 mg PO DAILY 90 tabs 3RF blood-glucose meter (FreeStyle Lite Meter kit) As directed to check blood sugars once a day 1 ea 0RF blood sugar diagnostic (FreeStyle Lite Strips) As directed to check blood sugars once a day 50 ea 3RF E11.9 - Type 2 diabetes mellitus without complications lancets (FreeStyle Lancets) As directed to check blood sugars once a day 100 ea 3RF E11.9 - Type 2 diabetes mellitus without complications Discontinued blood-glucose meter (OneTouch Ultra2 Meter) Discontinued Reason: Doctor's Order Use to check blood sugar once daily and as needed for signs & symptoms of hypo/hyperglycemia 1 ea 0RF E13.9 - Other specified diabetes mellitus without complications blood sugar diagnostic (OneTouch Ultra Blue Test Strip) Discontinued Reason: Doctor's Order Use to check blood sugar once daily and as needed for signs & symptoms of hypo/hyperglycemia 50 ea 1RF E13.9 - Other specified diabetes mellitus without complications lancets (OneTouch UltraSoft Lancets) Discontinued Reason: Doctor's Order Use to check blood sugar once daily and as needed for signs & symptoms of hypo/hyperglycemia 100 ea 0RF E13.9 - Other specified diabetes mellitus without complications Patient Instructions: continue metformin 1000 mg twice daily Start tradjenta 5 mg daily Explore vidoes of trulicity /ozempic injection Coding Level of Care Code Est Pt Level 4 (71528) Diagnoses Type 2 diabetes mellitus with stage 3b chronic kidney disease, without long-term current use of insulin E11.22; N18.32 Diabetes mellitus long term care phlebotomist insulin use: without long term care phlebotomist use Diabetes mellitus complication status: with kidney complications Diabetes mellitus complication detail: with chronic kidney disease Chronic kidney disease stage: stage 3 (moderate) Chronic kidney disease stage 3 subtype: stage 3b (GFR 30-44) Mixed hyperlipidemia E78.2 Hyperlipidemia type: mixed hyperlipidemia Hyperlipidemia associated with type 2 diabetes mellitus E11.69; E78.5 CPT Codes Details - CPT: 70528 - Glucose monitoring, continuous-physician I&R ([id number]) Time Spent (min) 30
[2025-04-01 14:00] VITALS: BP 102/58; PULSE 67; O2SAT 98; BMI 26.1
[2025-04-01 14:11] LABS: Glucose, Whole Blood 146 mg/dL (60-115)
--- OUTSIDE RECORDS SUMMARY | 2025-04-01 15:12 | XMS_ITS | Clinical Summary ---
Author Organization [facility] Facility Address [address] [address] Care Team Providers Care Wax Pattern Repairer Name Role Phone Tierra Grace MD Primary Care Provider [phone] Allergies Active Allergy Reactions Criticality Noted Date [...] [facility] Medicare [facility] Care Teams Wax Pattern Repairer Relationship Specialty Start Date End Date Tierra Grace MD [address] [place] [address] PCP - General 07/16/19
--- OUTSIDE RECORDS SUMMARY | 2025-04-01 15:12 | XMS_ITS | Data Portability ---
Author Organization [facility] [employer] [facility], Main Office - Prior to 10/12/[address] [facility] [facility] [address] [place] [address] Assessment No assessment recorded. Plan of Treatment Reminders Order Date Submit Date Provider Last Modified By Organization Details Last Modified Time Details Appointments None recorded. Lab SARS CoV 2 RNA (COVID-19), QL, volunteer patient representative-PCR, respiratory specimen 2020 [address], [address] [facility] [address], [place], [address], 03:58:19 Referral None recorded. Procedures None recorded. [...] Address Organization Details Recorded Time Diabetes mellitus [id number] Active 2020 Naga Oconnor MD [address] [place] [address] [address], [address], [facility] 09:33:57 Hypothyroidism 23779188 Active 2020 Naga Oconnor MD [address] [place] [address] [address], [address], [facility] 09:34:04 Hypertensive disorder 25458481 Active 2020 Naga Oconnor MD [address] [place] [address] [address], [address], [facility] 09:34:10 Problem Notes None recorded. Medical Equipment None Reported. Allergies No known drug allergies Vitals Date Recorded Heart rate Respiratory rate Body temperature Oxygen saturation Oxygen saturation in Arterial blood by Pulse oximetry Provider Name and Address Organization Details Last Updated DateTime 1 88 /min 12 /min 97.1 [degF] 98 % 98 % Christina Friedman [facility] 11:14:03 Social History None recorded. Functional Status None recorded. Mental Status None recorded. Family History Nothing Reported. Medical History No medical history recorded. Gynecological HistoryNo gynecological history recorded. Obstetrics History GPAL:G 0 P 0 0 0 0 Past Encounters Encounter ID Performer Location Encounter Start Date Encounter Closed Date Diagnosis/Indication Diagnosis SNOMED-CT Code Diagnosis ICD10 Code Diagnosis Note [id number] Naga Oconnor MD Main Office - Prior to 10/12/22 [address] [facility] [address] [place] [address] 09/12/2020 09:44:39 10/05/2020 16:27:28 Viral screening 846752605 Z11.59 Health Concerns Section Related Observation LastModified by Organization Detai ls LastModified Time None Recorded Concern Status LastModified by Organization Details LastModified Time None Recorded Advance Directives Directive None Recorded Payers Insurance Date Sequence Insurance Name Policy Number Policy Boyer Covered Member ID Boyer Member ID Guarantor Name 10/14/2020 1 MEDICARE B-[place]: [facility] [employer] Mc Lopez [id number] [place] 10/14/2020 2 [place] Mc Lopez [id number] [address] [place] Notes Date Note Type Note Provider Name and Address Organization Details Recorded Time 09/12/2020 text/html traveling to [place] on Monday by car no symptoms, feeling well today no known exposure non-smoker medical conditions: has diabetes and heart surgery 2 years ago, arthritis, hypothyroid takes metoprolol, synthroid, junevis, and metformin denies any complaints medical issues are controlled Naga Oconnor MD [address] [facility] [address], [place], [address], [facility] 09/13/2020 09:34:45 OBGyn Episode No OBEpisode recorded.
== END 2025-04-01 14:51 | disposition home or self-care (01) ==
LOC: HO.ENCR 13:55
PROVIDERS: PCP Internal Medicine; Visit Provider Student in an Organized Health Care Education/Training Program
DX: E11.22 Type 2 diabetes mellitus with diabetic chronic kidney disease (principal); N18.32 Chronic kidney disease, stage 3b; E78.2 Mixed hyperlipidemia; E11.69 Type 2 diabetes mellitus with other specified complication; E78.5 Hyperlipidemia, unspecified
CPT/HCPCS: 95251; 99214

== ENCOUNTER → 2025-04-01 13:54 | Outpatient (BNVA) | payer MEDICARE, SELFPAY | PROVIDERS: PCP Internal Medicine; Visit Provider Student in an Organized Health Care Education/Training Program | DX: E11.22 Type 2 diabetes mellitus with diabetic chronic kidney disease (principal); I12.9 Hypertensive chronic kidney disease with stage 1 through stage 4 chronic kidney disease, or unspecified chronic kidney disease; N18.32 Chronic kidney disease, stage 3b; E11.69 Type 2 diabetes mellitus with other specified complication; E78.2 Mixed hyperlipidemia; E78.5 Hyperlipidemia, unspecified | CPT/HCPCS: 82947; 99212 ==

== ENCOUNTER 2025-04-02 14:34 | Outpatient (AMB) | payer MEDICARE, SELFPAY ==
[2025-04-02 14:52] VITALS: BP 144/72; PULSE 70; O2SAT 97
--- NOTE | 2025-04-02 14:52 | MHC.OFFVIS ---
Vital Signs 04/02/25 14:52 Height 5 ft 3 in BP 144/72 H Blood Pressure Location Lt brachial Position Sitting Pulse 70 Pulse Source Pulse Oximeter Pulse Oximetry (%) 97 Oxygen Delivery Method Room Air Intake Visit Reasons: follow up Intake Note: Anxiety, fatigue, and recent panic attacks. Cuff Cutter Required: No Accompanied by: Son Allergies methenamine Allergy (Severe, Verified 04/02/25 14:57) Vomiting codeine (Codeine) Allergy (Intermediate, Verified 04/02/25 14:53) VOMITING aspirin (Aspirin) Adverse Reaction (Mild, Verified 04/02/25 14:53) DIZZINESS nitrofurantoin (From Macrobid) Adverse Reaction (Mild, Verified 04/02/25 14:53) Hyperkalemia Medication List - Last Reconciled 04/02/25 by Dania Duff MD aspirin 81 mg PO DAILY bisacodyl (Dulcolax (bisacodyl)) 10 mg (2 x 5 mg) PO ONCE 3 days blood sugar diagnostic (FreeStyle Lite Strips) As directed to check blood sugars once a day blood-glucose meter (FreeStyle Lite Meter kit) As directed to check blood sugars once a day cholecalciferol (vitamin D3) 25 mcg PO DAILY 30 days famotidine-Ca carb-mag hydrox 10-800-165 mg (Pepcid Complete) 1 tab PO DAILY PRN fluticasone propionate 50 mcg/actuation (Flonase Allergy Relief) 1 spray intranasal DAILY 30 days lancets (FreeStyle Lancets) As directed to check blood sugars once a day levothyroxine 75 mcg (1.5 x 50 mcg) PO DAILY 90 days linagliptin (Tradjenta) 5 mg PO DAILY loratadine (Claritin) 10 mg PO DAILY mecobalamin (vitamin B12) 1,000 mcg PO DAILY 30 days melatonin 1-2 tab orally bedtime PRN; 30 days metformin 1,000 mg PO BID 90 days metoprolol tartrate 25 mg PO BID 90 days mirabegron ER (Myrbetriq) 50 mg PO DAILY nitroglycerin 0.4 mg sublingual DIRECTED PRN pantoprazole 40 mg PO DAILY 90 days polyethylene glycol 3350 (Miralax) 17 grams PO DAILY 1 day rosuvastatin 20 mg PO BEDTIME 90 days sennosides 8.6 mg PO BID sertraline 25 mg PO DAILY HPI Comments Details: 74 y/o female patient with HTN, CAD, and DM comes for follow up.she is concerned about Alzheimers as her older sister ( 88) was diagnosed with dementia PSG was normal Pt is accompanied by her son who helped for history. Brain MRI result reviewed. Mild generalized cerebral volume loss and mild chronic white matter microangiopathy. Otherwise unremarkable noncontrast MRI of the brain. No change in cognition But she decreased sertraline dose from 100 mg ( has been on more than 10 years) but her mood worsened significantly . she also stopped pantaprazole at the same time.she woke up with severe GERD symptoms and increased her anxiety she restarted sertraline 25 mg qd. As per her son her energy level increased when she stopped sertraline. she is more anxious - but no recent panic attacks . She drives to go grocery shopping. She cooks and independent for all ADLs. Her daughter manages bills and fiances. She goes to [employer] for exercise. She has hx of depression. she is sleeping better now . she takes melatonin as needed. 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 Mother No problems noted. Social History Housing: House Are you a primary career development engineer to a significant other at home: No Do you presently have visiting nurse or other home services: No Alcohol intake: never Patient Tobacco Use Status: Never used Tobacco e-Cigarette/Vaping Use: Never Used service: No Current occupational status: disabled Cognitive needs: No Hearing needs: No Vision needs: No Physical Exam Vital Signs: Last Vital Signs Pulse 70 04/02/25 14:52 BP 144/72 H 04/02/25 14:52 Pulse Ox 97 04/02/25 14:52 Oxygen Delivery Method Room Air 04/02/25 14:52 Const General: cooperative Orientation/consciousness: oriented to person and oriented to place Resp Effort & Inspection: normal respiratory effort and able to speak in complete sentences Neuro General: oriented to person and oriented to place Cranial nerves: Yes CN's II-XII intact bilaterally Gait exam (Neuro): Normal gait present Motor exam (neuro): 5/5 motor strength present throughout Psych Appearance: grossly normal Mental Status: mental status grossly normal Assessment & Plan Assessment & Plan (1) Mild cognitive impairment: Code(s): G31.84 - Mild cognitive impairment of uncertain or unknown etiology Category: Medical Plan Consult Dr. Petty for anxiety WIll consider PET Amyloid I will trial her on Donepezil 10mg 1/2 tab for 4 weeks then 1 tabs Continue melatonin 3 mg-6mg qHS for sleep. Cognitive therapy Continue to do daily physical activities, increase social and cognitive activities. Medications: New donepezil 1/2 tabs qd for 4 weeks and then 1 tabq d orally daily; 30 tabs 6RF Coding Level of Care Code Est Pt Level 4 (44028) Diagnoses Mild cognitive impairment G31.84
--- OUTSIDE RECORDS SUMMARY | 2025-04-02 15:08 | XMS_ITS | Clinical Summary ---
Author Organization [facility] Facility Address [address] [address] Care Team Providers Care Presales Senior Specialist Name Role Phone Tierra Grace MD Primary Care Provider [phone] Allergies Active Allergy Reactions Criticality Noted Date [...] to complete this topic Insurance Medicare [facility] Medicare [facility] Care Teams Presales Senior Specialist Relationship Specialty Start Date End Date Tierra Grace MD [address] [place] [address] PCP - General 07/16/19
== END 2025-04-02 15:37 | disposition home or self-care (01) ==
LOC: HO.HSMS 14:35
PROVIDERS: PCP Internal Medicine; Visit Provider Psychiatry & Neurology Neurology
DX: G31.84 Mild cognitive impairment of uncertain or unknown etiology (principal)
CPT/HCPCS: 99214

== ENCOUNTER → 2025-04-02 14:34 | Outpatient (BNVA) | payer MEDICARE, SELFPAY | PROVIDERS: PCP Internal Medicine; Visit Provider Psychiatry & Neurology Neurology | DX: G31.84 Mild cognitive impairment of uncertain or unknown etiology (principal) | CPT/HCPCS: 99212 ==

== ENCOUNTER 2025-04-04 11:27 | Day surgery (SDC) | payer MEDICARE, SELFPAY ==
--- OUTSIDE RECORDS SUMMARY | 2025-03-31 14:26 | XMS_ITS | Clinical Summary ---
Author Organization [facility] Facility Address [address] [address] Care Team Providers Care Terrazzo Finisher Helper Name Role Phone Tierra Grace MD Primary Care Provider [phone] Allergies Active Allergy Reactions Criticality Noted Date [...] [facility] Medicare [facility] Care Teams Terrazzo Finisher Helper Relationship Specialty Start Date End Date Tierra Grace MD [address] [place] [address] PCP - General 07/16/19
--- OUTSIDE RECORDS SUMMARY | 2025-03-31 14:26 | XMS_ITS | Data Portability ---
Author Organization [facility], Main Office - Prior to 10/12/22 Address [address] [facility] [address] [place] [address] Assessment No assessment recorded. Plan of Treatment Reminders Order Date Submit Date Provider Last Modified By Organization Details Last Modified Time Details Appointments None recorded. Lab SARS CoV 2 RNA (COVID-19), QL, button breaker-PCR, respiratory specimen 2020 [address] [employer], [address] [facility] [facility], [place], [address], 03:58:19 Referral None recorded. Procedures None recorded. [...] Address Organization Details Recorded Time Diabetes mellitus 21135679 Active 2020 Naga Oconnor MD [address] [place] [address] [address], [address], [facility] 09:33:57 Hypothyroidism 59823330 Active 2020 Naga Oconnor MD [address] [place] [address] [address], [address], [facility] 09:34:04 Hypertensive disorder 89342623 Active 2020 Naga Oconnor MD [address] [place] [address] [address], [address], [facility] 09:34:10 Problem Notes None recorded. Medical Equipment None Reported. Allergies No known drug allergies Vitals Date Recorded Heart rate Respiratory rate Body temperature Oxygen saturation Oxygen saturation in Arterial blood by Pulse oximetry Provider Name and Address Organization Details Last Updated DateTime 1 88 /min 12 /min 97.1 [degF] 98 % 98 % Christina Friedman [facility] 11:14:03 Social History None recorded. Functional Status None recorded. Mental Status None recorded. Family History Nothing Reported. Medical History No medical history recorded. Gynecological HistoryNo gynecological history recorded. Obstetrics History GPAL:G 0 P 0 0 0 0 Past Encounters Encounter ID Performer Location Encounter Start Date Encounter Closed Date Diagnosis/Indication Diagnosis SNOMED-CT Code Diagnosis ICD10 Code Diagnosis Note [id number] Naga Oconnor MD Main Office - Prior to 10/12/22 [address] [facility] [address] [place] [address] 09/12/2020 09:44:39 10/05/2020 16:27:28 Viral screening 742534503 Z11.59 Health Concerns Section Related Observation LastModified by Organization Detai ls LastModified Time None Recorded Concern Status LastModified by Organization Details LastModified Time None Recorded Advance Directives Directive None Recorded Payers Insurance Date Sequence Insurance Name Policy Number Policy Boyer Covered Member ID Boyer Member ID Guarantor Name 10/14/2020 1 MEDICARE B-[place]: [facility] [employer] Mc Lopez [id number] [place] 10/14/2020 2 [place] Mc Lopez [id number] [place] Notes Date Note Type Note Provider Name and Address Organization Details Recorded Time 09/12/2020 text/html traveling to [place] on Monday by car no symptoms, feeling well today no known exposure non-smoker medical conditions: has diabetes and heart surgery 2 years ago, arthritis, hypothyroid takes metoprolol, synthroid, junevis, and metformin denies any complaints medical issues are controlled Naga Oconnor MD [address] [facility] [address], [place], [address], [facility] 09/13/2020 09:34:45 OBGyn Episode No OBEpisode recorded.
[2025-04-04 12:09] VITALS: BP 143/61; PULSE 58; RESP 15; TEMP 36.4; O2SAT 100; BMI 24.5
--- NOTE | 2025-04-04 12:15 | HO.ANESPROP2 ---
[facility] Active Problems Active Problems: All Active Problems (Updated 04/01/25 @ 14:58 by Jacque Carver MD) Hyperlipidemia associated with type 2 diabetes mellitus (Acute) Hyperlipidemia (Acute) Weight loss (Acute) Early satiety (Acute) Anxiety disorder with panic attacks (Acute) Axillary lump (Acute) Vitamin B12 deficiency (Acute) Generalized abdominal pain (Acute) Type 2 diabetes mellitus (Acute) Poor appetite (Acute) Dysphagia (Acute) Upper back pain (Acute) Cervicalgia (Acute) Difficulty swallowing liquids (Acute) Skin abrasion (Acute) Fall (Acute) Depression (Acute) Mild cognitive impairment (Acute) Snoring (Acute) CKD (chronic kidney disease) stage 3, GFR 30-59 ml/min (Acute) Daytime sleepiness (Acute) Memory change (Acute) Palpitations (Acute) Medicare annual wellness visit, subsequent (Acute) Physical deconditioning (Acute) History of viral illness (Acute) Feeling sick (Acute) Fatigue (Acute) Recurrent UTI (Acute) UTI (urinary tract infection) (Acute) Hyperkalemia (Acute) Pre-op evaluation (Acute) Unstable angina (Acute) Coronary artery disease (Acute) Chest discomfort (Acute) Unsteady gait (Acute) Serum potassium elevated (Acute) Stable angina (Acute) History of four vessel coronary artery bypass graft (Acute) S/P cardiac cath (Acute) Diverticulosis (Acute) Allergy to food dye (Acute) Hypertension, essential (Acute) Constipation by delayed colonic transit (Acute) Lipid disorder (Acute) Diabetes 1.5, managed as type 2 (Acute) Depression, major, recurrent (Acute) Chronic GERD (Acute) Hypothyroidism (Acute) Environmental allergies (Acute) Past Medical History Medical History Hyperlipidemia associated with type 2 diabetes mellitus Hyperlipidemia Type 2 diabetes mellitus Depression Mild cognitive impairment Arthritis Fatty liver On beta corona at home CAD (coronary artery disease) Diverticulosis Allergy to food dye Hypertension, essential Constipation by delayed colonic transit Lipid disorder Diabetes 1.5, managed as type 2 Depression, major, recurrent Chronic GERD Hypothyroidism Environmental allergies Functional capacity: independent ambulation Patient : No Family History Family History Father No problems noted. Mother No problems noted. Family history of problems with anesthesia: No Surgical History Surgical History History of right cataract extraction History of four vessel coronary artery bypass graft S/P cardiac cath History of colonoscopy History of hysteroscopy History of bilateral tubal ligation Hx of cholecystectomy History of Problems with Anesthesia: No Social History Social History Housing: House Are you a primary special needs caregiver to a significant other at home: No Do you presently have visiting nurse or other home services: No Alcohol intake: never Patient Tobacco Use Status: Never used Tobacco e-Cigarette/Vaping Use: Never Used Use of substances other than those prescribed or required for medical reasons: No Are you DNR?: No Advance Directives: No Advance Directives Information Provided: Yes service: No Current occupational status: disabled Cognitive needs: No Hearing needs: No Vision needs: No Meds Allergies Allergy/AdvReac Type Severity Reaction Status Date / Time methenamine Allergy Severe Vomiting Verified 04/04/25 12:08 codeine (Codeine) Allergy Intermediate VOMITING Verified 04/04/25 12:08 aspirin (Aspirin) AdvReac Mild DIZZINESS Verified 04/04/25 12:08 nitrofurantoin (From AdvReac Mild Hyperkalemi Verified 04/04/25 12:08 Macrobid) a Home Medications ?Medication ?Instructions ?Recorded ?Confirmed ?Last Taken ?Type aspirin 81 mg tablet,delayed 81 mg PO DAILY 06/24/20 04/04/25 06/27/21 11:30 History release mirabegron 50 mg tablet,extended 50 mg PO DAILY 02/22/24 04/04/25 Unknown History release 24 hr (Myrbetriq) sennosides 8.6 mg tablet 8.6 mg PO BID 03/20/24 04/04/25 Unknown History famotidine-Ca carb-mag hydrox 10 1 tab PO DAILY PRN Acid Reflux 03/10/25 04/04/25 Unknown History mg-800 mg-165 mg chewable tablet (Pepcid Complete) loratadine 10 mg tablet (Claritin) 10 mg PO DAILY 04/02/25 04/04/25 Unknown History sertraline 25 mg tablet 25 mg PO DAILY 04/02/25 04/04/25 Unknown History Exam Height,Weight and Vital Signs: Height 5 ft 4 in Weight 64.864 kg Last Vital Signs Temp 97.6 F 04/04/25 12:09 Pulse 58 04/04/25 12:09 Resp 15 04/04/25 12:09 BP 143/61 H 04/04/25 12:09 Pulse Ox 100 04/04/25 12:09 O2 Del Method Room Air 04/04/25 12:09 Airway Mallampati Class: III TM Dist: >3cm Neck ROM: Full Heart: RRR Lungs: CTA Assessment and Plan Assessment Anesthesia Assessment: Anesthesia Plan Discussed Final Anesthetic Review Family History of Problems with Anesthesia: No History of Problems with Anesthesia: No NPO: Yes ASA Class: III Final Preanesthetic Review: Meds/Allgs Chart Reviewed, Consent Obtained/Reviewed and Anes Risks/Benef Reviewed Patient Risk: Intermediate Procedure Risk: Low Anesthetic Plan Anesthetic Plan: MAC: Disposition: Standard PACU
[2025-04-04] MEDS: Lactated Ringers 1,000 ML 50 ML IVCONT (12:25)
--- NOTE | 2025-04-04 12:50 | MHC.SHP ---
Pre-Procedural Eval Section A - 24 Hr Update-Section A only Date of Service: 04/04/25 The patient is an INPATIENT: No The patient has been examined within 24 hours of the surgical procedure. The History & Physical has been completed within 30 days and I have reviewed it.: Yes Section B - Complete if H&P > 30 days Chief Complaint: abdominal pain, colon cancer screening Relevant Family History (Specify if Yes): No Relevant Social History: None Present Medications: see Short Stay Collaborative assessment Medical History: Significant History (Type 2 diabetes mellitus Depression Mild cognitive impairment Arthritis Fatty liver On beta corona at home CAD (coronary artery disease) Diverticulosis Allergy to food dye Hypertension, essential Constipation by delayed colonic transit Lipid disorder Diabetes 1.5, managed as type 2 Depression, sandra) History of Previous Operations: Relevant previous surgery/procedure and date(s) (History of right cataract extraction History of four vessel coronary artery bypass graft S/P cardiac cath History of colonoscopy History of hysteroscopy History of bilateral tubal ligation Hx of cholecystectomy) Allergies: Allergies Allergy/AdvReac Type Severity Reaction Status Date / Time methenamine Allergy Severe Vomiting Verified 04/04/25 12:08 codeine (Codeine) Allergy Intermediate VOMITING Verified 04/04/25 12:08 aspirin (Aspirin) AdvReac Mild DIZZINESS Verified 04/04/25 12:08 nitrofurantoin (From AdvReac Mild Hyperkalemi Verified 04/04/25 12:08 Macrobid) a Review of Systems Sugical H&P ROS: Negative: Constitution, Cardiovascular and Respiratory and Yes, Specify: Gastrointestinal (abd pain) Exam Surgical H&P Exam: Normal: Heart, Normal: Lungs, Normal: Extremities and Normal: Abdomen Plan Diagnosis/Plan: Change (proceed with EGD and colon ) I have reviewed the history and physical and performed a pertinent physical examination on my patient. No changes have occurred unless specified. Time Spent With Patient Time: Total time managing care of this patient today ____ minutes.
[2025-04-04 13:01] LABS: Glucose, Whole Blood 147 mg/dL (60-115)
--- NOTE | 2025-04-04 13:04 | HO.OPN-COLON ---
Colonoscopy Operative Note Operative Note Date of Service: 04/04/25 Narrative: FLEXIBLE TRANSORAL UPPER GASTROINTESTINAL ENDOSCOPY WITH BIOPSIES AND ESOPHAGEAL BALLOON DILATION AND COLONOSCOPY TILL CECUM WITH WITH BIOPSIES, SNARE POLYPECTOMY, SUBMUCOSAL INJECTION AND HEMOCLIP PLACEMENT Pre-op diagnosis: Colon cancer screening, dysphagia, GERD, abdominal pain, diarrhea Post-op diagnosis: GERD, gastric polyps, gastritis Colon Polyps, rectal ulcer, Diverticulosis, hemorrhoids Endoscopist:? Samuel Nguyen MD Anesthesia:?MAC UPPER ENDOSCOPY Consent: Indications for the procedure and potential complications of bleeding, perforation, reaction to medications and missed diagnosis were discussed with the patient and informed consent was obtained. Instrument: Olympus GIF H 190 mid size upper endoscope Monitoring: Vital signs and clinical assessment, continuous EKG monitoring, Pulse oximetry, Carbon Dioxide monitoring and blood pressure monitoring were done throughout the procedure. Procedure: The patient was placed in the left lateral decubitis position and pre-procedure medications were administered and a bite block was placed. The endoscope was inserted into the mouth and advanced under direct vision to the third part of duodenum. A careful inspection was made as the upper endoscope was withdrawn including a retroflexed examination of the proximal stomach; Findings and interventions are described below. Findings: Larynx: Normal Esophagus: GE junction at 35 cms. Mildly tortuous esophagus without stricture or ring, esophagitis or Griffin's. Empiric balloon dilation was performed with a 20 mm (60 F) CRE balloon x 60 seconds . Stomach: Two 3-4 mm benign appearing polyps in the gastric fundus adjacent to the cardia - biopsied. Minimal gastric antral erythema - biopsies were obtained from the antrum. Grade 2 flap valve on retroflexed examination of the cardia. Duodenum: Normal bulb and descending duodenum Biopsies were obtained from descending duodenum to check for celiac sprue Intervention: Biopsies as noted above COLONOSCOPY PROCEDURE NOTE Instrument: Olympus PCF H 190 L variable stiffness pediatric colonoscope Monitoring: Vital signs and clinical assessment, intermittent blood pressure monitoring, continuous EKG monitoring, Pulse oximetry and Carbon Dioxide monitoring were done throughout the procedure. Please see anesthesia flowsheet. Colon withdrawl time was 25 minutes. Procedure: The patient was placed in the left lateral decubitis position and pre-procedure medications were administered. After a digital rectal examination of the ano-rectum, the video colonoscope was inserted into the rectum and advanced through the colon to the cecum. The colonoscope was slowly withdrawn in a retrograde panoramic fashion and the colon mucosa was carefully examined including a retroflexed view of the rectum. Findings and interventions are described below. Procedure Difficulty: without difficulty Findings: Terminal Ileum: Not evaluated Cecum: A 10 mm sessile polyp adjacent to the appendicular orifice. Polyp was raised with 2 cc of [place] and removed/ablated with a stiff hot snare. Polypectomy site was closed with 1 hemoclip. Ascending Colon: Normal Transverse Colon: Normal Descending Colon: Normal Sigmoid Colon: Moderate diverticulosis Rectum: A 10-12 mm chronic appearing ulcer at 10 cms in the proximal rectum - multiple biopsies were obtained. Ano-rectum: Small internal hemorrhoids Colon preparation: Good after copious irrigation. [place] Bowel Preparation Scale Right colon; 2 Transverse colon: 2 Left colon; 2 (0 = Unprepared colon segment with mucosa not seen due to solid stool that cannot be cleared. 1 = Portion of mucosa of the colon segment seen, but other areas of the colon segment not well seen due to staining, residual stool and/or opaque liquid. 2 = Minor amount of residual staining, small fragments of stool and/or opaque liquid, but mucosa of colon segment seen well. 3 = Entire mucosa of colon segment seen well with no residual staining, small fragments of stool or opaque liquid) Impression and Post Procedure Diagnosis: Endoscopy Findings: ESOPHAGUS: Mildly tortuous esophagus without stricture or ring empiric balloon dilation to 20 mm (60 F) . 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 Biopsies were obtained from right and left colon to check for microscopic colitis. Moderate diverticulosis seen in the sigmoid colon Random biopsies were obtained from right and left colon to check for microscopic colitis. Small hemorrhoids on retroflexed exam. Plan: Pt has a FU appointment on 06/05/[address] Nguyen Repeat Colonoscopy in 1 year if cecal polyp is adenomatous to check polypectomy site and can discontinue screening colonoscopies if polyps are hyperplastic. A summary of above findings and relevant handouts were given to the patient. BIOPSIES SHOWED: A. Small bowel, biopsy: Small intestinal mucosa within normal limits. B. Stomach, antrum, biopsy: Antral-type and oxyntic mucosa with mild chronic inactive inflammation; no Helicobacter organisms seen. C. Stomach, body, biopsy: Oxyntic mucosa with mild chronic inactive inflammation. D. Stomach, polyp: Fundic gland polyp with background mild chronic inactive inflammation. E. Esophagus, distal, biopsy: - Small focus of cardiac-type mucosa with mild chronic inactive inflammation; no intestinal metaplasia seen. - Squamous epithelium within normal limits. F. Cecum, polypectomy: Inflammatory polyp. G. Colon, right, biopsy: Colonic mucosa within normal limits. H. Colon, left, biopsy: Colonic mucosa within normal limits. I. Rectum, ulcer, biopsy: Scant superficial strips of benign colonic epithelium and fragments of ulcer bed. Comment: Diagnostic morphologic features of celiac disease or microscopic colitis are not seen. Letter sent to the patient with biopsy results. Patient called and biopsy results were reviewed. She was advised to schedule an anorectal manometry to follow-up on rectal prolapse - referral sent.
[2025-04-04 14:17] VITALS: BP 111/52; PULSE 59; RESP 16; TEMP 36.1; O2SAT 100
[2025-04-04 14:32] VITALS: BP 145/66; PULSE 59; RESP 14; O2SAT 98
[2025-04-04 14:47] VITALS: BP 158/68; PULSE 62; RESP 14; TEMP 36.6; O2SAT 97
== END 2025-04-04 15:26 | disposition home or self-care (01) ==
PROVIDERS: PCP Internal Medicine; Visit Provider Internal Medicine Gastroenterology
PROC: (CPT 45381; principal; 2025-04-04 13:00)
DX: Z12.11 Encounter for screening for malignant neoplasm of colon (principal); K62.6 Ulcer of anus and rectum; K51.40 Inflammatory polyps of colon without complications; K57.30 Diverticulosis of large intestine without perforation or abscess without bleeding; K64.8 Other hemorrhoids; R13.10 Dysphagia, unspecified; K22.4 Dyskinesia of esophagus; K31.7 Polyp of stomach and duodenum; K29.60 Other gastritis without bleeding; K44.9 Diaphragmatic hernia without obstruction or gangrene; K21.9 Gastro-esophageal reflux disease without esophagitis; R63.4 Abnormal weight loss; Z68.25 Body mass index [BMI] 25.0-25.9, adult; Z79.82 Long term (current) use of aspirin; E11.9 Type 2 diabetes mellitus without complications; I10 Essential (primary) hypertension; E78.5 Hyperlipidemia, unspecified; E03.9 Hypothyroidism, unspecified; R68.81 Early satiety
CPT/HCPCS: 45381; 45385; 45380; 43249; 43239; 82947; 88305; 88313; 88342; C1726; J2003; J2704

== ENCOUNTER → 2025-04-04 11:27 | Outpatient (BNV) | payer MEDICARE, SELFPAY | PROVIDERS: PCP Internal Medicine; Visit Provider Internal Medicine Gastroenterology | DX: Z12.11 Encounter for screening for malignant neoplasm of colon (principal); K63.5 Polyp of colon; K57.90 Diverticulosis of intestine, part unspecified, without perforation or abscess without bleeding; K64.8 Other hemorrhoids | CPT/HCPCS: 43239; 43249; 45380; 45381; 45385 ==

== ENCOUNTER 2025-04-08 15:00 | Outpatient (RCR) | payer MEDICARE, SELFPAY ==
--- NOTE | 2025-05-26 10:44 | MHC.SL.SOA ---
Referring Provider: Dania Duff MD Reason for Referral: Memory/cognitive difficulties Date of Plan of Treatment:03/18/25 Onset of Symptoms/Illness:03/18/23 Date Treatment Started:03/18/25 Medical Diagnosis: Primary Speech Language Diagnosis:I69.911 Memory deficit Secondary Speech Language Diagnosis:Anomia Number of Authorized Visits Remaining: Authorization End Date: Reason for Visit:Non-billable Event Other: Subjective:This note is to serve as a progress note to date for Cognitive Therapy for Mc Juan. Mc is a 74 year old woman who's first language is Romansh, and language learned in school was Indonesian and third language learned informally is Tongan. Mc received an education until age 10 in [place], and reports that reading in any language was not a skill well acquired. 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 She was seen for an initial Speech Language Evaluation on 01/22/25 with Maritza Miller, POPPY-AIRPORT RAMP SUPERVISOR, with finding indicating a moderate cognitive linguistic impairment, with difficulties in the areas of immediate and delayed memory and word retrieval. She has been seen for five session of cognitive therapy between 03/04/25 and 04/08/25. Therapy has been suspended for April and the first three weeks of May due to appointment conflicts and the patient being out of town. Mc has made good initial progress in therapy, with details indicated below. It is anticipated that she will return to therapy 06/04/25 for a period of therapy estimated to be 10-12 visits in total. Mc has required use of a glass technician and adaptation of therapy materials (e.g. minimal written language) for intervention. While she has been cooperative during sessions, she has expressed ambivalence about therapy at home, which her son has reported to this therapist. Objective: Mc practiced structured exercises to address strategies for word finding and memory. Assessment:Goal 1.1: When using a mix of Tongan and Romansh(in translation) Mc has been able to list 3-4 members given a category with greater than 80% accuracy. When working on this goal, Mc's son aided the session, with her son used to confer and translate, a process which may have overall aided her retrieal. Goal 1.2: Using a mix of languages (Tongan, Romansh and Indonesian), Mc can describe and define a word with some hesitancies and paucity of expression at times. Goal 2.1: This goal has not been addressed to date, and will be trialed for viability if written material is read aloud to Mc, given her limited literacy and language background. Goal 2.2: This goal has been worked on in the context of using a rehearsal strategy to recall a direction of 1-3 steps using a visual map or drawing. Mc had demonstrated significant difficulty with this task, whether presented in Tongan or one of her primary languages, evidencing visual confusion and difficulty retaining the direction. This goal will continue. Goal 2.3: This goal has not be attempted and will be re-evaluated given Mc's limited literacy and diverse languages. Goal 2.4: This goal has not been attempted and will be discontinued as cM is not currently using or accessing tech devices independently. Proposed revisions to goals: 2.1: Given a brief paragraph read aloud with translation as needed, Mc will provide a logical conclusion to the paragraph with 80% accuracy. 2.3: Given a brief message detailing an appointment or a needed item, Mc will annotate a detail using a calendar or device if used with 80% accuracy. Notes: Plan: Goal # : 1.1. Mc will list 3-4 members per spoken category in 80% of trials when provided with minimal verbal prompts. 1.2. Mc will produce a minimum of 4 different features, when presented with a word using semantic feature analysis (SFA), given minimal verbal prompts, with 80% accuracy. Status of Goal: Goal # : 2.1. Mc will recall page-level information and answer questions about the material at 80% accuracy given occasional visual cues after a 30-minute delay. 2.2. Mc will use internal memory strategies (i.e. rehearsal, association, visualization) to recall 5-6 items at 80% accuracy when provided with minimal verbal cues. 2.3. Mc will write down relevant notes while presented with auditory instructions (i.e. voicemail message) and recall 80% of the information given use of written notes only. 2.4. Gulnigar will electively use an lucero or tech device to record and retrieve needed information in four out of five contexts. 2.5. Gulnigar will recall to use a calendar to check daily appointments in 80% of opportunities when provided with minimal cues across 3 consecutive sessions. Status of Goal: Goal # : Status of Goal: Goal # : Status of Goal: Seen by: Graduate/Clinical Fellow: Supervisory Statement: f_Reg Query Last Value , [facility] Speech Language Pathologist: Lizzy Dickson M.A., CCC-AIRPORT RAMP SUPERVISOR
--- NOTE | 2025-09-02 09:25 | MHC.SL.SOA ---
Referring Provider: Dania Duff MD Reason for Referral: Memory/cognitive difficulties Date of Plan of Treatment:03/18/25 Onset of Symptoms/Illness:03/18/23 Date Treatment Started:03/18/25 Medical Diagnosis: Primary Speech Language Diagnosis:I69.911 Memory deficit Secondary Speech Language Diagnosis:Anomia Number of Authorized Visits Remaining: Authorization End Date: Reason for Visit:Non-billable Event Other: Subjective:This note is to serve as an administrative discharge note for Cognitive Therapy for Mc Juan. Mc is a 74 year old woman who's first language is Swedish, and language learned in school was Sinhala and third language learned informally is [place]. Mc received an education until age 10 in [place], and reports that reading in any language was not a skill well acquired. As a result, Mc's therapeutic intervention included the use of a event specialist and adaptation of therapy materials (e.g. minimal written language) for intervention. She was seen for an initial Speech Language Evaluation on 01/22/25 with Maritza Miller, [facility], with finding indicating a moderate cognitive linguistic impairment, with difficulties in the areas of immediate and delayed memory and word retrieval. She had been seen for five session of cognitive therapy between 03/04/25 and 04/08/25. Therapy was suspended in April and the first three weeks of May due to appointment conflicts and the patient being out of town. Additionally, while she had been cooperative during sessions, she expressed ambivalence about therapy at home, which her son has reported to this therapist. This therapist had a conversation with her son in May, as Mc had not returned as anticipated to the area, and to discuss if she had the motivation or desired to continue with therapy. It was recommended, as a part of that discussion, that he re-contact the clinic if these issues resolved. To date there has been no further contact with the clinic from Mc or her son. Discharge from Therapy is indicated at this time. Objective: Mc practiced structured exercises to address strategies for word finding and memory. Assessment:Goal 1.1: When using a mix of [place] and Swedish(in translation) Mc has been able to list 3-4 members given a category with greater than 80% accuracy. When working on this goal, Mc's son aided the session, with her son used to confer and translate, a process which may have overall aided her retrieal. Goal 1.2: Using a mix of languages ([place], Swedish and Sinhala), Mc can describe and define a word with some hesitancies and paucity of expression at times. Goal 2.1: This goal has not been addressed to date, and will be trialed for viability if written material is read aloud to Mc, given her limited literacy and language background. Goal 2.2: This goal has been worked on in the context of using a rehearsal strategy to recall a direction of 1-3 steps using a visual map or drawing. Mc had demonstrated significant difficulty with this task, whether presented in [place] or one of her primary languages, evidencing visual confusion and difficulty retaining the direction. This goal will continue. Goal 2.3: This goal has not be attempted and will be re-evaluated given Mc's limited literacy and diverse languages. Goal 2.4: This goal has not been attempted and will be discontinued as Mc is not currently using or accessing tech devices independently. Proposed revisions to goals: 2.1: Given a brief paragraph read aloud with translation as needed, Mc will provide a logical conclusion to the paragraph with 80% accuracy. 2.3: Given a brief message detailing an appointment or a needed item, Mc will annotate a detail using a calendar or device if used with 80% accuracy. Notes: Plan: Goal # : 1.1. Mc will list 3-4 members per spoken category in 80% of trials when provided with minimal verbal prompts. 1.2. Mc will produce a minimum of 4 different features, when presented with a word using semantic feature analysis (SFA), given minimal verbal prompts, with 80% accuracy. Status of Goal: Discharge Goal Goal # : 2.1. Mc will recall page-level information and answer questions about the material at 80% accuracy given occasional visual cues after a 30-minute delay. 2.2. Mc will use internal memory strategies (i.e. rehearsal, association, visualization) to recall 5-6 items at 80% accuracy when provided with minimal verbal cues. 2.3. Gulnigar will write down relevant notes while presented with auditory instructions (i.e. voicemail message) and recall 80% of the information given use of written notes only. 2.4. Gulnigar will electively use an lucero or tech device to record and retrieve needed information in four out of five contexts. 2.5. Gulnigar will recall to use a calendar to check daily appointments in 80% of opportunities when provided with minimal cues across 3 consecutive sessions. Status of Goal: Discharge Goal Goal # : Status of Goal: Goal # : Status of Goal: Seen by: Graduate/Clinical Fellow: No Supervisory Statement: f_Reg Query Last Value , [facility] Speech Language Pathologist: Lizzy Dickson M.A., [facility]
== END 2025-09-02 12:07 | disposition home or self-care (01) ==
LOC: HO.SH 15:00
PROVIDERS: PCP Internal Medicine; Visit Provider Psychiatry & Neurology Neurology
DX: G31.84 Mild cognitive impairment of uncertain or unknown etiology (principal)
CPT/HCPCS: 92507

== ENCOUNTER 2025-04-25 14:49 | Emergency (ER) | payer MEDICARE, SELFPAY ==
[2025-04-25 15:05] VITALS: BP 130/61; PULSE 66; RESP 18; TEMP 36.6; O2SAT 99; BMI 26.2
--- NOTE | 2025-04-25 15:05 | ED.GENADULT ---
HPI - General Adult General Chief complaint: Abdominal Pain Stated complaint: pt states she feels sike, v/d, dizziness Related Data Home Medications ?Medication ?Instructions ?Recorded ?Confirmed aspirin 81 mg tablet,delayed 81 mg PO DAILY 06/24/20 04/04/25 release mirabegron 50 mg tablet,extended 50 mg PO DAILY 02/22/24 04/04/25 release 24 hr (Myrbetriq) sennosides 8.6 mg tablet 8.6 mg PO BID 03/20/24 04/04/25 famotidine-Ca carb-mag hydrox 10 1 tab PO DAILY PRN Acid Reflux 03/10/25 04/04/25 mg-800 mg-165 mg chewable tablet (Pepcid Complete) loratadine 10 mg tablet (Claritin) 10 mg PO DAILY 04/02/25 04/04/25 sertraline 25 mg tablet 25 mg PO DAILY 04/02/25 04/04/25 Previous Rx's ?Medication ?Instructions ?Recorded melatonin 3 mg tablet See Rx Instructions PO BEDTIME PRN 11/30/23 sleep 30 days #60 tabs cholecalciferol (vitamin D3) 25 25 mcg PO DAILY 30 days #30 caps 12/05/23 mcg (1,000 unit) capsule fluticasone propionate 50 1 spray intranasal DAILY 30 days 04/12/24 mcg/actuation nasal #16 grams spray,suspension (Flonase Allergy Relief) nitroglycerin 0.4 mg sublingual 0.4 mg sublingual DIRECTED PRN 06/26/24 tablet Chest Pain #90 tabs metoprolol tartrate 25 mg tablet 25 mg PO BID 90 days #180 tabs 09/13/24 pantoprazole 40 mg tablet,delayed 40 mg PO DAILY 90 days #90 tabs 10/04/24 release metformin 1,000 mg tablet 1,000 mg PO BID 90 days #180 tabs 12/30/24 mecobalamin (vitamin B12) 1,000 1,000 mcg PO DAILY 30 days #30 tabs 03/05/25 mcg chewable tablet levothyroxine 50 mcg tablet 75 mcg (1.5 x 50 mcg) PO DAILY 90 03/30/25 days #135 tabs blood sugar diagnostic (FreeStyle #50 ea 04/01/25 Lite Strips) blood-glucose meter (FreeStyle #1 ea 04/01/25 Lite Meter kit) lancets 28 gauge (FreeStyle #100 ea 04/01/25 Lancets) linagliptin 5 mg tablet (Tradjenta) 5 mg PO DAILY #90 tabs 04/01/25 rosuvastatin 20 mg tablet 20 mg PO BEDTIME 90 days #90 tabs 04/01/25 donepezil 10 mg tablet See Rx Instructions PO DAILY #30 04/02/25 tabs ondansetron 4 mg disintegrating 4 mg PO Q8H PRN nausea and 04/25/25 tablet vomiting 10 days #30 tabs Allergies Allergy/AdvReac Type Severity Reaction Status Date / Time methenamine Allergy Severe Vomiting Verified 04/25/25 15:07 codeine (Codeine) Allergy Intermediate VOMITING Verified 04/25/25 15:07 aspirin (Aspirin) AdvReac Mild DIZZINESS Verified 04/25/25 15:07 nitrofurantoin (From AdvReac Mild Hyperkalemi Verified 04/25/25 15:07 Macrobid) a [facility] Past Medical History Medical History Hyperlipidemia associated with type 2 diabetes mellitus Hyperlipidemia Type 2 diabetes mellitus Depression Mild cognitive impairment Arthritis Fatty liver On beta corona at home CAD (coronary artery disease) Diverticulosis Allergy to food dye Hypertension, essential Constipation by delayed colonic transit Lipid disorder Diabetes 1.5, managed as type 2 Depression, major, recurrent Chronic GERD Hypothyroidism Environmental allergies Surgical History History of right cataract extraction History of four vessel coronary artery bypass graft S/P cardiac cath History of colonoscopy History of hysteroscopy History of bilateral tubal ligation Hx of cholecystectomy Family History Family History Father No problems noted. Mother No problems noted. Social History Social History Housing: House Are you a primary home health care provider to a significant other at home: No Do you presently have visiting nurse or other home services: No Alcohol intake: never Patient Tobacco Use Status: Never used Tobacco e-Cigarette/Vaping Use: Never Used Advance Directives: No Advance Directives Information Provided: No Do you have a plan to hurt others: No Plan service: No Current occupational status: disabled Cognitive needs: No Hearing needs: No Vision needs: No Physical Exam ED Vital Signs: Vital Signs - 24 hr 04/25/25 15:05 Temperature 98 F Pulse Rate 66 Respiratory Rate 18 Blood Pressure 130/61 Pulse Oximetry 99 Oxygen Delivery Method Room Air BMI result Body Mass Index 26.2 Course Course Course Narrative: 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 Deferred additional HPI, ROS, PE to primary provider. 74 yo female with PMH of Type 2 diabetes mellitus, depression, mild cognitive impairment, arthritis, fatty liver, CAD (coronary artery disease), diverticulosis, hypertension here with complaints of vomiting/diarrhea/generalized abdominal pain, headache x 1 week. Had upper and lower with Dr Nguyen 2 weeks ago. Will obtain labs, UA VSS Medical Decision Making Lab Data 04/25/25 15:18 04/25/25 15:18 Labs: Lab Results 04/25/25 04/25/25 Range/Units 15:18 15:38 WBC 7.5 (4.8-10.8) X10*3/uL RBC 3.71 L (4.20-5.50) X10*6/uL Hgb 10.6 L (12.0-16.0) g/dl Hct 31.6 L (37.0-47.0) % MCV 85.2 (80.0-98.0) fL MCH 28.6 (27.0-33.0) pg MCHC 33.5 (31.0-35.0) g/dl RDW 13.3 (11.0-16.0) % Plt Count 255 (160-400) X10*3/uL MPV 9.2 L (9.4-12.3) fL Immature Gran % (Auto) 0.1 (0.0-0.4) % Neut % (Auto) 53.1 (45-73) % Lymph % (Auto) 36.3 (20-40) % Dukes % (Auto) 7.0 (2-11) % Eos % (Auto) 3.1 (0-4) % Baso % (Auto) 0.4 (0-2) % Lymph # (Auto) 2.7 (1.2-4.9) X10*3/uL Dukes # (Auto) 0.5 (0.1-1.2) X10*3/uL Eos # (Auto) 0.2 (0.0-0.4) X10*3/uL Baso # (Auto) 0.0 (0.0-0.2) X10*3/uL Abs Immat Gran (auto) 0.01 (0.00-0.03) X10*3/uL Absolute Neuts (auto) 4.0 (2.0-8.3) x10*3/uL Absolute Nucleated RBC 0.000 (0.0-0.012) X10*3/uL Nucleated RBC % (auto) 0.0 (0.0-0.2) /100WBC Sodium 137 (135-145) mmol/L Potassium 5.3 H (3.3-5.1) mmol/L Chloride 106 (96-108) mmol/L Carbon Dioxide 24 (22-29) mmol/L Anion Gap 12 (12-20) BUN 24 H (9-16) mg/dL Creatinine 1.46 H (0.5-1.4) mg/dL Estim Creat Clear Calc 29.0 Estimated GFR 35 Random Glucose 198 H (60-115) mg/dL Calcium 9.2 (8.4-10.2) mg/dL Total Bilirubin 0.3 (0.0-1.0) mg/dL Direct Bilirubin 0.1 (0.0-0.5) mg/dL AST 20 (5-31) U/L ALT 11 (0-31) U/L Alkaline Phosphatase 73 (39-117) U/L Total Protein 7.0 (6.5-8.0) g/dL Albumin 4.3 (3.5-5.0) g/dL Lipase 23 (8-78) U/L Urine Color Yellow Urine Appearance Clear Urine pH 5.5 (5.0-9.0) Ur Specific [place] 1.020 (1.005-1.025) Urine Protein Negative (Neg-Trace) mg/dL Urine Glucose (UA) Negative (Negative) mg/dL Urine Ketones Trace (Negative) mg/dL Urine Blood Small (1+) H (Negative) Urine Nitrite Negative (Negative) Ur Leukocyte Esterase Small (1+) H (Negative) Urine RBC 0-2 (0-2) /HPF Urine WBC 0-5 (0-5) /HPF Ur Squamous Epith Cells 0-2 (0-2) /HPF Urine Bacteria Trace (None Seen) Hyaline Casts 0-2 (0-2) /LPF Discharge Plan Discharge Clinical Impression: Abdominal pain Patient Disposition: Left W/O Completing Treatment Prescriptions: No Action cholecalciferol (vitamin D3) 25 mcg (1,000 unit) capsule 25 mcg PO DAILY 30 Days Qty: 30 6RF fluticasone propionate [Flonase Allergy Relief] 50 mcg/actuation spray,suspension 1 spray intranasal DAILY 30 Days Qty: 16 3RF Rx Instructions: administer into each nostril nitroglycerin 0.4 mg tablet, sublingual 0.4 mg sublingual DIRECTED PRN (Reason: Chest Pain) Qty: 90 0RF pantoprazole 40 mg tablet,delayed release (DR/EC) 40 mg PO DAILY 90 Days Qty: 90 3RF Rx Instructions: allergy to dye metformin 1,000 mg tablet 1,000 mg PO BID 90 Days Qty: 180 1RF Rx Instructions: allergy to dye in meds mecobalamin (vitamin B12) 1,000 mcg tablet,chewable 1,000 mcg PO DAILY 30 Days Qty: 30 3RF levothyroxine 50 mcg tablet 75 mcg PO DAILY 90 Days Qty: 135 1RF Rx Instructions: Please provide patient with a tablet with no dye in it rosuvastatin 20 mg tablet 20 mg PO BEDTIME 90 Days Qty: 90 1RF Rx Instructions: allergy to dye ondansetron 4 mg tablet,disintegrating 4 mg PO Q8H PRN (Reason: nausea and vomiting) 10 Days Qty: 30 1RF aspirin 81 mg tablet,delayed release (DR/EC) 81 mg PO DAILY sennosides 8.6 mg tablet 8.6 mg PO BID Myrbetriq 50 mg tablet extended release 24 hr 50 mg PO DAILY Pepcid Complete 10-800-165 mg tablet,chewable 1 tab PO DAILY PRN (Reason: Acid Reflux) sertraline 25 mg tablet 25 mg PO DAILY loratadine [Claritin] 10 mg tablet 10 mg PO DAILY donepezil 10 mg tablet See Rx Instructions PO DAILY Qty: 30 6RF Rx Instructions: 1/2 tabs qd for 4 weeks and then 1 tabq d orally daily; melatonin 3 mg tablet See Rx Instructions PO BEDTIME PRN (Reason: sleep) 30 Days Qty: 60 3RF Rx Instructions: 1-2 tab orally bedtime PRN; metoprolol tartrate 25 mg tablet 25 mg PO BID 90 Days Qty: 180 3RF Tradjenta 5 mg tablet 5 mg PO DAILY Qty: 90 3RF (DME) FreeStyle Lite Strips Strip See Rx Instructions .Route Qty: 50 3RF Rx Instructions: As directed to check blood sugars once a day (DME) blood-glucose meter [FreeStyle Lite Meter] Kit See Rx Instructions .Route Qty: 1 0RF Rx Instructions: As directed to check blood sugars once a day (DME) lancets [FreeStyle Lancets] 28 gauge misc See Rx Instructions .Route Qty: 100 3RF Rx Instructions: As directed to check blood sugars once a day Discharge Date/Time: 04/25/25 19:48
[2025-04-25 15:21] LABS: MANUAL DIFF FLAG NO
[2025-04-25 15:23] LABS: Hematocrit 31.6 % (37.0-47.0); Hemoglobin 10.6 g/dl (12.0-16.0); Imm Gran Abs Auto 0.01 X10*3/uL (0.00-0.03); Imm Gran Pct Auto 0.1 % (0.0-0.4); Lymphocytes Absolute Auto 2.7 X10*3/uL (1.2-4.9); Mean Corpuscular HGB Conc 33.5 g/dl (31.0-35.0); Mean Corpuscular Hemoglobin 28.6 pg (27.0-33.0); Mean Corpuscular Volume 85.2 fL (80.0-98.0); NRBC Abs Auto 0.000 X10*3/uL (0.0-0.012); NRBC Pct Auto 0.0 /100WBC (0.0-0.2); Platelet Count 255 X10*3/uL (160-400); Red Blood Count 3.71 X10*6/uL (4.20-5.50); White Blood Count 7.5 X10*3/uL (4.8-10.8)
[2025-04-25 15:38] LABS: Alanine Aminotransferase 11 U/L (0-31); Albumin Level 4.3 g/dL (3.5-5.0); Alkaline Phosphatase 73 U/L (39-117); Anion Gap 12 (12-20); Aspartate Amino Transferase 20 U/L (5-31); Blood Urea Nitrogen 24 mg/dL (9-16); Calcium 9.2 mg/dL (8.4-10.2); Carbon Dioxide 24 mmol/L (22-29); Chloride 106 mmol/L (96-108); Creatinine Clr Calc Pharmacy 29.0; Estimated Glomerular Filt Rate 35; Lipase 23 U/L (8-78); Potassium 5.3 mmol/L (3.3-5.1); Sodium 137 mmol/L (135-145); Total Protein 7.0 g/dL (6.5-8.0)
[2025-04-25 15:44] LABS: Appearance Urine Clear; Glucose Urine UA Negative (Negative); PH 5.5 (5.0-9.0); Specific Gravity - Urine 1.020 (1.005-1.025); UMIC TRIGGER UACC YES
[2025-04-25 15:58] LABS: UACC Culture Trigger YES
== END 2025-04-25 19:48 | disposition left against medical advice (07) ==
PROVIDERS: Nurse Practitioner Family; Emergency Provider Emergency Medicine; PCP Internal Medicine
DX: R10.2 Pelvic and perineal pain (principal); R42 Dizziness and giddiness; E11.9 Type 2 diabetes mellitus without complications; I25.10 Atherosclerotic heart disease of native coronary artery without angina pectoris; Z79.84 Long term (current) use of oral hypoglycemic drugs; Z79.899 Other long term (current) drug therapy
CPT/HCPCS: 36415; 80048; 80076; 81001; 83690; 85025; 87086; 99282; 99283

== ENCOUNTER 2025-07-09 15:17 | Outpatient (AMB) | payer MEDICARE, SELFPAY ==
[2025-07-09 15:22] VITALS: BP 130/70; PULSE 77; BMI 27.1
--- NOTE | 2025-07-09 15:22 | MHC.OFFVIS ---
Vital Signs 07/09/25 15:22 Height 5 ft 2 in Weight 148 lb 2.41 oz BMI 27.1 BP 130/70 Blood Pressure Location Lt brachial Position Sitting Pulse 77 Pulse Source Pulse Oximeter Intake Visit Reasons: 4 mth-echo Intake Note: 4 mth-echo Clinical Law Professor Required: No Accompanied by: Significant Other Allergies methenamine Allergy (Severe, Verified 04/25/25 15:07) Vomiting codeine (Codeine) Allergy (Intermediate, Verified 04/25/25 15:07) VOMITING aspirin (Aspirin) Adverse Reaction (Mild, Verified 04/25/25 15:07) DIZZINESS nitrofurantoin (From Macrobid) Adverse Reaction (Mild, Verified 04/25/25 15:07) Hyperkalemia Medication List - Last Reconciled 07/09/25 by Logan Garcia MD aspirin 81 mg PO DAILY blood sugar diagnostic (FreeStyle Lite Strips) As directed to check blood sugars once a day blood-glucose meter (FreeStyle Lite Meter kit) As directed to check blood sugars once a day cholecalciferol (vitamin D3) 25 mcg PO DAILY 30 days donepezil 1/2 tabs qd for 4 weeks and then 1 tabq d orally daily; famotidine-Ca carb-mag hydrox 10-800-165 mg (Pepcid Complete) 1 tab PO DAILY PRN fluticasone propionate 50 mcg/actuation (Flonase Allergy Relief) 1 spray intranasal DAILY 30 days lancets (FreeStyle Lancets) As directed to check blood sugars once a day levothyroxine 75 mcg (1.5 x 50 mcg) PO DAILY 90 days linagliptin (Tradjenta) 5 mg PO DAILY loratadine (Claritin) 10 mg PO DAILY mecobalamin (vitamin B12) 1,000 mcg PO DAILY 30 days melatonin 1-2 tab orally bedtime PRN; 30 days metformin 1,000 mg PO BID 90 days metoprolol tartrate 25 mg PO BID 90 days mirabegron ER (Myrbetriq) 50 mg PO DAILY nitroglycerin 0.4 mg sublingual DIRECTED PRN ondansetron 4 mg PO Q8H PRN 10 days pantoprazole 40 mg PO DAILY 90 days rosuvastatin 20 mg PO BEDTIME 90 days sennosides 8.6 mg PO BID sertraline 25 mg PO DAILY HPI Comments Details: [age] year female with previous history of coronary artery bypass surgery, low blood pressure in the past with inability to titrate antianginals and background of stable angina. She was getting some dyspnea and mild chest discomfort with activities like climbing stairs but overall did not feel to limited in the past. She is coming for an urgent visit because she recently went to urgent care for abdominal pain and elevated blood pressure. It appears she ate at a restaurant and then had upper abdominal pain which was severe and woke her up from sleep. She said this did not get better and eventually she had to call her son and go to urgent Care. In urgent Care they did an EKG which was normal reportedly. She was eventually sent back home. She also reported that her blood pressure at home was quite elevated in 190s and when she went to urgent care and was in 150s. She traditionally has been hypotensive in our office and continues to have low blood pressure on very small dose of metoprolol. She is still has upper abdominal pain and tenderness. She has been seen by GI and underwent blood workup and we will be getting a CT scan. 07/09/2025: She is here for follow-up. On last visit we sent her for echocardiography which showed EF 65-70% without any regional wall motion abnormalities. Normal right ventricular size and function. She has severe mitral annular calcification but no mitral stenosis or regurgitation. Blood pressure on follow-up is stable. She is getting abdominal pain and is following with GI closely. She also is getting some chest discomfort especially when she goes upstairs. Previously she has not tolerating antianginal medicines because of low blood pressure. She is just on metoprolol 25 mg twice a day. My plan was to add Ranexa but she has CKD with creatinine clearance of 29 and I think we should avoid Ranexa. 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 Mother No problems noted. Social History Housing: House Are you a primary child care development specialist to a significant other at home: No Do you presently have visiting nurse or other home services: No Alcohol intake: never Patient Tobacco Use Status: Never used Tobacco e-Cigarette/Vaping Use: Never Used service: No Current occupational status: disabled Cognitive needs: No Hearing needs: No Vision needs: No Review of Systems Const Denies chills, Denies fatigue, Denies fever(s), Denies frequent falls, Denies weakness, Denies weight gain and Denies weight loss ENT Denies dizziness Card Denies chest pain, Denies leg edema, Denies lightheadedness, Denies palpitations, Denies dyspnea and Denies dyspnea on exertion Resp Denies cough, Denies dyspnea and Denies dyspnea on exertion GI Denies hematochezia Musc Denies abnormal gait, Denies muscle weakness, Denies numbness, Denies radiating pain into limb and Denies tingling Neuro Denies abnormal gait, Denies dizziness, Denies frequent falls, Denies numbness, Denies tingling and Denies weakness Endo Denies fatigue and Denies palpitations Physical Exam Vital Signs: Last Vital Signs Pulse 77 07/09/25 15:22 BP 130/70 07/09/25 15:22 BMI result Body Mass Index 27.1 GENERAL APPEARANCE: in no acute distress, pleasant. NECK: no carotid bruit, no jugular venous distention. SKIN: no suspicious lesions, warm and dry. HEART: no murmurs, regular rate and rhythm. LUNGS: clear to auscultation bilaterally. ABDOMEN: soft, epigastric tenderness. EXTREMITIES: no edema. PERIPHERAL PULSES: equal. NEUROLOGIC: No gross deficits, AAO X 3 Assessment & Plan Assessment & Plan (1) Stable angina: Code(s): I20.8 - Other forms of angina pectoris Category: Medical (2) Hypertension, essential: Code(s): I10 - Essential (primary) hypertension Category: Medical (3) Coronary artery disease: Code(s): I25.10 - Atherosclerotic heart disease of mo[place] coronary artery without angina pectoris Category: Medical Plan Pleasant 74-year-old lady with known history of coronary disease with previous bypass surgery. She has been getting stable angina for long time and she will get some symptoms when going upstairs. Her blood pressure is better and I am adding amlodipine 2.5 mg daily. She previously was taking metoprolol 25 mg twice a day. My plan was given Ranexa but with her kidney disease there are some concerns about using Ranexa. She will get further workup with GI for the abdominal pain. Follow up with us in three months. Thank you for allowing me to participate in the care of your patient. Please feel free to contact me if you have any questions. Medications: New amlodipine 2.5 mg PO DAILY 30 tabs 3RF I20.8 - Other forms of angina pectoris Coding Level of Care Code Est Pt Level 3 (04852) Diagnoses Stable angina I20.8 Hypertension, essential I10 Coronary artery disease I25.10
--- OUTSIDE RECORDS SUMMARY | 2025-07-09 19:39 | XMS_ITS | Clinical Summary ---
Author Organization [facility] Facility Address [address] [address] Care Team Providers Care Inspector Quality Assurance Name Role Phone Tierra Grace MD Primary Care Provider [phone] Allergies Active Allergy Reactions Criticality Noted Date [...] age to complete this topic Insurance Medicare [facility] Medicare [facility] Care Teams Inspector Quality Assurance Relationship Specialty Start Date End Date Tirera Grace MD [address] [place] [address] PCP - General 07/16/19
== END 2025-07-09 15:47 | disposition home or self-care (01) ==
LOC: HO.HCS 15:18
PROVIDERS: PCP Internal Medicine; Visit Provider Internal Medicine Cardiovascular Disease
DX: I20.89 Other forms of angina pectoris (principal); I10 Essential (primary) hypertension; I25.10 Atherosclerotic heart disease of native coronary artery without angina pectoris
CPT/HCPCS: 99213

== ENCOUNTER → 2025-07-09 15:17 | Outpatient (BNVA) | payer MEDICARE, SELFPAY | PROVIDERS: PCP Internal Medicine; Visit Provider Internal Medicine Cardiovascular Disease | DX: I25.118 Atherosclerotic heart disease of native coronary artery with other forms of angina pectoris (principal); I10 Essential (primary) hypertension | CPT/HCPCS: 99212 ==

== ENCOUNTER 2025-07-16 11:04 | Outpatient (AMB) | payer MEDICARE, SELFPAY ==
--- NOTE | 2025-07-16 11:52 | A.OFFVIS_ITS ---
Intake Intake Visit Reasons: 60 min Technician Anatomic Pathology Required: Yes Technician Anatomic Pathology Language: Khmer Technician Anatomic Pathology Services: Technician Anatomic Pathology Offered & Declined Technician Anatomic Pathology Name: Brandon Pt's son Accompanied by: Son Allergies methenamine Allergy (Severe, Verified 04/25/25 15:07) Vomiting codeine (Codeine) Allergy (Intermediate, Verified 04/25/25 15:07) VOMITING aspirin (Aspirin) Adverse Reaction (Mild, Verified 04/25/25 15:07) DIZZINESS nitrofurantoin (From Macrobid) Adverse Reaction (Mild, Verified 04/25/25 15:07) Hyperkalemia HPI Comprehensive Diabetes Asmnt Most Recent Diabetes Results: 2 Hemoglobin A1c 7.4 % 03/20/19 Microalb/Creat Ratio 27.0 ug/mg cr 10/22/21 Cholesterol, (<200) 335 mg/dL H 09/03/24 HDL Cholesterol, (>40) 62 mg/dL 09/03/24 Triglycerides, (<150) 316 mg/dL H 09/03/24 Creatinine, (0.5-1.4) 1.46 mg/dL H 04/25/25 BUN, (9-16) 24 mg/dL H 04/25/25 Sodium, (135-145) 137 mmol/L 04/25/25 Potassium, (3.3-5.1) 5.3 mmol/L H 04/25/25 Chloride, (96-108) 106 mmol/L 04/25/25 Carbon Dioxide, (22-29) 24 mmol/L 04/25/25 Calcium, (8.4-10.2) 9.2 mg/dL 04/25/25 AST, (5-31) 20 U/L 04/25/25 ALT, (0-31) 11 U/L 04/25/25 Total Protein, (6.5-8.0) 7.0 g/dL 04/25/25 Albumin, (3.5-5.0) 4.3 g/dL 04/25/25 [facility] Medical History Hyperlipidemia associated with type 2 diabetes mellitus Hyperlipidemia Type 2 diabetes mellitus Depression Mild cognitive impairment Arthritis Fatty liver On beta corona at home CAD (coronary artery disease) Diverticulosis Allergy to food dye Hypertension, essential Constipation by delayed colonic transit 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 Mother No problems noted. Social History Housing: House Are you a primary care management assistant to a significant other at home: No Do you presently have visiting nurse or other home services: No Alcohol intake: never Patient Tobacco Use Status: Never used Tobacco e-Cigarette/Vaping Use: Never Used service: No Current occupational status: disabled Cognitive needs: No Hearing needs: No Vision needs: No Assessment & Plan Assessment & Plan (1) Type 2 diabetes mellitus: Code(s): E11.9 - Type 2 diabetes mellitus without complications Qualifiers: Diabetes mellitus custodial insulin use: without regional intermodal truck driver use Diabetes mellitus complication status: with kidney complications Diabetes mellitus complication detail: with chronic kidney disease Chronic kidney disease stage: stage 3 (moderate) Chronic kidney disease stage 3 subtype: stage 3b (GFR 30-44) Qualified Code(s): E11.22 - Type 2 diabetes mellitus with diabetic chronic kidney disease; N18.32 - Chronic kidney disease, stage 3b Plan: Personal Continuous Glucose Monitor: Patients CGM information reviewed, Pt uses Dexcom G7 with lucero Patient and her son discussed alternatives to Dexcom G7 because patient is currently paying for sensors [id number]. Gave patient information on Dexcom Tripdalo. Patient will still be able to share data through Dexcom clarity, there are no alerts and alarms. Patient also asked about alternative sites to wear sensors. Instructed patient although the Dexcom is approved for the back of the arm there are some people that wear off label sites such as abdomen or thigh. Patient reports diminished appetite, only eats tea and toast for breakfast, does not eat meat. Discussed adding protein powder or complex carb such as lentils to increase protein intake. Discussed the importance of maintaining muscle mass as she gets older, and the role that muscle cells play in glucose regulation. Recommended to patient she add some resistance exercise to help maintain muscle. Patient needs to reschedule appointment with provider, she is due for A1c Patient will follow-up with parent educator as needed Patient able to insert sensor independently at home without issue.? Portions of this note were created using voice recognition software, please excuse any words or phrases that may have been misinterpreted. Coding Level of Care Code Est Pt Level 1 (99797) Diagnoses Type 2 diabetes mellitus with stage 3b chronic kidney disease, without long-term current use of insulin E11.22; N18.32 Diabetes mellitus regional intermodal truck driver insulin use: without regional intermodal truck driver use Diabetes mellitus complication status: with kidney complications Diabetes mellitus complication detail: with chronic kidney disease Chronic kidney disease stage: stage 3 (moderate) Chronic kidney disease stage 3 subtype: stage 3b (GFR 30-44)
== END 2025-07-16 11:53 | disposition home or self-care (01) ==
LOC: HO.ENCR 11:05
PROVIDERS: PCP Internal Medicine; Visit Provider Registered Nurse Diabetes Educator
DX: E11.22 Type 2 diabetes mellitus with diabetic chronic kidney disease (principal); N18.32 Chronic kidney disease, stage 3b

== ENCOUNTER → 2025-07-16 11:04 | Outpatient (BNVA) | payer MEDICARE, SELFPAY | PROVIDERS: PCP Internal Medicine; Visit Provider Registered Nurse Diabetes Educator | DX: E11.22 Type 2 diabetes mellitus with diabetic chronic kidney disease (principal); N18.32 Chronic kidney disease, stage 3b; Z79.84 Long term (current) use of oral hypoglycemic drugs; Z79.82 Long term (current) use of aspirin | CPT/HCPCS: 99211 ==

== ENCOUNTER 2025-07-17 10:17 | Outpatient (AMB) | payer MEDICARE, SELFPAY ==
[2025-07-17 10:20] VITALS: BP 109/59; PULSE 70; BMI 27.1
--- NOTE | 2025-07-17 10:20 | A.OFFVIS_ITS ---
Vital Signs 07/17/25 10:20 Height 5 ft 2 in Weight 148 lb 2.41 oz BMI 27.1 BP 109/59 L Blood Pressure Location Lt brachial Position Sitting Pulse 70 Intake Visit Reasons: f/u Intake Note: Patient follow up for chronic GERD. Taking pantoprazole 40mg QD. Finished rx yesterday. Procedure: EGD/Colonoscopy~ 04-04-2025 Patient cc: Pain, burning sensation after meals. Feels symptoms of GERD have worsened after EGD procedure. 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 Accompanied by: son Brandon Allergies methenamine Allergy (Severe, Verified 07/22/25 10:05) Vomiting codeine (Codeine) Allergy (Intermediate, Verified 07/22/25 10:05) VOMITING aspirin (Aspirin) Adverse Reaction (Mild, Verified 07/22/25 10:05) DIZZINESS nitrofurantoin (From Macrobid) Adverse Reaction (Mild, Verified 07/22/25 10:05) Hyperkalemia Medication List - Last Reconciled 07/17/25 by Samuel Nguyen MD amlodipine 2.5 mg PO DAILY aspirin 81 mg PO DAILY blood sugar diagnostic (FreeStyle Lite Strips) As directed to check blood sugars once a day blood-glucose meter (FreeStyle Lite Meter kit) As directed to check blood sugars once a day cholecalciferol (vitamin D3) 25 mcg PO DAILY 30 days famotidine-Ca carb-mag hydrox 10-800-165 mg (Pepcid Complete) 1 tab PO DAILY PRN fluticasone propionate 50 mcg/actuation (Flonase Allergy Relief) 1 spray intranasal DAILY 30 days lancets (FreeStyle Lancets) As directed to check blood sugars once a day levothyroxine 75 mcg (1.5 x 50 mcg) PO DAILY 90 days linagliptin (Tradjenta) 5 mg PO DAILY loratadine (Claritin) 10 mg PO DAILY mecobalamin (vitamin B12) 1,000 mcg PO DAILY 30 days melatonin 1-2 tab orally bedtime PRN; 30 days metformin 1,000 mg PO BID 90 days metoprolol tartrate 25 mg PO BID 90 days mirabegron ER (Myrbetriq) 50 mg PO DAILY nitroglycerin 0.4 mg sublingual DIRECTED PRN ondansetron 4 mg PO Q8H PRN 10 days rosuvastatin 20 mg PO BEDTIME 90 days sennosides 8.6 mg PO BID sertraline 25 mg PO DAILY HPI HPI f/u: Details: GI clinic visit for this 74 year old [place] female for FU of abdominal pain TODAY'S VISIT: Patient follow up for chronic GERD. Taking pantoprazole 40mg QD. Finished rx yesterday. Procedure: EGD/Colonoscopy~ 04-04-2025 Patient reports Pain, burning sensation after meals. Feels symptoms of GERD have worsened after EGD procedure. Complains of persistent post-prandial abdominal discomfort - as soon as she eats Also complains of Rt sided back pain - increased pain last week and uses hot water bottle with partial relief Taking Pantoprazole without significan change in her symptoms Denies diarrhea - has a BM 1-2 times a day - stools can be loose intermittently Notes decreased appetite - worse for the past few days PAST VISITS: Complains of abdominal pain which moves around. Pain is almost daily and varies with intensity. Pain can get worse after eating - usually after products containing yeast (prefers sourdough bread) Thinks pain has been worse after she took whole wheat bread and switching back to sour dough bread now. Does not take milk or cheese (just milk in tea) Denies problems with milk products. Complains of gas and bloating Had diarrhea prior to getting the CT scan - worse after taking contrast. Complains of chronic constipation and has a BM every 2-3 days with incomplete evacuation. Takes Miralax every 2-3 days and has a BM the following day Complains of low back pain - improves with acetaminophen and local heat Wt loss of 8 lbs over the past year. Complains of decreased appetite and early satiety Intermittent dysphagia to solids and liquids (even water) Denies black stool or rectal bleeding hx of Vitamin B12 def treated by injections and tablets in the past Pt is status post Cardaic bypass in 2020 Patient denies major cardiac or pulmonary problems, loud snoring or sleep apnea Denies problems with anesthesia in the past. Denies being on chronic anticoagulation. Patient denies known family history of colon polyps, colon cancer or other GI malignancies. LABS IN [email or web address] : Reviewed IMAGING STUDIES: 03/20/[address] SCAN SHOWED: No intestinal obstruction pattern. Coronary artery disease and atherosclerosis disease. Bilateral nonobstructing nephrolithiasis. Calcified plaques, mitral valve. Diverticular disease, left hemicolon. ENDOSCOPIC STUDIES: 04/04/25 EGD AND COLON SHOWED: Endoscopy Findings: ESOPHAGUS: Mildly tortuous esophagus without stricture or ring empiric balloon dilation to 20 mm (60 F) . 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 Biopsies were obtained from right and left colon to check for microscopic colitis. Moderate diverticulosis seen in the sigmoid colon Random biopsies were obtained from right and left colon to check for microscopic colitis. Small hemorrhoids on retroflexed exam. Plan: Repeat Colonoscopy in 1 year if cecal polyp is adenomatous to check polypectomy site and can discontinue screening colonoscopies if polyps are hyperplastic. A summary of above findings and relevant handouts were given to the patient. BIOPSIES SHOWED: A. Small bowel, biopsy: Small intestinal mucosa within normal limits. B. Stomach, antrum, biopsy: Antral-type and oxyntic mucosa with mild chronic inactive inflammation; no Helicobacter organisms seen. C. Stomach, body, biopsy: Oxyntic mucosa with mild chronic inactive inflammation. D. Stomach, polyp: Fundic gland polyp with background mild chronic inactive inflammation. E. Esophagus, distal, biopsy: - Small focus of cardiac-type mucosa with mild chronic inactive inflammation; no intestinal metaplasia seen. - Squamous epithelium within normal limits. F. Cecum, polypectomy: Inflammatory polyp. G. Colon, right, biopsy: Colonic mucosa within normal limits. H. Colon, left, biopsy: Colonic mucosa within normal limits. I. Rectum, ulcer, biopsy: Scant superficial strips of benign colonic epithelium and fragments of ulcer bed. Comment: Diagnostic morphologic features of celiac disease or microscopic colitis are not seen. Letter sent to the patient with biopsy results. Patient called and biopsy results were reviewed. She was advised to schedule an anorectal manometry to follow-up on rectal prolapse - referral sent. 12/2018 COL[address] WAS PERFORMED [address] 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 Mother No problems noted. Social History Housing: House Are you a primary career and guidance counselor to a significant other at home: No Do you presently have visiting nurse or other home services: No Alcohol intake: never Patient Tobacco Use Status: Never used Tobacco e-Cigarette/Vaping Use: Never Used service: No Current occupational status: disabled Cognitive needs: No Hearing needs: No Vision needs: No Review of Systems Const All systems reviewed & are unremarkable except as noted in HPI and below Physical Exam Vital Signs: Last Vital Signs Pulse 70 07/17/25 10:20 BP 109/59 L 07/17/25 10:20 BMI result Body Mass Index 27.1 Const General: no acute distress Nutritional Appearance: overweight Orientation/consciousness: patient oriented x3 Limitations: no limitations HEENT Head: Yes normal to inspection Ears: hearing grossly normal bilaterally Eyes Sclerae: sclerae normal Pupils: Equal, round and reactive pupils present Neck Neck: Yes normal visual inspection Chest Chest palpation & inspection: normal inspection of the chest Resp Effort & Inspection: normal respiratory effort Auscultation: clear to auscultation bilaterally Cardio Palpation: normal PMI Rate: regular rate Rhythm: regular rhythm Heart sounds: S1 normal heart sound present, S2 normal heart sound present and no murmurs GI Palpation (GI): Soft to palpation, nontender and No hepatosplenomegaly present Auscultation: normal bowel sounds Rectal Exam - Female: deferred Skin General skin exam: no rashes or lesions noted Neuro General: patient oriented x3, gait normal and moves all extremities Cranial nerves: Yes Equal, round and reactive pupils present Psych Appearance: grossly normal Mental Status: mental status grossly normal Assessment & Plan Assessment & Plan (1) Chronic GERD: Code(s): K21.9 - Gastro-esophageal reflux disease without esophagitis Category: Medical (2) Dysphagia: Code(s): R13.10 - Dysphagia, unspecified Category: Medical (3) Generalized abdominal pain: Code(s): R10.84 - Generalized abdominal pain Category: Medical (4) Diverticulosis: Code(s): K57.90 - Diverticulosis of intestine, part unspecified, without perforation or abscess without bleeding Category: Medical (5) Vitamin B12 deficiency anemia: Code(s): D51.9 - Vitamin B12 deficiency anemia, unspecified Category: Medical (6) Abdominal bloating: Code(s): R14.0 - Abdominal distension (gaseous) Category: Medical (7) Anemia: Code(s): D64.9 - Anemia, unspecified Category: Medical (8) Vitamin B12 deficiency anemia: Code(s): D51.9 - Vitamin B12 deficiency anemia, unspecified Category: Medical Plan 74 YF with DM, CAD, hyperlipidemia, low back pain, vitamin B12 deficiency seen in the Gi clinic for evaluation of abdominal pain (which is worse after eating), gas and bloating and chronic constipation Pt also complains of decreased appetite and early satiety and intermittent dysphagia to solids and liquids (even water) Wt loss of 8 lbs over the past year. Her symptoms may be related to diabetic gastroparesis, PUD, non ulcer dyspepsia, H Pylori infection or SIBO. Chronic constipation likely due to slow transit/constipation predominant IBS. Patient was advised to: 1. Schedule further evaluation with an upper endoscopy and colonoscopy. Both procedures and potential complications were reviewed with the patient. 2. Gastric emptying study - normal 3. Continue Pantoprazole 40 mg daily 4. Senna prn for constipation 07/17/25 Patient reports Pain, burning sensation after meals. Feels symptoms of GERD have worsened after EGD procedure. Complains of persistent post-prandial abdominal discomfort - as soon as she eats Also complains of Rt sided back pain - increased pain last week and uses hot water bottle with partial relief Taking Pantoprazole without significant change in her symptoms Denies diarrhea - has a BM 1-2 times a day - stools can be loose intermittently Pt advised FU labs and start taking probiotics FU appt in 4 months - scheduled 11/13/25 Orders: Orders C Reactive Protein 07/22/25 K21.9 - Gastro-esophageal reflux disease without esophagitis, D51.9 - Vitamin B12 deficiency anemia, unspecified, R14.0 - Abdominal distension (gaseous) Complete Blood Count Auto Diff 07/22/25 K21.9 - Gastro-esophageal reflux disease without esophagitis, D51.9 - Vitamin B12 deficiency anemia, unspecified, R14.0 - Abdominal distension (gaseous) TSH reflex Free T4 07/22/25 K21.9 - Gastro-esophageal reflux disease without esophagitis, D51.9 - Vitamin B12 deficiency anemia, unspecified, R14.0 - Abdominal distension (gaseous) Intrinsic Factor Antibodies 07/22/25 D51.9 - Vitamin B12 deficiency anemia, unspecified Hemoglobin A1c 07/22/25 D51.9 - Vitamin B12 deficiency anemia, unspecified Comprehensive Met. Panel 07/22/25 K21.9 - Gastro-esophageal reflux disease without esophagitis, D51.9 - Vitamin B12 deficiency anemia, unspecified, R14.0 - Abdominal distension (gaseous) Vitamin B12 07/22/25 K21.9 - Gastro-esophageal reflux disease without esophagitis, D51.9 - Vitamin B12 deficiency anemia, unspecified, R14.0 - Abdominal distension (gaseous) Prothrombin Time INR 07/22/25 K21.9 - Gastro-esophageal reflux disease without esophagitis, D51.9 - Vitamin B12 deficiency anemia, unspecified, R14.0 - Abdominal distension (gaseous) Calprotectin, Fecal 07/17/25 K21.9 - Gastro-esophageal reflux disease without esophagitis, D51.9 - Vitamin B12 deficiency anemia, unspecified, R14.0 - Abdominal distension (gaseous) Pancreatic Elastase-1 07/17/25 K21.9 - Gastro-esophageal reflux disease without esophagitis, D51.9 - Vitamin B12 deficiency anemia, unspecified, R14.0 - Abdominal distension (gaseous) IRON PROFILE 07/22/25 D64.9 - Anemia, unspecified Parietal Cell Antibody 07/22/25 D51.9 - Vitamin B12 deficiency anemia, unspecified Vitamin D 25-OH Total 07/22/25 D51.9 - Vitamin B12 deficiency anemia, unspecified Ferritin 07/22/25 D51.9 - Vitamin B12 deficiency anemia, unspecified Gastrin 07/22/25 D51.9 - Vitamin B12 deficiency anemia, unspecified Medications: New Lactobacillus rhamnosus GG (Culturelle) 1 cap PO DAILY 90 caps 1RF 90 days R14.0 - Abdominal distension (gaseous) pantoprazole 40 mg PO DAILY 90 tabs 1RF 90 days Changed From mecobalamin (vitamin B12) 1,000 mcg PO DAILY 30 days 30 tabs 3RF E53.8 - Deficiency of other specified B group vitamins To mecobalamin (vitamin B12) 1,000 mcg PO DAILY 90 tabs 1RF 90 days E53.8 - Deficiency of other specified B group vitamins Coding Level of Care Code Est Pt Level 4 (55767) Diagnoses Chronic GERD K21.9 Dysphagia R13.10 Generalized abdominal pain R10.84 Diverticulosis K57.90 Vitamin B12 deficiency anemia D51.9 Abdominal bloating R14.0 Anemia D64.9 Time Spent (min) 22
--- OUTSIDE RECORDS SUMMARY | 2025-07-17 12:02 | XMS_ITS | Clinical Summary ---
Author Organization [facility] Facility Address [address] [address] Care Team Providers Care Seasonal Clerk Name Role Phone Tierra Grace MD Primary Care Provider [phone] Allergies Active Allergy Reactions Criticality Noted Date [...] age to complete this topic Insurance Medicare [facility] Medicare [facility] Care Teams Seasonal Clerk Relationship Specialty Start Date End Date Tierra Grace MD [address] [place] [address] PCP - General 07/16/19
== END 2025-07-17 11:17 | disposition home or self-care (01) ==
LOC: HO.HGI 10:18
PROVIDERS: PCP Internal Medicine; Visit Provider Internal Medicine Gastroenterology
DX: K21.9 Gastro-esophageal reflux disease without esophagitis (principal); R13.10 Dysphagia, unspecified; R10.84 Generalized abdominal pain; K57.90 Diverticulosis of intestine, part unspecified, without perforation or abscess without bleeding; D51.9 Vitamin B12 deficiency anemia, unspecified; R14.0 Abdominal distension (gaseous); D64.9 Anemia, unspecified
CPT/HCPCS: 99214

== ENCOUNTER → 2025-07-17 10:17 | Outpatient (BNVA) | payer MEDICARE, SELFPAY | PROVIDERS: PCP Internal Medicine; Visit Provider Internal Medicine Gastroenterology | DX: K21.9 Gastro-esophageal reflux disease without esophagitis (principal); K57.90 Diverticulosis of intestine, part unspecified, without perforation or abscess without bleeding; M54.50 Low back pain, unspecified; R13.10 Dysphagia, unspecified; R10.84 Generalized abdominal pain; D51.9 Vitamin B12 deficiency anemia, unspecified; D64.9 Anemia, unspecified; Z79.01 Long term (current) use of anticoagulants; Z95.5 Presence of coronary angioplasty implant and graft | CPT/HCPCS: 99212 ==

== ENCOUNTER 2025-07-22 09:59 | Outpatient (AMB) | payer MEDICARE, SELFPAY ==
[2025-07-22 10:05] VITALS: BP 126/64; PULSE 81; RESP 16; TEMP 36.7; O2SAT 99; BMI 26.7
--- NOTE | 2025-07-22 10:05 | A.OFFVIS_ITS ---
Intake Vital Signs 07/22/25 10:05 Height 5 ft 2 in Weight 146 lb BMI 26.7 BP 126/64 Blood Pressure Location Rt brachial Position Sitting Respiration 16 Pulse 81 Pulse Source Pulse Oximeter Temp 98.0 F Temp Source Oral Pulse Oximetry (%) 99 Oxygen Delivery Method Room Air Intake Visit Reasons: SWV Allergies methenamine Allergy (Severe, Verified 07/22/25 10:05) Vomiting codeine (Codeine) Allergy (Intermediate, Verified 07/22/25 10:05) VOMITING aspirin (Aspirin) Adverse Reaction (Mild, Verified 07/22/25 10:05) DIZZINESS nitrofurantoin (From Macrobid) Adverse Reaction (Mild, Verified 07/22/25 10:05) Hyperkalemia Medication List - Last Reconciled 07/22/25 by Tierra Grace MD amlodipine 2.5 mg PO DAILY aspirin 81 mg PO DAILY blood sugar diagnostic (FreeStyle Lite Strips) As directed to check blood sugars once a day blood-glucose meter (FreeStyle Lite Meter kit) As directed to check blood sugars once a day cholecalciferol (vitamin D3) 25 mcg PO DAILY 30 days famotidine-Ca carb-mag hydrox 10-800-165 mg (Pepcid Complete) 1 tab PO DAILY PRN fluticasone propionate 50 mcg/actuation (Flonase Allergy Relief) 1 spray intranasal DAILY 30 days Lactobacillus rhamnosus GG (Culturelle) 1 cap PO DAILY 90 days lancets (FreeStyle Lancets) As directed to check blood sugars once a day levothyroxine 75 mcg (1.5 x 50 mcg) PO DAILY 90 days linagliptin (Tradjenta) 5 mg PO DAILY loratadine (Claritin) 10 mg PO DAILY mecobalamin (vitamin B12) 1,000 mcg PO DAILY 90 days melatonin 1-2 tab orally bedtime PRN; 30 days metformin 1,000 mg PO BID 90 days metoprolol tartrate 25 mg PO BID 90 days mirabegron ER (Myrbetriq) 50 mg PO DAILY nitroglycerin 0.4 mg sublingual DIRECTED PRN ondansetron 4 mg PO Q8H PRN 10 days pantoprazole 40 mg PO DAILY 90 days rosuvastatin 20 mg PO BEDTIME 90 days sennosides 8.6 mg PO BID sertraline 25 mg PO DAILY HPI SWV HPI Details History of Present Illness The patient is a 74-year-old female presenting for follow-up and management of chronic conditions. and one acute problem Hypertension: - Blood pressure was 126/64 mmHg at the visit. - The patient states she did not take he r amlodipine 2.5 mg the previous night due to her blood pressure being low. - She reports starting a new blood press ure medication, by Dr. Garcia cardio, amlodipine 2.5 mg Anemia: - A blood test in April revealed a hemo globin level of 10.6, which was noted to be low. - This level was consistent with results from previous tests done in February and March. - Another provider also recommended rech ecking the hemoglobin. Patient has already seen Gastroenterology Dr. Nguyen Chronic Kidney Disease: - The patient has a kidney problem and i s under the care of a dry ice machine operator. Dr. Whitlock Surgical Scar Complication: - The patient has a surgical scar in fro nt of chest, with thickening at the end, that is reportedly getting bigger and is painful off and on. - she also have a hard lump right axilla for which she was referred to a surgery but patient cancel the appointment as she want to see a female surgeon She will get back to me with name of the surgeon she want to see. Diabetes Mellitus: - The patient's diet was discussed in context of diabetes management. - She was advised to avoid bread (roti) and can consume small amounts of rice, meat (kebabs), yogurt, and vegetables. Medical History: - Hypertension - Anemia - Chronic kidney disease - Diabetes mellitus - Constipation - Adverse drug reaction (diarrhea, verti go) to a medication prescribed by gastroenterology. Diagnostic Results: - Lab studies: A blood test in April sh owed hemoglobin of 10.6 g/dL. Problem List - Hypertension - Anemia - Chronic kidney disease - Diabetes mellitus - Constipation - Surgical scar complication - Preventative care: Vaccinations (influ alayna, pneumonia) Plan - A blood test was ordered to be done to day to re-evaluate the patient's hemoglobin level. - The patient was advised to see a surge on for evaluation of the enlarging surgical scar. And right axillary lump, she will get back to me with the name of surgeon she want to see - Dietary recommendations were provided for diabetes management, including avoiding bread, eating small amounts of rice, and consuming meat, yogurt, and vegetables. - For constipation, the use of a nightti me laxative to promote a morning bowel movement was discussed. - Recommended the patient get influenza and pneumonia vaccinations at a local pharmacy Review of Systems - General: No fever no chills - Neurological: No headaches no dizziness - Ear nose throat: No sore throat no hearing difficulty no ear pain - Cardiovascular: No syncope, no chest pain, no palpitations - Gastrointestinal: No nausea vomiting or diarrhea Physical Exam General: No acute distress HEENT: No acute findings Neck: Supple Respiratory system: Able to talk in full sentences, no audible wheeze Cardiovascular: S1-S2 regular in rate and rhythm Chest: Healed midline scar at the end thickening of scar tissue without any inflammation or discharge Axillary: Right axilla with hard nodule size of neely without any pain Gastrointestinal: No pain Extremities: No new findings 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: Alert awake oriented x3 motor intact, balance is fine Skin: Normal turgor [facility] Medical History Hyperlipidemia associated with type 2 diabetes mellitus Hyperlipidemia Type 2 diabetes mellitus Depression Mild cognitive impairment Arthritis Fatty liver On beta corona at home CAD (coronary artery disease) Diverticulosis Allergy to food dye Hypertension, essential Constipation by delayed colonic transit 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 Mother No problems noted. Social History Housing: House Are you a primary housekeeper child care to a significant other at home: No Do you presently have visiting nurse or other home services: No Alcohol intake: never Patient Tobacco Use Status: Never used Tobacco e-Cigarette/Vaping Use: Never Used service: No Current occupational status: disabled Cognitive needs: No Hearing needs: No Vision needs: No Questionnaire Medicare Wellness Checkup [age] What gender do you identify with?: female During the past 4 weeks, how much have you been bothered by emotional problems such as feeling anxious, depressed, irritable, sad or downhearted, and blue?: slightly During the past 4 weeks, has your physical & emotional health limited your social activities with family, friends, neighbors, or groups?: moderately During the past 4 weeks, how much bodily pain have you generally had?: mild pain During the past 4 weeks, was someone available to help you if you needed & wanted help?: yes, as much as I wanted During the past 4 weeks, what was the hardest physical activity you could do for at least 2 minutes?: moderate Can you get to places out of walking distance without help? (For eg., can you travel alone on buses, taxis or drive your car?): Yes Can you go shopping for groceries or clothes without someone's help?: Yes Can you prepare your own meals?: Yes Can you do your housework without help?: No Because of any health problems, do you need the help of another person with your personal care needs such as eating, bathing, dressing or getting around the house?: No Can you handle your own money without help?: Yes During the past 4 weeks, how would you rate your health in general?: poor During the past 4 weeks how have things been going for you?: good & bad parts about equal Are you having difficulties driving your car?: no Do you always fasten your seat belt when you are in a car?: yes, usually During past 4 weeks, have you been bothered by the following: never: Sexual problems? and Problems using the telephone?, seldom: Trouble eating well? and Teeth or denture problems?, sometimes: Falling or dizzy when standing up and always: Tiredness or fatigue? Have you fallen 2 or more times in the past year?: No Are you afraid of falling?: Yes Are you a smoker?: no During the past 4 weeks, how many drinks of wine, beer, or other alcoholic beverages did you have?: no alcohol at all Do you exercise for about 20 minutes 3 or more times a week?: no, I usually do not exercise this much Have you been given information to help with the following?: no: Hazards in your house that might hurt you? and no: Keeping track of your medications? How often do you have trouble taking medicines the way you have been told to take them?: I always take medicine as prescribed How confident are you that you can control & manage most of your health problems?: somewhat confident What is your race?: Other Mini Mental State Exam (MMSE) Orientation What is the (year) (season) (date) (day) (month)?: year, season, date, day and month Where are we (state) (county) (town or city) (hospital) (floor)?: state, county, town or city, hospital/clinic and floor Registration Name of 3 unrelated objects clearly and slowly, then ask patient to repeat all 3 of them. (1st repeat determines score. Make sure they can repeat all three): object 1, object 2 and object 3 Attention & Calculation (CHOOSE ONE) Spell WORLD backwards (DLROW): 2 letters Recall Ask patient to repeat the 3 items from question #3.: object 1 and object 3 Language Show patient a wristwatch & ask what it is. Repeat for pencil.: watch and pencil Ask the patient to repeat the phrase 'No ifs, ands, or buts' after you.: correct Ask the patient to 'take a piece of paper with their right hand' 'fold paper in half' 'place paper on floor': take paper in right hand and fold paper in half Print the sentence 'CLOSE YOUR EYES' on a piece. If patient actually closes eyes then score.: followed written direction Score Score: 23 Activity of Daily Living Bathing - sponge bath, tub bath or shower: receives no assistance (gets in/out by self, if usual bathing means Dressing - getting clothes from closets & drawers, including inner/outer garments & fasteners.: gets clothes & gets completely dressed without help Toileting - going to the 'toilet room' for urine/bowel elimination & cleaning self/arranging clothes: goes to toilet room, cleans self, arranges clothes without help Transfer: moves in & out of bed and chair without help (may use support object) Continence: controls urination/bowel movements completely by self Feeding: feeds self without help Total Score: 0 Information obtained from: patient Using telephone: independent Traveling: independent Shopping: independent Preparing meals: independent Housework: needs assistance Taking medicine: independent Managing money: needs assistance PHQ-9 Over the last 2 weeks, how often have you been bothered by any of the following problems? 1. Little interest or pleasure in doing things: more than half the days 2. Feeling down, depressed, or hopeless: more than half the days 3. Trouble falling or staying asleep, or sleeping too much: nearly every day 4. Feeling tired or having little energy: more than half the days 5. Poor appetite or overeating: more than half the days 6. Feeling bad about yourself - or that you are a failure or have let yourself or your family down: not at all 7. Trouble concentrating on things, such as reading the newspaper or watching television: nearly every day 8. Moving or speaking so slowly that other people could have noticed. Or the opposite - being so fidgety or restless that you have been moving around a lot more than usual: not at all 9. Thoughts that you would be better off or of hurting yourself in some way: not at all Total score: 14 Depression Screening Interpretation: Positive Depression Screening Follow-up: Existing condition and In treatment Depression Screening Done: Yes 43408 - PHQ-9 Billing: Yes Source: Developed by Drs. Miki Monge, Marisela Bazzi, Syed Ramires and colleagues, with an educational yamilka from [employer]. Physical Exam Vital Signs: Last Vital Signs Temp 98.0 F 07/22/25 10:05 Pulse 81 07/22/25 10:05 Resp 16 07/22/25 10:05 BP 126/64 07/22/25 10:05 Pulse Ox 99 07/22/25 10:05 Oxygen Delivery Method Room Air 07/22/25 10:05 BMI result Body Mass Index 26.7 Assessment & Plan Assessment & Plan (1) Medicare annual wellness visit, subsequent: Code(s): Z00.00 - Encounter for general adult medical examination without abnormal findings (2) Axillary lump: Code(s): R22.30 - Localized swelling, mass and lump, unspecified upper limb Qualifiers: Laterality: right Qualified Code(s): R22.31 - Localized swelling, mass and lump, right upper limb (3) Vitamin B12 deficiency anemia: Code(s): D51.9 - Vitamin B12 deficiency anemia, unspecified Qualifiers: Vitamin B12 deficiency anemia type: other B12 deficiency Qualified Code(s): D51.8 - Other vitamin B12 deficiency anemias (4) CKD (chronic kidney disease) stage 3, GFR 30-59 ml/min: Code(s): N18.30 - Chronic kidney disease, stage 3 unspecified Qualifiers: Chronic kidney disease stage 3 subtype: stage 3a (GFR 45-59) Qualified Code(s): N18.31 - Chronic kidney disease, stage 3a (5) Chronic GERD: Code(s): K21.9 - Gastro-esophageal reflux disease without esophagitis (6) Diabetes 1.5, managed as type 2: Code(s): E13.9 - Other specified diabetes mellitus without complications (7) Lipid disorder: Code(s): E78.9 - Disorder of lipoprotein metabolism, unspecified (8) Stable angina: Code(s): I20.8 - Other forms of angina pectoris (9) Coronary artery disease: Code(s): I25.10 - Atherosclerotic heart disease of [place] coronary artery without angina pectoris Qualifiers: Associated angina: with stable angina Coronary Disease-Associated Artery/Lesion type: [place] artery [place] vs. transplanted heart: [place] heart Qualified Code(s): I25.118 - Atherosclerotic heart disease of [place] coronary artery with other forms of angina pectoris (10) Anxiety disorder with panic attacks: Code(s): F41.9 - Anxiety disorder, unspecified (11) Depression, major, recurrent: Code(s): F33.9 - Major depressive disorder, recurrent, unspecified Qualifiers: Active/Remission status: in partial remission Qualified Code(s): F33.41 - Major depressive disorder, recurrent, in partial remission (12) Environmental allergies: Code(s): Z91.09 - Other allergy status, other than to drugs and biological substances Plan Problem List - Hypertension - Anemia - Chronic kidney disease - Diabetes mellitus - Constipation - Surgical scar complication - Preventative care: Vaccinations (influenza, pneumonia) Plan - A blood test was ordered to be done today to re-evaluate the patient's hemo globin level. - The patient was advised to see a surgeon for evaluation of the enlarging surgical scar. And right axillary lump, she will get back to me with the name of surgeon she want to see - Dietary recommendations were provided for diabetes management, including avoiding bread, eating small amounts of rice, and consuming meat, yogurt, and vegetables. - For constipation, the use of a nighttime laxative to promote a morning bowel movement was discussed. - Recommended the patient get influenza and pneumonia vaccinations at a local pharmacy Quality Reporting (2019) Depression/Bipolar (159/160/161/177) PHQ-9: Total score: 14 Coding Level of Care Code Medicare Subsequent (G0439) Est Pt Level 3 (18636) Diagnoses Medicare annual wellness visit, subsequent Z00.00 Mass of right axilla R22.31 Laterality: right Other vitamin B12 deficiency anemia D51.8 Vitamin B12 deficiency anemia type: other B12 deficiency Stage 3a chronic kidney disease N18.31 Chronic kidney disease stage 3 subtype: stage 3a (GFR 45-59) Chronic GERD K21.9 Diabetes 1.5, managed as type 2 E13.9 Lipid disorder E78.9 Stable angina I20.8 Coronary artery disease of [place] artery of [place] heart with stable angina pectoris I25.118 Associated angina: with stable angina Coronary Disease-Associated Artery/Lesion type: [place] artery [place] vs. transplanted heart: [place] heart Anxiety disorder with panic attacks F41.9 Recurrent major depressive disorder, in partial remission F33.41 Active/Remission status: in partial remission Environmental allergies Z91.09 CPT Codes Advance Care Planning - Advance Care Planning discussion: On file, no changes ([id number]) Advance Care Planning - Time spent: 1-15 minutes, on File ([id number]) Additional Codes PHQ-9 - 30773 - PHQ-9 Billing: Yes ([id number]) Advance Care Planning Advance Care Planning discussion: On file, no changes Forms completed: Health Care Proxy and MOLST Time spent: 1-15 minutes, on File Actual minutes spent: 5
== END 2025-07-22 10:42 | disposition home or self-care (01) ==
LOC: HO.HMCC 09:59
PROVIDERS: PCP Internal Medicine; Visit Provider Internal Medicine
DX: Z00.00 Encounter for general adult medical examination without abnormal findings (principal); N18.31 Chronic kidney disease, stage 3a; E13.9 Other specified diabetes mellitus without complications; R22.31 Localized swelling, mass and lump, right upper limb; D51.8 Other vitamin B12 deficiency anemias; K21.9 Gastro-esophageal reflux disease without esophagitis; E78.9 Disorder of lipoprotein metabolism, unspecified; I20.89 Other forms of angina pectoris; I25.118 Atherosclerotic heart disease of native coronary artery with other forms of angina pectoris; F41.9 Anxiety disorder, unspecified; F33.41 Major depressive disorder, recurrent, in partial remission; Z91.09 Other allergy status, other than to drugs and biological substances

== ENCOUNTER 2025-07-22 09:59 | Outpatient (REF) | payer MEDICARE, SELFPAY ==
[2025-07-22 13:44] LABS: MANUAL DIFF FLAG NO
[2025-07-22 13:51] LABS: Hematocrit 35.2 % (37.0-47.0); Hemoglobin 11.2 g/dl (12.0-16.0); Imm Gran Abs Auto 0.02 X10*3/uL (0.00-0.03); Imm Gran Pct Auto 0.2 % (0.0-0.4); Lymphocytes Absolute Auto 2.1 X10*3/uL (1.2-4.9); Mean Corpuscular HGB Conc 31.8 g/dl (31.0-35.0); Mean Corpuscular Hemoglobin 27.5 pg (27.0-33.0); Mean Corpuscular Volume 86.5 fL (80.0-98.0); NRBC Abs Auto 0.000 X10*3/uL (0.0-0.012); NRBC Pct Auto 0.0 /100WBC (0.0-0.2); Platelet Count 302 X10*3/uL (160-400); Red Blood Count 4.07 X10*6/uL (4.20-5.50); White Blood Count 8.2 X10*3/uL (4.8-10.8)
[2025-07-22 13:55] LABS: INTERNATIONAL NORM RATIO 1.0 (0.9-1.1); Prothrombin Time 12.4 SEC (11.2-13.5)
[2025-07-22 14:18] LABS: Ferritin 10 ng/mL (10-250)
[2025-07-22 14:23] LABS: Alanine Aminotransferase 13 U/L (0-31); Albumin Level 4.4 g/dL (3.5-5.0); Alkaline Phosphatase 68 U/L (39-117); Anion Gap 12 (12-20); Aspartate Amino Transferase 24 U/L (5-31); Blood Urea Nitrogen 23 mg/dL (9-16); Calcium 9.6 mg/dL (8.4-10.2); Carbon Dioxide 23 mmol/L (22-29); Chloride 108 mmol/L (96-108); Estimated Glomerular Filt Rate 31; Iron 56 mcg/dL (30-160); Percent Iron Saturation 15 % (15-50); Potassium 5.4 mmol/L (3.3-5.1); Sodium 138 mmol/L (135-145); Total Iron Binding Capacity 368 mcg/dL (228-428); Total Protein 7.6 g/dL (6.5-8.0); Unsaturated Iron Binding 312 ug/dL
[2025-07-22 14:27] LABS: Vitamin B12 208 pg/mL (200-900)
[2025-07-25 18:04] LABS: Intrinsic Factor Antibodies Negative (Negative)
== END 2025-07-22 10:00 | disposition home or self-care (01) ==
LOC: HO.HMGCLDS 09:59
PROVIDERS: Absent Provider Internal Medicine Gastroenterology; PCP Internal Medicine; Visit Provider Internal Medicine
DX: R14.0 Abdominal distension (gaseous) (principal); D51.9 Vitamin B12 deficiency anemia, unspecified; K21.9 Gastro-esophageal reflux disease without esophagitis; R10.84 Generalized abdominal pain; E13.9 Other specified diabetes mellitus without complications; N18.31 Chronic kidney disease, stage 3a; I10 Essential (primary) hypertension; K59.00 Constipation, unspecified; I25.118 Atherosclerotic heart disease of native coronary artery with other forms of angina pectoris; F33.41 Major depressive disorder, recurrent, in partial remission; Z91.09 Other allergy status, other than to drugs and biological substances; R22.31 Localized swelling, mass and lump, right upper limb; Z13.31 Encounter for screening for depression
CPT/HCPCS: 36415; 80053; 82306; 82607; 82728; 82941; 83036; 83516; 83540; 84443; 85025; 85610; 86140; 86340; 96127; 99213

== ENCOUNTER 2025-07-29 10:40 | Outpatient (REF) | payer MEDICARE, SELFPAY ==
[2025-08-04 19:28] LABS: Calprotectin, Fecal 205 mcg/g
== END 2025-07-29 10:41 | disposition home or self-care (01) ==
LOC: HO.HMGCLNP 10:40
PROVIDERS: PCP Internal Medicine; Visit Provider Internal Medicine Gastroenterology
DX: K21.9 Gastro-esophageal reflux disease without esophagitis (principal); R14.0 Abdominal distension (gaseous); D51.9 Vitamin B12 deficiency anemia, unspecified
CPT/HCPCS: 82656; 83993

== ENCOUNTER 2025-08-04 13:59 | Outpatient (AMB) | payer MEDICARE, SELFPAY ==
[2025-08-04 14:04] VITALS: BP 110/68; PULSE 77; O2SAT 97; BMI 27.1
--- NOTE | 2025-08-04 14:04 | MHC.OFFVIS ---
Vital Signs 08/04/25 14:04 Height 5 ft 2 in Weight 148 lb 6 oz BMI 27.1 BP 110/68 Blood Pressure Location Rt brachial Position Sitting Pulse 77 Pulse Source Pulse Oximeter Pulse Oximetry (%) 97 Oxygen Delivery Method Room Air Intake Visit Reasons: 4mnth follow up (Need French aerial photograph interpreter) Intake Note: Follow up Mild cognitive impairment of uncertain or unknown etiology Can Line Examiner Required: Yes Accompanied by: Son Allergies methenamine Allergy (Severe, Verified 08/04/25 14:04) Vomiting codeine (Codeine) Allergy (Intermediate, Verified 08/04/25 14:04) VOMITING aspirin (Aspirin) Adverse Reaction (Mild, Verified 08/04/25 14:04) DIZZINESS nitrofurantoin (From Macrobid) Adverse Reaction (Mild, Verified 08/04/25 14:04) Hyperkalemia Medication List - Last Reconciled 08/04/25 by Dania Duff MD amlodipine 2.5 mg PO DAILY aspirin 81 mg PO DAILY blood sugar diagnostic (FreeStyle Lite Strips) As directed to check blood sugars once a day blood-glucose meter (FreeStyle Lite Meter kit) As directed to check blood sugars once a day cholecalciferol (vitamin D3) 25 mcg PO DAILY 30 days famotidine-Ca carb-mag hydrox 10-800-165 mg (Pepcid Complete) 1 tab PO DAILY PRN fluticasone propionate 50 mcg/actuation (Flonase Allergy Relief) 1 spray intranasal DAILY 30 days Lactobacillus rhamnosus GG (Culturelle) 1 cap PO DAILY 90 days lancets (FreeStyle Lancets) As directed to check blood sugars once a day levothyroxine 75 mcg (1.5 x 50 mcg) PO DAILY 90 days linagliptin (Tradjenta) 5 mg PO DAILY loratadine (Claritin) 10 mg PO DAILY mecobalamin (vitamin B12) 1,000 mcg PO DAILY 90 days melatonin 1-2 tab orally bedtime PRN; 30 days memantine 7 mg PO DAILY metformin 1,000 mg PO BID 90 days metoprolol tartrate 25 mg PO BID 90 days mirabegron ER (Myrbetriq) 50 mg PO DAILY nitroglycerin 0.4 mg sublingual DIRECTED PRN ondansetron 4 mg PO Q8H PRN 10 days pantoprazole 40 mg PO DAILY 90 days rosuvastatin 20 mg PO BEDTIME 90 days sennosides 8.6 mg PO BID sertraline 50 mg PO DAILY HPI Comments Details: 74 y/o female patient with HTN, CAD, and DM comes for follow up.she is concerned about Alzheimers as her older sister ( 88) was diagnosed with dementia she could not tolerate aricept. PSG was normal she went to [place] to visit her daughter for 1 1/2 years - feels better since then . she has 2 daughters that live in [place] - and she feels she will be better there.Mood is stable when she is busy . She could not continue cognitive therapy. She drives to go grocery shopping. She cooks and independent for all ADLs. Her daughter manages bills and fiances. She goes to [facility] for exercise. She has hx of depression. she is sleeping better now . she takes melatonin as needed. [facility] Medical History Hyperlipidemia associated with type 2 diabetes mellitus Hyperlipidemia Type 2 diabetes mellitus Depression Mild cognitive impairment Arthritis Fatty liver On beta corona at home CAD (coronary artery disease) Diverticulosis Allergy to food dye Hypertension, essential Constipation by delayed colonic transit 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 Mother No problems noted. Social History Housing: House Are you a primary continuum of care manager to a significant other at home: No Do you presently have visiting nurse or other home services: No Alcohol intake: never Patient Tobacco Use Status: Never used Tobacco e-Cigarette/Vaping Use: Never Used service: No Current occupational status: disabled Cognitive needs: No Hearing needs: No Vision needs: No Physical Exam Vital Signs: Last Vital Signs Pulse 77 08/04/25 14:04 BP 110/68 08/04/25 14:04 Pulse Ox 97 08/04/25 14:04 Oxygen Delivery Method Room Air 08/04/25 14:04 BMI result Body Mass Index 27.1 Const General: cooperative Orientation/consciousness: oriented to person and oriented to place Resp Effort & Inspection: normal respiratory effort and able to speak in complete sentences Neuro General: oriented to person and oriented to place Cranial nerves: Yes CN's II-XII intact bilaterally Gait exam (Neuro): Normal gait present Motor exam (neuro): 5/5 motor strength present throughout Psych Appearance: grossly normal Mental Status: mental status grossly normal Assessment & Plan Assessment & Plan (1) Mild cognitive impairment: Code(s): G31.84 - Mild cognitive impairment of uncertain or unknown etiology Category: Medical Plan She had severe GI side effects with donepezil I will trial her on mementine XR 7 mg and titrate to 28 mg continue sertraline 50mg qd Continue melatonin 3 mg-6mg qHS for sleep. Cognitive therapy Continue to do daily physical activities, increase social and cognitive activities. Medications: New memantine 7 mg PO DAILY 30 ea 0RF Coding Level of Care Code Complex visit Add On G2211 Diagnoses Mild cognitive impairment G31.84
== END 2025-08-04 14:41 | disposition home or self-care (01) ==
LOC: HO.HSMS 14:00
PROVIDERS: PCP Internal Medicine; Visit Provider Psychiatry & Neurology Neurology
DX: G31.84 Mild cognitive impairment of uncertain or unknown etiology (principal)
CPT/HCPCS: 99213; G2211

== ENCOUNTER → 2025-08-04 13:59 | Outpatient (BNVA) | payer MEDICARE, SELFPAY | PROVIDERS: PCP Internal Medicine; Visit Provider Psychiatry & Neurology Neurology | DX: G31.84 Mild cognitive impairment of uncertain or unknown etiology (principal); Z79.82 Long term (current) use of aspirin; F33.9 Major depressive disorder, recurrent, unspecified | CPT/HCPCS: 99212 ==

== ENCOUNTER → 2025-08-14 08:19 | Outpatient (REF) | payer MEDICARE, SELFPAY ==
--- NOTE | ~2025-08-14 | NM_ITS ---
EXAMINATION: [place] RADIONUCLIDE SOLID FOOD GASTRIC EMPTYING 4-HOUR STUDY CLINICAL INFORMATION: R68.81 - Early satiety COMPARISON: There are no prior studies available for comparison. TECHNIQUE: A standard meal consisting of 4 oz of Egg Beaters brand tagged with 0.95 mCi Tc-99m Sulfur Colloid, 6 oz water and 2 slices of toast with jelly was administered orally to the patient. Images were obtained using a dual head gamma camera in the anterior and posterior projections over of the stomach immediately post ingestion and at hourly intervals up to 4 hours post ingestion. The anterior and posterior counts at each time interval were averaged using the geometric mean and expressed as percentage of the immediate post ingestion counts. FINDINGS: There is visualization of activity in the stomach immediately post ingestion. As the study progresses, there is clearance of activity from the stomach and visualization of progressively increasing small bowel activity. Retention in the stomach at each time interval was: 1 hour 82% (normal 37%-90%) 2 hours 69% (normal 30%-60%) 3 hours 59% 4 hours 43% (normal 0%-10%) W[place]/W[place] gastric emptying study IMPRESSION: Delayed gastric emptying. For solid meal, rapid gastric emptying is less than 30% at 60 minutes. Delayed gastric emptying criteria is more than 60% remaining at 120 minutes or more than 10% at 240 minutes. The 4-hour value is the best discriminator of a normal or abnormal result. Gastric emptying study grading per JNMT Consensus Recommendations in 2008 (https://tech.snmjournals.org/content/36/1/44) Grade 1 (mild retention): 11-20% at 4h Grade 2 (moderate retention): 21-35% at 4h Grade 3 (severe retention): 36-50% at 4h Grade 4 (very severe retention): >50% retention at 4h Electronically signed by: Miki Ye MD 08/14/2025 01:46 PM [facility] [place]
--- OUTSIDE RECORDS SUMMARY | 2025-08-14 08:37 | XMS_ITS | Clinical Summary ---
Author Organization [facility] Facility Address [address] [address] Care Team Providers Care Spinneret Person Name Role Phone Tierra Graec MD Primary Care Provider [phone] Allergies Active Allergy Reactions Criticality Noted Date [...] Medicare [facility] Care Teams Spinneret Person Relationship Specialty Start Date End Date Tierra Grace MD [address] [place] [address] PCP - General 07/16/19
== END ==
LOC: HO.NUCMED 08:19
PROVIDERS: PCP Internal Medicine; Visit Provider Internal Medicine Gastroenterology
DX: R68.81 Early satiety (principal); R63.4 Abnormal weight loss
CPT/HCPCS: 78264; A9541

== ENCOUNTER → 2025-08-14 08:22 | Outpatient (BNV) | payer MEDICARE, SELFPAY | PROVIDERS: PCP Internal Medicine; Visit Provider Radiology Diagnostic Radiology | DX: K31.84 Gastroparesis (principal) | CPT/HCPCS: 78264 ==

== ENCOUNTER 2025-09-10 11:51 | Outpatient (REF) | payer MEDICARE, SELFPAY ==
[2025-09-10 13:37] LABS: Anion Gap 11 (12-20); Blood Urea Nitrogen 21 mg/dL (9-16); Calcium 9.4 mg/dL (8.4-10.2); Carbon Dioxide 25 mmol/L (22-29); Chloride 108 mmol/L (96-108); Estimated Glomerular Filt Rate 35; Potassium 4.7 mmol/L (3.3-5.1); Sodium 139 mmol/L (135-145)
== END 2025-09-10 11:52 | disposition home or self-care (01) ==
LOC: HO.LAB 11:51
PROVIDERS: PCP Internal Medicine; Visit Provider Internal Medicine Hypertension Specialist
DX: N18.31 Chronic kidney disease, stage 3a (principal); E87.5 Hyperkalemia
CPT/HCPCS: 36415; 80048